=== PATIENT | male | born 1950 | race American Indian/Alaskan Native ===

== ENCOUNTER → 2019-03-29 | Day surgery (SDC) | payer OTHER ==
[2019-03-29 10:20] VITALS: BMI 27.8
[2019-03-29 10:23] LABS: MPV 9.2 fL (7.6-11.3)
--- OUTSIDE RECORDS SUMMARY | 2019-03-29 10:59 | XMS REPORT | Continuity of Care Document ---
:1950 Author Organization Interface Problems Problem Status Onset Classification Date Comments Source Date Reported 805.4 - FX LUMBAR Active 03/02/20 JESENIA JENKINS 15 [place] HISTORY OF Active 11/05/19 Condition 12/17/2014 [facility] HYPERTENSION 15 Neuro HISTORY OF SEIZURE Active 11/05/19 Condition 12/17/2014 [facility] DISORDER 15 Neuro CLOSED FRACTURE OF Active 11/03/19 Condition 12/17/2014 [facility] LUMBAR VERTEBRA 15 Neuro WITHOUT MENTION OF SPINAL CORD INJURY UNSTABLE L4 BURST Active 09/22/[address] Agitation Active Problem [facility]/21[facility] Aphasia Active Problem 03/21/2019 [facility] At risk for falls Active Problem 03/21/2019 [facility] Meningioma Active Problem 03/21/2019 [facility] BPH - Benign Resolved Problem 03/21/2019 JESENIA prostatic Jama Lozada [facility] Brain tumor Active Problem 03/21/2019 [facility] CVA - Active Problem 03/21/2019 JESENIA Cerebrovascular Jama Lozada [facility] Emotional lability Active Problem 03/21/2019 [facility] Encephalopathy Active Problem 03/21/2019 [facility] Enlarged prostate Resolved Problem 03/21/2019 [facility] Expressive aphasia Active Problem 03/21/2019 [facility] Hypertension Active Problem 03/21/2019 [facility] Impaired cognition Active Problem 03/21/2019 [facility] Impulsive Active Problem 03/21/2019 JESENIA Lozada,[facility] Seizure Active Problem 03/21/2019 JESENIA Lozada,[facility] Urinary retention Active Problem 03/21/2019 JESENIA Lozada,[facility] 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 Hydrocephalus Active Problem 03/21/2019 [facility] FX LUMBAR Active [facility] Medications Medication Details Route Status Patient Ordering Order Source Instructions Provider Date COUMADIN 1 MG 1 tab po qd Active [facility] TABS 2014 Neuro COUMADIN 6 MG 1 tab po qd prn Active [facility] TABS (as directed) 2014 Neuro FLOMAX 0.4 MG 1 cap po qd Active [facility] CAPS 2014 Neuro ATORVASTATIN 1 tab po qhs Active [facility] CALCIUM 20 MG 2014 Neuro TABS FINASTERIDE 5 1 tab po qd Active [facility] MG TABS 2014 Neuro TRIAMCINOLONE apply to the Active [facility] ACETONIDE 0.1 % affected area bid 2014 Neuro CREA prn rash ATORVASTATIN 1 tab po qhs Active [facility] CALCIUM 20 MG 2015 Neuro TABS Coumadin 10 mg, 1 tab, Inactive 09/26[facility] Route: PO, Drug 2013 Medical form: TAB, Q5PM, [facility] Dosing Weight 90.909, kg, Start date: 09/26/14 17:00:00, Duration: 1 doses or times, Stop date: 09/26/14 17:00:00Notes: Nurse to ensure documentation of patient education per anticoagulation policy. Avoid large intake of vitamin-K containing foods diet. (Same As: Coumadin) tramadol 50 mg=1 tab, PO, Active 09/26[facility] [place] hydrochloride Q6H, Pain, # 40 2013 Medical 50 MG Oral tab, 0 Refill(s) [facility] Tablet Oxycodone 5 mg, 1 tab, Inactive 09/26[facility] Hydrochloride 5 Route: PO, Drug 2013 Medical MG Oral Tablet form: TAB, ONCE, Center Dosing Weight 90.909, kg, Start date: 09/25/14 21:13:00, Stop date: 09/25/14 21:13:00Notes: (Same as: Roxicodone) AUGMENTIN 1 tab po bid No Longer cher 875-125 MG TABS Active 2013 Neuro BENTYL 20 MG 1 tab po q6h No Longer [facility] TABS Active 2013 Neuro TRAMADOL HCL 50 1 tab po q6h prn No Longer 09/26/ [facility] MG TABS pain Active 2013 Neuro TRAMADOL HCL 50 1 tab po q6h prn No Longer 09/26/ [facility] MG TABS pain Active 2013 Neuro Coumadin 10 mg, 2 tab, Inactive [facility] Route: PO, Drug 2013 Medical form: TAB, Q5PM, Center Dosing Weight 90.909, kg, Start date: 09/25/14 17:00:00, Duration: 1 doses or times, Stop date: 09/25/14 17:00:00Notes: Nurse to ensure documentation of patient education per anticoagulation policy. Avoid large intake of vitamin-K containing foods diet. (Same As: Coumadin) Coumadin 6 mg, 1 tab, Inactive [facility] Route: PO, Drug 2013 Medical form: TAB, ONCE, Center Dosing Weight 90.909, kg, Start date: 09/24/14 18:36:00, Stop date: 09/24/14 18:36:00Notes: (Same As: Coumadin) atorvastatin 20 mg, 1 tab, No Longer [facility] Route: PO, Drug Active 2013 Medical form: TAB, Center Bedtime, Dosing Weight 90.909, kg, Start date: 09/23/14 21:00:00, Duration: 30 day, Stop date: 10/22/14 21:00:00Notes: (Same As: Lipitor) Iohexol 95 mL, Route: Inactive [facility] IVP, Drug Form: 2013 Medical SOLN, Dosing Center Weight 90.909, kg, ONCALL, STAT, Start date: 09/23/14 14:51:00, Duration: 1 doses or times, Dose=2.2ml/kg, Max otcm=894sd -- "To be infused by Radiology Staff ONLY"Special Instructions: Dose=2.2ml/kg, Max dvft=201fn -- "To be infused by Radiology Staff ONLY"Notes: (Same as:Omnipaque 350). Dicyclomine 20 mg=1 tab, PO, Active [facility] Hydrochloride Q6H, # 40 tab, 0 2013 Medical 20 MG Oral Refill(s) [facility] Tablet [Bentyl] Warfarin Sodium 6 mg=1 tab, PO, Active [place] 6 MG Oral Daily, As 2013 Medical Tablet Directed, # 30 Center [Coumadin] tab, 0 Refill(s)Special Instructions: As Directed Warfarin Sodium 1 mg=1 tab, PO, Active [place] 1 MG Oral Daily, As 2013 Medical Tablet Directed, # 30 Center [Coumadin] tab, 0 Refill(s)Special Instructions: As Directed Triamcinolone 1 appl, TOP, BID, Active [facility] Acetonide 1 For rash, # 15 2013 Medical MG/ML Topical gm, 0 Refill(s) [facility] Cream Flomax 0.4 mg, 1 cap, No Longer [facility] Route: PO, Drug Active 2013 Medical form: CAP, Daily, Center Dosing Weight 90.909, kg, Start date: 09/23/14 9:00:00, Duration: 30 day, Stop date: 10/22/14 9:00:00Notes: (Same As: Flomax) "Do Not Crush" Finasteride 5 mg, 1 tab, No Longer [facility] Route: PO, Drug Active 2013 Medical form: TAB, Daily, Center Dosing Weight 90.909, kg, Start date: 09/23/14 9:00:00, Duration: 30 day, Stop date: 10/22/14 9:00:00Notes: (Same as: Proscar) "Do Not Crush" Amoxicillin 875 1 tab, Route: PO, No Longer [facility] MG / Drug Form: TAB, Active 2013 Medical Clavulanate 125 Dosing Weight Center MG Oral Tablet 90.909, kg, BID, [Augmentin Start date: 875-mg] 09/23/14 9:00:00, Duration: 30 day, Stop date: 10/22/14 17:00:00Notes: With food. (Same as: Augmentin 875) heparin sodium, Route: IVP, PRN, No Longer [facility] porcine 1000 6,400 unit, 6.4 Active 2013 Medical UNT/ML mL, Drug form: [facility] Injectable INJ, PRN, Heparin Solution Protocol, Start date: 09/23/14 8:03:00 Stop date: 10/23/14 8:02:00, 30 day heparin 500 mL, Rate: No Longer [facility] additive 25,000 28.86 ml/hr, Active 2013 Medical unit [18 Infuse over: 17.3 Center unit/kg/hr] + hr, Route: IV, Premix Diluent Dosing Weight Dextrose 5% 500 80.16 kg, Total mL Volume: 500 mL, Start date: 09/23/14 8:03:00, Duration: 30 day, Stop date: 10/23/14 8:02:00 Warfarin Sodium 0.5 mg=0.5 tab, No Longer [place] 1 MG Oral PO, Daily, # 30 Active 2013 Medical Tablet tab, 0 Refill(s) Center [Coumadin] Warfarin Sodium 6 mg=1 tab, PO, No Longer [place] 6 MG Oral Daily, # 30 tab, Active 2013 Medical Tablet 0 Refill(s) [facility] [Coumadin] atorvastatin 20 20 mg=1 tab, PO, Active [facility] mg oral tablet Bedtime, # 30 2013 Medical tab, 0 Refill(s) Center finasteride 5 5 mg=1 tab, PO, Active [facility] mg oral tablet Daily, # 30 tab, 2013 Medical 0 Refill(s) Center Tamsulosin 0.4 mg=1 cap, PO, Active [facility] hydrochloride Daily, # 30 cap, 2013 Medical 0.4 MG Oral 0 Refill(s) [facility] Capsule [Flomax] Amoxicillin 875 875 mg=1 tab, PO, Active [place] MG / BID, # 20 tab, 0 2013 Medical Clavulanate 125 Refill(s) Center MG Oral Tablet [Augmentin 875-mg] Acetaminophen 1 tab, Route: PO, No Longer [facility] 325 MG / Drug Form: TAB, Active 2013 Medical Hydrocodone Dosing Weight [facility] Bitartrate 5 MG 90.909, kg, Q4H, Oral Tablet PRN Pain Score 1-3, Start date: 09/22/14 20:38:00, Duration: 30 day, Stop date: 10/22/14 20:37:00Notes: (Same as: [place] 325/5) Do not exceed 4gm/day of acetaminophen. Acetaminophen 650 mg, 2 tab, No Longer [place] Route: PO, Drug Active 2013 Medical form: TAB, Q4H, Center Dosing Weight 90.909, kg, PRN Pain 1-3/Temp > 100.4 F, Start date: 09/22/14 20:38:00, Duration: 30 day, Stop date: 10/22/14 20:37:00Notes: Do not exceed 4 gm/day. (Same as: Tylenol) Allergies, Adverse Reactions, Alerts Substance Category Reaction Severity Reaction Status Date Comments Source type Reported Dilantin Assertion Drug Active [facility] allergy Neuro Keppra Assertion Drug Active [facility] allergy Neuro Immunizations Immunization Date Given Site Status Last Updated Comments Source Results Order Name Results Value Reference Date Interpretation Comments Source Range Spine Spine lumbar EXAM: CT lumbar spine without contrast. 12/17 [facility] lumbar wo wo contrast /2014 - [place] contrast CT CT DATE: 12/17/2014 Read by: Radha Martinez MD Dictated Date/time: 12/17/14 11:54 Electronically Signed by: Radha Martinez MD 12/17/14 12:02 FINAL REPORT INDICATION: Fracture COMPARISON: X-ray 11/05/2014, MRI 09/22/2014. TECHNIQUE: Examination was performed in a helical scanner without contrast material administration. Sagittal and coronal reformations were performed. DISCUSSION: Diffuse osteopenia. Stable compression fracture of the superior endplate at L3 with no retropulsion of bony fragments. There is vacuum phenomena at the L2-L3 disc with no intravertebral gas. Stable compression fracture at L4 with retropulsion of bony fragments by approximately 5 mm. There is no progressive loss in height. Evaluation of the spinal canal contents is limited by this imaging modality. There is a spinal canal stenosis at L3-L4 with significant deformity of the ventral thecal sac by the retropulsed bony fragme nt from the superior endplate and annular bulge. There is concentric annular bulge at L4-L5. There is encroachment of both L3-L4 neural foramen by annular bulge. IMPRESSION: Stable exam since prior MRI from August 2014, no new fractures or progressive loss in height at L3 and L4 fractures. Spine Spine lumbar EXAM: LUMBAR SPINE 2 VIEWS 11/05 - [facility] lumbar 2 or 2 or 3 views /2014 - [place] 3 views DX DX DATE: Nov 05, 2014 03:04:00 PM Read by: Wyatt Hairston MD Dictated Date/time: 11/05/14 16:23 Electronically Signed by: Wyatt Hairston MD 11/05/14 16:26 FINAL REPORT INDICATION: 805.4 Closed Fracture of Lumbar Vertebra without Mention of Spinal Cord Injury COMPARISON: Lumbar spine series 09/24/2014 TECHNIQUE: AP and lateral radiographs of the lumbar spine FINDINGS: There is straightening of the lumbar spine with no subluxation identified. There has been no progressive loss in height at the L4 vertebral body fracture with moderate height loss. There has b een no progressive loss in height at the L3 vertebral body fracture with mild height loss. The remaining lumbar vertebral body heights are maintained. Degenerative disc disease and facet arthropathy of the lumbar spine is unchanged. There is moderate arterial calcification. IVC filter is again noted. IMPRESSION: No progressive loss in height at L3 and L4 vertebral body fractures. HEMATOLOGY PT 16.3 s 12.0 - 09/26 [facility] 14. [facility] HEMATOLOGY INR 1.30 0.85 - 09/26 8Interpretive Data: RECOMMENDED RANGES FOR PROTIME INR: [facility] . 2.0-3.0 for most medical and surgical thromboembolic states. Medical 2.5-3.5 for artificial heart valves and recurrent embolism. Center INR SHOULD BE USED ONLY FOR PATIENTS ON STABLE ANTICOAGULANT THERAPY. HEMATOLOGY PTT 67.1 s 22.9 - 09/26 11Interpretiv [facility] 35.8 e Data: [facility] Heparin [facility] Therapeutic Range: 57 - 92 Seconds HEMATOLOGY PT 14.9 s 12.0 - 09/26 [facility] 14. [facility] HEMATOLOGY INR 1.16 0.85 - 09/26 9Interpretive Data: RECOMMENDED RANGES FOR PROTIME INR: [facility] . 2.0-3.0 for most medical and surgical thromboembolic states. Medical 2.5-3.5 for artificial heart valves and recurrent embolism. Center INR SHOULD BE USED ONLY FOR PATIENTS ON STABLE ANTICOAGULANT THERAPY. HEMATOLOGY PTT 62.6 s 22.9 - 09/26 12Interpretiv [facility] 35.8 /2013 e Data: [facility] Heparin [facility] Therapeutic Range: 57 - 92 Seconds HEMATOLOGY INR 1.21 0.85 - 09/25 10Interpretive Data: RECOMMENDED RANGES FOR PROTIME INR: [facility] . 2.0-3.0 for most medical and surgical thromboembolic states. Medical 2.5-3.5 for artificial heart valves and recurrent embolism. Center INR SHOULD BE USED ONLY FOR PATIENTS ON STABLE ANTICOAGULANT THERAPY. HEMATOLOGY PTT 53.0 s 22.9 - 09/25 13Interpretiv [facility] 35.8 e Data: [facility] Center Therapeutic Range: 57 - 92 Seconds HEMATOLOGY PT 15.4 s 12.0 - 09/25 [facility] 14.7 [facility] CHEM PANEL LDH 230 unit/L 98 - 192 09/24 [facility] CHEM PANEL I-5-Iukcmylvd 1.6 mg/L 1.0 - 2.3 09/24 [facility] CHEM PANEL Magnesium Lvl 1.7 mg/dL 1.8 - 2.4 09/24 [facility] ELECTROLYTE AGAP 11.0 meq/L 10.0 - 09/24 [facility] S 20.0 [facility] ELECTROLYTE eGFR 82 09/24 2Result Comment: The eGFR is calculated using the CKD-EPI formula. In most young, healthy individuals the eGFR will be > 90 mL/min/1.73m2. The eGFR declines with age. An eGFR of 60-89 may be normal in [facility] mL/min/1. some populations, particularly the elderly, for whom the CKD-EPI formula has not been extensively validated. Use of the eGFR is not recommended in the following populations: [place] [id number] Center Individuals with unstable creatinine concentrations, including patients and those with serious co-morbid conditions. Patients with extremes in muscle mass or diet. The data above are obtained from the National Kidney Disease Education Program (NKDEP) which additionally recommends that when the eGFR is used in patients with extremes of body mass index for purposes of drug dosing, the eGFR should be multiplied by the estimated BMI. ELECTROLYTE CO2 28 meq/L 24 - 32 09/24 [facility] ELECTROLYTE Calcium Lvl 8.8 mg/dL 8.5 - 10.5 09/24 [facility] ELECTROLYTE Sodium Lvl 141 meq/L 135 - 145 09/24 [facility] ELECTROLYTE Potassium Lvl 4.0 meq/L 3.5 - 5.1 09/24 [facility] ELECTROLYTE Chloride Lvl 106 meq/L 95 - 109 09/24 [facility] ELECTROLYTE BUN 19 mg/dL 7 - 22 09/24 [facility] ELECTROLYTE Glucose Lvl 92 mg/dL 70 - 99 09/24 5Interpretive Data: Adult reference range values reflect the clinical guidelines of the [place] [employer]. [facility] ELECTROLYTE Creatinine 1.1 mg/dL 0.5 - 1.4 09/24 [facility] S Lvl [facility] HEMATOLOGY Monocytes # 0.5 K/CMM 0.0 - 0.8 09/24 [facility] HEMATOLOGY Eosinophils # 0.1 K/CMM 0.0 - 0.5 09/24 [facility] HEMATOLOGY Monocytes 7.5 % 2.0 - 12.0 09/24 [facility] HEMATOLOGY Lymphocytes 24.8 % 20.0 - 09/24 [place] 40.0 [facility] HEMATOLOGY Eosinophils 1.5 % 0.0 - 4.0 09/24 [facility] HEMATOLOGY Segs 65.5 % 45.0 - 09/24 [place] 75.0 [facility] HEMATOLOGY Lymphocytes # 1.7 K/CMM 1.0 - 5.5 09/24 [facility] HEMATOLOGY Segs-Bands # 4.5 K/CMM 1.5 - 8.1 09/24 [facility] HEMATOLOGY Basophils 0.7 % 0.0 - 1.0 09/24 [facility] HEMATOLOGY Hct 41.6 % 42.0 - 09/24 [place] 54.0 [facility] HEMATOLOGY MCV 89.0 fL 80.0 - 09/24 94.0 [facility] HEMATOLOGY RBC 4.67 M/CMM 4.70 - 09/24 [place] 6.10 [facility] HEMATOLOGY Hgb 13.8 g/dL 14.0 - 09/24 18.0 [facility] HEMATOLOGY MCHC 33.2 g/dL 32.0 - 09/24 36.0 [facility] HEMATOLOGY RDW 14.4 % 11.5 - 09/24 14.5 [facility] HEMATOLOGY Platelet 150 K/CMM 133 - 450 09/24 [facility] HEMATOLOGY MCH 29.5 pg 27.0 - 09/24 [facility] [place] 31.0 /2013 [facility] HEMATOLOGY MPV 9.0 fL 7.4 - 10.4 09/24 [facility] HEMATOLOGY WBC 6.9 K/CMM 3.7 - 10.4 09/24 [facility] Spine Spine lumbar EXAM: XR LUMBAR SPINE 2 VIEWS 09/24 - [facility] lumbar 2 or 2 or 3 views /2013 - [facility] 3 views DX DX Center DATE: 2014-09-24 0931 hours Read by: Crissy Lim MD Dictated Date/time: 09/24/14 09:43 Electronically Signed by: Crissy Lim MD 09/24/14 09:48 FINAL REPORT INDICATION: Backache COMPARISON: Abdomen/pelvis CT of 09/23/2014, lumbar spine MRI of 2013 TECHNIQUE: AP and lateral radiographs of the lumbar spine FINDINGS: 5 lumbar-type, nonrib-bearing vertebral bodies are identified. A burst fracture of L4 and superior endplate compression fracture of L3 are not significantly changed in height or alignment comp ared with the prior examination. Retropulsion L4 is better visualized on the comparison studies. An IVC filter projects at L2. IMPRESSION: No significant interval change in height or alignment of the L3 compression fracture and L4 burst compression fracture in brace. URINE AND UA <=1.0 0.1 - 1.0 09/23 [facility] Urobilinogen mg/dL [facility] URINE AND Micro? Not Indicated 09/23 [facility] *NA* [facility] (09/23/14 3:33 PM) URINE AND UA Blood Negative Negative 09/23 [facility] Glucose Negative Negative 09/23 [facility] mg/dL mg/dL [facility] URINE AND UA Bili Negative Negative 09/23 [facility] *NA* [facility] (09/23/14 3:33 PM) URINE AND UA Ketones Negative Negative 09/23 [facility] mg/dL mg/dL [facility] URINE AND UA Protein Negative Negative 09/23 [facility] mg/dL mg/dL [facility] URINE AND UA pH 6.5 5.0 - 8.0 09/23 [facility] URINE AND UA Mucus Few /LPF None Seen 09/23 [facility] STOOL /LPF /2013 [facility] URINE AND UA Nitrite Negative Negative 09/23 [facility] (09/23/14 3:33 PM) [facility] URINE AND UA WBC 1 /HPF 0 - 5 09/23 [facility] URINE AND UA Leuk Est Negative Negative 09/23 [facility] (09/23/14 3:33 PM) [facility] URINE AND UA Turbidity Clear Clear 09/23 [facility] (09/23/14 3:33 PM) [facility] URINE AND UA Spec Grav 1.008 <=1.030 09/23 [facility] URINE AND UA Color Yellow Yellow 09/23 [facility] *NA* [facility] (09/23/14 3:33 PM) Chest w Chest w EXAM: CT CHEST WITH CONTRAST 09/23 - [facility] contrast CT contrast CT - [facility] This report was dictated by a [employer] Android Developer/Fellow. I have personally reviewed the images as Center well as the Resident's interpretation and agree with the findings. DATE: 09/23/2014 at 1540 hours Read by: Aylin Warren MD Resident: Aylin Warren MD Dictated Date/time: 09/24/14 07:47 Electronically Signed by: Shayan Gomez 09/25/14 07:22 FINAL REPORT INDICATION: Mass COMPARISON: Chest radiograph from 05/27/2012. TECHNIQUE: Following intravenous administration of 91 cc of Omnipaque, without adverse reaction, the chest was scanned from apices to the bases. Multiplanar reformatted images in the sagittal and brice l planes as well as maximal intensity projection (MIP) images were reviewed. FINDINGS: Lines and tubes: A catheter is noted traversing throughout the anterior right chest wall, and represents patient's ventricular peritoneal shunt. The cardiothoracic ratio measures 11.3/27.3 cm. Measurements and appearance of the thoracic aorta and pulmonary artery are normal. No pericardial effusion is noted. There is mild calcified atherosclero tic disease of the thoracic aorta and coronary arteries noted. Please note this is not a study for the evaluation of pulmonary embolism. Lymph nodes: There are a few, nonspecific, subcentimeter mediastinal lymph nodes noted, which are not pathologically enlarged. Lungs: No pathologic pulmonary nodule or mass. There is mild subsegmental and dependent bibasilar atelectasis noted. No pleural effusion or pneumothorax. The trachea and central bronchi are normal. A round lucency, with well circumscribed sclerotic margins is noted in the vertebral body of T6 (series 8, image 127). Findings of the upper abdomen are better characterized and described in the separately dictated CT abdomen and pelvis from 09/23/2014. CONCLUSION: 1. No pathologic pulmonary nodules or intrathoracic lymphadenopathy. 2. Round lucency, with well circumscribed margins is noted in the vertebral body of T6, and is felt to likely represent a simple bone cyst or intraosseous hemangioma, and not malignancy. If further eval uation wants to be obtained an MRI of the T-spine could be performed. 3. Three-vessel coronary artery disease and mild calcified atherosclerotic disease of the thoracic aorta. 4. Bilateral right greater than left lower lobe subsegmental atelectasis. Abdomen/Pel Abdomen/Pelvi EXAM: CT ABDOMEN and pelvis with CONTRAST 09/23 - [facility] IV s w IV /2013 - Medical contrast CT contrast CT This report was dictated by a [employer] Android Developer/Fellow. I have personally reviewed the images as Center well as the Resident's interpretation and agree with the findings. DATE: 09/23/2014 at 1540 hours.. Read by: James Shepard MD Resident: James Shepard MD Dictated Date/time: 09/23/14 16:04 Electronically Signed by: Saida Alcaraz MD 09/24/14 14:56 FINAL REPORT INDICATION: Renal cell carcinoma.. ADDITIONAL INFORMATION: 64-year-old male with past medical history of renal cell carcinoma status post right nephrectomy, meningioma status post resection, history of pulmonary embolism, now with L4 bur st fracture with 20% canal stenosis, concern over recurrence of RCC or other new malignancy. COMPARISON: CT of abdomen pelvis 09/22/2014 at 1736 hours. TECHNIQUE: Helical acquisition of the abdomen and pelvis was obtained from the lung bases to the symphysis pubis after uneventful administration of intravenous contrast in the venous and delayed phases of contrast enhancement. Axial, sagittal and coronal images were interpreted. FINDINGS: BONES: There is a comminuted fracture the vertebral body of L4 with associated compression deformity and almost complete height loss as well as posterior displacement of the superior posterior endplate fragmen t into the spinal canal. This is consistent with a blowout fracture. Degenerative vacuum disc phenomenon is seen superiorly to the vertebral body. Compression deformity is also seen of the vertebral body of L3 with approximately 20% height loss. Anterior osteophytes are seen the level of T11, T12 and L1. There is a small bone island present in the body of the left ilium. ABDOMEN/PELVIS: There is large calcified gallstone within the gallbladder, without gallbladder wall thickening, pericholecystic fluid, or dilation of the intrahepatic or extrahepatic bile ducts. The pancreas, spleen, and adrenals show no significant abnormalities. The stomach is normal in appearance. Visualized small bowel colon of normal caliber. No mesenteric abnormalities are seen. No free fluid or free air. A small renal cyst in the midpole the left kidney. There are postsurgical changes of partial right nephrectomy. The bladder is decompressed with a Cobb catheter in place. An IVC filter is in place with tip just slightly superior to the inferior border of the renal veins bilaterally. There are atherosclerotic calcifications throughout the abdominal aorta and common iliac s bilaterally. Otherwise, the aorta and IVC display normal caliber. The abdominal and pelvic lymph nodes are unremarkable. No retroperitoneal abnormalities are seen. A TEACHER AIDE CLERICAL shunt is seen to be in place entering the abdomen at the level of the L3 vertebral body and with tip terminating adjacent to the descending colon. A small amount of free fluid is present in the dep endent portion of the pelvis, likely secondary to shunting of CSF. Phleboliths are seen in the pelvis. No soft tissue masses are identified. CHEST: Please see chest CT with contrast performed the same day for intrathoracic findings. IMPRESSION: 1. Blowout fracture the vertebral body of L4, with posterior displacement of a comminuted fragment into the spinal canal and almost complete height loss. No lytic lesions are seen to suggest underlying pathological nature of the fracture. 2. Compression deformity of L3 with approximately 20% height loss. 3. Cholelithiasis without acute cholecystitis. 4. Postsurgical changes consistent with right sided partial nephrectomy without local recurrence or metastatic disease. HEMATOLOGY Lymphocytes # 1.1 K/CMM 1.0 - 5.5 09/[address] HEMATOLOGY Monocytes # 0.6 K/CMM 0.0 - 0.8 09/[address] HEMATOLOGY Segs-Bands # 8.1 K/CMM 1.5 - 8.1 09/[address] HEMATOLOGY Basophils 0.1 % 0.0 - 1.0 09/23 [facility] HEMATOLOGY Monocytes 6.6 % 2.0 - 12.0 09/23 [facility] HEMATOLOGY Segs 82.4 % 45.0 - 09/23 [place] 75.0 [facility] HEMATOLOGY Lymphocytes 10.8 % 20.0 - 09/23 [place] 40.0 /2013 [facility] HEMATOLOGY Eosinophils 0.1 % 0.0 - 4.0 09/23 [facility] HEMATOLOGY Platelet 153 K/CMM 133 - 450 09/23 [facility] HEMATOLOGY MPV 8.6 fL 7.4 - 10.4 09/23 [facility] HEMATOLOGY RDW 14.2 % 11.5 - 09/23 14.5 [facility] HEMATOLOGY MCHC 34.0 g/dL 32.0 - 09/23 [place] 36.0 [facility] HEMATOLOGY MCH 30.4 pg 27.0 - 09/23 [facility] 31.0 [facility] HEMATOLOGY RBC 4.73 M/CMM 4.70 - 09/23 [place] 6.10 [facility] HEMATOLOGY Hct 42.3 % 42.0 - 09/23 [place] 54.0 [facility] HEMATOLOGY WBC 9.8 K/CMM 3.7 - 10.4 09/23 [facility] HEMATOLOGY Hgb 14.4 g/dL 14.0 - 09/23 [place] 18.0 [facility] HEMATOLOGY MCV 89.3 fL 80.0 - 09/23 [facility] 94.0 [facility] URINE AND UA RBC null 0 - 2 09/23 [facility] URINE AND UA <=1.0 0.1 - 1.0 09/23 [facility] STOOL Urobilinogen mg/dL /2013 [facility] URINE AND UA WBC 1 /HPF 0 - 5 09/23 [facility] URINE AND UA Nitrite Negative Negative 09/23 [facility] STOOL [facility] (09/23/14 6:34 AM) [facility] URINE AND UA Ketones Negative Negative 09/23 [facility] mg/dL mg/dL [facility] URINE AND UA Glucose 30 mg/dL Negative 09/23 [facility] STOOL mg/dL [facility] URINE AND UA Blood Negative Negative 09/23 [facility] (09/23/14 6:34 AM) [facility] URINE AND UA Bili Negative Negative 09/23 [facility] *NA* [facility] (09/23/14 6:34 AM) URINE AND UA Sq Epi Few /LPF Few /LPF 09/23 [facility] URINE AND UA Leuk Est Negative Negative 09/23 [facility] (09/23/14 6:34 AM) [facility] URINE AND UA Mucus Few /LPF None Seen 09/23 [facility] /LPF /2013 [facility] URINE AND UA pH 6.5 5.0 - 8.0 09/23 [facility] URINE AND UA Spec Grav 1.022 <=1.030 09/23 [facility] URINE AND UA Turbidity Clear Clear 09/23 [facility] (09/23/14 6:34 AM) [facility] URINE AND UA Protein 10 mg/dL Negative 09/23 [facility] mg/dL [facility] URINE AND UA Color Yellow Yellow 09/23 [facility] *NA* [facility] (09/23/14 6:34 AM) CHEM PANEL Phosphorus 4.6 mg/dL 2.5 - 4.5 09/23 [facility] CHEM PANEL Magnesium Lvl 1.8 mg/dL 1.8 - 2.4 09/23 [facility] CHEM PANEL eGFR 92 09/23 3Result Comment: The eGFR is calculated using the CKD-EPI formula. In most young, healthy individuals the eGFR will be >90 mL/ min/1.73m2. The eGFR declines with age. An eGFR of 60-89 may be normal in [facility] mL/min/1.7 some populations, particularly the elderly, for whom the CKD-EPI formula has not been extensively validated. Use of the eGFR is not recommended in the following populations: [address] Individuals with unstable creatinine concentrations, including patients and those with serious co-morbid conditions. Patients with extremes in muscle mass or diet. The data above are obtained from the National Kidney Disease Education Program (NKDEP) which additionally recommends that when the eGFR is used in patients with extremes of body mass index for purposes of drug dosing, the eGFR should be multiplied by the estimated BMI. CHEM PANEL Calcium Lvl 8.9 mg/dL 8.5 - 10.5 09/23 [facility] CHEM PANEL AGAP 12.6 meq/L 10.0 - 09/23 20.0 [facility] CHEM PANEL BUN 17 mg/dL 7 - 22 09/23 [facility] CHEM PANEL Glucose Lvl 107 mg/dL 70 - 99 09/23 6Interpretive Data: Adult reference range values reflect the clinical guidelines of the [place] [employer]. [facility] CHEM PANEL Potassium Lvl 4.6 meq/L 3.5 - 5.1 09/23 [facility] CHEM PANEL CO2 26 meq/L 24 - 32 09/23 [facility] CHEM PANEL Chloride Lvl 106 meq/L 95 - 109 09/23 [facility] CHEM PANEL Sodium Lvl 140 meq/L 135 - 145 09/23 [facility] CHEM PANEL Creatinine 1.0 mg/dL 0.5 - 1.4 09/23 [facility] HEMATOLOGY Segs 86.9 % 45.0 - 09/23 75.0 [facility] HEMATOLOGY Monocytes 3.5 % 2.0 - 12.0 09/23 [facility] HEMATOLOGY Lymphocytes 9.4 % 20.0 - 09/23 40.0 [facility] HEMATOLOGY Basophils 0.1 % 0.0 - 1.0 09/23 [facility] HEMATOLOGY Eosinophils 0.1 % 0.0 - 4.0 09/23 [facility] HEMATOLOGY Monocytes # 0.3 K/CMM 0.0 - 0.8 09/23 [facility] HEMATOLOGY Lymphocytes # 0.8 K/CMM 1.0 - 5.5 09/23 [facility] HEMATOLOGY Segs-Bands # 7.7 K/CMM 1.5 - 8.1 09/23 [facility] HEMATOLOGY MPV 8.7 fL 7.4 - 10.4 09/23 [facility] HEMATOLOGY Platelet 156 K/CMM 133 - 450 09/23 [facility] HEMATOLOGY RBC 4.79 M/CMM 4.70 - 09/23 [facility] 6.10 [facility] HEMATOLOGY WBC 8.8 K/CMM 3.7 - 10.4 09/23 [facility] HEMATOLOGY Hgb 14.5 g/dL 14.0 - 09/23 [facility] [place] 18.0 [facility] HEMATOLOGY MCHC 33.7 g/dL 32.0 - 09/23 [place] 36.0 [facility] HEMATOLOGY MCH 30.4 pg 27.0 - 09/23 [place] 31.0 [facility] HEMATOLOGY MCV 90.0 fL 80.0 - 09/23 [facility] 94.0 [facility] HEMATOLOGY Hct 43.1 % 42.0 - 09/23 [place] 54.0 [facility] HEMATOLOGY RDW 14.1 % 11.5 - 09/23 [facility] 14. [facility] HEMATOLOGY Sed Rate 20 mm/h 0 - 15 09/23 [facility] IMMUNOLOGY C-REACTIVE 23.9 mg/L <=2.9 mg/L 09/23 [facility] PROTEIN [facility] ELECTROLYTE AGAP 13.6 meq/L 10.0 - 09/23 [facility] S 20. [facility] ELECTROLYTE eGFR 82 09/23 4Result Comment: The eGFR is calculated using the CKD-EPI formula. In most young, healthy individuals the eGFR will be > 90 mL/min/1.73m2. The eGFR declines with age. An eGFR of 60-89 may be normal in [facility] mL/min/1. some populations, particularly the elderly, for whom the CKD-EPI formula has not been extensively validated. Use of the eGFR is not recommended in the following populations: [address] Individuals with unstable creatinine concentrations, including patients and those with serious co-morbid conditions. Patients with extremes in muscle mass or diet. The data above are obtained from the National Kidney Disease Education Program (NKDEP) which additionally recommends that when the eGFR is used in patients with extremes of body mass index for purposes of drug dosing, the eGFR should be multiplied by the estimated BMI. ELECTROLYTE Calcium Lvl 9.1 mg/dL 8.5 - 10.5 09/23 S [facility] ELECTROLYTE Glucose Lvl 163 mg/dL 70 - 99 09/23 7Interpretive Data: Adult reference range values reflect the clinical guidelines [facility] of the [place] [employer]. [facility] ELECTROLYTE Creatinine 1.1 mg/dL 0.5 - 1.4 09/23 [facility] S Lvl [facility] ELECTROLYTE Sodium Lvl 137 meq/L 135 - 145 09/23 [facility] S [facility] ELECTROLYTE BUN 14 mg/dL 7 - 22 09/23 [facility] ELECTROLYTE CO2 27 meq/L 24 - 32 09/23 [facility] ELECTROLYTE Potassium Lvl 5.6 meq/L 3.5 - 5.1 09/23 1Result Comment: Medical [facility] hemolysis ELECTROLYTE Chloride Lvl 102 meq/L 95 - 109 09/23 [facility] HEMATOLOGY RBC Morph Normal 09/23 [facility] (09/22/14 6:30 PM) [facility] HEMATOLOGY Eosinophils # 0.0 K/CMM 0.0 - 0.5 09/23 [facility] HEMATOLOGY Basophils # 0.1 K/CMM 0.0 - 0.2 09/23 [facility] HEMATOLOGY Plt Morph Normal 09/23 [facility] (09/22/14 6:30 PM) [facility] IMMUNOLOGY [facility] HIV 4th Negative Negative 09/22 [facility] (09/22/14 3:50 PM) [facility] Spine Spine lumbar EXAM: MRI LUMBAR SPINE WITH AND WITHOUT CONTRAST 09/22 - [facility] lumbar w/wo w/wo contrast /2013 - [facility] contrast MRI This report was dictated by a J2Ee Android Developer/ Fellow. I have personally reviewed the images as Center MRI well as the Resident's interpretation and agree with the findings. DATE: Sep 22, 2014 07:40:00 PM Read by: Werner Bejarano MD Resident: Werner Bejarano MD Dictated Date/time: 09/23/14 08:23 Electronically Signed by: Michael Burk 09/23/14 16:55 FINAL REPORT INDICATION: Mass, fracture COMPARISON: CT 09/22/2014 TECHNIQUE: Multiplanar, multisequence imaging of the lumbar spine without contrast. DISCUSSION: Normal lumbar segmentation is assumed with the lowest fully formed intervertebral disk space labeled as L5-S1 for the purpose of this examination. An L4 burst fracture is present with approximately 8 mm retropulsion. A small epidural hematoma is present dorsally at L4-L5. The retropulsed component results in constriction of the thecal sac and caud a equina nerve root compression at the level of the superior aspect of L4. There are also fractures of the left L3 and L4 transverse processes. Also a nondisplaced fracture through the left L4 lamina is better seen on recent CT.. Also edema in the L2-L3, L3-L4, and L4-L5 intervertebral discs Surrounding edema in the paraspinal soft tissues is present. An L3 superior endplate compression fracture resulting in approximately 25 % height loss is present. No significant retropulsion is present. The conus medullaris terminates at the L1 level. It has a normal contour and normal signal characteristics. Lower thoracic spine DISH noted. T12-L1: No central canal or neural foraminal stenosis. L1-L2: No central canal or neural foraminal stenosis. L2-L3: Small disc bulge tiny annular fissure. Prominent dorsal epidural fat. Facet arthropathy. L3-L4: Diffuse disc bulge. Ligamentum flavum redundancy. Bilateral facet arthropathy. Severe canal stenosis in the setting of the aforementioned fracture. Mild right and severe left neural foraminal stenosis. L4-L5: Severe facet arthropathy contributes to mild bilateral neural foraminal stenosis. L5-S1: Small central disc protrusion. Bilateral facet arthropathy, left greater than right. Minimal left neural foraminal stenosis. IMPRESSION: Burst fracture of L4 and with retropulsion results in severe spinal canal stenosis and cauda equina nerve root compression. In the setting of acute bone marrow edema, evaluation for pathologic fracture is present. Superior endplate fracture of L3. No significant retropulsion. Left L3 and L4 transverse process fractures. Edema in the L2-L3 through L4-L5 intervertebral discs. Critical findings were communicated by telephone maintenance mechanic interventional radiology tech to the on -call neurosurgery resident at 1938 on 09/22/2014 Vital Signs Vital Sign Value Date Comments Source Height 180.34 cm 03/12/2019 [facility] BMI Calculated 28.37 03/12/2019 [facility] Weight 92.273 03/12/2019 [facility] Temperature Oral (F) 98.0 F 03/12/2019 [facility] Heart Rate 86 03/12/2019 [facility] Systolic (mm Hg) 138 03/12/2019 [facility] Diastolic (mm Hg) 73 03/12/2019 [facility] Weight 191.1 12/17/2014 [facility] Height 71 12/17/2014 [facility] Temperature Oral (F) 96.6 F 12/17/2014 [facility] Heart Rate 101 12/17/2014 [facility] Systolic (mm Hg) 136 12/17/2014 [facility] Diastolic (mm Hg) 96 12/17/2014 [facility] Respitory Rate 18 12/17/2014 [facility] Weight 191.6 11/05/2014 [facility] Height 71 11/05/2014 [facility] Temperature Oral (F) 97.7 F 11/05/2014 [facility] Respitory Rate 16 11/05/2014 [facility] Heart Rate 102 11/05/2014 [facility] Systolic (mm Hg) 151 11/05/2014 [facility] Diastolic (mm Hg) 102 11/05/2014 [facility] Systolic (mm Hg) 142 09/26/2014 [facility] Respitory Rate 19 09/26/2014 [facility] Diastolic (mm Hg) 87 09/26/2014 [facility] Temperature Oral (F) 98.7 F 09/26/2014 [facility] Heart Rate 94 09/26/2014 [facility] Heart Rate 87 09/26/2014 [facility] Temperature Oral (F) 97.8 F 09/26/2014 [facility] Diastolic (mm Hg) 81 09/26/2014 [facility] Systolic (mm Hg) 138 09/26/2014 [facility] Respitory Rate 19 09/26/2014 [facility] Diastolic (mm Hg) 82 09/26/2014 [facility] Systolic (mm Hg) 136 09/26/2014 [facility] Heart Rate 74 09/26/2014 [facility] Respitory Rate 20 09/26/2014 [facility] Temperature Oral (F) 98.0 F 09/26/2014 [facility] BMI Calculated 28.76 09/23/2014 [facility] Weight 90.909 09/23/2014 [facility] Height 177.8 cm 09/23/2014 [facility] Height 177.8 cm 09/22/2014 [facility] BMI Calculated 28.76 09/22/2014 [facility] Weight 90.909 09/22/2014 [facility] Encounters Location Location Encounter Encounter Reason Attending ADM DC Status Source Details Type Number For Provider Date Date Visit [facility] [id number] Yefri 09/22 09/26 [facility] [place] /2013 [facility] [id number] Trey Reed 11/05 11/05 [facility] Visit 5660 MD /2014 [facility] Outpt Diag [id number] Lalo 11/05 11/06 [facility] Office [id number] Trey Reed 12/17 12/17 [facility] Visit 3120 NE /2014 [facility] Outpatient [id number] PHYLLIS 12/21 [facility] [place] [facility] [id number] 02/12 02/14 [facility] /2018 [facility] [place] [facility] [id number] 02/19 02/21 [facility] /2018 [facility] [place] [facility] Phone [id number] 03/01 03/03 [facility] Message /2018 [facility] Outpatient [id number] Randy Lynn 03/12 [facility] [id number] Kim 03/12 03/13 [facility] Obdulia /2018 [facility] Phone [id number] 03/15 03/17 [facility] Message /2018 [facility] Phone [id number] 03/18 03/20 [facility] Message /2018 [facility] Phone [id number] 03/18 03/20 [facility] Message /2018 [facility] Phone [id number] 03/18 03/20 [facility] Message /2018 [facility] Outpatient [id number] Armando 04/24 [facility] Procedures Procedure Code Date Perfomer Comments Source Shunt construction [id number] [facility] Tumor [id number] [facility] tumor [facility] destruction<sup>1</ removal sup>
--- OUTSIDE RECORDS SUMMARY | 2019-03-29 11:00 | XMS REPORT | Summary of Care ---
:1950 Author Organization [facility] Neurosurgery [facility] Address [address] [place] [address] [place] [phone]- Encounter HQ Encntr_alias(FIN) [id number] Date(s): 03/18/19 - 03/19/19 [facility] [address] [place] [address] [place] [phone] Vital Signs No data available for this section Problem List Condition Effective Dates Status Health Status Informant Agitation(Confirmed) Active Aphasia(Confirmed) Active At risk for falls(Confirmed) Active Meningioma(Confirmed) Active BPH - Benign prostatic Resolved hypertrophy(Confirmed) Brain tumor(Confirmed) Active Brain tumor(Confirmed) Resolved 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) CVA - Cerebrovascular Active accident(Confirmed) Emotional lability(Confirmed) Active Encephalopathy(Confirmed) Active Enlarged prostate(Confirmed) Resolved Expressive aphasia(Confirmed) Active Hydrocephalus(Confirmed) Active Hypertension(Confirmed) Active Impaired cognition(Confirmed) Active Impulsive(Confirmed) Active Seizure(Confirmed) Active Urinary retention(Confirmed) Active Allergies, Adverse Reactions, Alerts Substance Reaction Severity Status Dilantin Active Keppra Active NKDA Resolved Medications No data available for this section Results No data available for this section Immunizations No data available for this section Procedures Procedure Date Related Diagnosis Body Site Status Shunt construction Completed Tumor destruction1 Completed 1brain tumor removal Social History Social History Type Response Smoking Status Unknown if ever smoked; Exposure to Tobacco Smoke None; Cigarette Smoking Last 365 Days No; Reg Smoking Cessation Counseling No entered on: 03/13/19 Assessment and Plan No data available for this section
--- OUTSIDE RECORDS SUMMARY | 2019-03-29 11:00 | XMS REPORT | Summary of Care ---
:1950 Author Organization [facility] [place] [facility] Address [address] [place] [address] [place] [phone]- Encounter HQ Encntr_alias(FIN) [id number] Date(s): 03/18/19 - 03/19/[address] [place] [phone]- Vital Signs No data available for this [...]
--- OUTSIDE RECORDS SUMMARY | 2019-03-29 11:00 | XMS REPORT | Summary of Care ---
:1950 Author Organization [facility] [place] [facility] Address [address] [place] [address] [place] [phone]- Encounter HQ Encntr_alias(FIN) [id number] Date(s): 03/18/19 - 03/19/[address] [place] [phone]- Vital Signs No data available for this [...]
[2019-03-29 11:02] LABS: Platelet Estimate ADEQ
--- OUTSIDE RECORDS SUMMARY | 2019-03-29 11:02 | XMS REPORT | Continuity of Care Document ---
:1950 Author Organization [facility] Care Team Providers Name Role Phone Trey Reed MD Unavailable Unavailable Insurance Providers Payer name Policy type / Policy ID Covered republican ID Policy [place] Coverage type AETNA (POS) AETNA (POS) AETNA (POS) MEDICARE [place]: [employer] Encounters Encounter Performer Location Date Office Visit Trey Reed MD [facility] Nov 05, 2014 Problems Problem Effective Dates Problem Status CLOSED FRACTURE OF LUMBAR VERTEBRA WITHOUT MENTION OF Nov 03, 2014 Active SPINAL CORD INJURY HISTORY OF HYPERTENSION Nov 05, 2014 Active HISTORY OF SEIZURE DISORDER Nov 05, 2014 Active Procedures Date Description Comments Nov 05, 2014 smoking status Never smoker Medications Medication Instructions Start Date Status AUGMENTIN 875-125 MG TABS 1 tab po bid Sep 26, 2014 Inactive BENTYL 20 MG TABS 1 tab po q6h Sep 26, 2014 Inactive COUMADIN 1 MG TABS 1 tab po qd Nov 05, 2014 Active COUMADIN 6 MG TABS 1 tab po qd prn (as directed) Nov 05, 2014 Active FLOMAX 0.4 MG CAPS 1 cap po qd Nov 05, 2014 Active ATORVASTATIN CALCIUM 20 MG TABS 1 tab po qhs Nov 05, 2014 Active FINASTERIDE 5 MG TABS 1 tab po qd Nov 05, 2014 Active TRAMADOL HCL 50 MG TABS 1 tab po q6h prn pain Sep 26, 2014 Inactive TRIAMCINOLONE ACETONIDE 0.1 % apply to the affected area bid Nov 05, 2014 Active CREA prn rash Vital Signs Date Description Test Result Nov 05, 2014 weight E&M - 3141-9 WEIGHT 191.6 lb Nov 05, 2014 height E&M - 8302-2 HEIGHT 71 in Nov 05, 2014 temperature E&M TEMPERATURE 97.7 deg f Nov 05, 2014 respiratory rate E&M - 9279-1 RESP RATE 16 /min Nov 05, 2014 pulse rate E&M - 8867-4 PULSE RATE 102 /min Nov 05, 2014 blood pressure, systolic - 8480-6 BP SYSTOLIC 151 mm Hg Nov 05, 2014 blood pressure, diastolic - 8462-4 BP DIASTOLIC 102 mm Hg
--- OUTSIDE RECORDS SUMMARY | 2019-03-29 11:02 | XMS REPORT | Continuity of Care Document ---
:1950 Author Organization [facility] Care Team Providers Name Role Phone Trey Reed MD Unavailable Unavailable Insurance Providers Payer name Policy type / Policy ID Covered alliance party ID Policy [place] Coverage type AETNA (POS) AETNA (POS) AETNA (POS) [place]IC[place]: [employer] Encounters Encounter Performer Location Date Office Visit Trey Reed MD [facility] [place] [facility] [place] Problems Problem Effective Dates Problem Status CLOSED FRACTURE OF LUMBAR VERTEBRA WITHOUT MENTION OF Nov 03, 2014 Active SPINAL CORD INJURY HISTORY OF HYPERTENSION Nov 05, 2014 Active HISTORY OF SEIZURE DISORDER Nov 05, 2014 Active Procedures Date Description Comments Nov 05, 2014 smoking status Never smoker Dec 17, 2014 smoking status Never smoker Medications Medication [...] - 8462-4 BP DIASTOLIC 102 mm Hg Dec 17, 2014 weight E&M - 3141-9 WEIGHT 191.1 lb Dec 17, 2014 height E&M - 8302-2 HEIGHT 71 in Dec 17, 2014 temperature E&M TEMPERATURE 96.6 deg f Dec 17, 2014 pulse rate E&M - 8867-4 PULSE RATE 101 /min Dec 17, 2014 blood pressure, systolic - 8480-6 BP SYSTOLIC 136 mm Hg Dec 17, 2014 blood pressure, diastolic - 8462-4 BP DIASTOLIC 96 mm Hg Dec 17, 2014 respiratory rate E&M - 9279-1 RESP RATE 18 /min
--- OUTSIDE RECORDS SUMMARY | 2019-03-29 11:03 | XMS REPORT | Continuity of Care Document ---
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 [facility] [facility] Aphasia Active Problem 03/21/[address] [facility] Neuro At risk for falls Active Problem 03/21/[address] [facility] Neuro Meningioma Active Problem 03/21/2019 [facility] Neuro BPH - Benign Resolved Problem 03/21/2019 JESENIA prostatic Jama Lozada [facility] Neuro Brain tumor Active Problem 03/21/[address] [facility] Neuro CVA - Active Problem 03/21/2019 JESENIA Cerebrovascular Jama Lozada [facility] Neuro Emotional lability Active Problem 03/21/[address] [facility] Neuro Encephalopathy Active Problem 03/21/[address] [facility] [facility] Enlarged prostate Resolved Problem 03/21/[address] [facility] [facility] Expressive aphasia Active Problem 03/21/[address] [facility] [facility] Hypertension Active Problem 03/21/[address] [facility] [facility] Impaired cognition Active Problem 03/21/[address] [facility] Neuro Impulsive Active Problem 03/21/2019 JESENIA Lozada,M [facility] Neuro Seizure Active Problem 03/21/2019 JESENIA Lozada,Chi 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 Hydrocephalus Active Problem 03/21/2019 [facility] Neuro FX LUMBAR Active [facility] Medications Medication Details Route Status Patient Ordering Order Source Instructions Provider Date COUMADIN 1 MG 1 tab po qd Active [facility] TABS 2014 Neuro COUMADIN 6 MG 1 tab po qd prn Active [facility] TABS (as directed) 2014 Neuro FLOMAX 0.4 MG 1 cap po qd Active [facility] CAPS 2014 Neuro ATORVASTATIN 1 tab po qhs Active [facility] CALCIUM 20 MG 2014 Neuro TABS FINASTERIDE 5 1 tab po qd Active [facility] MG TABS 2014 Neuro TRIAMCINOLONE apply to the Active [facility] ACETONIDE 0.1 % affected area bid 2014 Neuro CREA prn rash ATORVASTATIN 1 tab po qhs Active [facility] CALCIUM 20 MG 2015 Neuro TABS Coumadin 10 mg, 1 tab, Inactive 09/26[facility] Route: PO, Drug 2013 Medical form: TAB, Q5PM, [place] Dosing Weight 90.909, kg, Start date: 09/26/14 17:00:00, Duration: 1 doses or times, Stop date: 09/26/14 17:00:00Notes: Nurse to ensure documentation of patient education per anticoagulation policy. Avoid large intake of vitamin-K containing foods diet. (Same As: Coumadin) tramadol 50 mg=1 tab, PO, Active 09/26[facility] [place] hydrochloride Q6H, Pain, # 40 2013 Medical 50 MG Oral tab, 0 Refill(s) [place] Tablet Oxycodone 5 mg, 1 tab, Inactive 09/26[facility] Hydrochloride 5 Route: PO, Drug 2013 Medical [...] Neuro Coumadin 10 mg, 2 tab, Inactive [facility] Route: PO, Drug 2013 Medical form: TAB, Q5PM, Center Dosing Weight 90.909, kg, Start date: 09/25/14 17:00:00, Duration: 1 doses or times, Stop date: 09/25/14 17:00:00Notes: Nurse to ensure documentation of patient education per anticoagulation policy. Avoid large intake of vitamin-K containing foods diet. (Same As: Coumadin) Coumadin 6 mg, 1 tab, Inactive [facility] Route: PO, Drug 2013 Medical form: TAB, ONCE, Center Dosing Weight 90.909, kg, Start date: 09/24/14 18:36:00, Stop date: 09/24/14 18:36:00Notes: (Same As: Coumadin) atorvastatin 20 mg, 1 tab, No Longer [facility] Route: PO, Drug Active 2013 Medical form: TAB, Center Bedtime, Dosing Weight 90.909, kg, Start date: 09/23/14 21:00:00, Duration: 30 day, Stop date: 10/22/14 21:00:00Notes: (Same As: Lipitor) Iohexol 95 mL, Route: Inactive [facility] IVP, Drug Form: 2013 Medical SOLN, Dosing Center Weight 90.909, kg, ONCALL, STAT, Start date: 09/23/14 14:51:00, Duration: 1 doses or times, Dose=2.2ml/kg, Max evof=[id number] -- "To be infused by Radiology Staff ONLY"Special Instructions: Dose=2.2ml/kg, Max [id number] -- "To be infused by Radiology Staff ONLY"Notes: (Same as:Omnipaque 350). Dicyclomine 20 mg=1 tab, PO, Active [facility] Hydrochloride Q6H, # 40 tab, 0 2013 Medical 20 MG Oral Refill(s) [place] Tablet [Bentyl] Warfarin Sodium 6 mg=1 tab, PO, Active [place] 6 MG Oral Daily, As 2013 Medical Tablet Directed, # 30 Center [Coumadin] tab, 0 Refill(s)Special Instructions: As Directed Warfarin Sodium 1 mg=1 tab, PO, Active [place] 1 MG Oral Daily, As 2013 Medical Tablet Directed, # 30 Center [Coumadin] tab, 0 Refill(s)Special Instructions: As Directed Triamcinolone 1 appl, TOP, BID, Active [facility] Acetonide 1 For rash, # 15 2013 Medical MG/ML Topical gm, 0 Refill(s) [place] Cream Flomax 0.4 mg, 1 cap, No Longer [facility] Route: PO, Drug Active 2013 Medical form: CAP, Daily, Center Dosing Weight 90.909, kg, Start date: 09/23/14 9:00:00, Duration: 30 day, Stop date: 10/22/14 9:00:00Notes: (Same As: Flomax) "Do Not Crush" Finasteride 5 mg, 1 tab, No Longer [facility] Route: PO, Drug Active 2013 Medical form: TAB, Daily, Center Dosing Weight 90.909, kg, Start date: 09/23/14 9:00:00, Duration: 30 day, Stop date: 10/22/14 9:00:00Notes: (Same as: Proscar) "Do Not Crush" Amoxicillin 875 1 tab, Route: PO, No Longer [facility] MG / Drug Form: TAB, Active 2013 Medical Clavulanate 125 Dosing Weight Center MG Oral Tablet 90.909, kg, BID, [Augmentin Start date: 875-mg] 09/23/14 9:00:00, Duration: 30 day, Stop date: 10/22/14 17:00:00Notes: With food. (Same as: Augmentin 875) heparin sodium, Route: IVP, PRN, No Longer [facility] porcine 1000 6,400 unit, 6.4 Active 2013 Medical UNT/ML mL, Drug form: [place] Injectable INJ, PRN, Heparin Solution Protocol, Start date: 09/23/14 8:03:00 Stop date: 10/23/14 8:02:00, 30 day heparin 500 mL, Rate: No Longer [facility] additive 25,000 28.86 ml/hr, Active 2013 Medical [...] tab, Active 2013 Medical Tablet 0 Refill(s) [place] [Coumadin] atorvastatin 20 20 mg=1 tab, PO, Active [facility] mg oral tablet Bedtime, # 30 2013 Medical tab, 0 Refill(s) Center finasteride 5 5 mg=1 tab, PO, Active [facility] mg oral tablet Daily, # 30 tab, 2013 Medical 0 Refill(s) Center Tamsulosin 0.4 mg=1 cap, PO, Active [facility] hydrochloride Daily, # 30 cap, 2013 Medical 0.4 MG Oral 0 Refill(s) [place] Capsule [Flomax] Amoxicillin 875 875 mg=1 tab, PO, Active [place] MG / BID, # 20 tab, 0 2013 Medical Clavulanate 125 Refill(s) Center MG Oral Tablet [Augmentin 875-mg] Acetaminophen 1 tab, Route: PO, No Longer [facility] 325 MG / Drug Form: TAB, Active 2013 Medical Hydrocodone Dosing Weight [place] Bitartrate 5 MG 90.909, kg, Q4H, Oral Tablet PRN Pain Score 1-3, Start date: 09/22/14 20:38:00, Duration: 30 day, Stop date: 10/22/14 20:37:00Notes: (Same as: [place] 325/5) Do not exceed 4gm/day of acetaminophen. Acetaminophen 650 mg, 2 tab, No Longer [place] Route: PO, Drug Active 2013 Medical form: [...] EXAM: CT lumbar spine without contrast. 12/17 [facility] lumbar wo wo contrast /2014 - [...] or 2 or 3 views /2014 - [place] 3 views DX DX DATE: Nov 05, [...] HEMATOLOGY PT 16.3 s 12.0 - 09/26 [facility] 14. [facility] HEMATOLOGY INR 1.30 0.85 - 09/26 8Interpretive Data: RECOMMENDED RANGES FOR PROTIME INR: [facility] . 2.0-3.0 for most medical and surgical thromboembolic states. Medical 2.5-3.5 for artificial heart valves and recurrent embolism. Center INR SHOULD BE USED ONLY FOR PATIENTS ON STABLE ANTICOAGULANT THERAPY. HEMATOLOGY PTT 67.1 s 22.9 - 09/26 11Interpretiv [facility] 35.8 e Data: [facility] Heparin [place] Therapeutic Range: 57 - 92 Seconds HEMATOLOGY PT 14.9 s 12.0 - 09/26 [facility] 14. [facility] HEMATOLOGY INR 1.16 0.85 - 09/26 9Interpretive Data: RECOMMENDED RANGES FOR PROTIME INR: [facility] . 2.0-3.0 for most medical and surgical thromboembolic states. Medical 2.5-3.5 for artificial heart valves and recurrent embolism. Center INR SHOULD BE USED ONLY FOR PATIENTS ON STABLE ANTICOAGULANT THERAPY. HEMATOLOGY PTT 62.6 s 22.9 - 09/26 12Interpretiv [facility] 35.8 /2013 e Data: [facility] Heparin [place] Therapeutic Range: 57 - 92 Seconds HEMATOLOGY INR 1.21 0.85 - 09/25 10Interpretive Data: RECOMMENDED RANGES FOR PROTIME INR: [facility] . 2.0-3.0 for most medical and surgical thromboembolic states. Medical 2.5-3.5 for artificial heart valves and recurrent embolism. Center INR SHOULD BE USED ONLY FOR PATIENTS ON STABLE ANTICOAGULANT THERAPY. HEMATOLOGY PTT 53.0 s 22.9 - 09/25 13Interpretiv [facility] 35.8 e Data: [facility] Center Therapeutic Range: 57 - 92 Seconds HEMATOLOGY PT 15.4 s 12.0 - 09/25 [facility] 14.7 [facility] CHEM PANEL LDH 230 unit/L 98 - 192 09/24 [facility] CHEM PANEL F-[id number] 1.6 mg/L 1.0 - 2.3 09/24 [facility] CHEM PANEL Magnesium Lvl 1.7 mg/dL 1.8 - 2.4 09/24 [facility] ELECTROLYTE AGAP 11.0 meq/L 10.0 - 09/24 [facility] S 20.0 [facility] ELECTROLYTE eGFR 82 09/24 2Result Comment: The eGFR is calculated using the CKD-EPI formula. In most young, healthy individuals the eGFR will be > 90 mL/min/1.73m2. The eGFR declines with age. An eGFR of 60-89 may be normal in [facility] mL/min/1. some populations, particularly the elderly, for whom the CKD-EPI formula has not been extensively validated. Use of the eGFR is not recommended in the following populations: [place] [address] Center Individuals with unstable creatinine concentrations, including [...] CO2 28 meq/L 24 - 32 09/24 [facility] ELECTROLYTE Calcium Lvl 8.8 mg/dL 8.5 - 10.5 09/24 [facility] ELECTROLYTE Sodium Lvl 141 meq/L 135 - 145 09/24 [facility] ELECTROLYTE Potassium Lvl 4.0 meq/L 3.5 - 5.1 09/24 [facility] Center ELECTROLYTE Chloride Lvl 106 meq/L 95 - 109 09/24 [facility] ELECTROLYTE BUN 19 mg/dL 7 - 22 09/24 [facility] Center ELECTROLYTE Glucose Lvl 92 mg/dL 70 - 99 09/24 5Interpretive Data: Adult reference range values reflect the clinical guidelines of the [employer]. [facility] Center ELECTROLYTE Creatinine 1.1 mg/dL 0.5 - 1.4 09/24 [facility] S Lvl [facility] HEMATOLOGY Monocytes # 0.5 K/CMM 0.0 - 0.8 09/24 [facility] HEMATOLOGY Eosinophils # 0.1 K/CMM 0.0 - 0.5 09/24 [facility] HEMATOLOGY Monocytes 7.5 % 2.0 - 12.0 09/24 [facility] HEMATOLOGY Lymphocytes 24.8 % 20.0 - 09/24 [place] 40.0 [facility] HEMATOLOGY Eosinophils 1.5 % 0.0 - 4.0 09/24 [facility] HEMATOLOGY Segs 65.5 % 45.0 - 09/24 [place] 75.0 [facility] HEMATOLOGY Lymphocytes # 1.7 K/CMM 1.0 - 5.5 09/24 [facility] HEMATOLOGY Segs-Bands # 4.5 K/CMM 1.5 - 8.1 09/24 [facility] HEMATOLOGY Basophils 0.7 % 0.0 - 1.0 09/24 [facility] HEMATOLOGY Hct 41.6 % 42.0 - 09/24 [place] 54.0 [facility] HEMATOLOGY MCV 89.0 fL 80.0 - 09/24 94.0 [facility] HEMATOLOGY RBC 4.67 M/CMM 4.70 - 09/24 [place] 6.10 [facility] HEMATOLOGY Hgb 13.8 g/dL 14.0 - 09/24 18.0 [facility] HEMATOLOGY MCHC 33.2 g/dL 32.0 - 09/24 36.0 [facility] HEMATOLOGY RDW 14.4 % 11.5 - 09/24 14.5 [facility] HEMATOLOGY Platelet 150 K/CMM 133 - 450 09/24 [facility] HEMATOLOGY MCH 29.5 pg 27.0 - 09/24 [facility] [place] 31.0 /2013 [facility] HEMATOLOGY MPV 9.0 fL 7.4 - 10.4 09/24 [facility] HEMATOLOGY WBC 6.9 K/CMM 3.7 - 10.4 09/24 [facility] Spine Spine lumbar EXAM: XR LUMBAR SPINE 2 VIEWS 09/24 - [facility] lumbar 2 or 2 or 3 views /2013 - [facility] 3 views DX DX Center DATE: [...] AND UA <=1.0 0.1 - 1.0 09/23 [facility] Urobilinogen mg/dL [facility] URINE AND Micro? Not Indicated 09/23 [facility] *NA* [place] (09/23/14 3:33 PM) URINE AND UA Blood Negative Negative 09/23 [facility]A Glucose Negative Negative 09/23 [facility] mg/dL mg/dL [facility] URINE AND UA Bili Negative Negative 09/23 [facility] *NA* [place] (09/23/14 3:33 PM) URINE AND UA Ketones Negative Negative 09/23 [facility] mg/dL mg/dL [facility] URINE AND UA Protein Negative Negative 09/23 [facility] mg/dL mg/dL [facility] URINE AND UA pH 6.5 5.0 - 8.0 09/23 [facility] URINE AND UA Mucus Few /LPF None Seen 09/23 [facility] STOOL /LPF /2013 [facility] URINE AND UA Nitrite Negative Negative 09/23 [facility] (09/23/14 3:33 PM) [place] URINE AND UA WBC 1 /HPF 0 - 5 09/23 [facility] URINE AND UA Leuk Est Negative Negative 09/23 [facility] (09/23/14 3:33 PM) [place] URINE AND UA Turbidity Clear Clear 09/23 [facility] (09/23/14 3:33 PM) [place] URINE AND UA Spec Grav 1.008 <=1.030 09/23 [facility] URINE AND UA Color Yellow Yellow 09/23 [facility] *NA* [place] (09/23/14 3:33 PM) Chest w Chest w EXAM: CT CHEST WITH CONTRAST 09/23 - [facility] contrast CT contrast CT - [facility] This report was dictated by a Credit Review Analyst/Fellow. I have personally reviewed the images as [...] ABDOMEN and pelvis with CONTRAST 09/23 - [facility] IV s w IV /2013 - Medical contrast CT contrast CT This report was dictated by a Credit Review Analyst/Fellow. I have personally reviewed the images as [...] unremarkable. No retroperitoneal abnormalities are seen. A [employer] shunt is seen to be in place [...] # 1.1 K/CMM 1.0 - 5.5 09/[address] HEMATOLOGY Monocytes # 0.6 K/CMM 0.0 - 0.8 09/[address] HEMATOLOGY Segs-Bands # 8.1 K/CMM 1.5 - 8.1 09/[address] HEMATOLOGY Basophils 0.1 % 0.0 - 1.0 09/23 [facility] HEMATOLOGY Monocytes 6.6 % 2.0 - 12.0 09/23 [facility] HEMATOLOGY Segs 82.4 % 45.0 - 09/23 [place] 75.0 [facility] HEMATOLOGY Lymphocytes 10.8 % 20.0 - 09/23 [place] 40.0 /2013 [facility] HEMATOLOGY Eosinophils 0.1 % 0.0 - 4.0 09/23 [facility] HEMATOLOGY Platelet 153 K/CMM 133 - 450 09/23 [facility] HEMATOLOGY MPV 8.6 fL 7.4 - 10.4 09/23 [facility] HEMATOLOGY RDW 14.2 % 11.5 - 09/23 14.5 [facility] HEMATOLOGY MCHC 34.0 g/dL 32.0 - 09/23 [place] 36.0 [facility] HEMATOLOGY MCH 30.4 pg 27.0 - 09/23 [facility] 31.0 [facility] HEMATOLOGY RBC 4.73 M/CMM 4.70 - 09/23 [place] 6.10 [facility] HEMATOLOGY Hct 42.3 % 42.0 - 09/23 [place] 54.0 [facility] HEMATOLOGY WBC 9.8 K/CMM 3.7 - 10.4 09/23 [facility] HEMATOLOGY Hgb 14.4 g/dL 14.0 - 09/23 [place] 18.0 [facility] HEMATOLOGY MCV 89.3 fL 80.0 - 09/23 [facility] 94.0 [facility] URINE AND UA RBC null 0 - 2 09/23 [facility] URINE AND UA <=1.0 0.1 - 1.0 09/23 [facility] STOOL Urobilinogen mg/dL /2013 [facility] URINE AND UA WBC 1 /HPF 0 - 5 09/23 [facility] URINE AND UA Nitrite Negative Negative 09/23 [facility] STOOL [facility] (09/23/14 6:34 AM) [place] URINE AND UA Ketones Negative Negative 09/23 [facility] mg/dL mg/dL [facility] URINE AND UA Glucose 30 mg/dL Negative 09/23 [facility] STOOL mg/dL [facility] URINE AND UA Blood Negative Negative 09/23 [facility] (09/23/14 6:34 AM) [place] URINE AND UA Bili Negative Negative 09/23 [facility] *NA* [place] (09/23/14 6:34 AM) URINE AND UA Sq Epi Few /LPF Few /LPF 09/23 [facility] URINE AND UA Leuk Est Negative Negative 09/23 [facility] (09/23/14 6:34 AM) [place] URINE AND UA Mucus Few /LPF None Seen 09/23 [facility] /LPF /2013 [facility] URINE AND UA pH 6.5 5.0 - 8.0 09/23 [facility] URINE AND UA Spec Grav 1.022 <=1.030 09/23 [facility] URINE AND UA Turbidity Clear Clear 09/23 [facility] (09/23/14 6:34 AM) [place] URINE AND UA Protein 10 mg/dL Negative 09/23 [facility] mg/dL [facility] URINE AND UA Color Yellow Yellow 09/23 [facility] *NA* [place] (09/23/14 6:34 AM) CHEM PANEL Phosphorus 4.6 mg/dL 2.5 - 4.5 09/23 [facility] CHEM PANEL Magnesium Lvl 1.8 mg/dL 1.8 - 2.4 09/23 [facility] CHEM PANEL eGFR 92 09/23 3Result Comment: The eGFR is calculated using the CKD-EPI formula. In most young, healthy individuals the eGFR will be >90 mL/ min/1.73m2. The eGFR declines with age. An eGFR of 60-89 may be normal in [facility] mL/min/1.7 some populations, particularly the elderly, for whom the CKD-EPI formula has not been extensively validated. Use of the eGFR is not recommended in the following populations: [address] Individuals with unstable creatinine concentrations, including [...] AGAP 12.6 meq/L 10.0 - 09/23 20.0 [facility] CHEM PANEL BUN 17 mg/dL 7 - 22 09/23 [facility] CHEM PANEL Glucose Lvl 107 mg/dL 70 - 99 09/23 6Interpretive Data: Adult reference range values reflect the clinical guidelines of the [employer]. Medical Center CHEM PANEL Potassium Lvl 4.6 meq/L 3.5 - 5.1 09/23 [facility] Center CHEM PANEL CO2 26 meq/L 24 - 32 09/23 [facility] CHEM PANEL Chloride Lvl 106 meq/L 95 - 109 09/23 [facility] CHEM PANEL Sodium Lvl 140 meq/L 135 - 145 09/23 [facility] CHEM PANEL Creatinine 1.0 mg/dL 0.5 - 1.4 09/23 [facility] HEMATOLOGY Segs 86.9 % 45.0 - 09/23 75.0 [facility] HEMATOLOGY Monocytes 3.5 % 2.0 - 12.0 09/23 [facility] HEMATOLOGY Lymphocytes 9.4 % 20.0 - 09/23 40.0 [facility] HEMATOLOGY Basophils 0.1 % 0.0 - 1.0 09/23 [facility] HEMATOLOGY Eosinophils 0.1 % 0.0 - 4.0 09/23 [facility] HEMATOLOGY Monocytes # 0.3 K/CMM 0.0 - 0.8 09/23 [facility] HEMATOLOGY Lymphocytes # 0.8 K/CMM 1.0 - 5.5 09/23 [facility] HEMATOLOGY Segs-Bands # 7.7 K/CMM 1.5 - 8.1 09/23 [facility] HEMATOLOGY MPV 8.7 fL 7.4 - 10.4 09/23 [facility] HEMATOLOGY Platelet 156 K/CMM 133 - 450 09/23 [facility] HEMATOLOGY RBC 4.79 M/CMM 4.70 - 09/23 [facility] 6.10 [facility] HEMATOLOGY WBC 8.8 K/CMM 3.7 - 10.4 09/23 [facility] HEMATOLOGY Hgb 14.5 g/dL 14.0 - 09/23 [facility] [place] 18.0 [facility] HEMATOLOGY MCHC 33.7 g/dL 32.0 - 09/23 [place] 36.0 [facility] HEMATOLOGY MCH 30.4 pg 27.0 - 09/23 [place] 31.0 [facility] HEMATOLOGY MCV 90.0 fL 80.0 - 09/23 [facility] 94.0 [facility] HEMATOLOGY Hct 43.1 % 42.0 - 09/23 [place] 54.0 [facility] HEMATOLOGY RDW 14.1 % 11.5 - 09/23 [facility] 14. [facility] HEMATOLOGY Sed Rate 20 mm/h 0 - 15 09/23 [facility] IMMUNOLOGY C-REACTIVE 23.9 mg/L <=2.9 mg/L 09/23 [facility] PROTEIN [facility] ELECTROLYTE AGAP 13.6 meq/L 10.0 - 09/23 [facility] S 20. [facility] ELECTROLYTE eGFR 82 09/23 4Result Comment: The eGFR is calculated using the CKD-EPI formula. In most young, healthy individuals the eGFR will be > 90 mL/min/1.73m2. The eGFR declines with age. An eGFR of 60-89 may be normal in [facility] mL/min/1. some populations, particularly the elderly, for whom the CKD-EPI formula has not been extensively validated. Use of the eGFR is not recommended in the following populations: [address] Individuals with unstable creatinine concentrations, including [...] 9.1 mg/dL 8.5 - 10.5 09/23 S [facility] ELECTROLYTE Glucose Lvl 163 mg/dL 70 - 99 09/23 7Interpretive Data: Adult reference range values reflect the clinical guidelines [facility] of the [employer]. [facility] ELECTROLYTE Creatinine 1.1 mg/dL 0.5 - 1.4 09/23 [facility] S Lvl [facility] ELECTROLYTE Sodium Lvl 137 meq/L 135 - 145 09/23 [facility] S [facility] ELECTROLYTE BUN 14 mg/dL 7 - 22 09/23 [facility] Center ELECTROLYTE CO2 27 meq/L 24 - 32 09/23 [facility] ELECTROLYTE Potassium Lvl 5.6 meq/L 3.5 - 5.1 09/23 1Result Comment: Medical [facility] Center hemolysis ELECTROLYTE Chloride Lvl 102 meq/L 95 - 109 09/23 [facility] HEMATOLOGY RBC Morph Normal 09/23 [facility] (09/22/14 6:30 PM) [place] HEMATOLOGY Eosinophils # 0.0 K/CMM 0.0 - 0.5 09/23 [facility] HEMATOLOGY Basophils # 0.1 K/CMM 0.0 - 0.2 09/23 [facility] HEMATOLOGY Plt Morph Normal 09/23 [facility] (09/22/14 6:30 PM) [place] IMMUNOLOGY [facility] HIV 4th Negative Negative 09/22 [facility] (09/22/14 3:50 PM) [place] Spine Spine lumbar EXAM: MRI LUMBAR SPINE WITH AND WITHOUT CONTRAST 09/22 - [facility] [place] lumbar w/wo w/wo contrast /2013 - [facility] contrast MRI This report was dictated by a Credit Review Analyst/ Fellow. I have personally reviewed the images [...] intervertebral discs. Critical findings were communicated by clinical applications manager vice president for instruction to the on -call neurosurgery resident at [...] [facility] Diastolic (mm Hg) 96 12/17/2014 [facility] Respitory Rate 18 12/17/2014 [facility] Weight 191.6 11/05/2014 [facility] Height 71 11/05/2014 [facility] Temperature Oral (F) 97.7 F 11/05/2014 [facility] Neuro Respitory Rate 16 11/05/2014 [facility] Heart Rate 102 [facility]05[facility] Systolic [facility]mm Hg) 151 11/05/2014 [facility] Neuro Diastolic (mm Hg) 102 11/05/2014 [facility] Neuro Systolic (mm Hg) 142 09/26/2014 [facility] Respitory Rate 19 09/26/2014 [facility] Diastolic (mm Hg) 87 09/26/2014 [facility] Temperature Oral (F) 98.7 F 09/26/2014 [facility] Heart Rate 94 09/26/2014 [facility] Heart Rate 87 09/26/2014 [facility] Temperature Oral (F) 97.8 F 09/26/2014 [facility] Diastolic (mm Hg) 81 09/26/2014 [facility] Systolic (mm Hg) 138 09/26/2014 [facility] Respitory Rate 19 09/26/2014 [facility] Diastolic (mm Hg) 82 09/26/2014 [facility] Systolic (mm Hg) 136 09/26/2014 [facility] Heart Rate 74 09/26/2014 [facility] Respitory Rate 20 09/26/2014 [facility] Temperature Oral (F) 98.0 F 09/26/2014 [facility] BMI Calculated 28.76 09/23/2014 [facility] Weight 90.909 09/23/2014 [facility] Height 177.8 cm 09/23/2014 [facility] Height 177.8 cm 09/22/2014 [facility] BMI Calculated 28.76 09/22/2014 [facility] Weight 90.909 09/22/2014 [facility] Encounters Location Location Encounter Encounter Reason Attending ADM DC Status Source Details Type Number For Provider Date Date Visit [facility] [id number] Yefri 09/22 09/26 [facility] [place] /2013 [facility] [id number] Trey Reed 11/05 11/05 [facility] Neuroscienc Visit 5660 MD /2014 [facility] Outpt Diag [id number] Lalo 11/05 11/06 [facility] [id number] Trey Reed 12/17 12/17 [facility] Visit 3120 [place] /2014 [facility] Outpatient [id number] PHYLLIS 12/21 [facility] [place] [facility] Outside [id number] 02/12 02/14 [facility] /2018 [facility] [place] [facility] Outside [id number] 02/19 02/21 [facility] /2018 Neuro [place] [facility] Phone [id number] 03/01 03/03 [facility] Message /2018 [facility] Outpatient [id number] Randy Lynn 03/12 [facility] [place] [facility] [id number] Kim 03/12 03/13 [facility] Obd[place] /2018 [facility] Phone [id number] 03/15 03/17 [facility] Message /2018 [facility] Phone [id number] 03/18 03/20 [facility] Message /2018 [facility] Phone [id number] 03/18 03/20 [facility] Message /2018 [facility] Phone [id number] 03/18 03/20 [facility] Message /2018 [facility] Outpatient [id number] Armando 04/24 [facility] [place] Procedures Procedure Code Date Perfomer Comments Source [facility]unt construction [id number] [id number] [facility] destruction<sup>1</ removal sup>
--- OUTSIDE RECORDS SUMMARY | 2019-03-29 11:05 | XMS REPORT | Continuity of Care Document ---
:1950 Author Organization [facility] Care Team Providers Name Role Phone Trey Reed MD Unavailable Unavailable Insurance Providers Payer name Policy type / Policy ID Covered green party ID Policy [place] Coverage type AETNA (POS) AETNA (POS) AETNA (POS) [place] [id number] Encounters Encounter Performer Location Date Office Visit Trey Reed MD [facility] [place] Nov 05, 2014 Problems Problem Effective Dates [...]
--- OUTSIDE RECORDS SUMMARY | 2019-03-29 11:05 | XMS REPORT | Continuity of Care Document ---
:1950 Author Organization [facility] Care Team Providers Name Role Phone Trey Reed MD Unavailable Unavailable Insurance Providers Payer name Policy type / Policy ID Covered republican ID Policy [place] Coverage type AETNA (POS) AETNA (POS) AETNA (POS) [place] [email or web address] Encounters Encounter Performer Location Date Office Visit Trey Reed MD [facility] [place] [facility] Dec 17, 2014 Problems Problem [...]
--- OUTSIDE RECORDS SUMMARY | 2019-03-29 11:21 | XMS REPORT | Continuity of Care Document ---
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 Active 09/22/[address] Agitation Active Problem 03/21/2019 [facility] [facility] Aphasia Active Problem 03/21/2019 [facility] [facility] At risk for falls Active Problem 03/21/2019 [facility] [facility] Meningioma Active Problem 03/21/2019 [facility] BPH - Benign Resolved Problem 03/21/2019 JESENIA prostatic Jama Lozada [facility] Brain tumor Active Problem 03/21/2019 [facility] [facility] CVA - Active Problem 03/21/2019 JESENIA Cerebrovascular Jama Lozada [facility] Emotional lability Active Problem 03/21/2019 [facility] [facility] Encephalopathy Active Problem 03/21/2019 [facility] [facility] Enlarged prostate Resolved Problem 03/21/2019 [facility] [facility] Expressive aphasia Active Problem 03/21/2019 [facility] [facility] Hypertension Active Problem 03/21/2019 [facility] [facility] Impaired cognition Active Problem 03/21/2019 [facility] [facility] Impulsive Active Problem 03/21/2019 JESENIA Lozada,[facility] Seizure Active Problem 03/21/2019 JESENIA Lozada,[facility] Urinary retention Active Problem 03/21/2019 JESENIA Lozada,[facility] 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 Hydrocephalus Active Problem 03/21/2019 [facility] FX LUMBAR Active [facility] Medications Medication Details Route Status Patient Ordering Order Source Instructions Provider Date COUMADIN 1 MG 1 tab po qd Active [facility] TABS 2014 Neuro COUMADIN 6 MG 1 tab po qd prn Active [facility] TABS (as directed) 2014 Neuro FLOMAX 0.4 MG 1 cap po qd Active [facility] CAPS 2014 Neuro ATORVASTATIN 1 tab po qhs Active [facility] CALCIUM 20 MG 2014 Neuro TABS FINASTERIDE 5 1 tab po qd Active [facility] MG TABS 2014 Neuro TRIAMCINOLONE apply to the Active [facility] ACETONIDE 0.1 % affected area bid 2014 Neuro CREA prn rash ATORVASTATIN 1 tab po qhs Active [facility] CALCIUM 20 MG 2015 Neuro TABS Coumadin 10 mg, 1 tab, Inactive 09/26[facility] Route: PO, Drug 2013 Medical form: TAB, Q5PM, [place] Dosing Weight 90.909, kg, Start date: 09/26/14 17:00:00, Duration: 1 doses or times, Stop date: 09/26/14 17:00:00Notes: Nurse to ensure documentation of patient education per anticoagulation policy. Avoid large intake of vitamin-K containing foods diet. (Same As: Coumadin) tramadol 50 mg=1 tab, PO, Active 09/26[facility] [place] hydrochloride Q6H, Pain, # 40 2013 Medical 50 MG Oral tab, 0 Refill(s) [place] Tablet Oxycodone 5 mg, 1 tab, Inactive 09/26[facility] Hydrochloride 5 Route: PO, Drug 2013 [...] Neuro Coumadin 10 mg, 2 tab, Inactive [facility] Route: PO, Drug 2013 Medical form: TAB, Q5PM, Center Dosing Weight 90.909, kg, Start date: 09/25/14 17:00:00, Duration: 1 doses or times, Stop date: 09/25/14 17:00:00Notes: Nurse to ensure documentation of patient education per anticoagulation policy. Avoid large intake of vitamin-K containing foods diet. (Same As: Coumadin) Coumadin 6 mg, 1 tab, Inactive [facility] Route: PO, Drug 2013 Medical form: TAB, ONCE, Center Dosing Weight 90.909, kg, Start date: 09/24/14 18:36:00, Stop date: 09/24/14 18:36:00Notes: (Same As: Coumadin) atorvastatin 20 mg, 1 tab, No Longer [facility] Route: PO, Drug Active 2013 Medical form: TAB, Center Bedtime, Dosing Weight 90.909, kg, Start date: 09/23/14 21:00:00, Duration: 30 day, Stop date: 10/22/14 21:00:00Notes: (Same As: Lipitor) Iohexol 95 mL, Route: Inactive [facility] IVP, Drug Form: 2013 Medical SOLN, Dosing Center Weight 90.909, kg, ONCALL, STAT, Start date: 09/23/14 14:51:00, Duration: 1 doses or times, Dose=2.2ml/kg, Max qgtc=113av -- "To be infused by Radiology Staff ONLY"Special Instructions: Dose=2.2ml/kg, Max gpns=164rf -- "To be infused by Radiology Staff ONLY"Notes: (Same as:Omnipaque 350). Dicyclomine 20 mg=1 tab, PO, Active [facility] Hydrochloride Q6H, # 40 tab, 0 2013 Medical 20 MG Oral Refill(s) [place] Tablet [Bentyl] Warfarin Sodium 6 mg=1 tab, PO, Active [place] 6 MG Oral Daily, As 2013 Medical Tablet Directed, # 30 Center [Coumadin] tab, 0 Refill(s)Special Instructions: As Directed Warfarin Sodium 1 mg=1 tab, PO, Active [place] 1 MG Oral Daily, As 2013 Medical Tablet Directed, # 30 Center [Coumadin] tab, 0 Refill(s)Special Instructions: As Directed Triamcinolone 1 appl, TOP, BID, Active [facility] Acetonide 1 For rash, # 15 2013 Medical MG/ML Topical gm, 0 Refill(s) [place] Cream Flomax 0.4 mg, 1 cap, No Longer [facility] Route: PO, Drug Active 2013 Medical form: CAP, Daily, Center Dosing Weight 90.909, kg, Start date: 09/23/14 9:00:00, Duration: 30 day, Stop date: 10/22/14 9:00:00Notes: (Same As: Flomax) "Do Not Crush" Finasteride 5 mg, 1 tab, No Longer [facility] Route: PO, Drug Active 2013 Medical form: TAB, Daily, Center Dosing Weight 90.909, kg, Start date: 09/23/14 9:00:00, Duration: 30 day, Stop date: 10/22/14 9:00:00Notes: (Same as: Proscar) "Do Not Crush" Amoxicillin 875 1 tab, Route: PO, No Longer [facility] MG / Drug Form: TAB, Active 2013 Medical Clavulanate 125 Dosing Weight Center MG Oral Tablet 90.909, kg, BID, [Augmentin Start date: 875-mg] 09/23/14 9:00:00, Duration: 30 day, Stop date: 10/22/14 17:00:00Notes: With food. (Same as: Augmentin 875) heparin sodium, Route: IVP, PRN, No Longer [facility] porcine 1000 6,400 unit, 6.4 Active 2013 Medical UNT/ML mL, Drug form: [place] Injectable INJ, PRN, Heparin Solution Protocol, Start date: 09/23/14 8:03:00 Stop date: 10/23/14 8:02:00, 30 day heparin 500 mL, Rate: No Longer [facility] additive 25,000 28.86 ml/hr, Active 2013 [...] tab, Active 2013 Medical Tablet 0 Refill(s) [place] [Coumadin] atorvastatin 20 20 mg=1 tab, PO, Active [facility] mg oral tablet Bedtime, # 30 2013 Medical tab, 0 Refill(s) Center finasteride 5 5 mg=1 tab, PO, Active [facility] mg oral tablet Daily, # 30 tab, 2013 Medical 0 Refill(s) Center Tamsulosin 0.4 mg=1 cap, PO, Active [facility] hydrochloride Daily, # 30 cap, 2013 Medical 0.4 MG Oral 0 Refill(s) [place] Capsule [Flomax] Amoxicillin 875 875 mg=1 tab, PO, Active [place] MG / BID, # 20 tab, 0 2013 Medical Clavulanate 125 Refill(s) Center MG Oral Tablet [Augmentin 875-mg] Acetaminophen 1 tab, Route: PO, No Longer [facility] 325 MG / Drug Form: TAB, Active 2013 Medical Hydrocodone Dosing Weight [place] Bitartrate 5 MG 90.909, kg, Q4H, Oral Tablet PRN Pain Score 1-3, Start date: 09/22/14 20:38:00, Duration: 30 day, Stop date: 10/22/14 20:37:00Notes: (Same as: [place] 325/5) Do not exceed 4gm/day of acetaminophen. Acetaminophen 650 mg, 2 tab, No Longer [place] Route: PO, Drug Active 2013 Medical form: [...] EXAM: CT lumbar spine without contrast. 12/17 [facility] OPID lumbar wo wo contrast [...] or 2 or 3 views /2014 - [place] 3 views DX DX DATE: Nov 05, [...] HEMATOLOGY PT 16.3 s 12.0 - 09/26 [facility] 14. [facility] HEMATOLOGY INR 1.30 0.85 - 09/26 8Interpretive Data: RECOMMENDED RANGES FOR PROTIME INR: [facility] . 2.0-3.0 for most medical and surgical thromboembolic states. Medical 2.5-3.5 for artificial heart valves and recurrent embolism. Center INR SHOULD BE USED ONLY FOR PATIENTS ON STABLE ANTICOAGULANT THERAPY. HEMATOLOGY PTT 67.1 s 22.9 - 09/26 11Interpretiv [facility] 35.8 e Data: [facility] Heparin [place] Therapeutic Range: 57 - 92 Seconds HEMATOLOGY PT 14.9 s 12.0 - 09/26 [facility] 14. [facility] HEMATOLOGY INR 1.16 0.85 - 09/26 9Interpretive Data: RECOMMENDED RANGES FOR PROTIME INR: [facility] . 2.0-3.0 for most medical and surgical thromboembolic states. Medical 2.5-3.5 for artificial heart valves and recurrent embolism. Center INR SHOULD BE USED ONLY FOR PATIENTS ON STABLE ANTICOAGULANT THERAPY. HEMATOLOGY PTT 62.6 s 22.9 - 09/26 12Interpretiv [facility] 35.8 /2013 e Data: [facility] Heparin [place] Therapeutic Range: 57 - 92 Seconds HEMATOLOGY INR 1.21 0.85 - 09/25 10Interpretive Data: RECOMMENDED RANGES FOR PROTIME INR: [facility] . 2.0-3.0 for most medical and surgical thromboembolic states. Medical 2.5-3.5 for artificial heart valves and recurrent embolism. Center INR SHOULD BE USED ONLY FOR PATIENTS ON STABLE ANTICOAGULANT THERAPY. HEMATOLOGY PTT 53.0 s 22.9 - 09/25 13Interpretiv [facility] 35.8 e Data: [facility] Center Therapeutic Range: 57 - 92 Seconds HEMATOLOGY PT 15.4 s 12.0 - 09/25 [facility] 14.7 [facility] CHEM PANEL LDH 230 unit/L 98 - 192 09/24 [facility] CHEM PANEL A-6-Sexmihmea 1.6 mg/L 1.0 - 2.3 09/24 [facility] CHEM PANEL Magnesium Lvl 1.7 mg/dL 1.8 - 2.4 09/24 [facility] ELECTROLYTE AGAP 11.0 meq/L 10.0 - 09/24 [facility] S 20.0 [facility] ELECTROLYTE eGFR 82 09/24 2Result Comment: The eGFR is calculated using the CKD-EPI formula. In most young, healthy individuals the eGFR will be > 90 mL/min/1.73m2. The eGFR declines with age. An eGFR of 60-89 may be normal in [facility] mL/min/1. some populations, particularly the elderly, for whom the CKD-EPI formula has not been extensively validated. Use of the eGFR is not recommended in the following populations: [place] [address] Center Individuals with unstable creatinine concentrations, including [...] CO2 28 meq/L 24 - 32 09/24 [facility] ELECTROLYTE Calcium Lvl 8.8 mg/dL 8.5 - 10.5 09/24 [facility] ELECTROLYTE Sodium Lvl 141 meq/L 135 - 145 09/24 [facility] ELECTROLYTE Potassium Lvl 4.0 meq/L 3.5 - 5.1 09/24 [facility] ELECT[facility]OLYTE Chloride Lvl 106 meq/L 95 - 109 09/24 [facility] ELECTROLYTE BUN 19 mg/dL 7 - 22 09/24 [facility] E[place]OL[place] Glucose Lvl 92 mg/dL 70 - 99 09/24 5Interpretive Data: Adult reference range values reflect the clinical guidelines of the [employer]. [facility] Center ELECTROLYTE Creatinine 1.1 mg/dL 0.5 - 1.4 09/24 [facility] S Lvl [facility] HEMATOLOGY Monocytes # 0.5 K/CMM 0.0 - 0.8 09/24 [facility] HEMATOLOGY Eosinophils # 0.1 K/CMM 0.0 - 0.5 09/24 [facility] HEMATOLOGY Monocytes 7.5 % 2.0 - 12.0 09/24 [facility] HEMATOLOGY Lymphocytes 24.8 % 20.0 - 09/24 [place] 40.0 [facility] HEMATOLOGY Eosinophils 1.5 % 0.0 - 4.0 09/24 [facility] HEMATOLOGY Segs 65.5 % 45.0 - 09/24 [place] 75.0 [facility] HEMATOLOGY Lymphocytes # 1.7 K/CMM 1.0 - 5.5 09/24 [facility] HEMATOLOGY Segs-Bands # 4.5 K/CMM 1.5 - 8.1 09/24 [facility] HEMATOLOGY Basophils 0.7 % 0.0 - 1.0 09/24 [facility] HEMATOLOGY Hct 41.6 % 42.0 - 09/24 [place] 54.0 [facility] HEMATOLOGY MCV 89.0 fL 80.0 - 09/24 94.0 [facility] HEMATOLOGY RBC 4.67 M/CMM 4.70 - 09/24 [place] 6.10 [facility] HEMATOLOGY Hgb 13.8 g/dL 14.0 - 09/24 18.0 [facility] HEMATOLOGY MCHC 33.2 g/dL 32.0 - 09/24 36.0 [facility] HEMATOLOGY RDW 14.4 % 11.5 - 09/24 14.5 [facility] HEMATOLOGY Platelet 150 K/CMM 133 - 450 09/24 [facility] HEMATOLOGY MCH 29.5 pg 27.0 - 09/24 [facility] [place] 31.0 /2013 [facility] HEMATOLOGY MPV 9.0 fL 7.4 - 10.4 09/24 [facility] HEMATOLOGY WBC 6.9 K/CMM 3.7 - 10.4 09/24 [facility] Spine Spine lumbar EXAM: XR LUMBAR SPINE 2 VIEWS 09/24 - [facility] lumbar 2 or 2 or 3 views /2013 - [facility] 3 views DX DX Center DATE: [...] AND UA <=1.0 0.1 - 1.0 09/23 [facility] Urobilinogen mg/dL [facility] URINE AND Micro? Not Indicated 09/23 [facility] *NA* [place] (09/23/14 3:33 PM) URINE AND UA Blood Negative Negative 09/23 [facility]A Glucose Negative Negative 09/23 [facility] mg/dL mg/dL [facility] URINE AND UA Bili Negative Negative 09/23 [facility] *NA* [place] (09/23/14 3:33 PM) URINE AND UA Ketones Negative Negative 09/23 [facility] mg/dL mg/dL [facility] URINE AND UA Protein Negative Negative 09/23 [facility] mg/dL mg/dL [facility] URINE AND UA pH 6.5 5.0 - 8.0 09/23 [facility] URINE AND UA Mucus Few /LPF None Seen 09/23 [facility] STOOL /LPF /2013 [facility] URINE AND UA Nitrite Negative Negative 09/23 [facility] (09/23/14 3:33 PM) [place] URINE AND UA WBC 1 /HPF 0 - 5 09/23 [facility] URINE AND UA Leuk Est Negative Negative 09/23 [facility] (09/23/14 3:33 PM) [place] URINE AND UA Turbidity Clear Clear 09/23 [facility] (09/23/14 3:33 PM) [place] URINE AND UA Spec Grav 1.008 <=1.030 09/23 [facility] URINE AND UA Color Yellow Yellow 09/23 [facility] *NA* [place] (09/23/14 3:33 PM) Chest w Chest w EXAM: CT CHEST WITH CONTRAST 09/23 - [facility] contrast CT contrast CT - [facility] This report was dictated by a Coater Operator/Fellow. I have personally reviewed the images as Center well as the Resident's interpretation and agree with the findings. DATE: 09/23/2014 at 1540 hours Read by: Aylin Warren MD Resident: Aylin Warren MD Dictated Date/time: 09/24/14 07:47 Electronically Signed by: Shayna Gomez 09/25/14 07:22 FINAL REPORT INDICATION: Mass [...] ABDOMEN and pelvis with CONTRAST 09/23 - [facility] IV s w IV /2013 - Medical contrast CT contrast CT This report was dictated by a Coater Operator/Fellow. I have personally reviewed the images as [...] unremarkable. No retroperitoneal abnormalities are seen. A DWARF TREE GROWER shunt is seen to be in place [...] # 1.1 K/CMM 1.0 - 5.5 09/[address] HEMATOLOGY Monocytes # 0.6 K/CMM 0.0 - 0.8 09/[address] HEMATOLOGY Segs-Bands # 8.1 K/CMM 1.5 - 8.1 09/[address] HEMATOLOGY Basophils 0.1 % 0.0 - 1.0 09/23 [facility] HEMATOLOGY Monocytes 6.6 % 2.0 - 12.0 09/23 [facility] HEMATOLOGY Segs 82.4 % 45.0 - 09/23 [place] 75.0 [facility] HEMATOLOGY Lymphocytes 10.8 % 20.0 - 09/23 [place] 40.0 /2013 [facility] HEMATOLOGY Eosinophils 0.1 % 0.0 - 4.0 09/23 [facility] HEMATOLOGY Platelet 153 K/CMM 133 - 450 09/23 [facility] HEMATOLOGY MPV 8.6 fL 7.4 - 10.4 09/23 [facility] HEMATOLOGY RDW 14.2 % 11.5 - 09/23 14.5 [facility] HEMATOLOGY MCHC 34.0 g/dL 32.0 - 09/23 [place] 36.0 [facility] HEMATOLOGY MCH 30.4 pg 27.0 - 09/23 [facility] 31.0 [facility] HEMATOLOGY RBC 4.73 M/CMM 4.70 - 09/23 [place] 6.10 [facility] HEMATOLOGY Hct 42.3 % 42.0 - 09/23 [place] 54.0 [facility] HEMATOLOGY WBC 9.8 K/CMM 3.7 - 10.4 09/23 [facility] HEMATOLOGY Hgb 14.4 g/dL 14.0 - 09/23 [place] 18.0 [facility] HEMATOLOGY MCV 89.3 fL 80.0 - 09/23 [facility] 94.0 [facility] URINE AND UA RBC null 0 - 2 09/23 [facility] URINE AND UA <=1.0 0.1 - 1.0 09/23 [facility] STOOL Urobilinogen mg/dL /2013 [facility] URINE AND UA WBC 1 /HPF 0 - 5 09/23 [facility] URINE AND UA Nitrite Negative Negative 09/23 [facility] STOOL [facility] (09/23/14 6:34 AM) [place] URINE AND UA Ketones Negative Negative 09/23 [facility] mg/dL mg/dL [facility] URINE AND UA Glucose 30 mg/dL Negative 09/23 [facility] STOOL mg/dL [facility] URINE AND UA Blood Negative Negative 09/23 [facility] (09/23/14 6:34 AM) [place] URINE AND UA Bili Negative Negative 09/23 [facility] *NA* [place] (09/23/14 6:34 AM) URINE AND UA Sq Epi Few /LPF Few /LPF 09/23 [facility] URINE AND UA Leuk Est Negative Negative 09/23 [facility] (09/23/14 6:34 AM) [facility] [place] URINE AND UA Mucus Few /LPF None Seen 09/23 [facility] /LPF /2013 [facility] URINE AND UA pH 6.5 5.0 - 8.0 09/23 [facility] URINE AND UA Spec Grav 1.022 <=1.030 09/23 [facility] URINE AND UA Turbidity Clear Clear 09/23 [facility] (09/23/14 6:34 AM) [place] URINE AND UA Protein 10 mg/dL Negative 09/23 [facility] mg/dL [facility] URINE AND UA Color Yellow Yellow 09/23 [facility] *NA* [place] (09/23/14 6:34 AM) CHEM PANEL Phosphorus 4.6 mg/dL 2.5 - 4.5 09/23 [facility] CHEM PANEL Magnesium Lvl 1.8 mg/dL 1.8 - 2.4 09/23 [facility] CHEM PANEL eGFR 92 09/23 3Result Comment: The eGFR is calculated using the CKD-EPI formula. In most young, healthy individuals the eGFR will be >90 mL/ min/1.73m2. The eGFR declines with age. An eGFR of 60-89 may be normal in [facility] mL/min/1.7 some populations, particularly the elderly, for whom the CKD-EPI formula has not been extensively validated. Use of the eGFR is not recommended in the following populations: [address] Individuals with unstable creatinine concentrations, including [...] AGAP 12.6 meq/L 10.0 - 09/23 20.0 [facility] CHEM PANEL BUN 17 mg/dL 7 - 22 09/23 [facility] CHEM PANEL Glucose Lvl 107 mg/dL 70 - 99 09/23 6Interpretive Data: Adult reference range values reflect the clinical guidelines of the [place] [employer]. Medical Center CHEM PANEL Potassium Lvl 4.6 meq/L 3.5 - 5.1 09/23 [facility] Center CHEM PANEL CO2 26 meq/L 24 - 32 09/23 [facility] CHEM PANEL Chloride Lvl 106 meq/L 95 - 109 09/23 [facility] CHEM PANEL Sodium Lvl 140 meq/L 135 - 145 09/23 [facility] CHEM PANEL Creatinine 1.0 mg/dL 0.5 - 1.4 09/23 [facility] HEMATOLOGY Segs 86.9 % 45.0 - 09/23 75.0 [facility] HEMATOLOGY Monocytes 3.5 % 2.0 - 12.0 09/23 [facility] HEMATOLOGY Lymphocytes 9.4 % 20.0 - 09/23 40.0 [facility] HEMATOLOGY Basophils 0.1 % 0.0 - 1.0 09/23 [facility] HEMATOLOGY Eosinophils 0.1 % 0.0 - 4.0 09/23 [facility] HEMATOLOGY Monocytes # 0.3 K/CMM 0.0 - 0.8 09/23 [facility] HEMATOLOGY Lymphocytes # 0.8 K/CMM 1.0 - 5.5 09/23 [facility] HEMATOLOGY Segs-Bands # 7.7 K/CMM 1.5 - 8.1 09/23 [facility] HEMATOLOGY MPV 8.7 fL 7.4 - 10.4 09/23 [facility] HEMATOLOGY Platelet 156 K/CMM 133 - 450 09/23 [facility] HEMATOLOGY RBC 4.79 M/CMM 4.70 - 09/23 [facility] 6.10 [facility] HEMATOLOGY WBC 8.8 K/CMM 3.7 - 10.4 09/23 [facility] HEMATOLOGY Hgb 14.5 g/dL 14.0 - 09/23 [facility] [place] 18.0 [facility] HEMATOLOGY MCHC 33.7 g/dL 32.0 - 09/23 [place] 36.0 [facility] HEMATOLOGY MCH 30.4 pg 27.0 - 09/23 [place] 31.0 [facility] HEMATOLOGY MCV 90.0 fL 80.0 - 09/23 [facility] 94.0 [facility] HEMATOLOGY Hct 43.1 % 42.0 - 09/23 [place] 54.0 [facility] HEMATOLOGY RDW 14.1 % 11.5 - 09/23 [facility] 14. [facility] HEMATOLOGY Sed Rate 20 mm/h 0 - 15 09/23 [facility] IMMUNOLOGY C-REACTIVE 23.9 mg/L <=2.9 mg/L 09/23 [facility] PROTEIN [facility] ELECTROLYTE AGAP 13.6 meq/L 10.0 - 09/23 [facility] S 20. [facility] ELECTROLYTE eGFR 82 09/23 4Result Comment: The eGFR is calculated using the CKD-EPI formula. In most young, healthy individuals the eGFR will be > 90 mL/min/1.73m2. The eGFR declines with age. An eGFR of 60-89 may be normal in [facility] mL/min/1. some populations, particularly the elderly, for whom the CKD-EPI formula has not been extensively validated. Use of the eGFR is not recommended in the following populations: [address] Individuals with unstable creatinine concentrations, including [...] 9.1 mg/dL 8.5 - 10.5 09/23 S [facility] ELECTROLYTE Glucose Lvl 163 mg/dL 70 - 99 09/23 7Interpretive Data: Adult reference range values reflect the clinical guidelines [facility] of the [employer]. [facility] ELECTROLYTE Creatinine 1.1 mg/dL 0.5 - 1.4 09/23 [facility] S Lvl [facility] ELECTROLYTE Sodium Lvl 137 meq/L 135 - 145 09/23 [facility] S [facility] ELECTROLYTE BUN 14 mg/dL 7 - 22 09/23 [facility] Center ELECTROLYTE CO2 27 meq/L 24 - 32 09/23 [facility] ELECTROLYTE Potassium Lvl 5.6 meq/L 3.5 - 5.1 09/23 1Result Comment: Medical [facility] Center hemolysis ELECTROLYTE Chloride Lvl 102 meq/L 95 - 109 09/23 [facility] HEMATOLOGY RBC Morph Normal 09/23 [facility] (09/22/14 6:30 PM) [facility] [place] HEMATOLOGY Eosinophils # 0.0 K/CMM 0.0 - 0.5 09/23 [facility] HEMATOLOGY Basophils # 0.1 K/CMM 0.0 - 0.2 09/23 [facility] HEMATOLOGY Plt Morph Normal 09/23 [facility] (09/22/14 6:30 PM) [facility] [place] IMMUNOLOGY [facility] [place] HIV 4th Negative Negative 09/22 [facility] (09/22/14 3:50 PM) [facility] [place] Spine Spine lumbar EXAM: MRI LUMBAR SPINE WITH AND WITHOUT CONTRAST 09/22 - [facility] lumbar w/wo w/wo contrast /2013 - [facility] contrast MRI This report was dictated by a Coater Operator/ Fellow. I have personally reviewed the images [...] intervertebral discs. Critical findings were communicated by marketing regional consultant residential sales consultant to the on -call neurosurgery resident at [...] [facility] Diastolic (mm Hg) 96 12/17/2014 [facility] Respitory Rate 18 12/17/2014 [facility] Weight 191.6 11/05/2014 [facility] Height 71 11[facility]05/2014 [facility] Temperature Oral (F) 97.7 F 11/05/2014 [facility] Respitory Rate 16 11/05/2014 [facility] Heart Rate 102 11/05/2014 [facility] Systolic (mm Hg) 151 11/05/2014 [facility] Diastolic (mm Hg) 102 11/05/2014 [facility] Systolic (mm Hg) 142 09/26/2014 [facility] Respitory Rate 19 09/26/2014 [facility] Diastolic (mm Hg) 87 09/26/2014 [facility] Temperature Oral (F) 98.7 F 09/26/2014 [facility] Heart Rate 94 09/26/2014 [facility] Heart Rate 87 09/26/2014 [facility] Temperature Oral (F) 97.8 F 09/26/2014 [facility] Diastolic (mm Hg) 81 09/26/2014 [facility] Systolic (mm Hg) 138 09/26/2014 [facility] Respitory Rate 19 09/26/2014 [facility] Diastolic (mm Hg) 82 09/26/2014 [facility] Systolic (mm Hg) 136 09/26/2014 [facility] Heart Rate 74 09/26/2014 [facility] Respitory Rate 20 09/26/2014 [facility] Temperature Oral (F) 98.0 F 09/26/2014 [facility] BMI Calculated 28.76 09/23/2014 [facility] Weight 90.909 09/23/2014 [facility] Height 177.8 cm 09/23/2014 [facility] Height 177.8 cm 09/22/2014 [facility] BMI Calculated 28.76 09/22/2014 [facility] Weight 90.909 09/22/2014 [facility] Encounters Location Location Encounter Encounter Reason Attending ADM DC Status Source Details Type Number For Provider Date Date Visit [facility] [id number] Yefri 09/22 09/26 [facility] [place] /2013 [facility] [id number] Trey Reed 11/05 11/05 [facility] 5660 [place] /2014 [facility] Outpt Diag [id number] Lalo 11/05 11/06 [facility] [id number] Trey Reed 12/17 12/17 [facility] 3120 [place] /2014 [facility] Outpatient [id number] PHYLLIS 12/21 [facility] [place] [facility] Outside [id number] 02/12 02/14 [facility] /2018 [facility] [place] [facility] [id number] 02/19 02/21 [facility] /2018 [facility] [place] [facility] Phone [id number] 03/01 03/03 [facility] Message /2018 [facility] Outpatient [id number] Randy Lynn 03/12 [facility] [place] [facility] [id number] Kim 03/12 03/13 [facility] Obdulia /2018 [facility] Phone [id number] 03/15 03/17 [facility] Message /2018 [facility] Phone [id number] 03/18 03/20 [facility] Message /2018 [facility] Phone [id number] 03/18 03/20 [facility] Message /2018 [facility] Phone [id number] 03/18 03/20 [facility] Message /2018 [facility] Outpatient [id number] Armando 04/24 [facility] Procedures Procedure Code Date Perfomer Comments Source [id number] [id number]<sup>1</ removal sup>
--- OUTSIDE RECORDS SUMMARY | 2019-03-29 11:23 | XMS REPORT | Continuity of Care Document ---
:1950 Author Organization [facility] Care Team Providers Name Role Phone Trey Reed MD Unavailable Unavailable Insurance Providers Payer name Policy type / Policy ID Covered green party ID Policy [place] Coverage type AETNA (POS) AETNA (POS) AETNA (POS) [place] Money Encounters Encounter Performer Location Date Office Visit Trey Reed [place] [facility] [place] [facility] [place] 05, 2014 Problems Problem Effective Dates [...]
--- OUTSIDE RECORDS SUMMARY | 2019-03-29 11:23 | XMS REPORT | Continuity of Care Document ---
:1950 Author Organization [facility] Care Team Providers Name Role Phone Trey Reed MD Unavailable Unavailable Insurance Providers Payer name Policy type / Policy ID Covered constitution party ID Policy [place] Coverage type AETNA (POS) AETNA (POS) AETNA (POS) [place] Encounters Encounter Performer Location Date Office Visit Trey Reed MD [facility] [place] [facility] [place] Dec 17, 2014 Problems Problem Effective Dates [...]
--- OUTSIDE RECORDS SUMMARY | 2019-03-29 11:38 | XMS REPORT | Continuity of Care Document ---
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 Active 09/22/[address] Agitation Active Problem 03/21/2019 [facility] Aphasia Active Problem 03/21/2019 [facility] At risk for falls Active Problem 03/21/2019 [facility] Meningioma Active Problem 03/21/2019 [facility] Neuro BPH - Benign Resolved Problem 03/21/2019 JESENIA prostatic Jama Lozada [facility] [facility] Brain tumor Active Problem 03/21/2019 [facility] [facility] [facility] CVA - Active Problem 03/21/2019 JESENIA Cerebrovascular Jama Lozada [facility] Neuro Emotional lability Active Problem 03/21/2019 [facility] [facility] [facility] Encephalopathy Active Problem 03/21/2019 [facility] [facility] [facility] Enlarged prostate Resolved Problem 03/21/2019 [facility] [facility] [facility] Expressive aphasia Active Problem 03/21/2019 [facility] [facility] Hypertension Active Problem 03/21/2019 [facility] [facility] Impaired cognition Active Problem 03/21/2019 [facility] [facility] [facility] Impulsive Active Problem 03/21/2019 JESENIA Lozada,[facility] [facility] Seizure Active Problem 03/21/2019 JESENIA Lozada,[facility] [facility] Urinary retention Active Problem 03/21/2019 JESENIA Lozada,[facility] [facility] 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 Hydrocephalus Active Problem 03/21/2019 [facility] Neuro FX LUMBAR Active [facility] Medications Medication Details Route Status Patient Ordering Order Source Instructions Provider Date COUMADIN 1 MG 1 tab po qd Active [facility] TABS 2014 Neuro COUMADIN 6 MG 1 tab po qd prn Active [facility] TABS (as directed) 2014 Neuro FLOMAX 0.4 MG 1 cap po qd Active [facility] CAPS 2014 Neuro ATORVASTATIN 1 tab po qhs Active [facility] CALCIUM 20 MG 2014 Neuro TABS FINASTERIDE 5 1 tab po qd Active [facility] MG TABS 2014 Neuro TRIAMCINOLONE apply to the Active [facility] ACETONIDE 0.1 % affected area bid 2014 Neuro CREA prn rash ATORVASTATIN 1 tab po qhs Active [facility] CALCIUM 20 MG 2015 Neuro TABS Coumadin 10 mg, 1 tab, Inactive 09/26[facility] Route: PO, Drug 2013 Medical form: TAB, Q5PM, [place] Dosing Weight 90.909, kg, Start date: 09/26/14 17:00:00, Duration: 1 doses or times, Stop date: 09/26/14 17:00:00Notes: Nurse to ensure documentation of patient education per anticoagulation policy. Avoid large intake of vitamin-K containing foods diet. (Same As: Coumadin) tramadol 50 mg=1 tab, PO, Active 09/26[facility] [place] hydrochloride Q6H, Pain, # 40 2013 Medical 50 MG Oral tab, 0 Refill(s) [place] Tablet Oxycodone 5 mg, 1 tab, Inactive 09/26[facility] Hydrochloride 5 Route: PO, Drug [...] Neuro Coumadin 10 mg, 2 tab, Inactive [facility] Route: PO, Drug 2013 Medical form: TAB, Q5PM, Center Dosing Weight 90.909, kg, Start date: 09/25/14 17:00:00, Duration: 1 doses or times, Stop date: 09/25/14 17:00:00Notes: Nurse to ensure documentation of patient education per anticoagulation policy. Avoid large intake of vitamin-K containing foods diet. (Same As: Coumadin) Coumadin 6 mg, 1 tab, Inactive [facility] Route: PO, Drug 2013 Medical form: TAB, ONCE, Center Dosing Weight 90.909, kg, Start date: 09/24/14 18:36:00, Stop date: 09/24/14 18:36:00Notes: (Same As: Coumadin) atorvastatin 20 mg, 1 tab, No Longer [facility] Route: PO, Drug Active 2013 Medical form: TAB, Center Bedtime, Dosing Weight 90.909, kg, Start date: 09/23/14 21:00:00, Duration: 30 day, Stop date: 10/22/14 21:00:00Notes: (Same As: Lipitor) Iohexol 95 mL, Route: Inactive [facility] IVP, Drug Form: 2013 Medical SOLN, Dosing Center Weight 90.909, kg, ONCALL, STAT, Start date: 09/23/14 14:51:00, Duration: 1 doses or times, Dose=2.2ml/kg, Max [id number] -- "To be infused by Radiology Staff ONLY"Special Instructions: Dose=2.2ml/kg, Max [id number]=[id number] -- "To be infused by Radiology Staff ONLY"Notes: (Same as:Omnipaque 350). Dicyclomine 20 mg=1 tab, PO, Active [facility] Hydrochloride Q6H, # 40 tab, 0 2013 Medical 20 MG Oral Refill(s) [place] Tablet [Bentyl] Warfarin Sodium 6 mg=1 tab, PO, Active [place] 6 MG Oral Daily, As 2013 Medical Tablet Directed, # 30 Center [Coumadin] tab, 0 Refill(s)Special Instructions: As Directed Warfarin Sodium 1 mg=1 tab, PO, Active [place] 1 MG Oral Daily, As 2013 Medical Tablet Directed, # 30 Center [Coumadin] tab, 0 Refill(s)Special Instructions: As Directed Triamcinolone 1 appl, TOP, BID, Active [facility] Acetonide 1 For rash, # 15 2013 Medical MG/ML Topical gm, 0 Refill(s) [place] Cream Flomax 0.4 mg, 1 cap, No Longer [facility] Route: PO, Drug Active 2013 Medical form: CAP, Daily, Center Dosing Weight 90.909, kg, Start date: 09/23/14 9:00:00, Duration: 30 day, Stop date: 10/22/14 9:00:00Notes: (Same As: Flomax) "Do Not Crush" Finasteride 5 mg, 1 tab, No Longer [facility] Route: PO, Drug Active 2013 Medical form: TAB, Daily, Center Dosing Weight 90.909, kg, Start date: 09/23/14 9:00:00, Duration: 30 day, Stop date: 10/22/14 9:00:00Notes: (Same as: Proscar) "Do Not Crush" Amoxicillin 875 1 tab, Route: PO, No Longer [facility] MG / Drug Form: TAB, Active 2013 Medical Clavulanate 125 Dosing Weight Center MG Oral Tablet 90.909, kg, BID, [Augmentin Start date: 875-mg] 09/23/14 9:00:00, Duration: 30 day, Stop date: 10/22/14 17:00:00Notes: With food. (Same as: Augmentin 875) heparin sodium, Route: IVP, PRN, No Longer [facility] porcine 1000 6,400 unit, 6.4 Active 2013 Medical UNT/ML mL, Drug form: [place] Injectable INJ, PRN, Heparin Solution Protocol, Start date: 09/23/14 8:03:00 Stop date: 10/23/14 8:02:00, 30 day heparin 500 mL, Rate: No Longer [facility] additive 25,000 28.86 ml/hr, Active 2013 [...] tab, Active 2013 Medical Tablet 0 Refill(s) [place] [Coumadin] atorvastatin 20 20 mg=1 tab, PO, Active [facility] mg oral tablet Bedtime, # 30 2013 Medical tab, 0 Refill(s) Center finasteride 5 5 mg=1 tab, PO, Active [facility] mg oral tablet Daily, # 30 tab, 2013 Medical 0 Refill(s) Center Tamsulosin 0.4 mg=1 cap, PO, Active [facility] hydrochloride Daily, # 30 cap, 2013 Medical 0.4 MG Oral 0 Refill(s) [place] Capsule [Flomax] Amoxicillin 875 875 mg=1 tab, PO, Active [place] MG / BID, # 20 tab, 0 2013 Medical Clavulanate 125 Refill(s) Center MG Oral Tablet [Augmentin 875-mg] Acetaminophen 1 tab, Route: PO, No Longer [facility] 325 MG / Drug Form: TAB, Active 2013 Medical Hydrocodone Dosing Weight [place] Bitartrate 5 MG 90.909, kg, Q4H, Oral Tablet PRN Pain Score 1-3, Start date: 09/22/14 20:38:00, Duration: 30 day, Stop date: 10/22/14 20:37:00Notes: (Same as: [place] 325/5) Do not exceed 4gm/day of acetaminophen. Acetaminophen 650 mg, 2 tab, No Longer [place] Route: PO, Drug Active 2013 Medical form: [...] EXAM: CT lumbar spine without contrast. 12[facility]17 [facility] /2014 - [...] or 2 or 3 views /2014 - [place] 3 views DX DX DATE: Nov 05, [...] HEMATOLOGY PT 16.3 s 12.0 - 09/26 [facility] 14. [facility] HEMATOLOGY INR 1.30 0.85 - 09/26 8Interpretive Data: RECOMMENDED RANGES FOR PROTIME INR: [facility] . 2.0-3.0 for most medical and surgical thromboembolic states. Medical 2.5-3.5 for artificial heart valves and recurrent embolism. Center INR SHOULD BE USED ONLY FOR PATIENTS ON STABLE ANTICOAGULANT THERAPY. HEMATOLOGY PTT 67.1 s 22.9 - 09/26 11Interpretiv [facility] 35.8 e Data: [facility] Heparin [place] Therapeutic Range: 57 - 92 Seconds HEMATOLOGY PT 14.9 s 12.0 - 09/26 [facility] 14. [facility] HEMATOLOGY INR 1.16 0.85 - 09/26 9Interpretive Data: RECOMMENDED RANGES FOR PROTIME INR: [facility] . 2.0-3.0 for most medical and surgical thromboembolic states. Medical 2.5-3.5 for artificial heart valves and recurrent embolism. Center INR SHOULD BE USED ONLY FOR PATIENTS ON STABLE ANTICOAGULANT THERAPY. HEMATOLOGY PTT 62.6 s 22.9 - 09/26 12Interpretiv [facility] 35.8 /2013 e Data: [facility] Heparin [place] Therapeutic Range: 57 - 92 Seconds HEMATOLOGY INR 1.21 0.85 - 09/25 10Interpretive Data: RECOMMENDED RANGES FOR PROTIME INR: [facility] . 2.0-3.0 for most medical and surgical thromboembolic states. Medical 2.5-3.5 for artificial heart valves and recurrent embolism. Center INR SHOULD BE USED ONLY FOR PATIENTS ON STABLE ANTICOAGULANT THERAPY. HEMATOLOGY PTT 53.0 s 22.9 - 09/25 13Interpretiv [facility] 35.8 e Data: [facility] Therapeutic Range: 57 - 92 Seconds HEMATOLOGY PT 15.4 s 12.0 - 09/25 [facility] 14.7 [facility] CHEM PANEL LDH 230 unit/L 98 - 192 09/24 [facility] CHEM PANEL E-3-Uoybebipx 1.6 mg/L 1.0 - 2.3 09/24 [facility] CHEM PANEL Magnesium Lvl 1.7 mg/dL 1.8 - 2.4 09/24 [facility] ELECTROLYTE AGAP 11.0 meq/L 10.0 - 09/24 [facility] S 20.0 [facility] ELECTROLYTE eGFR 82 09/24 2Result Comment: The eGFR is calculated using the CKD-EPI formula. In most young, healthy individuals the eGFR will be > 90 mL/min/1.73m2. The eGFR declines with age. An eGFR of 60-89 may be normal in [facility] mL/min/1. some populations, particularly the elderly, for whom the CKD-EPI formula has not been extensively validated. Use of the eGFR is not recommended in the following populations: [place] [address] Center Individuals with unstable creatinine concentrations, including [...] CO2 28 meq/L 24 - 32 09/24 [facility] ELECTROLYTE Calcium Lvl 8.8 mg/dL 8.5 - 10.5 09/24 [facility] ELECTROLYTE Sodium Lvl 141 meq/L 135 - 145 09/24 [facility] ELECTROLYTE Potassium Lvl 4.0 meq/L 3.5 - 5.1 09/24 [facility] ELECTROLYTE Chloride Lvl 106 meq/L 95 - 109 09/24 [facility] ELECTROLYTE BUN 19 mg/dL 7 - 22 09/24 [facility] ELECTROLYTE Glucose Lvl 92 mg/dL 70 - 99 09/24 5Interpretive Data: Adult reference range values reflect the clinical guidelines of the [employer]. [facility] ELECTROLYTE Creatinine 1.1 mg/dL 0.5 - 1.4 09/24 [facility] S Lvl [facility] HEMATOLOGY Monocytes # 0.5 K/CMM 0.0 - 0.8 09/24 [facility] HEMATOLOGY Eosinophils # 0.1 K/CMM 0.0 - 0.5 09/24 [facility] HEMATOLOGY Monocytes 7.5 % 2.0 - 12.0 09/24 [facility] HEMATOLOGY Lymphocytes 24.8 % 20.0 - 09/24 [place] 40.0 [facility] HEMATOLOGY Eosinophils 1.5 % 0.0 - 4.0 09/24 [facility] HEMATOLOGY Segs 65.5 % 45.0 - 09/24 [place] 75.0 [facility] HEMATOLOGY Lymphocytes # 1.7 K/CMM 1.0 - 5.5 09/24 [facility] HEMATOLOGY Segs-Bands # 4.5 K/CMM 1.5 - 8.1 09/24 [facility] HEMATOLOGY Basophils 0.7 % 0.0 - 1.0 09/24 [facility] HEMATOLOGY Hct 41.6 % 42.0 - 09/24 [place] 54.0 [facility] HEMATOLOGY MCV 89.0 fL 80.0 - 09/24 94.0 [facility] HEMATOLOGY RBC 4.67 M/CMM 4.70 - 09/24 [place] 6.10 [facility] HEMATOLOGY Hgb 13.8 g/dL 14.0 - 09/24 18.0 [facility] HEMATOLOGY MCHC 33.2 g/dL 32.0 - 09/24 36.0 [facility] HEMATOLOGY RDW 14.4 % 11.5 - 09/24 14.5 [facility] HEMATOLOGY Platelet 150 K/CMM 133 - 450 09/24 [facility] HEMATOLOGY MCH 29.5 pg 27.0 - 09/24 [facility] [place] 31.0 /2013 [facility] HEMATOLOGY MPV 9.0 fL 7.4 - 10.4 09/24 [facility] HEMATOLOGY WBC 6.9 K/CMM 3.7 - 10.4 09/24 [facility] Spine Spine lumbar EXAM: XR LUMBAR SPINE 2 VIEWS 09/24 - [facility] lumbar 2 or 2 or 3 views /2013 - [facility] 3 views DX DX Center DATE: [...] AND UA <=1.0 0.1 - 1.0 09/23 [facility] Urobilinogen mg/dL [facility] URINE AND Micro? Not Indicated 09/23 [facility] *NA* [place] (09/23/14 3:33 PM) URINE AND UA Blood Negative Negative 09/23 [facility] Glucose Negative Negative 09/23 [facility] mg/dL mg/dL [facility] URINE AND UA Bili Negative Negative 09/23 [facility] *NA* [place] (09/23/14 3:33 PM) URINE AND UA Ketones Negative Negative 09/23 [facility] mg/dL mg/dL [facility] URINE AND UA Protein Negative Negative 09/23 [facility] mg/dL mg/dL [facility] URINE AND UA pH 6.5 5.0 - 8.0 09/23 [facility] URINE AND UA Mucus Few /LPF None Seen 09/23 [facility] STOOL /LPF /2013 [facility] URINE AND UA Nitrite Negative Negative 09/23 [facility] (09/23/14 3:33 PM) [place] URINE AND UA WBC 1 /HPF 0 - 5 09/23 [facility] URINE AND UA Leuk Est Negative Negative 09/23 [facility] (09/23/14 3:33 PM) [place] URINE AND UA Turbidity Clear Clear 09/23 [facility] (09/23/14 3:33 PM) [place] URINE AND UA Spec Grav 1.008 <=1.030 09/23 [facility] URINE AND UA Color Yellow Yellow 09/23 [facility] *NA* [place] (09/23/14 3:33 PM) Chest w Chest w EXAM: CT CHEST WITH CONTRAST 09/23 - [facility] contrast CT contrast CT - [facility] This report was dictated by a Building Construction Estimator/Fellow. I have personally reviewed the images as [...] ABDOMEN and pelvis with CONTRAST 09/23 - [facility] IV s w IV /2013 - Medical contrast CT contrast CT This report was dictated by a Building Construction Estimator/Fellow. I have personally reviewed the images as [...] unremarkable. No retroperitoneal abnormalities are seen. A IMPROVEMENT INTERN shunt is seen to be in place [...] # 1.1 K/CMM 1.0 - 5.5 09/[address] HEMATOLOGY Monocytes # 0.6 K/CMM 0.0 - 0.8 09/[address] HEMATOLOGY Segs-Bands # 8.1 K/CMM 1.5 - 8.1 09/[address] HEMATOLOGY Basophils 0.1 % 0.0 - 1.0 09/23 [facility] HEMATOLOGY Monocytes 6.6 % 2.0 - 12.0 09/23 [facility] HEMATOLOGY Segs 82.4 % 45.0 - 09/23 [place] 75.0 [facility] HEMATOLOGY Lymphocytes 10.8 % 20.0 - 09/23 [place] 40.0 /2013 [facility] HEMATOLOGY Eosinophils 0.1 % 0.0 - 4.0 09/23 [facility] HEMATOLOGY Platelet 153 K/CMM 133 - 450 09/23 [facility] HEMATOLOGY MPV 8.6 fL 7.4 - 10.4 09/23 [facility] HEMATOLOGY RDW 14.2 % 11.5 - 09/23 14.5 [facility] HEMATOLOGY MCHC 34.0 g/dL 32.0 - 09/23 [place] 36.0 [facility] HEMATOLOGY MCH 30.4 pg 27.0 - 09/23 [facility] 31.0 [facility] HEMATOLOGY RBC 4.73 M/CMM 4.70 - 09/23 [place] 6.10 [facility] HEMATOLOGY Hct 42.3 % 42.0 - 09/23 [place] 54.0 [facility] HEMATOLOGY WBC 9.8 K/CMM 3.7 - 10.4 09/23 [facility] HEMATOLOGY Hgb 14.4 g/dL 14.0 - 09/23 [place] 18.0 [facility] HEMATOLOGY MCV 89.3 fL 80.0 - 09/23 [facility] 94.0 [facility] URINE AND UA RBC null 0 - 2 09/23 [facility] URINE AND UA <=1.0 0.1 - 1.0 09/23 [facility] STOOL Urobilinogen mg/dL /2013 [facility] URINE AND UA WBC 1 /HPF 0 - 5 09/23 [facility] URINE AND UA Nitrite Negative Negative 09/23 [facility] STOOL [facility] (09/23/14 6:34 AM) [place] URINE AND UA Ketones Negative Negative 09/23 [facility] mg/dL mg/dL [facility] URINE AND UA Glucose 30 mg/dL Negative 09/23 [facility] STOOL mg/dL [facility] URINE AND UA Blood Negative Negative 09/23 [facility] (09/23/14 6:34 AM) [place] URINE AND UA Bili Negative Negative 09/23 [facility] *NA* [place] (09/23/14 6:34 AM) URINE AND UA Sq Epi Few /LPF Few /LPF 09/23 [facility] URINE AND UA Leuk Est Negative Negative 09/23 [facility] (09/23/14 6:34 AM) [place] URINE AND UA Mucus Few /LPF None Seen 09/23 [facility] /LPF /2013 [facility] URINE AND UA pH 6.5 5.0 - 8.0 09/23 [facility] URINE AND UA Spec Grav 1.022 <=1.030 09/23 [facility] URINE AND UA Turbidity Clear Clear 09/23 [facility] (09/23/14 6:34 AM) [place] URINE AND UA Protein 10 mg/dL Negative 09/23 [facility] mg/dL [facility] URINE AND UA Color Yellow Yellow 09/23 [facility] *NA* [place] (09/23/14 6:34 AM) CHEM PANEL Phosphorus 4.6 mg/dL 2.5 - 4.5 09/23 [facility] CHEM PANEL Magnesium Lvl 1.8 mg/dL 1.8 - 2.4 09/23 [facility] CHEM PANEL eGFR 92 09/23 3Result Comment: The eGFR is calculated using the CKD-EPI formula. In most young, healthy individuals the eGFR will be >90 mL/ min/1.73m2. The eGFR declines with age. An eGFR of 60-89 may be normal in [facility] mL/min/1.7 some populations, particularly the elderly, for whom the CKD-EPI formula has not been extensively validated. Use of the eGFR is not recommended in the following populations: [address] Individuals with unstable creatinine concentrations, including [...] AGAP 12.6 meq/L 10.0 - 09/23 20.0 [facility] CHEM PANEL BUN 17 mg/dL 7 - 22 09/23 [facility] CHEM PANEL Glucose Lvl 107 mg/dL 70 - 99 09/23 6Interpretive Data: Adult reference range values reflect the clinical guidelines of the [employer]. Medical Center CHEM PANEL Potassium Lvl 4.6 meq/L 3.5 - 5.1 09/23 [facility] CHEM PANEL CO2 26 meq/L 24 - 32 09/23 [facility] CHEM PANEL Chloride Lvl 106 meq/L 95 - 109 09/23 [facility] CHEM PANEL Sodium Lvl 140 meq/L 135 - 145 09/23 [facility] CHEM PANEL Creatinine 1.0 mg/dL 0.5 - 1.4 09/23 [facility] HEMATOLOGY Segs 86.9 % 45.0 - 09/23 75.0 [facility] HEMATOLOGY Monocytes 3.5 % 2.0 - 12.0 09/23 [facility] HEMATOLOGY Lymphocytes 9.4 % 20.0 - 09/23 40.0 [facility] HEMATOLOGY Basophils 0.1 % 0.0 - 1.0 09/23 [facility] HEMATOLOGY Eosinophils 0.1 % 0.0 - 4.0 09/23 [facility] HEMATOLOGY Monocytes # 0.3 K/CMM 0.0 - 0.8 09/23 [facility] HEMATOLOGY Lymphocytes # 0.8 K/CMM 1.0 - 5.5 09/23 [facility] HEMATOLOGY Segs-Bands # 7.7 K/CMM 1.5 - 8.1 09/23 [facility] HEMATOLOGY MPV 8.7 fL 7.4 - 10.4 09/23 [facility] HEMATOLOGY Platelet 156 K/CMM 133 - 450 09/23 [facility] HEMATOLOGY RBC 4.79 M/CMM 4.70 - 09/23 [facility] 6.10 [facility] HEMATOLOGY WBC 8.8 K/CMM 3.7 - 10.4 09/23 [facility] HEMATOLOGY Hgb 14.5 g/dL 14.0 - 09/23 [facility] [place] 18.0 [facility] HEMATOLOGY MCHC 33.7 g/dL 32.0 - 09/23 [place] 36.0 [facility] HEMATOLOGY MCH 30.4 pg 27.0 - 09/23 [place] 31.0 [facility] HEMATOLOGY MCV 90.0 fL 80.0 - 09/23 [facility] 94.0 [facility] HEMATOLOGY Hct 43.1 % 42.0 - 09/23 [place] 54.0 [facility] HEMATOLOGY RDW 14.1 % 11.5 - 09/23 [facility] 14. [facility] HEMATOLOGY Sed Rate 20 mm/h 0 - 15 09/23 [facility] IMMUNOLOGY C-REACTIVE 23.9 mg/L <=2.9 mg/L 09/23 [facility] PROTEIN [facility] ELECTROLYTE AGAP 13.6 meq/L 10.0 - 09/23 [facility] S 20. [facility] ELECTROLYTE eGFR 82 09/23 4Result Comment: The eGFR is calculated using the CKD-EPI formula. In most young, healthy individuals the eGFR will be > 90 mL/min/1.73m2. The eGFR declines with age. An eGFR of 60-89 may be normal in [facility] mL/min/1. some populations, particularly the elderly, for whom the CKD-EPI formula has not been extensively validated. Use of the eGFR is not recommended in the following populations: [address] Individuals with unstable creatinine concentrations, including [...] 9.1 mg/dL 8.5 - 10.5 09/23 S [facility] ELECTROLYTE Glucose Lvl 163 mg/dL 70 - 99 09/23 7Interpretive Data: Adult reference range values reflect the clinical guidelines [facility] of the [employer]. [facility] ELECTROLYTE Creatinine 1.1 mg/dL 0.5 - 1.4 09/23 [facility] S Lvl [facility] ELECTROLYTE Sodium Lvl 137 meq/L 135 - 145 09/23 [facility] S [facility] ELECTROLYTE BUN 14 mg/dL 7 - 22 09/23 [facility] ELECTROLYTE CO2 27 meq/L 24 - 32 09/23 [facility] ELECTROLYTE Potassium Lvl 5.6 meq/L 3.5 - 5.1 09/23 1Result Comment: Medical [facility] Center hemolysis ELECTROLYTE Chloride Lvl 102 meq/L 95 - 109 09/23 [facility] HEMATOLOGY RBC Morph Normal 09/23 [facility] (09/22/14 6:30 PM) [place] HEMATOLOGY Eosinophils # 0.0 K/CMM 0.0 - 0.5 09/23 [facility] HEMATOLOGY Basophils # 0.1 K/CMM 0.0 - 0.2 09/23 [facility] HEMATOLOGY Plt Morph Normal 09/23 [facility] (09/22/14 6:30 PM) [place] IMMUNOLOGY [facility] HIV 4th Negative Negative 09/22 [facility] (09/22/14 3:50 PM) [place] Spine Spine lumbar EXAM: MRI LUMBAR SPINE WITH AND WITHOUT CONTRAST 09/22 - [facility] lumbar w/wo w/wo contrast /2013 - [facility] contrast MRI This report was dictated by a Building Construction Estimator/ Fellow. I have personally reviewed the images [...] intervertebral discs. Critical findings were communicated by freight conductor sales consultant residential manager to the on -call neurosurgery resident at [...] [facility] Diastolic (mm Hg) 96 12/17/2014 [facility] Neuro Respitory Rate 18 12/17/2014 [facility] Neuro Weight 191.6 11/05/2014 [facility] Neuro Height 71 11/05/2014 [facility] Neuro Temperature Oral (F) 97.7 F 11/05/2014 [facility] Neuro Respitory Rate 16 11/05/2014 [facility] Neuro Heart Rate 102 11/05/2014 [facility] Neuro Systolic (mm Hg) 151 11/05/2014 [facility] Neuro Diastolic (mm Hg) 102 11/05/2014 [facility] Neuro Systolic (mm Hg) 142 09/26/2014 [facility] Respitory Rate 19 09/26/2014 [facility] Diastolic (mm Hg) 87 09/26/2014 [facility] Temperature Oral (F) 98.7 F 09/26/2014 [facility] Heart Rate 94 09/26/2014 [facility] Heart Rate 87 09/26/2014 [facility] [facility] Temperature Oral (F) 97.8 F 09/26/2014 [facility] Diastolic (mm Hg) 81 09/26/2014 [facility] Systolic (mm Hg) 138 09/26/2014 [facility] Respitory Rate 19 09/26/2014 [facility] Diastolic (mm Hg) 82 09/26/2014 [facility] Systolic (mm Hg) 136 09/26/2014 [facility] Heart Rate 74 09/26/2014 [facility] Respitory Rate 20 09/26/2014 [facility] Temperature Oral (F) 98.0 F 09/26/2014 [facility] BMI Calculated 28.76 09/23/2014 [facility] Weight 90.909 09/23/2014 [facility] Height 177.8 cm 09/23/2014 [facility] Height 177.8 cm 09/22/2014 [facility] BMI Calculated 28.76 09/22/2014 [facility] Weight 90.909 09/22/2014 [facility] Encounters Location Location Encounter Encounter Reason Attending ADM DC Status Source Details Type Number For Provider Date Date Visit [facility] [id number] Yefri 09/22 09/26 [facility] [place] /2013 [facility] Office [id number] Trey Reed 11/05 11/05 [facility] Visit 5660 MD /2014 [facility] Outpt Diag [id number] Lalo 11/05 11/06 [facility] [id number] Trey Reed 12/17 12/17 [facility] 3120 [place] /2014 [facility] Out[facility] [id number] PHYLLIS 12/21 [facility] [place] [facility] Outside [id number] 02/12 02/14 [facility] /2018 [facility] [place] [facility] Outside [id number] 02/19 02/21 [facility] /2018 [facility] [place] [facility] Phone [id number] 03/01 03/03 [facility] Message /2018 [facility] Outpatient [id number] Randy Lynn 03/12 [facility] [id number] Kim 03/12 03/13 [facility] Obdulia /2018 [facility] Phone [id number] 03/15 03/17 [facility] Message /2018 [facility] Phone [id number] 03/18 03/20 [facility] Message /2018 [facility] Phone [id number] 03/18 03/20 [facility] Message /2018 [facility] Phone [id number] 03/18 03/20 [facility] Message /2018 [facility] Outpatient [id number] Armando 04/24 [facility] Procedures Procedure Code Date Perfomer Comments Source [id number]<sup>1</ removal sup>
--- OUTSIDE RECORDS SUMMARY | 2019-03-29 11:40 | XMS REPORT | Continuity of Care Document ---
:1950 Author Organization [facility] Care Team Providers Name Role Phone Trey Reed MD Unavailable Unavailable Insurance Providers Payer name Policy type / Policy ID Covered green party ID Policy [place] Coverage type AETNA (POS) AETNA (POS) AETNA (POS) [place] Encounters Encounter Performer Location Date Office Visit Trey Reed [place] [facility] [place] [facility] [place] Problems Problem Effective Dates [...]
--- OUTSIDE RECORDS SUMMARY | 2019-03-29 11:40 | XMS REPORT | Continuity of Care Document ---
:1950 Author Organization [facility] Care Team Providers Name Role Phone Trey Reed MD Unavailable Unavailable Insurance Providers Payer name Policy type / Policy ID Covered republican ID Policy [place] Coverage type AETNA (POS) AETNA (POS) AETNA (POS) [place] Cashier Live Encounters Encounter Performer Location Date Office Visit Trey Reed [place] [facility] [place] [facility] [place] Problems Problem Effective Dates [...]
--- NOTE | 2019-03-29 12:56 | RAD REPORT ---
EXAM DESCRIPTION: RAD - Lumbar Puncture For Dx - 03/29/2019 12:32 pm CLINICAL HISTORY: LP, HYDROCEPHALUS COMPARISON: No comparisons TECHNIQUE: The procedure, risks and alternatives to the procedure were discussed with the patient in detail. After answering all questions, both oral and written consent were obtained. Time-out procedu re was performed. The patient was placed in an oblique prone position on the fluoroscopic table. The skin of the lower back was prepped and draped in the usual sterile fashion. After anesthetizing the skin and deeper sof t tissues with 1% lidocaine, a 22 gauge needle was advanced into the thecal sac at the L4-5 level. Opening pressure was approximately 7. 7-8 cc of clear CSF was obtained and sent for requested laborat ory studies. At the conclusion of the procedure the needle was withdrawn and a sterile bandage placed over the pun cture site. The patient tolerated the procedure well without immediate complications. Total fluoro time: 1 minutes Images obtained: 3 IMPRESSION: Successful fluoroscopic guided lumbar puncture. All obtained fluid was sent to the lab f or studies requested by the referring physician.
[2019-03-29 13:38] LABS: Appearance CLEAR (CLEAR); Body Fluid Source CSF; Body Fluid WBC 0 /mm^3; Color of fluid Colorless (COLORLESS); Fluid Total Volume 8 ml
[2019-03-29 13:39] LABS: Appearance CLEAR (CLEAR); Body Fluid Source CSF; Body Fluid WBC 1 /mm^3; Color of fluid Colorless (COLORLESS)
[2019-03-29 13:48] VITALS: BP 119/74; TEMP 97.8; O2SAT 96
[2019-03-29 14:41] LABS: CSF Glucose 55 mg/dL (40-70)
== END | disposition home or self-care (01) ==
LOC: DS 09:16 → RAD 09:16 → EDSTATUS 11:00
PROVIDERS: ATTEND Neurological Surgery
PROC: 009U3ZX Drainage of Spinal Canal, Percutaneous Approach, Diagnostic (ICD-10-PCS; principal; 2019-03-29)
DX: G91.8 Other hydrocephalus (principal); R51 Headache
CPT/HCPCS: 36415; 77003; 82945; 84157; 85049; 87070; 87077; 87186; 89050

== ENCOUNTER 2021-02-02 04:10 | Emergency (ER) | payer OTHER ==
--- OUTSIDE RECORDS SUMMARY | 2021-02-02 04:14 | XMS REPORT | Continuity of Care Document ---
:1950 Author Organization [facility] t Address [address] [place] [address] Care Team Providers Name Role Phone Familia Aguilera Attending Clinician Shyam Reed Attending Clinician Manpreet Lynn Attending Clinician Ramona Jordan Attending Clinician Stanley Attending Clinician Angus Admitting Clinician Problems Condition Condition Condition Status Onset Resolution Last Treating Co mments Source Name Details Category Date Date Treatment Clinician Date [facility] FU Diagnosis Active 2019-12-21 M emoria 6-26 15:12:00 l [facility] FU 00:00: Barry n 00 Active 04/24/2019 [facility] ARTERIOVEN Diagnosis Active 2019-06-27 Memoria OUS 6-10 13:26:00 l MALFORMATI 00:00: Barry n ON, SITE ARTERIOVEN 00 UNSPECI OUS MALFORMATI ON, SITE UNSPECI Active 04/08/2019 [facility] AVM Q28.2 Diagnosis Active 2019-04-24 Memoria 5-16 05:23:00 l AVM 00:00: Bynum Q28.2 00 Active 03/14/2019 [facility] 805.4 - FX Diagnosis Active 2015-05-12 Memoria LUMBAR 5-04 18:32:00 l VERTE 805.4 - 00:01: Neville FX LUMBAR 00 VERTE Active 03/02/2015 JESENIA Lozada HISTORY OF Condition Active 2014-12-17 Memoria HYPERTENSI 1-07 11:45:21 l ON HISTORY 00:00: Neville OF 00 HYPERTENSI ON Active 5 Condition 12/17/2014 [facility] HISTORY OF Condition Active 2014-12-17 Memoria SEIZURE 1-07 11:45:21 l DISORDER HISTORY 00:00: Lachelle nn OF SEIZURE 00 DISORDER Active 11/05/2014 Condition 5 [facility] CLOSED Condition Active 2014-12-17 Mem oria FRACTURE 1-05 11:45:21 l OF LUMBAR CLOSED 00:00: Lachelle nn VERTEBRA FRACTURE 00 WITHOUT OF LUMBAR MENTION OF VERTEBRA SPINAL WITHOUT CORD MENTION OF INJURY SPINAL CORD INJURY Active 11/03/2014 Condition 5 [facility] UNSTABLE Diagnosis Active 2013-102014-10-01 M emoria L4 BURST -24 22:12:00 l FRACTURE UNSTABLE 00:00: Herm scot L4 BURST 00 FRACTURE Active 09/22/2014 [facility] Benign Problem Resolve 2021-01-23 Abel azra prostatic d 01:24:35 l hyperplasi Benign Herm scot a prostatic (disorder) hyperplasi a (disorder) Resolved Problem 01/23/2021 [facility] OPIArianna Lozada Large Problem Resolve 2021-01-23 Abel azra prostate d 01:24:35 l (finding) Large Barry n prostate (finding) Resolved Problem 01/23/2021 [facility] OPIArianna Lozdaa Feeling Problem Active 2021-01-23 Abel azra agitated 01:24:35 l (finding) Feeling Herm scot agitated (finding) Active Problem 01/23/2021 [facility] OPIArianna Neville Aphasia Problem Active 2021-01-23 Abel azra (finding) 01:24:35 l Aphasia Neville (finding) Active Problem 01/23/2021 [facility] OPID Bynum At risk Problem Active 2021-01-23 Abel azra for falls 01:24:35 l (finding) At risk Herm scot for falls (finding) Active Problem 01/23/2021 [facility] OPID Neville Benign Problem Active 2021-01-23 Memor ia neoplasm 01:24:35 l of Benign Bynum meninges neoplasm (disorder) of meninges (disorder) Active Problem 01/23/2021 [facility] Intracrani Problem Active 2021-01-23 M emoria al tumor 01:24:35 l (disorder) Barry n Intracrani al tumor (disorder) Active Problem 01/23/2021 [facility] JESENIA Lozada Cerebral Problem Active 2021-01-23 Mem oria arterioven 01:24:35 l 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) Active Problem 01/23/2021 [facility] Cerebrovas Problem Active 2021-01-23 M emoria cular 01:24:35 l accident Bynum (disorder) Cerebrovas cular accident (disorder) Active Problem 01/23/2021 [facility] JESENIA Lozada Mood Problem Active 2021-01-23 Memor ia swings 01:24:35 l (finding) Mood Bynum swings (finding) Active Problem 01/23/2021 [facility] JESENIA Lozada Disease of Problem Active 2021-01-23 M emoria brain 01:24:35 l (disorder) Disease Her bonner of brain (disorder) Active Problem 01/23/2021 [facility] JESENIA Lozada Expressive Problem Active 2021-01-23 M emoria dysphasia 01:24:35 l (finding) Bynum Expressive dysphasia (finding) Active Problem 01/23/2021 [facility] JESENIA Lozada Hydrocepha Problem Active 2021-01-23 M emoria matty 01:24:35 l (disorder) Barry n Hydrocepha matty (disorder) Active Problem 01/23/2021 [facility] Hypertensi Problem Active 2021-01-23 M emoria ve 01:24:35 l disorder, Neville systemic Hypertensi arterial ve (disorder) disorder, systemic arterial (disorder) Active Problem 01/23/2021 [facility] JESENIA Lozada Impaired Problem Active 2021-01-23 Mem oria cognition 01:24:35 l (finding) Impaired Her bonner cognition (finding) Active Problem 01/23/2021 [facility] JESENIA Lozada Seizure Problem Active 2021-01-23 Abel azra (finding) 01:24:35 l Seizure Neville (finding) Active Problem 01/23/2021 [facility], OPID Neville Retention Problem Active 2021-01-23 Me moria of urine 01:24:35 l (disorder) Barry n Retention of urine (disorder) Active Problem 01/23/2021 [facility] OPI Bynum Headache Problem Active 2021-01-23 Mem oria (finding) 01:24:35 l Headache Barry n (finding) Active Problem 01/23/2021 [facility] FX LUMBAR Diagnosis Active 2014-10-01 Memoria VERTEBRA-C 22:12:00 l LOSE FX Bynum LUMBAR VERTEBRA-C LOSE Active [facility] Impulsive Problem Resolve 2010-2021-01-23 2021-01-23 Memoria character d 2-09 01:24:35 01:24:35 l (finding) 00:00: Bynum Impulsive 00 character (finding) Resolved 10/07/2011 Problem 01/23/2021 [facility], JESENIA Neville Allergies, Adverse Reactions, Alerts Allergy Allergy Status Severity Reaction(s) Onset Inactive Treating Comm ents Source Name Type Date Date Clinician Kyle Wright Active Patrick Durán Active Gloria Lozada Social History Smoking Status Start Date Stop Date Source Social History 2021-01-19 19:57:23 2021-01-19 19:57:23 Jerry Lozada Medications Ordered Filled Start Stop Current Ordering Indication Dosage Frequency Signature Comments Components Source Medication Medication Date Date Medication? Clinician (SIG) Name Name Acetaminoph 2018- No 1 tab, Abel azra en 325 MG / 04-24 Route: PO, l Hydrocodone 17:53: Drug Form: Neville Bitartrate 00 TAB, 5 MG Oral Dosing Tablet Weight 90.909, kg, Q4H, PRN Pain Score 4-6, Start date: 04/24/19 12:53:00 CDT, Duration: 30 day, Stop date: 05/24/19 12:52:00 CDT Acetaminoph 2018- No 325 mg, Mem oria en 04-24 Route: PO, l 17:53: Drug form: Neville 00 TAB, Q4H, Dosing Weight 90.909, kg, PRN Pain Score 1-3, Start date: 04/24/19 12:53:00 CDT, Duration: 30 day, Stop date: 05/24/19 12:52:00 CDT Sodium 2019-0 No 1,000 mL, Memori a Chloride 6-26 Rate: 50 l 0.9% IV 17:53: ml/hr, Neville 1000 mL 00 Infuse over: 20 hr, Route: IV, Dosing Weight 90.909 kg, Total Volume: 1,000, Priority: Routine, Start date: 04/24/19 12:53:00 CDT, Duration: 30 day, Stop date: 05/24/19 12:52:00 CDT, 2.15, m2 Fentanyl 2019-0 No 50 Memoria 6-26 microgram, l 11:00: Route: Neville 00 IVP, ONCALL, Dosing Weight 92.273, kg, Priority: Routine, Start date: 04/24/19 6:00:00 CDT, Duration: 1 doses or times Bacitracin 2019-0 No 1 appl, Abel azra 0.5 UNT/MG 04-24 Route: l / Polymyxin 11:00: FRITZ, Barry n B 10 UNT/MG 00 ONCALL, Topical Drug form: Ointment OINT, [Polysporin Priority: ] Routine, Start date: 04/24/19 6:00:00 CDT, Duration: 1 doses or times Bupivacaine 2019-0 No 30 mL, Abel azra Hydrochlori 6-26 Route: l de 2.5 11:00: MISCNeville MG/ML / 00 Dosing Epinephrine Weight 0.005 MG/ML 92.273, Injectable kg, Solution ONCALL, Start date: 04/24/19 6:00:00 CDT, Duration: 30 day, Stop date: 05/24/19 5:59:00 CDT Fentanyl 2019-0 No 25 Memoria 6-26 microgram, l 10:30: Route: Neville 00 IVP, Q1H, Dosing Weight 92.273, kg, PRN Pain Score 7-10, Priority: Routine, Start date: 04/24/19 5:30:00 CDT, Duration: 1 doses or times, Stop date: Limited # of times Promethazin 2019-0 No 25 mg, Abel azra e 04-24 Route: l 10:30: IVPB, Q6H, Dosing Weight 92.273, kg, PRN Nausea & Vomiting, Start date: 04/24/19 5:30:00 CDT, Duration: 30 day, Stop date: 05/24/19 5:29:00 CDT Dexamethaso 2019-0 Yes 6 mg, Memor ia ne 04-24 Route: l 10:30: IVP, Drug Neville 00 form: INJ, ONCE, Dosing Weight 92.273, kg, Start date: 04/24/19 5:30:00 CDT, Stop date: 04/24/19 5:30:00 CDT Ondansetron 2019-0 No 4 mg, Memor ia 04-24 Route: l 10:30: IVP, Drug form: INJ, Q6H, Dosing Weight 92.273, kg, PRN Nausea & Vomiting, Start date: 04/24/19 5:30:00 CDT, Duration: 30 day, Stop date: 05/24/19 5:29:00 CDT Famotidine 2019-0 Yes 20 mg, Memor ia 04-24 Route: l 10:30: IVP, Drug form: INJ, ONCE, Dosing Weight 92.273, kg, Start date: 04/24/19 5:30:00 CDT, Stop date: 04/24/19 5:30:00 CDT Sodium 2019-0 No 1,000 mL, Memori a Chloride 04-24 Rate: 50 l 0.9% IV 10:30: ml/hr, Bynum 1000 mL 00 Infuse over: 20 hr, Route: IV, Dosing Weight 92.273 kg, Total Volume: 1,000, Priority: Routine, Start date: 04/24/19 5:30:00 CDT, Duration: 30 day, Stop date: 05/24/19 5:29:00 CDT, 2.16, m2 Bupivacaine 2019-0 No 30 mL, Abel arza Hydrochlori 04-24 Route: l de 2.5 01:00: MISC, Neville MG/ML / 00 Dosing Epinephrine Weight 0.005 MG/ML 92.273, Injectable kg, Solution ONCALL, Start date: 04/23/19 20:00:00 CDT, Duration: 30 day, Stop date: 05/23/19 19:59:00 CDT Bacitracin 2019-0 No 1 appl, Abel azra 0.5 UNT/MG 04-24 Route: l / Polymyxin 01:00: TOP, Baryr n B 10 UNT/MG 00 ONCALL, Topical Drug form: Ointment OINT, [Polysporin Priority: ] Routine, Start date: 04/23/19 20:00:00 CDT, Duration: 1 doses or times Fentanyl 2019-0 No 50 Memoria 6- microgram, l 01:00: Route: Neville 00 IVP, ONCALL, Dosing Weight 92.273, kg, Priority: Routine, Start date: 04/23/19 20:00:00 CDT, Duration: 1 doses or times Ondansetron 2019-0 No 4 mg, Memor ia 04-24 Route: l 00:11: IVP, Drug form: INJ, Q6H, Dosing Weight 92.273, kg, PRN Nausea & Vomiting, Start date: 04/23/19 19:11:00 CDT, Duration: 30 day, Stop date: 05/23/19 19:10:00 CDT Dexamethaso 2019-0 No 6 mg, Memor ia ne 04-24 Route: l 00:11: IVP, Drug Bynum 00 form: INJ, ONCE, Dosing Weight 92.273, kg, Start date: 04/23/19 19:11:00 CDT, Stop date: 04/23/19 19:11:00 CDT Famotidine 2019-0 No 20 mg, Memor ia 04-24 Route: l 00:11: IVP, Drug form: INJ, ONCE, Dosing Weight 92.273, kg, Start date: 04/23/19 19:11:00 CDT, Stop date: 04/23/19 19:11:00 CDT Promethazin 2019-0 No 25 mg, Abel azra e 04-24 Route: l 00:11: IVPB, Q6H, Neville Dosing Weight 92.273, kg, PRN Nausea & Vomiting, Start date: 04/23/19 19:11:00 CDT, Duration: 30 day, Stop date: 05/23/19 19:10:00 CDT Fentanyl 2019-0 No 25 Memoria 6-26 microgram, l 00:11: Route: Neville IVP, Q1H, Dosing Weight 92.273, kg, PRN Pain Score 7-10, Priority: Routine, Start date: 04/23/19 19:11:00 CDT, Duration: 1 doses or times, Stop date: Limited # of times Sodium 2019-0 No 1,000 mL, Memori a Chloride 6-26 Rate: 50 l 0.9% IV 00:11: ml/hr, Neville 1000 mL 00 Infuse over: 20 hr, Route: IV, Dosing Weight 92.273 kg, Total Volume: 1,000, Priority: Routine, Start date: 04/23/19 19:11:00 CDT, Duration: 30 day, Stop date: 05/23/19 19:10:00 CDT, 2.16, m2 COUMADIN 1 Yes 1 tab po Mem oria MG TABS 1-07 qd l 00:00: COUMADIN 6 Yes 1 tab po Mem oria MG TABS 1-07 qd prn (as l 00:00: directed) FLOMAX 0.4 Yes 1 cap po Mem oria MG CAPS 1-07 qd l 00:00: ATORVASTATI 0 Yes 1 tab po Me moria N CALCIUM 1-07 qhs l 20 MG TABS 00:00: FINASTERIDE 0 Yes 1 tab po Me moria 5 MG TABS 1-07 qd l 00:00: TRIAMCINOLO Yes apply to Me moria NE 1-07 the l ACETONIDE 00:00: affected Herm scot 0.1 % CREA 00 area bid prn rash ATORVASTATI 0 Yes 1 tab po Me moria N CALCIUM 1-07 qhs l 20 MG TABS 00:00: Coumadin 2013-10 No Notes: Memoria 11-26 Nurse to l 23:00: ensure documentat ion of patient education per anticoagul ation policy. Avoid large intake of vitamin-K containing foods diet. (Same As: Coumadin) tramadol 2013-10 Yes 50 mg = 1 Abel azra hydrochlori 11-26 tab, PO, l de 50 MG 16:35: Q6H, Pain, Her bonner Oral Tablet 00 # 40 tab, 0 Refill(s) Oxycodone 2013-10 No Notes: Memori a Hydrochlori 11-26 (Same as: l de 5 MG 03:13: Roxicodone Herm scot Oral Tablet 00 ) TRAMADOL 2013-10 No 1 tab po Memor ia HCL 50 MG 11-26 q6h prn l TABS 00:00: pain AUGMENTIN 2013-10 No 1 tab po Abel azra 875-125 MG 11-26 bid l TABS 00:00: BENTYL 20 2013-10 No 1 tab po Abel azra MG TABS 11-26 q6h l 00:00: TRAMADOL 2013-10 No 1 tab po Memor ia HCL 50 MG 11-26 q6h prn l TABS 00:00: pain Coumadin 2013-10 No Notes: Memoria 11-25 Nurse to l 23:00: ensure documentat ion of patient education per anticoagul ation policy. Avoid large intake of vitamin-K containing foods diet. (Same As: Coumadin) Coumadin 2013-10 No Notes: Memoria 11-25 (Same As: l 00:36: Coumadin) atorvastati 2013-10 No Notes: Abel azra n 11-24 (Same As: l 03:00: Lipitor) Iohexol 2013-10 No Notes: Memoria 11-23 (Same l 20:51: as:Omnipaq [address] 350). Dicyclomine 2013-10 Yes 20 mg = 1 M emoria Hydrochlori -25 tab, PO, l de 20 MG 20:07: Q6H, # 40 Herm scot Oral Tablet 00 tab, 0 [Bentyl] Refill(s) Warfarin 2013-10 Yes Special Memori a Sodium 6 MG 1-25 Instructio l Oral Tablet 20:07: ns: As Herm scot [Coumadin] 00 Directed Warfarin 2013-10 Yes Special Memori a Sodium 1 MG 1-25 Instructio l Oral Tablet 20:07: ns: As Herm scot [Coumadin] 00 Directed Triamcinolo 2013-10 Yes 1 appl, Mem oria ne -25 TOP, BID, l Acetonide 1 20:07: For rash, H ermann MG/ML 00 # 15 gm, 0 Topical Refill(s) Cream Flomax 2013-10 No Notes: Memoria 1-25 (Same As: l 15:00: Flomax) Bynum 00 "Do Not Crush" Finasteride 2013-10 No Notes: Abel azra 1-25 (Same as: l 15:00: Proscar) Neville 00 "Do Not Crush" Amoxicillin 2013-10 No Notes: Abel azra 875 MG / 1-25 With food. l Clavulanate 15:00: (Same as: H ermann 125 MG Oral 00 Augmentin Tablet 875) [Augmentin 875-mg] heparin 2013-10 No Route: Memoria sodium, 1-25 IVP, PRN, l porcine 14:03: 6,400 Neville 1000 UNT/ML 00 unit, 6.4 Injectable mL, Drug Solution form: INJ, PRN, Heparin Protocol, Start date: 09/23/14 8:03:00 Stop date: 10/23/14 8:02:00, 30 day heparin 2013-10 No 500 mL, Memoria additive 1-25 Rate: l 25,000 unit 14:03: 28.86 Lachelle nn [18 00 ml/hr, unit/kg/hr] Infuse + Premix over: 17.3 Diluent hr, Route: Dextrose 5% IV, Dosing 500 mL Weight 80.16 kg, Total Volume: 500 mL, Start date: 09/23/14 8:03:00, Duration: 30 day, Stop date: 10/23/14 8:02:00 Warfarin 2013-10 No 0.5 mg = Memor ia Sodium 1 MG 1-25 0.5 tab, l Oral Tablet 05:59: PO, Daily, [place] [Coumadin] 00 # 30 tab, 0 Refill(s) Warfarin 2013-10 No 6 mg = 1 Memor ia Sodium 6 MG 1-25 tab, PO, l Oral Tablet 05:59: Daily, # He rmann [Coumadin] 00 30 tab, 0 Refill(s) atorvastati 2013-10 Yes 20 mg = 1 M emoria n 20 mg 1-25 tab, PO, l oral tablet 05:59: Bedtime, # Bynum 00 30 tab, 0 Refill(s) finasteride 2014-1 Yes 5 mg = 1 Me moria 5 mg oral 1-25 tab, PO, l tablet 05:59: Daily, # Neville 00 30 tab, 0 Refill(s) Tamsulosin 2013-10 Yes 0.4 mg = 1 M emoria hydrochlori 1-25 cap, PO, l de 0.4 MG 05:59: Daily, # Herm scot Oral 00 30 cap, 0 Capsule Refill(s) [Flomax] Amoxicillin 2013-10 Yes 875 mg = 1 Memoria 875 MG / -25 tab, PO, l Clavulanate 05:59: BID, # 20 H ermann 125 MG Oral 00 tab, 0 Tablet Refill(s) [Augmentin 875-mg] Acetaminoph 2013-10 No Notes: Abel azra en 325 MG / 11-23 (Same as: l Hydrocodone 02:38: Schuyler Lachelle nn Bitartrate 00 325/5) Do 5 MG Oral not exceed Tablet 4gm/day of acetaminop hen. Acetaminoph 2013-10 No Notes: Do M emoria en 11-23 not exceed l 02:38: 4 gm/day. Neville 00 (Same as: Tylenol) Vital Signs Vital Name Observation Time Observation Value Comments Source Systolic (mm Hg) 2021-01-19 19:56:00 Abel rial Bynum Diastolic (mm Hg) 2021-01-19 19:56:00 Mem orial Neville Heart Rate 2021-01-19 19:56:00 [facility] Nev[place] Respitory Rate 2021-01-19 19:56:00 Memori al Neville Height 2021-01-19 19:56:00 177.8 cm [facility] Neville Weight 2021-01-19 19:56:00 [facility] BMI Calculated 2021-01-19 19:56:00 Memori al Bynum Systolic (mm Hg) 2020-08-12 15:11:00 Abel rial Bynum Diastolic (mm Hg) 2020-08-12 15:11:00 Mem orial Bynum Heart Rate 2020-08-12 15:11:00 [facility] Bynum Weight 2020-08-12 15:11:00 [facility] Bynum Height 2020-08-12 15:11:00 175.26 cm [facility] Neville BMI Calculated 2020-08-12 15:11:00 Memori al Bynum Systolic (mm Hg) 2019-04-24 17:00:00 Abel rial Neville Diastolic (mm Hg) 2019-04-24 17:00:00 Mem orial Neville Respitory Rate 2019-04-24 17:00:00 Memori al Bynum Systolic (mm Hg) 2019-04-24 16:45:00 Abel rial Neville Diastolic (mm Hg) 2019-04-24 16:45:00 Mem orial Bynum Respitory Rate 2019-04-24 16:45:00 Memori al Neville Systolic (mm Hg) 2019-04-24 16:30:00 Abel rial Bynum Diastolic (mm Hg) 2019-04-24 16:30:00 Mem orial Neville Respitory Rate 2019-04-24 16:30:00 Memori al [place] Height 2019-04-24 11:04:00 180.34 cm Memorial Bynum Weight 2019-04-24 11:04:00 [facility] [place] BMI Calculated 2019-04-24 11:04:00 Memori al Bynum Height 2019-03-12 14:02:00 180.34 cm [facility] Bynum BMI Calculated 2019-03-12 14:02:00 Memori al [place] Weight 2019-03-12 14:02:00 [facility] Bynum Temperature Oral (F) 2019-03-12 14:02:00 98.0 F [facility] [place] Heart Rate 2019-03-12 14:02:00 [facility] Bynum Systolic (mm Hg) 2019-03-12 14:02:00 Abel rial Neville Diastolic (mm Hg) 2019-03-12 14:02:00 Mem orial Nev[place] Weight 2014-12-17 17:45:21 [facility] Bynum Height 2014-12-17 17:45:21 [facility] [place] Temperature Oral (F) 2014-12-17 17:45:21 96.6 F [facility] [place] Heart Rate 2014-12-17 17:45:21 [facility] [place] Systolic (mm Hg) 2014-12-17 17:45:21 Abel rial Bynum Diastolic (mm Hg) 2014-12-17 17:45:21 Mem orial Nev[place] Respitory Rate 2014-12-17 17:45:21 Memori al Bynum Weight 2014-11-05 21:14:31 [facility] Bynum Height 2014-11-05 21:14:31 [facility] Bynum Temperature Oral (F) 2014-11-05 21:14:31 97.7 F [facility] [place] Respitory Rate 2014-11-05 21:14:31 Memori al [place] Heart Rate 2014-11-05 21:14:31 [facility] [place] Systolic (mm Hg) 2014-11-05 21:14:31 Abel rial Bynum Diastolic (mm Hg) 2014-11-05 21:14:31 Mem orial Neville Systolic (mm Hg) 2014-09-26 17:27:00 Abel rial Bynum Respitory Rate 2014-09-26 17:27:00 Memori al Neville Diastolic (mm Hg) 2014-09-26 17:27:00 Mem orial Bynum Temperature Oral (F) 2014-09-26 17:27:00 98.7 F [facility] Bynum Heart Rate 2014-09-26 17:27:00 [facility] Bynum Heart Rate 2014-09-26 13:39:00 [facility] Bynum Temperature Oral (F) 2014-09-26 13:39:00 97.8 F [facility] Bynum Diastolic (mm Hg) 2014-09-26 13:39:00 Mem orial Bynum Systolic (mm Hg) 2014-09-26 13:39:00 Abel rial Bynum Respitory Rate 2014-09-26 13:39:00 Memori al Neville Diastolic (mm Hg) 2014-09-26 10:39:00 Mem orial Bynum Systolic (mm Hg) 2014-09-26 10:39:00 Abel rial Neville Heart Rate 2014-09-26 10:39:00 [facility] [place] Respitory Rate 2014-09-26 10:39:00 Memori al Bynum Temperature Oral (F) 2014-09-26 01:44:00 98.0 F [facility] Bynum BMI Calculated 2014-09-23 03:00:00 Memori al [place] Weight 2014-09-23 03:00:00 [facility] Bynum Height 2014-09-23 03:00:00 177.8 cm [facility] [place] Height 2014-09-22 21:36:00 177.8 cm [facility] Bynum BMI Calculated 2014-09-22 21:36:00 Memori al Bynum Weight 2014-09-22 21:36:00 [facility] Bynum Procedures Procedure Date / Time Performed Performing [facility] 2019-04-24 13:21:00 [facility] [place] placement, external carotid artery, unilateral, with angiography of the ipsilateral external carotid circulation and all associated radiological supervision and interpretation (List separately in addition to code for primary procedure) [facility] [employer] [facility] Herm scot Tumor [facility] Neville destruction<sup>1</sup> Encounters Start End Encounter Admission Attending Care Care Encounter Source Date/Time Date/Time Type Type Clinicians Facility Department ID 2019-04-24 Outpatient [facility] [id number] [facility] 10:51:31 2019-04-22 Outpatient [facility] [id number] [facility] 15:06:05 2021-01-20 2021-01-20 Outpatient Willy, MHMISCHER MHMISCHER [id number] 10:00:00 23:59:59 Altaf 08 Familia 2021-01-19 2021-01-19 Outpatient Willy, MHMISCHER MHMISCHER [id number] 15:30:00 23:59:59 Altaf 07 Familia 2020-08-12 2020-08-12 Outpatient Willy MHMISCHER MHMISCHER [id number] 10:15:00 23:59:59 Altaf 06 Familia 2020-08-12 2020-08-12 Outpatient Willy, MHMISCHER MHMISCHER [id number] 10:15:00 10:15:00 Altaf 05 Familia 2020-02-11 2020-02-11 Outpatient Willy, MHMISCHER MHMISCHER [id number] 14:30:00 23:59:59 Altaf 04 Familia 2019-05-07 2019-05-08 Outpatient MHMISCHER MHMISCHER [id number] 10:44:06 23:59:59 11 2019-05-03 2019-05-04 Outpatient MHMISCHER MHMISCHER [id number] 17:04:54 23:59:59 10 2019-04-24 2019-04-24 Outpatient Trey Reed MHMISCHER MHMISCHER [id number] 08:00:00 23:59:59 Shyam 02 2019-04-24 2019-04-24 Outpatient Randy Lynn [facility] [id number] 05:14:00 12:30:00 00 2019-04-24 2019-04-24 Outpatient [id number] [facility] 05:14:00 05:14:00 2019-04-08 2019-04-09 Outpatient MHMISCHER MHMISCHER [id number] 14:46:11 23:59:59 09 2019-03-18 2019-03-19 Outpatient MHMISCHER MHMISCHER [id number] 11:50:28 23:59:59 08 2019-03-18 2019-03-19 Outpatient MHMISCHER MHMISCHER [id number] 11:48:54 23:59:59 07 2019-03-18 2019-03-19 Outpatient MHMISCHER MHMISCHER [id number] 09:14:12 23:59:59 06 2019-03-15 2019-03-16 Outpatient MHMISCHER MHMISCHER [id number] 09:56:26 23:59:59 05 2019-03-12 2019-03-12 Outpatient Reed Trey MHMISCHER MHMISCHER [id number] 15:15:00 23:59:59 Shyam 2019-03-01 2019-03-02 Outpatient MHMISCHER MHMISCHER [id number] 11:23:41 23:59:59 2019-02-19 2019-02-20 Outpatient MHMISCHER MHMISCHER [id number] 15:14:00 23:59:59 03 2019-02-12 2019-02-13 Outpatient MHMISCHER MHMISCHER [id number] 14:24:00 23:59:59 02 2014-11-05 2014-11-05 Outpatient Julian [facility] [id number] 13:30:00 23:59:00 Lalo Greene 2014-09-22 2014-09-26 Outpatient Stanley [facility] [id number] 15:36:00 13:43:00 Jesse Steven Results Test Description Test Time Test Comments Results Result Comments Source CHEM PANEL 2019-04-24 106 [facility] 10:52:00 CHEM PANEL 2019-04-24 0.8 [facility] 10:52:00 HEMATOLOGY 2019-04-24 33.3 [facility] nn 10:47:00 HEMATOLOGY 2019-04-24 144 [facility] Lachelle nn 10:47:00 HEMATOLOGY 2019-04-24 10:47:00 Test Item Value Reference Range Interpretation Comme nts MCH (test code = MCH) 30.3 pg 27.0-31.0 [facility] [id number] 10:47:008.9[facility] 2019-04-24 10:47:00 Test Item Value Reference Range Interpretation Comments PTT (test code = PTT) 43.9 s 22.9-35.8 [facility] WruaxqxDUFRXCFBDA1114-60-04 10:47:00 Test Item Value Reference Range Interpretation Comments PT (test code = PT) 26.1 s 12.0-14.7 [facility] IagvpmkFUZCEDHRVX3886-33-52 10:47:00 Test Item Value Reference Range Interpretation Comments INR (test code = INR) 2.46 1 0.85-1.17 [facility] GhweeasRQWKNBMYMX7691-84-29 10:47:000.1[facility] 2019-04-24 10:47:002.9[facility] QeqozmwHKNDVSSGRL2865-53-75 10:47:001.8[facility] JikxfrlIPHEYELFNR7384-69-66 10:47:000.4[facility] BdzzjscEXAZDBZTYM0528-70-86 10:47:000.6[facility] IgqpndcPARUQHSGFE4394-62-31 10:47:002.7[facility] IFUTIQAPSD6024-28-83 10:47:0054.9[facility] RaaanbzLHPNICLVZF1171-57-76 10:47:00 34.0[facility] WvkrqwkMUCFIRWHSO6157-03-21 10:47:007.8[facility]annELECTROLYTES 2019-04-24 10:47:008.6[facility] YnfuccbANBPMOUVDNTE1791-07-98 10:47:29931Lgygylrc RkqunydITMIVEMRUEPT1489-00-43 10:47:75293Lkitxpfn CgfcmpzSGKJSCSCVINC4342-29-73 10:47:0018[facility] ZaqvtquMZJBFRIYEMJX8069-63-36 10:47:70277Ypxqngnw [facility] GMGKIRFNFMZG9797-98-55 10:47:0029[facility] SqilvwkUAOFOIXBOFDC7553-96-99 10:47:00 9.0[facility] UyvfecsFFULLAABDLBV3109-68-72 10:47:004.6[facility] VNBZGKVDKLTN9757-91-31 10:47:001.04[facility] WgbmwtiILDGKHDIKOOZ6860-66-06 10:47:0085[facility] XghybjhOEOPPLWGTI8606-77-58 10:47:005.2[facility] VPAIRNPXVO0121-80-74 10:47:0090.8[facility] EtvpgjpUEZSDWKWWS9010-26-45 10:47:00 14.6[facility] AvldcqjQLEGUNCKJU4039-82-15 10:47:0043.9[facility]annHEMATOLOGY 2019-04-24 10:47:0013.9[facility] NyooowgLQKNSIRXSG7301-42-17 10:47:004.83[facility] OkqhpglRJNCOMMZZS4737-56-93 12:18:57 Test Item Value Reference Range Interpretation Comments PT (test code = PT) 16.3 s 12.0-14.7 [facility]uvlocpQASRNLXXXX8137-82-95 12:18:571.30[facility] HermannHEMATOLOGY 2014-09-26 12:18:57 Test Item Value Reference Range Interpretation Comments PTT (test code = PTT) 67.1 s 22.9-35.8 [facility] NorthwestBzpyvnsTNFAEHFSYC9373-02-14 06:00:42 Test Item Value Reference Range Interpretation Comments PT (test code = PT) 14.9 s 12.0-14.7 [facility] NorthwestZlaacupHRDAVZIOFX5654-10-94 06:00:421.16[facility] HermannHEMATOLOGY 2014-09-26 06:00:42 Test Item Value Reference Range Interpretation Comments PTT (test code = PTT) 62.6 s 22.9-35.8 [facility] NorthwestInnnkvfMTDXAHPIPH9779-96-93 19:40:031.21[facility]annHEMATOLOGY 2014-09-25 19:40:03 Test Item Value Reference Range Interpretation Comments PTT (test code = PTT) 53.0 s 22.9-35.8 [facility] NorthwestAdbzyyrTRFPCKNBKF5105-20-57 19:40:03 Test Item Value Reference Range Interpretation Comments PT (test code = PT) 15.4 s 12.0-14.7 [facility] NorthwestannCHEM ELCIR6874-27-69 17:44:52588Mwcrnxus HermannCHEM PANEL 2014-09-24 17:44:001.6[facility] HermannCHEM RQABR9080-31-68 11:30:001.7[facility] PfccfufOJBEKTAXWYWS9283-44-91 11:30:0011.0[facility] PxusztjPWMILQPDNEHZ7573-10-90 11:30:0082[facility] UjbqjvoUHUGOAXQYNAY9631-36-26 11:30:0028[facility] RWBDURRAOQOI4817-38-48 11:30:008.8[facility] HkirlniASGKJEQUSBCO3716-70-09 11:30:27234Gsssymif MohonwzBRPWDHORJTYX5011-80-49 11:30:004.0[facility] BQDNDHWJRLSB0668-06-22 11:30:11237Lbjrsczf XpjfgvkATJOAVHDDTGA8018-10-67 11:30:0019[facility] OisbpfkWWFYYBGVWOYZ7826-78-17 11:30:0092[facility] TVXKGJLDLWFW4321-54-37 11:30:001.1[facility] EqimpatJFQLIFMZKL2587-39-11 11:30:00 0.5[facility] FtybaewANIWRNWZUS2705-43-84 11:30:000.1[facility] HermannHEMATOLOGY 2014-09-24 11:30:007.5[facility] KcinqnzDCZTKAVLBA3012-15-10 11:30:0024.8[facility] CceniriPGJNQJOCOI7227-69-25 11:30:001.5[facility] ZqulfywLHCFJKBXVV4452-92-56 11:30:0065.5[facility] YrlgkarUOIQDFMNZL4619-09-67 11:30:001.7[facility] RRIITNIMHU2066-54-86 11:30:004.5[facility] OkgabyyDELBZEARBZ8172-33-82 11:30:000.7 [facility] DewmfmnQPTAXFZJHO0383-12-36 11:30:0041.6[facility] HermannHEMATOLOGY 2014-09-24 11:30:0089.0[facility] JkxoowjSIKGGOMSAN8423-72-61 11:30:004.67[facility] BtxlbnlFBUEOXFHQL4331-32-18 11:30:0013.8[facility] TjkuisuQRBGGIFGEL5647-75-98 11:30:0033.2[facility] GldaloyJVXYVZILZX6135-51-77 11:30:0014.4[facility] ATDGIXTHPP7858-85-81 11:30:58073Xwnyhdxf AkskaksYMWISWRPTS1529-34-47 11:30:00 Test Item Value Reference Range Interpretation Comments MCH (test code = MCH) 29.5 pg 27.0-31.0 [facility] LjlonfqBLHXMAGYWV8320-86-67 11:30:009.0[facility] HermannHEMATOLOGY 2014-09-24 11:30:006.9[facility]annURINE AND JLLMC5785-45-83 21:33:08Not Indicated *NA*(09/23/14 3:33 PM)[facility] AQJAA1098-58-83 21:33:08Negative (09/23/14 3:33 PM)[facility] KUTEW9782-50-95 21:33:08Negative *NA*(09/23/14 3:33 PM)[facility] DYFRU3607-99-93 21:33:086.5[facility] AND MPKXP4613-12-00 21:33:08Negative (09/23/14 3:33 PM)[facility] YVLSF2876-86-93 21:33:081[facility]UR[facility] AND PBPWL2956-93-05 21:33:08Negative (09/23/14 3:33 PM)[facility] NQBRK0929-32-09 21:33:08Clear (09/23/14 3:33 PM)[facility] STOOL 2014-09-23 21:33:081.008[facility]UR[facility] AND IBYFL8889-52-14 21:33:08Yellow *NA*(09/23/14 3:33 PM)[facility] CjqkqibIRQMMMSYHO5303-47-62 15:24:201.1[facility] ChoulahXUJFPWEXWO4298-63-73 15:24:200.6[facility] IhmgojpKKRPBOUSQJ8258-94-78 15:24:208.1[facility] ManfbkmCQPGHCDUFX0224-54-59 15:24:200.1[facility] IUWVDSIAGH4310-26-33 15:24:206.6[facility] WezeaflSKTWKXCVDB5105-53-63 15:24:20 82.4[facility] FzjwviiGBBNWXLJZC2668-99-53 15:24:2010.8[facility]annHEMATOLOGY 2014-09-23 15:24:200.1[facility] NjjxojyUPDPTQEPSG2458-34-92 15:24:08120Fobbjrht DpxlkhqOWECDWQIIJ1735-24-93 15:24:208.6[facility] PiijarhYPJDFBPSYR9430-97-36 15:24:2014.2[facility] LzxgjvxZPMFJKDQDI3607-19-68 15:24:2034.0[facility] PVDMGKMSHY2683-06-53 15:24:20 Test Item Value Reference Range Interpretation Comments MCH (test code = MCH) 30.4 pg 27.0-31.0 [facility] OecrhudAENTNODGII4032-38-05 15:24:204.73[facility] HermannHEMATOLOGY 2014-09-23 15:24:2042.3[facility] GskupwcLLJTRVURQS1832-77-79 15:24:209.8[facility] HhlnbtgMIVGYLNEPP9431-77-34 15:24:2014.4[facility] VztoypfCBKEMGUJVO8276-75-29 15:24:2088.3[facility] AND TKSUX5347-17-16 12:34:57<1[facility] AND NCWST5589-46-50 12:34:571[facility] STOOL 2014-09-23 12:34:57Negative (09/23/14 6:34 AM)[facility] STOOL 2014-09-23 12:34:57Negative (09/23/14 6:34 AM)[facility] STOOL 2014-09-23 12:34:57Negative *NA*(09/23/14 6:34 AM)[facility] JLOTF4455-56-08 12:34:57Negative (09/23/14 6:34 AM)[facility] UHXVK8062-14-31 12:34:576.5[facility] OYDIV4876-89-97 12:34:57 1.022[facility] QUZZE6536-73-78 12:34:57Clear (09/23/14 6:34 AM) [facility] EYQXB1412-60-94 12:34:57Yellow *NA*(09/23/14 6:34 AM) [facility]annCHEM XMTYB4512-50-66 09:50:004.6[facility] HermannCHEM PANEL 2014-09-23 09:50:001.8[facility] HermannCHEM DOFGI5089-25-61 09:50:0092[facility] HermannCHEM WAORC6060-12-86 09:50:008.9[facility] HermannCHEM OGPQE2960-95-94 09:50:0012.6[facility] HermannCHEM DCVBP8117-31-31 09:50:0017[facility] HermannCHEM PQCAL6619-99-71 09:50:72530Zasakjbx HermannCHEM MCUDF3951-39-63 09:50:004.6 [facility]annCHEM EPMJK8507-09-59 09:50:0026[facility] HermannCHEM PANEL 2014-09-23 09:50:20063Rbhzcrjb HermannCHEM VAXSU2570-60-84 09:50:87730Xsmemkbh HermannCHEM ALKCA6658-24-28 09:50:001.0[facility] EauwqyuOVZONAOKEK8340-19-20 09:50:0086.9[facility] IaqqggqYEPIEHLZBJ6636-43-44 09:50:003.5[facility] FMALRHXIOZ4172-32-92 09:50:009.4[facility] KqpgvycXQMTQNXPJK3357-74-13 09:50:000.1 [facility] IcyifqnXWVGAJSAYT1714-94-50 09:50:000.1[facility] HermannHEMATOLOGY 2014-09-23 09:50:000.3[facility] PdbbawrJJXCNLJZZX8492-93-13 09:50:000.8[facility] SgqwdvzNQVSSXKKLT6275-24-70 09:50:007.7[facility] NcbcexwFEEMTHIZFY1245-01-94 09:50:008.7[facility] CsfzlmrRIWEWKASIY4013-69-89 09:50:50845Ubsvdoss [facility] DNEFSFTEYT5039-01-13 09:50:004.79[facility] XwapvncAOQTYEBBXW5723-21-84 09:50:00 8.8[facility] WvnaxrzLAEEDSUNCW4451-48-14 09:50:0014.5[facility] HermannHEMATOLOGY 2014-09-23 09:50:0033.7[facility] OmtegimEHSFDNMTLD4915-75-97 09:50:00 Test Item Value Reference Range Interpretation Comments MCH (test code = MCH) 30.4 pg 27.0-31.0 [facility] PcyokjaMMWUGKWWBU3304-53-81 09:50:0090.0[facility] HermannHEMATOLOGY 2014-09-23 09:50:0043.1[facility] MbtunctRVBIUNIJKW7298-82-42 09:50:0014.1[facility] RjrimlePDTJSRLHID3445-23-32 00:30:4220[facility] BszcgndWOFTGDFCOK2880-40-01 00:30:4223.9[facility] WqvkaemMDVIDKCAWQFV0418-59-12 00:30:0013.6[facility] SCXCBYUATICL3308-86-46 00:30:0082[facility] IfkhizmLSXCPMKQDGSP2394-24-24 00:30:00 9.1[facility] UjjyanhQKBLNBBDEDER8349-68-39 00:30:63713Vwbblpcc [facility] MDKYDXIDUUFR9181-13-76 00:30:001.1[facility] IunvfxiJRGJPBHAAKVK1919-73-88 00:30:29933Evidiihx FnrdxisONBIDABVYSAM4969-86-46 00:30:0014[facility] VDODQYSGKEZA3153-55-18 00:30:0027[facility] NskxhvuNJQJSETXKZEY0020-14-95 00:30:00 5.6[facility] HjukrbyTJNDYFXAIKGI0490-86-57 00:30:88497Lplzntia HermannHEMATOLOGY 2014-09-23 00:30:00Normal (09/22/14 6:30 PM)[facility] AuacvhdGJBMBRFACN1696-98-56 00:30:000.0[facility] GutmfmwWYJXYILSEP3719-53-45 00:30:000.1[facility] JLLTNNHKXM3771-80-19 00:30:00Normal (09/22/14 6:30 PM)[facility] 2014-09-22 21:50:05Negative (09/22/14 3:50 PM)[facility]
[2021-02-02] MEDS ORDERED: ONDANSETRON 4 MG/2 ML VIAL ONE (05:10)
[2021-02-02] MEDS ORDERED: MORPHINE 4 MG/ML SYR ONE (05:10)
--- NOTE | 2021-02-02 07:22 | ER ---
Nurse's Notes [facility] Name[facility] Jame [facility] Age: 70 yrs Sex: Male : 1950 Arrival Date: 02/02/2021 Time: 04:14 Bed 8 Private MD: Diagnosis: Fractures L3 and L4 of indeterminate age Presentation: 02/02 04:14 Chief complaint: EMS states: Pt's family report that pt was complaining of back pain jb4 since yesterday. He went to the restroom and laid down on the floor. Was able to ambulate back to the bed and to the stretcher. Pain is reported to the lower mid back. Coronavirus screen: Client denies travel out of the [place] in the last 14 days. At this time, the client does not indicate any symptoms associated with coronavirus-19. Ebola Screen: No symptoms or risks identified at this time. Initial Sepsis Screen: Does the patient meet any 2 criteria? No. Patient's initial sepsis screen is negative. Does the patient have a suspected source of infection? No. Patient's initial sepsis screen is negative. Risk Assessment: Do you want to hurt yourself or someone else? Patient reports no desire to harm self or others. Onset of symptoms was February 02, 2021. Transition of care: patient was not received from another setting of care. 04:14 Method Of Arrival: EMS: [facility] jb4 04:14 Acuity: LIZA 3 jb4 Historical: - Allergies: 04:23 No Known Allergies; jb4 - Home Meds: 04:23 tamsulosin 0.4 mg oral cp24 2 caps 30 minutes after evening meal [Active]; finasteride jb4 5 mg oral tab 1 tab once daily [Active]; rosuvastatin 20 mg oral tab 1 tab once daily [Active]; warfarin 1 mg Oral tab 1 tab once daily [Active]; warfarin 5 mg Oral tab 1 tab once daily [Active]; losartan 50 mg oral tab 1 tab once daily [Active]; - PMHx: 04:23 broken back; CVA; High Cholesterol; jb4 - PSHx: 04:23 brain s/p 2010 and 2013; jb4 - Immunization history:: Adult Immunizations unknown. - Social history:: Smoking status: Patient denies any tobacco usage or history of. Patient/guardian denies using alcohol, street drugs. Screenin:24 Abuse screen: Denies threats or abuse. Nutritional screening: No deficits noted. jb4 Tuberculosis screening: No symptoms or risk factors identified. Fall Risk None identified. Assessment: 04:24 General: Appears in no apparent distress. uncomfortable, Behavior is calm, cooperative, jb4 appropriate for age. Pain: Complains of pain in lumbar area Pain does not radiate. Pain currently is 9 out of 10 on a pain scale. Neuro: Level of Consciousness is awake, alert, obeys commands, Oriented to person, place, time, situation. Cardiovascular: Patient's skin is warm and dry. Respiratory: Airway is patent Respiratory effort is even, unlabored, Respiratory pattern is regular, symmetrical. GI: No signs and/or symptoms were reported involving the gastrointestinal system. : No signs and/or symptoms were reported regarding the genitourinary system. EENT: No signs and/or symptoms were reported regarding the EENT system. Derm: Skin is intact, Skin is pink, warm \T\ dry. Musculoskeletal: Circulation, motion, and sensation intact. Range of motion: intact in all extremities. 05:30 Reassessment: Patient appears in no apparent distress at this time. Patient and/or jb4 family updated on plan of care and expected duration. Pain level reassessed. Patient is alert, oriented x 3, equal unlabored respirations, skin warm/dry/pink. 06:30 Reassessment: Patient appears in no apparent distress at this time. Patient and/or jb4 family updated on plan of care and expected duration. Pain level reassessed. Patient is alert, oriented x 3, equal unlabored respirations, skin warm/dry/pink. Vital Signs: 04:14 BP 184 / 109; Pulse 90; Resp 16; Temp 97.8(O); Pulse Ox 98% on R/A; Weight 108.86 kg jb4 (R); Height 5 ft. 11 in. (180.34 cm) (R); Pain 9/10; 05:46 BP 174 / 105; Pulse 89; Resp 18; Pulse Ox 100% on R/A; mg2 06:30 BP 145 / 91; Pulse 85; Resp 18; Pulse Ox 94% on R/A; jb4 04:14 Body Mass Index 33.47 (108.86 kg, 180.34 cm) [facility] ED Course: 04:14 Patient arrived in ED. jb4 04:18 Triage completed. jb4 04:23 Arm band placed on right wrist. jb4 04:24 Patient has correct armband on for positive identification. Bed in low position. Call jb4 light in reach. Side rails up X 1. Pulse ox on. NIBP on. 04:32 Jermaine Cuevas MD is Attending Physician. pkl 04:41 Reynold Carpio, RN is Primary Nurse. jb4 05:15 Inserted saline lock: 20 gauge in left antecubital area, using aseptic technique. oe 05:39 CT Lumbar Spine Wo Con In Process Unspecified. EDMS 07:06 Primary Nurse role handed off by Reynold Carpio RN bd 07:26 No provider procedures requiring assistance completed. IV discontinued, intact, iw bleeding controlled, No redness/swelling at site. Pressure dressing applied. 07:27 Sarah Helms, RN is Primary Nurse. iw Administered Medications: 05:32 Drug: Zofran (Ondansetron) 4 mg Route: IVP; Site: left antecubital; mg2 05:33 Drug: morphine 4 mg Route: IVP; Site: left antecubital; mg2 Outcome: 07:21 Discharge ordered by . pkl 07:26 Discharged to home ambulatory. iw 07:26 Condition: good 07:27 Patient left the ED. iw Signatures: Dispatcher [employer] EDMS Kimberly Fish Pin, MD MD pkSarah Jaimes, RN SHEILA iw Reynold Carpio, RN RN jb4 Thong Alba Michele RN RN mg2
--- NOTE | 2021-02-02 07:22 | EDPHYS ---
Physician Documentation [facility] Name: Jame Coburn Age: 70 yrs Sex: Male : 1950 Arrival Date: 02/02/2021 Time: 04:14 Bed 8 Private MD: ED Physician Jermaine Cuevas HPI: 02/02 07:16 This 70 yrs old Other Male presents to ER via EMS with unknown complaint. pkl 07:16 The patient presents with pain that is acute. The symptoms are located in the low back. pkl Onset: The symptoms/episode began/occurred yesterday. The pain does not radiate. Associated signs and symptoms: Pertinent positives:. Historical: - Allergies: 04:23 No Known Allergies; jb4 - Home Meds: 04:23 tamsulosin 0.4 mg oral cp24 2 caps 30 minutes after evening meal [Active]; finasteride jb4 5 mg oral tab 1 tab once daily [Active]; rosuvastatin 20 mg oral tab 1 tab once daily [Active]; warfarin 1 mg Oral tab 1 tab once daily [Active]; warfarin 5 mg Oral tab 1 tab once daily [Active]; losartan 50 mg oral tab 1 tab once daily [Active]; - PMHx: 04:23 broken back; CVA; High Cholesterol; jb4 - PSHx: 04:23 brain s/p 2010 and 2013; jb4 - Immunization history:: Adult Immunizations unknown. - Social history:: Smoking status: Patient denies any tobacco usage or history of. Patient/guardian denies using alcohol, street drugs. ROS: 07:16 Eyes: Negative for injury, pain, redness, and discharge, ENT: Negative for injury, pkl pain, and discharge, Neck: Negative for injury, pain, and swelling, Cardiovascular: Negative for chest pain, palpitations, and edema, Respiratory: Negative for shortness of breath, cough, wheezing, and pleuritic chest pain, Abdomen/GI: Negative for abdominal pain, nausea, vomiting, diarrhea, and constipation. 07:16 Back: Positive for pain with movement. 07:16 : Negative for urinary symptoms. 07:16 MS/extremity: Negative for acute changes. 07:16 Skin: Negative for rash. 07:16 Neuro: Negative for altered mental status. Exam: 07:16 Head/Face: Normocephalic, atraumatic. Eyes: Pupils equal round and reactive to light, pkl extra-ocular motions intact. Lids and lashes normal. Conjunctiva and sclera are non-icteric and not injected. Cornea within normal limits. Periorbital areas with no swelling, redness, or edema. ENT: Nares patent. No nasal discharge, no septal abnormalities noted. Tympanic membranes are normal and external auditory canals are clear. Oropharynx with no redness, swelling, or masses, exudates, or evidence of obstruction, uvula midline. Mucous membranes moist. Neck: Trachea midline, no thyromegaly or masses palpated, and no cervical lymphadenopathy. Supple, full range of motion without nuchal rigidity, or vertebral point tenderness. No Meningismus. Chest/axilla: Normal chest wall appearance and motion. Nontender with no deformity. No lesions are appreciated. Cardiovascular: Regular rate and rhythm with a normal S1 and S2. No gallops, murmurs, or rubs. Normal PMI, no JVD. No pulse deficits. Respiratory: Lungs have equal breath sounds bilaterally, clear to auscultation and percussion. No rales, rhonchi or wheezes noted. No increased work of breathing, no retractions or nasal flaring. Abdomen/GI: Soft, non-tender, with normal bowel sounds. No distension or tympany. No guarding or rebound. No evidence of tenderness throughout. 07:16 Back: pain, that is moderate, of the lower back. 07:16 Back: Straight leg raises: of both lower extremities does not illicit pain. 07:16 : 07:16 Musculoskeletal/extremity: Exam is negative for acute changes. 07:16 Skin: Exam negative for rash. 07:16 Neuro: Orientation: is normal, Mentation: is normal, Cranial nerves: is grossly normal based on the patient's age, Motor: is normal, Gait: is steady. Vital Signs: 04:14 BP 184 / 109; Pulse 90; Resp 16; Temp 97.8(O); Pulse Ox 98% on R/A; Weight 108.86 kg jb4 (R); Height 5 ft. 11 in. (180.34 cm) (R); Pain 9/10; 05:46 BP 174 / 105; Pulse 89; Resp 18; Pulse Ox 100% on R/A; mg2 06:30 BP 145 / 91; Pulse 85; Resp 18; Pulse Ox 94% on R/A; jb4 04:14 Body Mass Index 33.47 (108.86 kg, 180.34 cm) jb4 MDM: 04:32 Patient medically screened. pkl 07:16 Data reviewed: vital signs, nurses notes, radiologic studies, CT scan. pkl 02/02 04:40 Order name: CT Lumbar Spine Wo Con pkl 02/02 04:40 Order name: Saline Lock; Complete Time: 05:18 pkl Administered Medications: 05:32 Drug: Zofran (Ondansetron) 4 mg Route: IVP; Site: left antecubital; mg2 05:33 Drug: morphine 4 mg Route: IVP; Site: left antecubital; mg2 Disposition: 02/02/21 07:21 Discharged to Home. Impression: Fractures L3 and L4 of indeterminate age. - Condition is Stable. - Prescriptions for Diclofenac Sodium 75 mg Oral Tablet Sustained Release - take 1 tablet by ORAL route 2 times per day; 30 tablet. - Medication Reconciliation Form, Thank You Letter, Antibiotic Education, Prescription Opioid Use form. - Follow up: Private Physician; When: 2 - 3 days; Reason: Re-evaluation by your physician. - Problem is new. - Symptoms have improved. Signatures: Dispatcher [employer] EDMS Jermaine Cuevas MD MD pkl Sarah Helms, SHEILA RN iw Reynold Carpio RN RN jb4 Lalo Thomas RN RN mg2 Corrections: (The following items were deleted from the chart) 07:27 07:21 02/02/2021 07:21 Discharged to Home. Impression: Fractures L3 and L4 of iw indeterminate age. Condition is Stable. Forms are Medication Reconciliation Form, Thank You Letter, Antibiotic Education, Prescription Opioid Use. Follow up: Private Physician; When: 2 - 3 days; Reason: Re-evaluation by your physician. Problem is new. Symptoms have improved. pkl
[2021-02-02 08:07] VITALS: TEMP 97.8
[2021-02-02 08:10] VITALS: BP 145/91; O2SAT 94
--- NOTE | 2021-02-02 13:39 | RAD REPORT ---
EXAM DESCRIPTION: CTSpine Lumbar Wo Con02/02/2021 6:26 am CLINICAL HISTORY: 70 years Male low back pain TECHNIQUE: Noncontrast lumbar spine CT with sagittal and coronal reconstructions. All CT scans at [facility] facility use dose modulation, iterative reconstruction, and/or weight based dosing when appropriat e to reduce radiation dose to as low as reasonably achievable. COMPARISON: None. FINDINGS: Vertebra: Diffuse osteopenia. Burst fracture at L4 with retropulsion resulting in mild spi nal canal stenosis. Schmorl's node in the superior endplate of L3 with approximately 50% mid vertebra l body height loss. L3 and L4 are partially fused. Degenerative: Multilevel degenerative changes. Severe bilateral L3-L4 and L4-L5 neural foraminal narr owing. Alignment: Normal. Soft tissues: Unremarkable. Other: Cholelithiasis. IVC filter in place. Atherosclerotic calcification of the aorta. IMPRESSION: Burst fracture at L4 with retropulsion resulting in mild spinal canal stenosis and Schmo rl's node in the superior endplate of L3 with approximately 50% mid vertebral body height loss. These findings are of indeterminate age. Electronically signed by: Gerber Natarajan MD 02/02/2021 6:18 AM CDT Due to temporary technical issues with the PACS/Fluency reporting system, reports are being signed by the in house radiologist without review as a courtesy to ensure prompt reporting. The interpreting r adiologist is fully responsible for the content of the report.
== END 2021-02-02 07:27 | disposition home or self-care (01) ==
LOC: ER 04:10
DX: S32.039A Unspecified fracture of third lumbar vertebra, initial encounter for closed fracture (principal); S32.049A Unspecified fracture of fourth lumbar vertebra, initial encounter for closed fracture; E78.00 Pure hypercholesterolemia, unspecified; Z86.73 Personal history of transient ischemic attack (TIA), and cerebral infarction without residual deficits
CPT/HCPCS: 72131; J2405; 96374; 96375; 99284

== ENCOUNTER 2021-03-16 18:15 | Emergency (ER) | payer OTHER ==
--- OUTSIDE RECORDS SUMMARY | 2021-03-16 18:20 | XMS REPORT | Continuity of Care Document ---
:1950 Author Organization [facility] t Address [address] [place] [address] Care Team Providers Name Role Phone Familia Aguilera Attending Clinician Namita Attending Clinician Farzaneh Lara Attending Clinician Aleksey Patino Attending Clinician Shyam Reed Attending Clinician Manpreet Lynn Attending Clinician Ramona Jordan Attending Clinician Stanley Attending Clinician Angus Admitting Clinician Problems Condition Condition Condition Status Onset Resolution Last Treating Co mments Source Name Details Category Date Date Treatment Clinician Date BENIGN Diagnosis Active 2021-03-10 Mem oria NEOPLASM 5-11 15:14:00 l OF BENIGN 00:00: Neville MENINGES, NEOPLASM 00 UNSPECIFIE OF D MENINGES, UNSPECIFIE D Active 03/09/2021 [facility] Q28.2 - Diagnosis Active 2021-02-23 Me moria ARTERIOVEN -26 08:25:00 l OUS Q28.2 - 00:01: Neville MALFORMATI 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 Active 02/22/2021 [facility] R51.9 - Diagnosis Active 2021-02-20 Me moria HEADACHE, -23 11:43:00 l UNSPECIFIE R51.9 - 00:01: Her bonner D HEADACHE, 00 UNSPECIFIE D Active 02/19/2021 [facility] [place] GAMM KNIFE Diagnosis Active 2021-02-18 Memoria FOLLOW UP -14 15:15:00 l GAMM 00:00: Arthur KNIFE 00 FOLLOW UP Active 02/10/2021 [facility] GKPCC FU Diagnosis Active 2019-12-21 M emoria 6- 15:12:00 l GKPCC FU 00:00: Barry n 00 Active 04/24/2019 [facility] ARTERIOVEN Diagnosis Active 2019-06-27 Memoria OUS 6-10 13:26:00 l MALFORMATI 00:00: Barry n ON, SITE ARTERIOVEN 00 UNSPECI OUS MALFORMATI ON, SITE UNSPECI Active 04/08/2019 [facility] AVM Q28.2 Diagnosis Active 2019-04-24 Memoria 5-16 05:23:00 l AVM 00:00: Arthur Q28.2 00 Active 03/14/2019 [facility] 805.4 - FX Diagnosis Active 2015-05-12 Memoria LUMBAR 5-04 18:32:00 l VERTE 805.4 - 00:01: Arthur FX LUMBAR 00 VERTE Active 03/02/2015 [facility] HISTORY OF Condition Active 2014-12-17 Memoria HYPERTENSI 1-07 11:45:21 l ON HISTORY 00:00: Neville OF 00 HYPERTENSI ON Active 5 Condition 12/17/2014 [facility] HISTORY OF Condition Active 2014-12-17 Memoria SEIZURE 1-07 11:45:21 l DISORDER HISTORY 00:00: Lachelle nn OF SEIZURE 00 DISORDER Active 11/05/2014 Condition 5 [facility] CLOSED Condition Active 2014-12-17 Mem oria FRACTURE 1-05 11:45:21 l OF LUMBAR CLOSED 00:00: Lachelle nn VERTEBRA FRACTURE 00 WITHOUT OF LUMBAR MENTION OF VERTEBRA SPINAL WITHOUT CORD MENTION OF INJURY SPINAL CORD INJURY Active 11/03/2014 Condition 5 [facility] UNSTABLE Diagnosis Active 2013-102014-10-01 M emoria L4 BURST - 22:12:00 l FRACTURE UNSTABLE 00:00: Herm scot L4 BURST 00 FRACTURE Active 09/22/2014 [facility] Benign Problem Resolve 2021-03-04 Abel azra prostatic d 21:53:05 l hyperplasi Benign Herm scot a prostatic (disorder) hyperplasi a (disorder) Resolved Problem 03/04/2021 [facility], JESENIA Lozada, [facility] [place] Large Problem Resolve 2021-03-04 Abel azra prostate d 21:53:05 l (finding) Large Barry n prostate (finding) Resolved Problem 03/04/2021 [facility], JESENIA Lozada, [facility] [place] Feeling Problem Active 2021-03-04 Abel azra agitated 21:53:05 l (finding) Feeling Herm scot agitated (finding) Active Problem 03/04/2021 [facility], JESENIA Lozada, [facility] [place] Aphasia Problem Active 2021-03-04 Abel azra (finding) 21:53:05 l Aphasia Neville (finding) Active Problem 03/04/2021 [facility], JESENIA Lozada, [facility] [place] At risk Problem Active 2021-03-04 Abel azra for falls 21:53:05 l (finding) At risk Herm scot for falls (finding) Active Problem 03/04/2021 [facility], JESENIA Lozada, [facility] [place] Benign Problem Active 2021-03-04 Memor ia neoplasm 21:53:05 l of Benign Arthur meninges neoplasm (disorder) of meninges (disorder) Active Problem 03/04/2021 [facility], JESENIA Lozada, [facility] [place] Intracrani Problem Active 2021-03-04 M emoria al tumor 21:53:05 l (disorder) Barry n Intracrani al tumor (disorder) Active Problem 03/04/2021 [facility], JESENIA Lozada, [facility] [place] Cerebral Problem Active 2021-03-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 21:53:05 l 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) Active Problem 03/04/2021 [facility], JESENIA Lozada, [facility] [place] Cerebrovas Problem Active 2021-03-04 M emoria cular 21:53:05 l accident Neville (disorder) Cerebrovas cular accident (disorder) Active Problem 03/04/2021 [facility], JESENIA Lozada, [facility] [place] Mood Problem Active 2021-03-04 Memor ia swings 21:53:05 l (finding) Mood Neville swings (finding) Active Problem 03/04/2021 [facility], JESENIA Lozada, [facility] [place] Disease of Problem Active 2021-03-04 M emoria brain 21:53:05 l (disorder) Disease Her bonner of brain (disorder) Active Problem 03/04/2021 [facility], JESENIA Lozada, [facility] [place] Expressive Problem Active 2021-03-04 M emoria dysphasia 21:53:05 l (finding) Neville Expressive dysphasia (finding) Active Problem 03/04/2021 [facility], JESENIA Lozada, [facility] [place] Hydrocepha Problem Active 2021-03-04 M emoria matty 21:53:05 l (disorder) Barry n Hydrocepha matty (disorder) Active Problem 03/04/2021 [facility], JESENIA Lozada, [facility] [place] Hypertensi Problem Active 2021-03-04 M emoria ve 21:53:05 l disorder, Neville systemic Hypertensi arterial ve (disorder) disorder, systemic arterial (disorder) Active Problem 03/04/2021 [facility], JESENIA Lozada, [facility] [place] Impaired Problem Active 2021-03-04 Mem oria cognition 21:53:05 l (finding) Impaired Her bonner cognition (finding) Active Problem 03/04/2021 [facility], JESENIA Lozada, [facility] [place] Seizure Problem Active 2021-03-04 Abel azra (finding) 21:53:05 l Seizure Neville (finding) Active Problem 03/04/2021 [facility], JESENIA Lozada, [facility] [place] Retention Problem Active 2021-03-04 Me moria of urine 21:53:05 l (disorder) Barry n Retention of urine (disorder) Active Problem 03/04/2021 [facility], JESENIA Lozada, [facility] [place] Headache Problem Active 2021-03-04 Mem oria (finding) 21:53:05 l Headache Barry n (finding) Active Problem 03/04/2021 [facility], JESENIA Lozada, [facility] [place] FX LUMBAR Diagnosis Active 2014-10-01 Memoria VERTEBRA-C 22:12:00 l LOSE FX Neville LUMBAR VERTEBRA-C LOSE Active [facility] Impulsive Problem Resolve 2010-102021-03-04 2021-03-04 Memoria character d 12-08 21:53:05 21:53:05 l (finding) 00:00: Neville Impulsive 00 character (finding) Resolved 10/07/2011 Problem 03/04/2021 [facility], JESENIA Lozada, [facility] [place] Allergies, Adverse Reactions, Alerts Allergy Allergy Status Severity Reaction(s) Onset Inactive Treating Comm ents Source Name Type Date Date Clinician Kyle Wright Active Patrick Durán Active Gloria Lozada Social History Smoking Status Start Date Stop Date Source Social History 2021-02-19 18:45:58 2021-02-19 18:45:58 Jerry Lozada Medications Ordered Filled Start Stop Current Ordering Indication Dosage Frequency Signature Comments Components Source Medication Medication Date Date Medication? Clinician (SIG) Name Name rosuvastati Yes 20 mg = 1 M emoria n 20 mg 4-23 tab, PO, l oral tablet 18:42: Bedtime, 0 Arthur 00 Refill(s) losartan 50 Yes 50 mg = 1 M emoria mg oral 4-23 tab, PO, l tablet 18:42: Daily, 0 Arthur 00 Refill(s) warfarin 5 Yes See Memoria mg oral 4-23 Instructio l tablet 18:40: ns, 1 tab Barry n 00 PO Daily, 0 Refill(s) Acetaminoph No 1 tab, Abel azra en 325 MG / 6-26 Route: PO, l Hydrocodone 17:53: Drug Form: Arthur Bitartrate 00 TAB, 5 MG Oral Dosing Tablet Weight 90.909, kg, Q4H, PRN Pain Score 4-6, Start date: 04/24/19 12:53:00 CDT, Duration: 30 day, Stop date: 05/24/19 12:52:00 CDT Acetaminoph 2019-0 No 325 mg, Mem oria en 04-24 Route: PO, l 17:53: Drug form: Neville 00 TAB, Q4H, Dosing Weight 90.909, kg, PRN Pain Score 1-3, Start date: 04/24/19 12:53:00 CDT, Duration: 30 day, Stop date: 05/24/19 12:52:00 CDT Sodium 2019-0 No 1,000 mL, Memori a Chloride 04-24 Rate: 50 l 0.9% IV 17:53: ml/hr, Neville 1000 mL 00 Infuse over: 20 hr, Route: IV, Dosing Weight 90.909 kg, Total Volume: 1,000, Priority: Routine, Start date: 04/24/19 12:53:00 CDT, Duration: 30 day, Stop date: 05/24/19 12:52:00 CDT, 2.15, m2 Fentanyl 2019-0 No 50 Memoria - microgram, l 11:00: Route: Arthur 00 IVP, ONCALL, Dosing Weight 92.273, kg, Priority: Routine, Start date: 04/24/19 6:00:00 CDT, Duration: 1 doses or times Bacitracin 2019-0 No 1 appl, Abel azra 0.5 UNT/MG 04-24 Route: l / Polymyxin 11:00: Barry HU B 10 UNT/MG 00 ONCALL, Topical Drug form: Ointment OINT, [Polysporin Priority: ] Routine, Start date: 04/24/19 6:00:00 CDT, Duration: 1 doses or times Bupivacaine 2019-0 No 30 mL, Abel azra Hydrochlori 04-24 Route: l de 2.5 11:00: Neville SPEAR MG/ML / 00 Dosing Epinephrine Weight 0.005 MG/ML 92.273, Injectable kg, Solution ONCALL, Start date: 04/24/19 6:00:00 CDT, Duration: 30 day, Stop date: 05/24/19 5:59:00 CDT Fentanyl 2019-0 No 25 Memoria 6- microgram, l 10:30: Route: Arthur 00 IVP, Q1H, Dosing Weight 92.273, kg, [...] ne 04-24 Route: l 10:30: IVP, Drug form: [...] Rate: 50 l 0.9% IV 10:30: ml/hr, Arthur 1000 mL 00 Infuse over: 20 hr, Route: IV, Dosing Weight 92.273 kg, Total Volume: 1,000, Priority: Routine, Start date: 04/24/19 5:30:00 CDT, Duration: 30 day, Stop date: 05/24/19 5:29:00 CDT, 2.16, m2 Bupivacaine 2019-0 No 30 mL, Abel azra Hydrochlori 6- Route: l de 2.5 01:00: MISC, Neville MG/ML / 00 Dosing Epinephrine Weight 0.005 MG/ML 92.273, Injectable kg, Solution ONCALL, Start date: 04/23/19 20:00:00 CDT, Duration: 30 day, Stop date: 05/23/19 19:59:00 CDT Bacitracin 2019-0 No 1 appl, Abel azra 0.5 UNT/MG 04-24 Route: l / Polymyxin 01:00: TOP, Barry n B 10 UNT/MG 00 ONCALL, Topical Drug form: Ointment OINT, [Polysporin Priority: ] Routine, Start date: 04/23/19 20:00:00 CDT, Duration: 1 doses or times Fentanyl 2019-0 No 50 Memoria 6-26 microgram, l 01:00: Route: Arthur 00 IVP, ONCALL, Dosing Weight 92.273, kg, Priority: Routine, Start date: 04/23/19 20:00:00 CDT, Duration: 1 doses or times Sodium 2019-0 No 1,000 mL, Memori a Chloride 04-24 Rate: 50 l 0.9% IV 00:11: ml/hr, Arthur 1000 mL 00 Infuse over: 20 hr, Route: IV, Dosing Weight 92.273 kg, Total Volume: 1,000, Priority: Routine, Start date: 04/23/19 19:11:00 CDT, Duration: 30 day, Stop date: 05/23/19 19:10:00 CDT, 2.16, m2 Ondansetron 2019-0 No 4 mg, Memor ia 6- Route: l 00:11: IVP, Drug form: INJ, Q6H, Dosing Weight 92.273, kg, PRN Nausea & Vomiting, Start date: 04/23/19 19:11:00 CDT, Duration: 30 day, Stop date: 05/23/19 19:10:00 CDT Dexamethaso 2019-0 No 6 mg, Memor ia ne 6- Route: l 00:11: IVP, Drug form: INJ, ONCE, Dosing Weight 92.273, kg, Start date: 04/23/19 19:11:00 CDT, Stop date: 04/23/19 19:11:00 CDT Famotidine 2018-0 No 20 mg, Memor ia 04-24 Route: l 00:11: IVP, Drug form: INJ, ONCE, Dosing Weight 92.273, kg, Start date: 04/23/19 19:11:00 CDT, Stop date: 04/23/19 19:11:00 CDT Promethazin 2018-0 No 25 mg, Abel azra e 04-24 Route: l 00:11: IVPB, Q6H, Dosing Weight 92.273, kg, PRN Nausea & Vomiting, Start date: 04/23/19 19:11:00 CDT, Duration: 30 day, Stop date: 05/23/19 19:10:00 CDT Fentanyl 2019-0 No 25 Memoria - microgram, l 00:11: Route: IVP, Q1H, Dosing Weight 92.273, kg, PRN Pain Score 7-10, Priority: Routine, Start date: 04/23/19 19:11:00 CDT, Duration: 1 doses or times, Stop date: Limited # of times COUMADIN 1 Yes 1 tab po Mem oria MG TABS 1-07 qd l 00:00: COUMADIN 6 Yes 1 tab po Mem oria MG TABS 1-07 qd prn (as l 00:00: directed) FLOMAX 0.4 Yes 1 cap po Mem oria MG CAPS 1-07 qd l 00:00: ATORVASTATI Yes 1 tab po Me moria N CALCIUM 1-07 qhs l 20 MG TABS 00:00: FINASTERIDE Yes 1 tab po Me moria 5 MG TABS 1-07 qd l 00:00: TRIAMCINOLO Yes apply to Me moria NE 1-07 the l ACETONIDE 00:00: affected Herm scot 0.1 % CREA 00 area bid prn rash ATORVASTATI Yes 1 tab po Me moria N CALCIUM 1-07 qhs l 20 MG TABS 00:00: Coumadin 2013-10 No Notes: Memoria 1-28 Nurse to l 23:00: ensure documentat ion of patient education per anticoagul ation policy. Avoid large intake of vitamin-K containing foods diet. (Same As: Coumadin) tramadol 2013-10 Yes 50 mg = 1 Abel azra hydrochlori - tab, PO, l de 50 MG 16:35: Q6H, Pain, Her bonner Oral Tablet 00 # 40 tab, 0 Refill(s) Oxycodone 2013-10 No Notes: Memori a Hydrochlori 11-26 (Same as: l de 5 MG 03:13: Roxicodone Herm scot Oral Tablet 00 ) AUGMENTIN 2013-10 No 1 tab po Abel azra 875-125 MG 11-26 bid l TABS 00:00: BENTYL 20 2013-10 No 1 tab po Abel azra MG TABS 11-26 q6h l 00:00: Arthur 00 TRAMADOL 2013-10 No 1 tab po Memor ia HCL 50 MG -28 q6h prn l TABS 00:00: pain TRAMADOL 2013-10 No 1 tab po Memor ia HCL 50 MG -28 q6h prn l TABS 00:00: pain Coumadin [...] Yes Special Memori a Sodium 6 MG -25 Instructio l Oral Tablet 20:07: ns: As Herm scot [Coumadin] 00 Directed Warfarin 2013-10 Yes Special Memori a Sodium 1 MG 1-25 Instructio l Oral Tablet 20:07: ns: As Herm scot [Coumadin] 00 Directed Triamcinolo 2013-10 Yes 1 appl, Mem oria ne 1-25 TOP, BID, l Acetonide 1 20:07: For rash, H ermann MG/ML 00 # 15 gm, 0 Topical Refill(s) Cream Flomax 2013-10 No Notes: Memoria 1-25 (Same As: l 15:00: Flomax) Neville 00 "Do Not Crush" Finasteride 2013-10 No Notes: Abel azra 1-25 (Same as: l 15:00: Proscar) Arthur 00 "Do Not Crush" Amoxicillin 2013-10 No Notes: Abel azra 875 MG / 1-25 With food. l Clavulanate 15:00: (Same as: H ermann 125 MG Oral 00 Augmentin Tablet 875) [Augmentin 875-mg] heparin 2013-10 No Route: Memoria sodium, 1-25 IVP, PRN, l porcine 14:03: 6,400 Arthur 1000 UNT/ML 00 unit, 6.4 Injectable mL, [...] tab, l Oral Tablet 05:59: PO, Daily, Neville [Coumadin] 00 # 30 tab, 0 Refill(s) Warfarin 2013-10 No 6 mg = 1 Memor ia Sodium 6 MG 1-25 tab, PO, l Oral Tablet 05:59: Daily, # He rmann [Coumadin] 00 30 tab, 0 Refill(s) atorvastati 2013-10 Yes 20 mg = 1 M emoria n 20 mg 1-25 tab, PO, l oral tablet 05:59: Bedtime, # Neville 00 30 tab, 0 Refill(s) finasteride 2013-10 Yes 5 mg = 1 Me moria 5 mg oral 1-25 tab, PO, l tablet 05:59: Daily, # Arthur 00 30 tab, 0 Refill(s) Tamsulosin 2013-10 Yes 0.4 mg = 1 M emoria hydrochlori 1-25 cap, PO, l de 0.4 MG 05:59: Daily, # Herm scot Oral 00 30 cap, 0 Capsule Refill(s) [Flomax] Amoxicillin 2013-10 Yes 875 mg = 1 Memoria 875 MG / 1-25 tab, PO, l Clavulanate 05:59: BID, # 20 H ermann 125 MG Oral 00 tab, 0 Tablet Refill(s) [Augmentin 875-mg] Acetaminoph 2013-10 No Notes: Abel azra en 325 MG / 25 (Same as: l Hydrocodone 02:38: Bellaire Lachelle nn Bitartrate 00 325/5) Do 5 MG Oral not exceed Tablet 4gm/day of acetaminop hen. Acetaminoph 2013-10 No Notes: Do M emoria en -25 not exceed l 02:38: 4 gm/day. Arthur 00 (Same as: Tylenol) Vital Signs Vital Name Observation Time Observation Value Comments Source Systolic (mm Hg) 2021-01-19 19:56:00 Abel Lozada Diastolic (mm Hg) 2021-01-19 19:56:00 [facility] evelina Lozada Heart Rate 2021-01-19 19:56:00 [facility] Respitory Rate 2021-01-19 19:56:00 Patrick Blank Height 2021-01-19 19:56:00 [facility] 2021-01-19 19:56:00 [facility] BMI Calculated 2021-01-19 19:56:00 Patrick Vincentann Systolic (mm Hg) 2020-08-12 15:11:00 Abel peck Arthur Diastolic (mm Hg) 2020-08-12 15:11:00 Mem orial Arthur Heart Rate 2020-08-12 15:11:00 [facility]ille Weight 2020-08-12 15:11:00 [facility] Arthur Height 2020-08-12 15:11:00 175.26 cm [facility] Arthur BMI Calculated 2020-08-12 15:11:00 Memori al Arthur Systolic (mm Hg) 2019-04-24 17:00:00 Abel rial Neville Diastolic (mm Hg) 2019-04-24 17:00:00 Mem orial Arthur Respitory Rate 2019-04-24 17:00:00 Memori al Arthur Systolic (mm Hg) 2019-04-24 16:45:00 Abel rial Neville Diastolic (mm Hg) 2019-04-24 16:45:00 Mem orial Arthur Respitory Rate 2019-04-24 16:45:00 Memori al Arthur Systolic (mm Hg) 2019-04-24 16:30:00 Abel rial Neville Diastolic (mm Hg) 2019-04-24 16:30:00 Mem orial Neville Respitory Rate 2019-04-24 16:30:00 Memori al Neville Height 2019-04-24 11:04:00 180.34 cm [facility]ille Weight 2019-04-24 11:04:00 [facility] BMI Calculated 2019-04-24 11:04:00 Memori al Arthur Height 2019-03-12 14:02:00 180.34 cm [facility] BMI Calculated 2019-03-12 14:02:00 Memori al Arthur Weight 2019-03-12 14:02:00 [facility] Arthur Temperature Oral (F) 2019-03-12 14:02:00 98.0 F [facility] Heart Rate 2019-03-12 14:02:00 [facility] Arthur Systolic (mm Hg) 2019-03-12 14:02:00 Abel rial Neville Diastolic (mm Hg) 2019-03-12 14:02:00 Mem orial Arthur Weight 2014-12-17 17:45:21 [facility] Height 2014-12-17 17:45:21 [facility] Temperature Oral (F) 2014-12-17 17:45:21 96.6 F [facility] Heart Rate 2014-12-17 17:45:21 [facility] Arthur Systolic (mm Hg) 2014-12-17 17:45:21 Abel rial Neville Diastolic (mm Hg) 2014-12-17 17:45:21 Mem orial Arthur Respitory Rate 2014-12-17 17:45:21 Memori al Arthur Weight 2014-11-05 21:14:31 [facility] Arthur Height 2014-11-05 21:14:31 [facility] Arthur Temperature Oral (F) 2014-11-05 21:14:31 97.7 F [facility] Respitory Rate 2014-11-05 21:14:31 Memori al Arthur Heart Rate 2014-11-05 21:14:31 [facility] Arthur Systolic (mm Hg) 2014-11-05 21:14:31 Abel rial Arthur Diastolic (mm Hg) 2014-11-05 21:14:31 Mem orial Arthur Systolic (mm Hg) 2014-09-26 17:27:00 Abel rial Neville Respitory Rate 2014-09-26 17:27:00 Memori al Arthur Diastolic (mm Hg) 2014-09-26 17:27:00 Mem orial Neville Temperature Oral (F) 2014-09-26 17:27:00 98.7 F [facility] Arthur Heart Rate 2014-09-26 17:27:00 [facility] Heart Rate 2014-09-26 13:39:00 [facility] Temperature Oral (F) 2014-09-26 13:39:00 97.8 F [facility] Diastolic (mm Hg) 2014-09-26 13:39:00 Mem orial Arthur Systolic (mm Hg) 2014-09-26 13:39:00 Abel rial Arthur Respitory Rate 2014-09-26 13:39:00 Memori al Arthur Diastolic (mm Hg) 2014-09-26 10:39:00 Mem orial Arthur Systolic (mm Hg) 2014-09-26 10:39:00 Abel rial Neville Heart Rate 2014-09-26 10:39:00 [facility] Arthur Respitory Rate 2014-09-26 10:39:00 Memori al Arthur Temperature Oral (F) 2014-09-26 01:44:00 98.0 F [facility] Arthur BMI Calculated 2014-09-23 03:00:00 Memori al Neville Weight 2014-09-23 03:00:00 [facility] Arthur Height 2014-09-23 03:00:00 177.8 cm [facility] Height 2014-09-22 21:36:00 177.8 cm [facility] BMI Calculated 2014-09-22 21:36:00 Patrick Blank Weight 2014-09-22 21:36:00 [facility] Procedures Procedure Date / Time Performed Performing Clinician [facility] e Selective catheter 2019-04-24 13:21:00 [facility], external carotid artery, unilateral, with angiography of the ipsilateral external carotid circulation and all associated radiological supervision and interpretation (List separately in addition to code for primary procedure) [facility] [employer] [facility] Tumor [facility] destruction<sup>1</sup> Encounters Start End Encounter Admission Attending Care Care Encounter Source Date/Time Date/Time Type Type Clinicians Facility Department ID 2021-03-10 Inpatient [facility] [id number] [facility] H 15:12:12 2019-04-24 Outpatient [facility] [id number] HH 10:51:31 2019-04-22 Outpatient [facility] [id number] HH 15:06:05 2021-03-02 2021-03-02 Outpatient LYDIA Aguilera MISCHTIFFANIE [id number] 11:15:00 11:15:00 Altaf 09 Familia 2021-03-01 2021-03-01 Outpatient Namita [facility] [id number] 08:36:00 23:59:00 Gabriel 05 2021-02-23 2021-02-23 [id number] 07:19:00 23:59:00 Shayla 04 Farzaneh 2021-02-20 2021-02-20 Outpatient Lara, MH29 [id number] 11:20:00 23:59:00 Shayla 03 Farzaneh 2021-02-18 2021-02-[address] [facility] [id number] 15:09:00 23:59:00 Armando Ryder 2021-01-20 2021-01-20 Outpatient LYDIA Aguilera MAEVESCHTIFFANIE [id number] 10:00:00 23:59:59 Altaf 08 Familia 2021-01-19 2021-01-19 Outpatient Krell, MHMISCHER MHMISCHER [id number] 15:30:00 23:59:59 Altaf 07 Familia 2020-08-12 2020-08-12 Outpatient Willy [facility] M[facility]ISCH[facility] [id number] 10:15:00 23:59:59 Altaf 06 Familia 2020-08-12 2020-08-12 Outpatient Willy M[facility]ER M[facility]ISCHER [id number] 10:15:00 10:15:00 Altaf 05 Familia 2020-02-11 2020-02-11 Outpatient Willy M[facility]ISCHER MHMISCHER [id number] 14:30:00 23:59:59 Altaf 04 Familia 2019-05-07 2019-05-08 Outpatient MHMISCHER MHMISCHER [id number] 10:44:06 23:59:59 11 2019-05-03 2019-05-04 Outpatient MHMISCHER M[facility]ISCHER [id number] 17:04:54 23:59:59 10 2019-04-24 2019-04-24 Outpatient Trey Reed M[facility]ER M[facility]ISCHER [id number] 08:00:00 23:59:59 Shyam 02 2019-04-24 2019-04-24 [facility] [id number] 05:14:00 12:30:00 00 2019-04-24 2019-04-24 Outpatient [facility] [id number] [facility] 05:14:00 05:14:00 2019-04-08 2019-04-09 Outpatient MHMISCHER MHMISCHER [id number] 14:46:11 23:59:59 09 2019-03-18 2019-03-19 Outpatient MHMISCHER M[facility]CH[facility] [id number] 11:50:28 23:59:59 08 2019-03-18 2019-03-19 Outpatient MHMISCHER M[facility]ISCHER [id number] 11:48:54 23:59:59 07 2019-03-18 2019-03-19 Outpatient MHMISCHER M[facility]IS[facility] [id number] 09:14:12 23:59:59 06 2019-03-15 2019-03-16 Outpatient M[facility]ISCHER M[facility] [id number] 09:56:26 23:59:59 05 2019-03-12 2019-03-12 Outpatient Trey Reed [facility] M[facility] [id number] 15:15:00 23:59:59 Shyam 2019-03-01 2019-03-02 Outpatient MHMISCHER M[facility]IS[facility] [id number] 11:23:41 23:59:59 2019-02-19 2019-02-20 Outpatient MHMISCHER MHMISCHER [id number] 15:14:00 23:59:59 2019-02-12 2019-02-13 Outpatient MHMISCHER MHMISCHER [id number] 14:24:00 23:59:59 2014-11-05 2014-11-05 [id number] 13:30:00 23:59:00 Lalo Greene 2014-09-22 2014-09-26 Outpatient Stanley, [facility] [id number] 15:36:00 13:43:00 Results Test Description Test Time Test Comments Results Result Comments Source CHEM PANEL 2019-04-24 106 [facility] Lachelle nn 10:52:00 CHEM PANEL 2019-04-24 0.8 [facility] Lachelle nn 10:52:00 ELECTROLYTES 2019-04-24 8.6 [facility] Her bonner 10:47:00 ELECTROLYTES 2019-04-24 143 [facility] Her bonner 10:47:00 ELECTROLYTES 2019-04-24 110 [facility] Her bonner 10:47:00 ELECTROLYTES 2019-04-24 18 [facility] Her bonner 10:47:00 ELECTROLYTES 2019-04-24 110 [facility] Her bonner 10:47:00 ELECTROLYTES 2019-04-24 29 [facility] Her bonner 10:47:00 ELECTROLYTES 2019-04-24 9.0 [facility] Her bonner 10:47:00 ELECTROLYTES 2019-04-24 4.6 [facility] Her bonner 10:47:00 ELECTROLYTES 2019-04-24 1.04 [facility] Her bonner 10:47:00 ELECTROLYTES 2019-04-24 85 [facility] Her bonner 10:47:00 HEMATOLOGY 2019-04-24 5.2 [facility] Lachelle nn 10:47:00 HEMATOLOGY 2019-04-24 90.8 [facility] Lachelle nn 10:47:00 HEMATOLOGY 2019-04-24 14.6 [facility] 10:47:00 HEMATOLOGY 2019-04-24 43.9 [facility] 10:47:00 HEMATOLOGY 2019-04-24 13.9 [facility] 10:47:00 HEMATOLOGY 2019-04-24 4.83 [facility] nn 10:47:00 HEMATOLOGY 2019-04-24 33.3 [facility] nn 10:47:00 HEMATOLOGY 2019-04-24 144 [facility] nn 10:47:00 HEMATOLOGY 2019-04-24 10:47:00 Test Item Value Reference Range Interpretation Comme nts MCH (test code = MCH) 30.3 pg 27.0-31.0 [id number] [facility] 2019-[facility]24 10:47:00 Test Item Value Reference Range Interpretation Comments PTT (test code = PTT) 43.9 s 22.9-35.8 [facility] NwrctrjLOXYCTTSFG7149-31-28 10:47:00 Test Item Value Reference Range Interpretation Comments PT (test code = PT) 26.1 s 12.0-14.7 [facility] DgkibcbPTLQOJKDPA4132-21-41 10:47:00 Test Item Value Reference Range Interpretation Comments INR (test code = INR) 2.46 1 0.85-1.17 [facility] YtbondzQCEKHVXLCK1991-01-14 10:47:000.1[facility]annHEMATOLOGY 2019-04-24 10:47:002.9[facility] HtedmytPYKALRURCL0346-23-27 10:47:001.8[facility] PzaevpzYLFXFQQPXQ5275-67-94 10:47:000.4[facility] VxrftteIVIUIIDPOY3845-39-75 10:47:000.6[facility] CfnbcpuTLVVJZWHSY0150-09-43 10:47:002.7[facility] VEAMSZYJES8702-82-86 10:47:0054.9[facility] IbtrfzuZNHZFDJZTF6566-07-27 10:47:00 34.0[facility] ScttumfEVPRJBAKHK3079-34-71 10:47:007.8[facility]annHEMATOLOGY 2014-09-26 12:18:57 Test Item Value Reference Range Interpretation Comments PT (test code = PT) 16.3 s 12.0-14.7 [facility]2160[facility]-14 12:18:571.30[facility]annHEMATOLOGY 2014-09-26 12:18:57 Test Item Value Reference Range Interpretation Comments PTT (test code = PTT) 67.1 s 22.9-35.8 [facility] NkckqzwPBJCANRGUH5179-02-24 06:00:42 Test Item Value Reference Range Interpretation Comments PT (test code = PT) 14.9 s 12.0-14.7 [facility] KwsqifoFNAKUDDNRH6210-69-09 06:00:421.16[facility]annHEMATOLOGY 2014-09-26 06:00:42 Test Item Value Reference Range Interpretation Comments PTT (test code = PTT) 62.6 s 22.9-35.8 [facility] QwunanqUATTRKULYF9349-95-54 19:40:031.21[facility]HE[facility]OLOGY 2014-09-25 19:40:03 Test Item Value Reference Range Interpretation Comments PTT (test code = PTT) 53.0 s 22.9-35.8 [facility] IqnqwywLKXAAHYLQJ5638-61-50 19:40:03 Test Item Value Reference Range Interpretation Comments PT (test code = PT) 15.4 s 12.0-14.7 [facility]annCHEM HEUIV7888-69-44 17:44:41539Riihomca HermannCHEM PANEL 2014-09-24 17:44:001.6[facility] HermannCHEM ATEMO1348-17-85 11:30:001.7[facility] EguotiyNLIUCLJZTEER8639-37-47 11:30:0011.0[facility] OpjjgazEYKJPIOEODFQ4118-42-44 11:30:0082[facility] KifptdfPVYESTFFWYKD6063-87-37 11:30:0028[facility] KIVRSAZJEADK7669-10-05 11:30:008.8[facility] MvnqmdqWMRYLGIAKJIX2055-26-11 11:30:44685Pupxmqpl WozyujkIFHCOTYGOGSA7992-20-89 11:30:004.0[facility] NQBDIOKULNQE0099-63-54 11:30:04881Oczusisy IwegivwGYZCADDOSATX9942-55-48 11:30:0019[facility] RmofbzzFXTBYJPIJZFU6035-70-30 11:30:0092[facility] MFPPQIDBSULB9515-83-79 11:30:001.1[facility] RvesnoeYWRHRAHCJM9431-23-46 11:30:00 0.5[facility] GhznqydUGKJLXDMCB3871-31-93 11:30:000.1[facility]annHEMATOLOGY 2014-09-24 11:30:007.5[facility] EhkswgdIWJTSNRQKI8126-63-10 11:30:0024.8[facility] FkwphxsYKOYXXFHPW9783-21-64 11:30:001.5[facility] SlgoufsUMHOHRRFBF5987-83-24 11:30:0065.5[facility] ZgarrscBEFSRDUGCF4916-93-57 11:30:001.7[facility] NEGQFCNEOT9245-35-39 11:30:004.5[facility] IywybbuCBPISLZIKY8372-16-27 11:30:000.7 [facility] TxhoovvVXTNWGABFF7909-35-75 11:30:0041.6[facility]annHEMATOLOGY 2014-09-24 11:30:0089.0[facility] WxfcvqqMDEKKOWCKG2592-85-92 11:30:004.67[facility] UfiaogwIXGGVANBSI3367-58-49 11:30:0013.8[facility] RmfwvlrCXPNYPAKJP5252-66-93 11:30:0033.2[facility] TagdvgrOANUFVPKZY8752-44-97 11:30:0014.4[facility] VBGVYDAZBK2552-89-15 11:30:76100Ykemhmna JatnxlyYGAWNFIPKA9746-44-52 11:30:00 Test Item Value Reference Range Interpretation Comments MCH (test code = MCH) 29.5 pg 27.0-31.0 [facility] RwlpygfIILUHYBTLZ7883-90-88 11:30:009.0[facility]annHEMATOLOGY 2014-09-24 11:30:006.9[facility]annURINE AND PSPUI1023-88-58 21:33:08Not Indicated *NA*(09/23/14 3:33 PM)[facility] DVYIT8752-58-81 21:33:08Negative (09/23/14 3:33 PM)[facility] RVPLY5283-59-80 21:33:08Negative *NA*(09/23/14 3:33 PM)[facility] NHERB3562-65-05 21:33:086.5[facility] DCMGQ3348-48-68 21:33:08Negative (09/23/14 3:33 PM)[facility] ORXID8442-95-97 21:33:081[facility] LWHKE3464-45-09 21:33:08Negative (09/23/14 3:33 PM)[facility] METBC9936-36-37 21:33:08Clear (09/23/14 3:33 PM)[facility] STOOL 2014-09-23 21:33:081.008[facility] HULCJ5434-39-19 21:33:08Yellow *NA*(09/23/14 3:33 PM)[facility] VmrmogeXCNSZJTGRF3677-27-01 15:24:201.1[facility] WrsnuziAKCVEMKXAU2443-05-43 15:24:200.6[facility] QbbtnjpSLZUVUZVAL3178-76-99 15:24:208.1[facility] MkuzehsOCZHEZBIKN0477-19-86 15:24:200.1[facility] GLJNPYSXXP2312-82-93 15:24:206.6[facility] GylvmdhQGQXANHDYR3139-68-69 15:24:20 82.4[facility] CjsqkhfJCQBFAKCME5685-55-70 15:24:2010.8[facility]annHEMATOLOGY 2014-09-23 15:24:200.1[facility] VgrqbefTORUIXRZYZ2791-58-87 15:24:43078Kkoeyhgr JsmmpidVGSYSXRYBJ8592-99-90 15:24:208.6[facility] CrlltgxFBVSTLNLJR9698-39-96 15:24:2014.2[facility] XcjfgmeIXWSKGPWNU1406-20-79 15:24:2033.0[facility] UBXYKESZTH1261-37-15 15:24:20 Test Item Value Reference Range Interpretation Comments MCH (test code = MCH) 30.4 pg 27.0-31.0 [facility] OajisdcQTGTUNBMXR2078-62-37 15:24:204.73[facility]annHEMATOLOGY 2014-09-23 15:24:2042.3[facility] BwtvbyaOOHXJVUWSO0558-39-84 15:24:209.8[facility] JcnikowYYCEIQZOHP4176-68-28 15:24:2014.4[facility] DnhjrzsAYOLOZVUYZ5783-61-17 15:24:2089.3[facility]ann[facility] AND ZDIDW2176-08-94 12:34:57<1[facility] FSMAQ5944-74-06 12:34:571[facility] STOOL 2014-09-23 12:34:57Negative (09/23/14 6:34 AM)[facility] STOOL 2014-09-23 12:34:57Negative (09/23/14 6:34 AM)[facility] STOOL 2014-09-23 12:34:57Negative *NA*(09/23/14 6:34 AM)[facility] JSIKW4297-72-72 12:34:57Negative (09/23/14 6:34 AM)[facility] PSWKR7767-44-63 12:34:576.5[facility] JDDKL1141-12-70 12:34:57 1.022[facility] MXOQO0547-74-96 12:34:57Clear (09/23/14 6:34 AM) [facility] XKXQF0720-70-54 12:34:57Yellow *NA*(09/23/14 6:34 AM) [facility]annCHEM QVGHC5038-86-08 09:50:004.6[facility] HermannCHEM PANEL 2014-09-23 09:50:001.8[facility] HermannCHEM YOLUA7781-25-42 09:50:0092[facility] HermannCHEM DAUKZ1166-23-53 09:50:008.9[facility] HermannCHEM MAYLW0284-72-21 09:50:0012.6[facility] HermannCHEM MEROA0336-84-22 09:50:0017[facility] HermannCHEM XYRGT8652-97-46 09:50:79566Tucauifd HermannCHEM QLTCH8314-93-70 09:50:004.6 [facility]annCHEM SLASV5082-52-09 09:50:0026[facility] HermannCHEM PANEL 2014-09-23 09:50:90437Wfvcefca HermannCHEM COLZS1366-94-81 09:50:53915Dnkyhnsf HermannCHEM FCOPY6564-02-49 09:50:001.0[facility] XupewevWNXIPSVCTP4142-36-01 09:50:0086.9[facility] XgekclhQFUWVYDSNY9334-56-31 09:50:003.5[facility] GFMUYRQODO3570-10-12 09:50:009.4[facility] EvsmrvrAWWQVXHAIO8241-51-01 09:50:000.1 [facility] JmedgqfPLCRAVWNQX8749-29-24 09:50:000.1[facility] HermannHEMATOLOGY 2014-09-23 09:50:000.3[facility] CcjamjbXXCHQAVIPB6287-62-08 09:50:000.8[facility] PclsdpgFJLENJVBHB3493-41-82 09:50:007.7[facility] JucczgcUDYKNQRGIY3632-11-29 09:50:008.7[facility] KmnwqhvUKVQCHKEXA1191-46-61 09:50:72776Dyxqkgrl [place] CHLUPCIIXJ1991-82-51 09:50:004.79[facility] NmxasprBXGCBSDQHN2178-66-24 09:50:00 8.8[facility] BdfhvonOBJHLFMQNV1230-55-81 09:50:0014.5[facility]annHEMATOLOGY 2014-09-23 09:50:0033.7[facility] KpuvnxnUOQMFNDICY9601-35-84 09:50:00 Test Item Value Reference Range Interpretation Comments MCH (test code = MCH) 30.4 pg 27.0-31.0 [facility] GtutztuLRKMQFEWFW4646-43-06 09:50:0090.0[facility]annHEMATOLOGY 2014-09-23 09:50:0043.1[facility] StsbxjbIPRWTUBHAL0346-07-00 09:50:0014.1[facility] CedwosbMSIMOCXKRX7083-53-51 00:30:4220[facility] AmgizfoVEUYNWOHDL5422-42-78 00:30:4223.9[facility] JjvwsokCWWORIGIFNSB9282-49-16 00:30:0013.6[facility] YLAFZAVEJUUX4940-77-85 00:30:0082[facility] FtnplsxZNNTTHAHSITA1166-16-19 00:30:00 9.1[facility] YtitakiZXKCAHNCHONL3625-50-36 00:30:36841Egjilofi [facility] JBQLWNHDTRVF3359-33-24 00:30:001.1[facility] CnyugflBCDTTRCTHEJI9126-94-59 00:30:50147Pxwvfyzx FczfogeMUBCUMYHBCYB7200-27-19 00:30:0014[facility] BWJAEUHSSZAC3500-35-46 00:30:0027[facility] BpdltdpPHLNKMSOUEKR3848-91-68 00:30:00 5.6[facility] TgkrgctSTYFMJZZMRZA9043-08-25 00:30:63898Kjaihjyx HermannHEMATOLOGY 2014-09-23 00:30:00Normal (09/22/14 6:30 PM)[facility] ZsppovoLGZOARLCAY8399-36-71 00:30:000.0[facility] FkevjztWHUXZODKWB7682-80-88 00:30:000.1[facility] UECHJKZJQV0797-82-14 00:30:00Normal (09/22/14 6:30 PM)[facility] HermannIMMUNOLOGY 2014-09-22 21:50:05Negative (09/22/14 3:50 PM)[facility]
--- NOTE | 2021-03-16 20:58 | RAD REPORT ---
EXAM DESCRIPTION: Herb Pa And Lat (2 Views)03/16/2021 8:31 pm CLINICAL HISTORY: Left rib pain COMPARISON: 2013 FINDINGS: Mild left basilar opacity may represent atelectasis. A displaced left rib fracture is not seen on this limited examination Right lung appears clear. The heart is normal size
[2021-03-16 22:22] LABS: Hematocrit 45.6 % (39.6-49.0); RBC Red Blood Cell Count 5.11 M/uL (4.33-5.43)
[2021-03-16 22:23] LABS: Absolute Lymphocytes (CBC) 1.9 K/uL (0.7-4.9); Basophils % 0.7 % (0-1.3); Lymphocytes % 27.6 % (15.3-44.8); MPV 9.1 fL (7.6-11.3)
[2021-03-16 22:25] LABS: Urine Blood Negative (Negative); Urine Glucose Negative (Negative); Urine Protein Negative (Negative); Urine Specific Gravity >=1.030 (1.005-1.030); Urine pH 5.5 (5.0-7.0)
[2021-03-16 22:31] LABS: Potassium 4.1 mmol/L (3.5-5.1)
[2021-03-16] MEDS ORDERED: NA CHLORIDE 0.9% 1,000 ML ONE (22:32)
[2021-03-16] MEDS ORDERED: MORPHINE 2 MG/ML SYR ONE (22:32)
[2021-03-16] MEDS ORDERED: ONDANSETRON 4 MG/2 ML VIAL ONE (22:32)
--- NOTE | 2021-03-17 00:28 | ER ---
Nurse's Notes [facility] Name: Jame Coburn Age: 70 yrs Sex: Male : 1950 Arrival Date: 03/16/2021 Time: 18:19 Bed 14 Private MD: Fer Schafer V Diagnosis: Fall due to bumping against object;Abdominal tenderness-blunt trauma;Multiple fractures of ribs, left side Presentation: 03/16 19:09 Onset of symptoms was March 13, 2021. Chief complaint: Spouse and/or significant other jl7 states: Fell in the shed on Monday, reports left side/rib pain that is worse. Coronavirus screen: Client denies travel out of the [place] in the last 14 days. At this time, the client does not indicate any symptoms associated with coronavirus-19. Ebola Screen: No symptoms or risks identified at this time. Initial Sepsis Screen: Does the patient meet any 2 criteria? No. Patient's initial sepsis screen is negative. Does the patient have a suspected source of infection? No. Patient's initial sepsis screen is negative. Risk Assessment: Do you want to hurt yourself or someone else? Patient reports no desire to harm self or others. 19:09 Method Of Arrival: Wheelchair [facility] 19:09 Acuity: LIZA 4 jl7 Historical: - Allergies: 19:11 No Known Allergies; jl7 - Home Meds: 19:11 warfarin 1 mg Oral tab 1 tab once daily [Active]; jl7 - PMHx: 19:11 broken back; CVA; High Cholesterol; brain tumor; jl7 - PSHx: 19:11 brain s/p 2010 and 2013; jl7 - Immunization history:: Adult Immunizations up to date, Client reports receiving the 2nd dose of the Covid vaccine. - Social history:: Smoking status: Patient denies any tobacco usage or history of. - Family history:: not pertinent. Screenin:58 Abuse screen: Denies threats or abuse. Denies injuries from another. Nutritional jm8 screening: No deficits noted. Tuberculosis screening: No symptoms or risk factors identified. Fall Risk None identified. Assessment: 20:54 General: Appears in no apparent distress. comfortable, Behavior is calm, cooperative, jm8 appropriate for age. Pain: Complains of pain in left back Pain currently is 10 out of 10 on a pain scale. Quality of pain is described as aching, Pain began 4 days Aggravated by increased activity. Neuro: No deficits noted. Level of Consciousness is awake, alert, obeys commands, Oriented to person, place, time. Cardiovascular: No deficits noted. Respiratory: No deficits noted. Airway is patent Trachea midline Respiratory effort is even, unlabored. GI: No deficits noted. No signs and/or symptoms were reported involving the gastrointestinal system. : No deficits noted. No signs and/or symptoms were reported regarding the genitourinary system. EENT: No deficits noted. No signs and/or symptoms were reported regarding the EENT system. Derm: No deficits noted. No signs and/or symptoms reported regarding the dermatologic system. Derm: Skin is intact, is healthy with good turgor, Skin is dry, Skin is pink, warm \T\ dry. Skin temperature is warm. Musculoskeletal: Tenderness present in left back Reports pain in left back since monday. after fall. Vital Signs: 19:09 BP 144 / 93; Pulse 77; Resp 17; Temp 97.6; Pulse Ox 97% ; Weight 89.36 kg; jl7 21:30 BP 151 / 86; Pulse 69; Resp 17; Pulse Ox 99% on R/A; 8 03/17 01:10 BP 139 / 91; Pulse 67; Resp 16; Pulse Ox 99% ; [facility] ED Course: 03/16 18:19 Patient arrived in ED. am2 18:19 Fer Schafer MD is Private Physician. am2 19:11 Triage completed. [facility] 19:11 Arm band placed on right wrist. Patient placed in waiting room, Patient notified of [facility] wait time. 20:46 Yefri Mendez MD is Attending Physician. dequan 20:58 Patient has correct armband on for positive identification. Bed in low position. Call [facility] light in reach. Side rails up X2. 22:09 Inserted saline lock: 18 gauge in right upper arm, using aseptic technique. [facility] 22:27 INCENTIVE SPIROMETRY Sent. [facility] 03/17 00:28 Fer Schafer MD is Referral Physician. dequan 00:28 Kushal Stokes MD is Referral Physician. dequan 01:12 No provider procedures requiring assistance completed. IV discontinued, intact, [facility] bleeding controlled. Administered Medications: 03/16 22:14 Drug: NS 0.9% 1000 ml Route: IV; Rate: 1 bolus; Site: right upper arm; 8 03/17 01:13 Follow up: IV Status: Completed infusion [facility] 03/16 22:14 Drug: morphine 2 mg Route: IVP; Site: right upper arm; 03/17 01:13 Follow up: Response: No adverse reaction; Pain is decreased [facility] 03/16 22:14 Drug: Zofran (Ondansetron) 4 mg Route: IVP; Site: right upper arm; 8 22:31 Follow up: Response: No adverse reaction : Follow up: Response: No adverse reaction; Pain is decreased [facility] Outcome: 03/17 00:28 Discharge ordered by MD. baires 01:12 Discharged to home via wheelchair, with family. 8 01:12 Condition: good 01:12 Discharge instructions given to patient, family, Instructed on discharge instructions, follow up and referral plans. medication usage, Demonstrated understanding of instructions, follow-up care, medications. 01:13 Patient left the ED. jm8 Signatures: Yefri Mendez MD MD cha Leal, Jahala, RN RN jl7 Demi Aguilar Joseph, RN RN jm8
--- NOTE | 2021-03-17 00:28 | EDPHYS ---
Physician Documentation [facility] Name: Jame Coburn Age: 70 yrs Sex: Male : 1950 Arrival Date: 03/16/2021 Time: 18:19 Bed 14 Private MD: Fer Schafer V ED Physician Yefri Mendez HPI: 03/16 21:36 This 70 yrs old Other Male presents to ER via Wheelchair with complaints of Fall dequan Injury, Back Pain. 21:36 Details of fall: The patient fell from an upright position, while walking. Onset: The dequan symptoms/episode began/occurred today. Associated injuries: The patient sustained injury to the chest, injury to the abdomen, contusion, tenderness. Severity of symptoms: At their worst the symptoms were moderate, in the emergency department the symptoms are actually worse, markedly. The patient has not experienced similar symptoms in the past. Historical: - Allergies: 19:11 No Known Allergies; jl7 - Home Meds: 19:11 warfarin 1 mg Oral tab 1 tab once daily [Active]; jl7 - PMHx: 19:11 broken back; CVA; High Cholesterol; brain tumor; jl7 - PSHx: 19:11 brain s/p 2010 and 2013; jl7 - Immunization history:: Adult Immunizations up to date, Client reports receiving the 2nd dose of the Covid vaccine. - Social history:: Smoking status: Patient denies any tobacco usage or history of. - Family history:: not pertinent. ROS: 21:36 Constitutional: Negative for fever, chills, and weight loss, Eyes: Negative for injury, dequan pain, redness, and discharge, ENT: Negative for injury, pain, and discharge, Neck: Negative for injury, pain, and swelling, Cardiovascular: Negative for chest pain, palpitations, and edema, Back: Negative for injury and pain, : Negative for injury, bleeding, discharge, and swelling, MS/Extremity: Negative for injury and deformity, Skin: Negative for injury, rash, and discoloration, Neuro: Negative for headache, weakness, numbness, tingling, and seizure, Psych: Negative for depression, anxiety, suicide ideation, homicidal ideation, and hallucinations, Allergy/Immunology: Negative for hives, rash, and allergies, Endocrine: Negative for neck swelling, polydipsia, polyuria, polyphagia, and marked weight changes, Hematologic/Lymphatic: Negative for swollen nodes, abnormal bleeding, and unusual bruising. 21:36 Respiratory: Positive for cough, shortness of breath, at rest. 21:36 Abdomen/GI: Positive for abdominal pain, abdominal cramps, of the anterior aspect of left lateral abdomen and posterior aspect of left lateral abdomen. Exam: 21:36 Constitutional: This is a well developed, well nourished patient who is awake, alert, dequan and in no acute distress. Head/Face: Normocephalic, atraumatic. Eyes: Pupils equal round and reactive to light, extra-ocular motions intact. Lids and lashes normal. Conjunctiva and sclera are non-icteric and not injected. Cornea within normal limits. Periorbital areas with no swelling, redness, or edema. ENT: Nares patent. No nasal discharge, no septal abnormalities noted. Tympanic membranes are normal and external auditory canals are clear. Oropharynx with no redness, swelling, or masses, exudates, or evidence of obstruction, uvula midline. Mucous membranes moist. Neck: Trachea midline, no thyromegaly or masses palpated, and no cervical lymphadenopathy. Supple, full range of motion without nuchal rigidity, or vertebral point tenderness. No Meningismus. Chest/axilla: Normal chest wall appearance and motion. Nontender with no deformity. No lesions are appreciated. Cardiovascular: Regular rate and rhythm with a normal S1 and S2. No gallops, murmurs, or rubs. Normal PMI, no JVD. No pulse deficits. Back: No spinal tenderness. No costovertebral tenderness. Full range of motion. Male : Normal genitalia with no discharge or lesions. Skin: Warm, dry with normal turgor. Normal color with no rashes, no lesions, and no evidence of cellulitis. MS/ Extremity: Pulses equal, no cyanosis. Neurovascular intact. Full, normal range of motion. Neuro: Awake and alert, GCS 15, oriented to person, place, time, and situation. Cranial nerves II-XII grossly intact. Motor strength 5/5 in all extremities. Sensory grossly intact. Cerebellar exam normal. Normal gait. Psych: Awake, alert, with orientation to person, place and time. Behavior, mood, and affect are within normal limits. 21:36 Respiratory: mild respiratory distress is noted, Respirations: normal, Breath sounds: decreased breath sounds, that are mild, are heard in the left upper lobe, left lower lobe, left posterior upper lobe and left posterior lower lobe. 21:36 Abdomen/GI: Inspection: distension, Bowel sounds: normal, Palpation: moderate abdominal tenderness, in the anterior aspect of left lateral abdomen, posterior aspect of left lateral abdomen and left upper quadrant. Vital Signs: 19:09 BP 144 / 93; Pulse 77; Resp 17; Temp 97.6; Pulse Ox 97% ; Weight 89.36 kg; [facility] 21:30 BP 151 / 86; Pulse 69; Resp 17; Pulse Ox 99% on R/A; [facility] 03/17 01:10 BP 139 / 91; Pulse 67; Resp 16; Pulse Ox 99% ; [facility] MDM: 03/16 20:46 Patient medically screened. [facility] 21:40 Differential diagnosis: contusion, fracture, multiple trauma. Data reviewed: vital dequan signs, nurses notes, lab test result(s), radiologic studies, CT scan, plain films. Data interpreted: drafter (cad) electronic: rate is 77 beats/min, rhythm is regular, Pulse oximetry: on room air is 97 %. Test interpretation: by ED physician or midlevel provider: plain radiologic studies. Counseling: I had a detailed discussion with the patient and/or guardian regarding: the historical points, exam findings, and any diagnostic results supporting the discharge/admit diagnosis, lab results, radiology results. 03/16 21:36 Order name: Basic Metabolic Panel [facility] 03/16 21:36 Order name: CBC with Diff [facility] 03/16 21:36 Order name: Type And Screen [facility] 03/16 22:25 Order name: Urine Dipstick-Ancillary; Complete Time: 23:05 [facility] 03/16 22:31 Order name: Basic Metabolic Panel; Complete Time: 23:05 [facility] 03/16 22:35 Order name: CBC with Automated Diff; Complete Time: 23:05 [facility] 03/16 19:15 Order name: XRAY Chest Pa And Lat (2 Views) [facility] 03/16 20:59 Order name: RAD; Complete Time: 21:33 [facility] 03/16 21:36 Order name: CT Chest, Abdomen, Pelvis - W/Contrast: trauma, iv only [facility] 03/16 21:36 Order name: INCENTIVE SPIROMETRY; Complete Time: 23:05 [facility] 03/16 23:27 Order name: Type and Screen [facility] 03/16 21:36 Order name: Labs collected and sent; Complete Time: 22:09 [facility] 03/16 21:36 Order name: Urine Dipstick-Ancillary (obtain specimen); Complete Time: 22:27 [facility] Administered Medications: 22:14 Drug: NS 0.9% 1000 ml Route: IV; Rate: 1 bolus; Site: right upper arm; [facility] 03/17 01:13 Follow up: IV Status: Completed infusion [facility] 03/16 22:14 Drug: morphine 2 mg Route: IVP; Site: right upper arm; [facility] 03/17 01:13 Follow up: Response: No adverse reaction; Pain is decreased [facility] 03/16 22:14 Drug: Zofran (Ondansetron) 4 mg Route: IVP; Site: right upper arm; [facility] :31 Follow up: Response: No adverse reaction [facility] : Follow up: Response: No adverse reaction; Pain is decreased [facility] Disposition: 03/17/21 00:28 Discharged to Home. Impression: Fall due to bumping against object, Abdominal tenderness - blunt trauma, Multiple fractures of ribs, left side. - Condition is Stable. - Discharge Instructions: Abdominal Pain, Adult, Fall Prevention in the Home, Rib Fracture, Incentive Spirometer, Abdominal Pain, Adult, Rzgv-yv-Wccb, Fall Prevention in the Home, Hkjv-qq-Ttge, Rib Fracture, Aihn-ph-Qsne. - Prescriptions for Tylenol- Codeine #3 300-30 mg Oral Tablet - take 2 tablets by ORAL route every 4-6 hours As needed; 26 tablet. Albuterol Sulfate 90 mcg/actuation Inhalation - inhale 2 puff by INHALATION route every 4-6 hours; 1 Inhaler. - Medication Reconciliation Form, Thank You Letter, Antibiotic Education, Prescription Opioid Use form. - Follow up: Fer Schafer; When: 2 - 3 days; Reason: Recheck today's complaints, Continuance of care, Re-evaluation by your physician. Follow up: Kushal Stokes; When: 2 - 3 days; Reason: Recheck today's complaints, Re-evaluation by your physician. - Problem is new. - Symptoms have improved. Signatures: Dispatcher [employer] [facility] Yefri Mendez MD MD cha Leal, Jahala RN RN jl7 Nagi Cardenas RN RN jm8 Corrections: (The following items were deleted from the chart) 03/17 01:13 00:28 03/17/2021 00:28 Discharged to Home. Impression: Fall due to bumping against jm8 object; Abdominal tenderness - blunt trauma; Multiple fractures of ribs, left side. Condition is Stable. Discharge Instructions: Abdominal Pain, Adult, Fall Prevention in the Home, Rib Fracture, Incentive Spirometer, Abdominal Pain, Adult, Hmrq-rm-Onfs, Fall Prevention in the Home, Dsml-ea-Xlas, Rib Fracture, Xenf-hn-Ltiu. Prescriptions for Tylenol-Codeine #3 300-30 mg Oral Tablet - take 2 tablets by ORAL route every 4-6 hours As needed; 26 tablet, Albuterol Sulfate 90 mcg/actuation Inhalation - inhale 2 puff by INHALATION route every 4-6 hours; 1 Inhaler. and Forms are Medication Reconciliation Form, Thank You Letter, Antibiotic Education, Prescription Opioid Use. Follow up: Fer Schafer; When: 2 - 3 days; Reason: Recheck today's complaints, Continuance of care, Re-evaluation by your physician. Follow up: Kushal Stokes; When: 2 - 3 days; Reason: Recheck today's complaints, Re-evaluation by your physician. Problem is new. Symptoms have improved. dequan
[2021-03-17 01:18] VITALS: TEMP 97.6
[2021-03-17 01:19] VITALS: O2SAT 99
[2021-03-17 01:21] VITALS: BP 139/91
--- NOTE | 2021-03-17 12:11 | RAD REPORT ---
EXAM DESCRIPTION: CT - CT CHEST,ABD,PELVIS W/WO - 03/17/2021 7:07 am RadLex: CT CHEST ABDOMEN PELVIS WITHOUT THEN WITH IV CONTRAST CLINICAL HISTORY: COUGH. Left chest and abdomen pain after fall. COMPARISON: CT of the abdomen/pelvis from September 22, 2014. TECHNIQUE: CT of the chest, abdomen, and pelvis was performed without contrast. Due to technical dif ficulties with the intravenous line, no contrast was administered for this exam. Oral contrast was no t administered. Axial, coronal, and sagittal reconstructions were created and sent to PACS. This exam was performed according to our departmental dose-optimization program, which includes autom ated exposure control, adjustment of the mA and/or kV according to patient size and/or use of iterati ve reconstruction technique. FINDINGS: Lungs and pleura: Mild left lower lobe atelectasis/scarring. No pulmonary consolidation. N o pleural effusion. No pneumothorax. Mediastinum and neck: No mediastinal lymphadenopathy identified by CT size criteria. Unremarkable pb earance of the thyroid gland. Cardiac: No cardiomegaly or pericardial effusion. No thoracic aortic aneurysm or dissection. Mild sharee cific atherosclerosis in the aorta. Moderate amount of calcifications in the coronary arteries. Hepatobiliary: No concerning hepatic lesion identified. The hepatic and portal veins are patent. Calc ified gallstone in the gallbladder. No gallbladder wall thickening or surrounding inflammatory change s. No biliary ductal dilatation. Pancreas: Unremarkable. Spleen: Unremarkable. Gastrointestinal: No evidence of bowel obstruction or perienteric inflammation. The appendix is dai l. Small to moderate amount of fecal material throughout the colon. Adrenals: No abnormality identified in either adrenal gland. Renal: Mild bilateral perinephric fat stranding. Unchanged inferior right renal scarring. No concerni ng parenchymal abnormality in either kidney. No hydronephrosis or urolithiasis. Bladder/Reproductive: Unremarkable appearance of the urinary bladder by CT technique. Moderate prosta tomegaly. Vascular/Lymphatics: No lymphadenopathy identified by CT size criteria. Abdominal aorta is normal in caliber. IVC filter in place. Mild calcific atherosclerosis. Musculoskeletal: Subtle nondisplaced acute fractures of the posterior left 9th and 10th ribs (coronal series 602, images 106 and 105). Osteopenia. Similar appearance of the severe wedge compression defo rmity at L4 with mild bony retropulsion. No significant central canal stenosis. Similar appearance of the mild anterior wedge compression deformity at L3. Partially imaged reverse left shoulder arthropl asty. Partially imaged right-sided ventriculoperitoneal shunt catheter tubing, terminating in the rig ht lower abdomen. Tiny fat-containing periumbilical hernia with no associated inflammatory changes. Fluid / peritoneum: No significant free fluid. No free intraperitoneal air identified. IMPRESSION: 1. Acute nondisplaced posterior left 9th and 10th rib fractures. Mild left lower lobe atelectasis. No pneumothorax. 2. No acute abnormality identified in the abdomen or pelvis. 3. Chronic findings, as described. Electronically signed by: Amberly Aburto MD 03/17/2021 1:01 AM CDT Due to temporary technical issues with the PACS/Fluency reporting system, reports are being signed by the in house radiologists without review as a courtesy to insure prompt reporting. The interpreting radiologist is fully responsible for the content of the report.
== END 2021-03-17 01:13 | disposition home or self-care (01) ==
LOC: ER 18:15
DX: S22.42XA Multiple fractures of ribs, left side, initial encounter for closed fracture (principal); W18.00XA Striking against unspecified object with subsequent fall, initial encounter; Y93.01 Activity, walking, marching and hiking; Z86.73 Personal history of transient ischemic attack (TIA), and cerebral infarction without residual deficits; Z79.01 Long term (current) use of anticoagulants
CPT/HCPCS: 85025; 80048; 36415; 86900; 86850; 86901; 81003; 71270; 74178; 71046; Q9967; J2270; J7030; J2405; 71260; 74177; 96361; 96374; 96375; 99283

== ENCOUNTER 2021-04-26 11:26 | Inpatient (IN) | payer OTHER ==
--- NOTE | 2021-04-26 15:12 | R.PREADM ---
PRE-ADMISSION SCREENING FORM SCREENING DATE AND TIME 04/26/2021 11:44 (CDT) ANTICIPATED REHAB ADMISSION DATE 04/28/2021 REFERRING FACILITY [facility] REFERRAL DATE AND TIME 04/23/2021 11:44 (CDT) REFERRAL ROOM# J421 ACUTE ADMIT DATE 04/26/2021 Previous Rehabilitation(s): No. 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 Steven Dean M.D. MR# [id number] NAME REMA AMAYA ADDRESS [address] [place] [address] PHONE [facility] [id number] DATE OF 1950 AGE 70 SSN# [id number] GENDER male MARITAL STATUS ADMIT FROM 02 - [facility] PRE-HOSPITAL LIVING SETTING 01 - Home (private home/apt. board/care, assisted living, custodial, transitional living) HOME TYPE AND DETAILS Type of home: single family house # of levels in the residence: 1 # of steps to enter the residence: 0 PRE-HOSPITAL LIVING WITH Family/Relatives FAMILY SUPPORT Yes PRIMARY FAMILY CONTACT NAME DAVID AMAYA PRIMARY FAMILY CONTACT PHONE PRIMARY FAMILY CONTACT RELATIONSHIP Daughter PHONE PRIMARY FAMILY CONTACT ON ADM.? no IS PRIMARY FAMILY CONTACT AUTH. REP.? no 1ST EMERGENCY CONTACT DAVID AMAYA 1ST CONTACT PHONE 1ST CONTACT RELATIONSHIP Daughter PHONE 1ST CONTACT ON ADM. no IS 1ST CONTACT AUTH. REP.? no PHONE 2ND CONTACT ON ADM.? no PATIENT EMPLOYMENT STATUS Retired (for age) PATIENT EMPLOYER No Employer PAYOR INFORMATION: 1ST PAYOR NAME MEDICARE 1ST PAYOR PHONE 1ST PAYOR INJURY/ILLNESS DUE TO ACCIDENT? No ANOTHER DEMOCRAT RESPONSIBLE? No PRIMARY REHAB/ACUTE DIAGNOSIS: ACUTE EXTENSIVE RLE DVT- ONSET DATE 04/12/2021 REHAB IMPAIRMENT CATEGORY (ALEXANDER): 01 Stroke (STR) MEETS 60% rule PRIMARY DIAGNOSIS-RELATED SURGERIES: GRAM STAIN 04/19/21 RIGHT VENTRICULAR PERITONEAL SHUNT REVISION CRANIAL PROCEDURE- TUMOR, INTRA AXIAL/ EXTRA-AXIAL CRAN. SUMMARY OF ACUTE HOSPITALIZATION: Pt. is a 70 yo Right-handed male. On 04/12/2021 he was admitted to [facility] with diagnosis ACUTE EXTENSIVE RLE DVT-. His impairment category is Stroke 01 - Other Stroke (01.9). Pre-morbidly, Pt. was independent/mod-I in Locomotion, Social Cognition, Balance, Safety Awareness, C ommunication, and Endurance; and he had good Self-Care. Currently, he has deficits of Locomotion, Safety Awareness, Transfers Control, Sphincter Control, Com munication, and Self-Care. Pt. is now referred to [facility] for acute in-patient rehabilitation in order to maximize patient's functional independence in activities of daily living, strength, ROM, and mobi lity. Patient has realistic goal of being discharged at assistance level 7-Ind to reside at Home with Fami ly/Relatives. PAST MEDICAL HISTORY HYPERTENSION HYPERLIPIDEMIA DVT PE ON COUMADIN HISTORY OF RENAL CELL CARCINOMA meningioma STATUS POST RESECTION IN 2010 SEIZURES AND STRIKE A FIB FALLS Aphasia (R47.01) AGITATION URINARY RETENTION MEDICATION ALLERGIES: No Known Drug Allergies (NKDA) ENVIRONMENTAL ALLERGIES: - Substance Allergies None Known - Other Allergies None Known CODE STATUS: Full code WEIGHT/HEIGHT/BMI: WEIGHT 90.01 lbs HEIGHT 6' 0" BMI 12.2 DIET: - Diet Type Regular - Diet - Solid Texture Regular - Diet - Liquid Texture Regular - Tube Feed N/A REVIEW OF SYSTEMS: - Gen Alert and awake Lying in bed No apparent distress Oriented to: person, time, and place - Vital Signs Temperature: 97.2 F Pulse: 78 Resp: 18 Vital signs stable, afebrile - CVS RRR VITAL SIGNS Temperature: 97.2 F Pulse: 78 Resp: 18 Vital signs stable, afebrile MEDICATIONS/TREATMENT: Other- See attached MAR (Medication Administration Record). CURRENT SPHINCTER CONTROL: Pre-hospital bladder status: unspecified # of bladder accidents in the last 7 days prior to screenin Pre-hospital bowel status: unspecified # of bowel accidents in the last 7 days prior to screenin Last Bowel Movement Date: 04/26/2021 CURRENT LOCOMOTION STATUS: distance walked 60 feet W RW DETAILED CURRENT FUNCTIONAL STATUS: - Bladder accident frequency: 7-Ind - No accidents in the past 7 days - Bowel accident frequency: 7-Ind - No accidents in the past 7 days - Walking score based on distance walked: 0(N/A) score based on distance walked: 2(50-149ft) - Wheelchair score based on distance traveled: 0(N/A) QI SCORES: - Self-Care A. Eating 04-Supervision or touching assistance B. Oral hygiene 03-Partial/moderate assistance C. Toileting hygiene 03-Partial/moderate assistance E. Shower/bathe self 03-Partial/moderate assistance F. Upper body dressing 03-Partial/moderate assistance G. Lower body dressing 03-Partial/moderate assistance H. Putting on/taking off footwear 88-Not attempted due to medical condition or safety concerns - Mobility A. Roll left and right 03-Partial/moderate assistance B. Sit to lying 03-Partial/moderate assistance C. Lying to sitting on side of bed 03-Partial/moderate assistance D. Sit to stand 03-Partial/moderate assistance E. Chair/ero-gk-zbpzi transfer 03-Partial/moderate assistance F. Toilet transfer 03-Partial/moderate assistance G. Car transfer 88-Not attempted due to medical condition or safety concerns I. Walk 10 feet 03-Partial/moderate assistance J. Walk 50 feet with two turns 03-Partial/moderate assistance K. Walk 150 feet 88-Not attempted due to medical condition or safety concerns L. Walking 10 feet on uneven surfaces 88-Not attempted due to medical condition or safety concerns M. 1 step (curb) 88-Not attempted due to medical condition or safety concerns N. 4 steps 88-Not attempted due to medical condition or safety concerns O. 12 steps 88-Not attempted due to medical condition or safety concerns P. Picking up object 88-Not attempted due to medical condition or safety concerns R. Wheel 50 feet with two turns 88-Not attempted due to medical condition or safety concerns S. Wheel 150 feet 88-Not attempted due to medical condition or safety concerns - Bladder and Bowel Bladder continence Bowel continence - Endurance Fair - Balance Fair - Safety Awareness Fair CURRENT FUNC. DEFICITS: Self-Care, Mobility, Endurance, Balance, and Safety Awareness CURRENT / PREVIOUS ASSISTIVE DEVICES: Rolling Walker HISTORY OF FALLS. HAS THE PATIENT HAD TWO OR MORE FALLS IN THE PAST YEAR OR ANY FALL WITH INJURY IN T HE PAST YEAR?: Yes PRIOR SURGERY. DID THE PATIENT HAVE MAJOR SURGERY DURING THE 100 DAYS PRIOR TO ADMISSION?: Yes THERAPY NOTES FROM ACUTE CARE: Attached. SPECIAL NEEDS: - Safety Concerns Skin breakdown precautions needed due to skin breakdown risk PATIENT NEEDS ACTIVE AND ONGOING THERAPEUTIC INTERVENTION OF MULTIPLE THERAPY DISCIPLINES, INCLUDING: - Occupational Therapy Cognitive Retraining. Visual Perceptual Training. - Dietary and Nutrition Adequate Nutrition. Nutritional Education. Nutritional Supplements. - Speech Therapy Cognitive Training. Expressive Language Skills. Memory Strategies. Receptive Language Skills. Speech Intelligibility Training. PATIENT NEEDS CLOSE MEDICAL SUPERVISION BY A REHABILITATION PHYSICIAN FOR: Coordination of Treatment Team PATIENT REQUIRES 24X7 REHAB NURSING FOR MEDICAL AND FUNCTIONAL MGT. OF THE FOLLOWING DEFICITS: Disease Management Medication Management Patient/Family Education Providing Safe Environment PATIENT REQUIRES INTENSIVE, COORDINATED INTERDISCIPLINARY APPROACH TO REHAB: Arranging Home Equipment/Services Discharge Planning Family Intervention/Training Animal Assistant/Case Management PATIENT REHAB POTENTIAL: Shreyas AMAYA is able and expected to receive 3 hours of individualized therapy daily on at least 5 of valentín ry 7 days Shreyas Canas prognosis for significant practical improvement within a reasonable period of time appears Good Expected level of measurable improvement will be of a practical value to Shreyas AMAYA's functional capaci ty or adaptations to impairments Has a viable Discharge Plan Medically appropriate; condition is sufficiently stable to participate in intensive rehab program DISCHARGE PLAN: - Estimated Length of Stay (days) 17. - Consensus on plan Discharge plan has been discussed with primary caregiver. Patient/Family is in agreement with the destiny n. Primary caregiver is in agreement with the plan. - Patient/Family Goals Return home independently. - Planned Living Setting Upon Discharge Home, to live with Family/Relatives. Transitional Living. RECOMMENDED CARE LEVEL: IRF RECOMMENDATION DETAILS: Recommended Admission to Comprehensive Rehabilitation Program to Increase Functional [place] SCREENER'S COMPLETENESS CONFIRMATION: - Screening Confirmation The patient data collection on this preadmission screening form is finished PHYSICIANS REVIEW AND ADMISSION DETERMINATION Admit - Based on my review of the Pre-Admission Screening results, in my medical judgment and experie nce, I concur with the findings and recommend admission to [facility], as this patient requires an IRF level of care. SIGNATURE PANEL: Waste Management Specialist - [electronically] signed by Seven Goddard on 04/26/2021 at 13:10 (CDT) Waste Management Specialist - [electronically] signed by Gorge Griffiths PT on 04/26/2021 at 14:13 (CDT) Physician Reviewer - [electronically] signed by Dr. Steven Dean M.D. on 04/26/2021 at 15:11 (CDT )
--- OUTSIDE RECORDS SUMMARY | 2021-04-26 19:35 | XMS REPORT | Continuity of Care Document ---
:1950 Author Organization [facility] t Address [address] [place] [address] Care Team Providers Name Role Phone Unavailable Unavailable Unavailable Problems Condition Condition Condition Status Onset Resolution Last Treating Co mments Source Name Details Category Date Date Treatment Clinician Date HISTORY OF Condition Active 2014-12-17 Memoria HYPERTENSI 11-05 11:45:21 l ON HISTORY 00:00: [place] OF 00 HYPERTENSI ON Active 5 Condition 12/17/2014 [facility] HISTORY OF Condition Active 2014-12-17 Memoria SEIZURE 11-05 11:45:21 l DISORDER HISTORY 00:00: Lachelle nn OF SEIZURE 00 DISORDER Active 11/05/2014 Condition 5 [facility] CLOSED Condition Active 2014-12-17 Mem oria FRACTURE 11-03 11:45:21 l OF LUMBAR CLOSED 00:00: Lachelle nn VERTEBRA FRACTURE 00 WITHOUT OF LUMBAR MENTION OF VERTEBRA SPINAL WITHOUT CORD MENTION OF INJURY SPINAL CORD INJURY Active 11/03/2014 Condition 5 [facility] Allergies, Adverse Reactions, Alerts This patient has no known allergies or adverse reactions. Medications Ordered Filled Start Stop Current Ordering Indication Dosage Frequency Signature Comments Components Source Medication Medication Date Date Medication? Clinician (SIG) Name Name ATORVASTATI Yes 1 tab po Me moria N CALCIUM 1-07 qhs l 20 MG TABS 00:00: [place] FINASTERIDE Yes 1 tab po Me moria 5 MG TABS -07 qd l 00:00: [place] 00 TRIAMCINOLO Yes apply to Me moria NE 07 the l ACETONIDE 00:00: affected Herm scot 0.1 % CREA 00 area bid prn rash ATORVASTATI Yes 1 tab po Me moria N CALCIUM 1-07 qhs l 20 MG TABS 00:00: [place] 00 COUMADIN 1 Yes 1 tab po Mem oria MG TABS 1-07 qd l 00:00: [place] 00 COUMADIN 6 Yes 1 tab po Mem oria MG TABS 1-07 qd prn (as l 00:00: directed) [place] 00 FLOMAX 0.4 2014- Yes 1 cap po Mem oria MG CAPS 1-07 qd l 00:00: [place] 00 AUGMENTIN 2013-10 No 1 tab po Abel azra 875-125 MG 1-28 bid l TABS 00:00: [place] 00 BENTYL 20 2013-10 No 1 tab po Abel azra MG TABS 1-28 q6h l 00:00: [place] 00 TRAMADOL 2013-10 No 1 tab po Memor ia HCL 50 MG 1-28 q6h prn l TABS 00:00: pain [place] 00 TRAMADOL 2013-10 No 1 tab po Memor ia HCL 50 MG 1-28 q6h prn l TABS 00:00: pain [place] 00 Vital Signs Vital Name Observation Time Observation Value Comments Source Weight 2014-12-17 17:45:21 [facility] [place] Height 2014-12-17 17:45:21 [facility] [place] Temperature Oral (F) 2014-12-17 17:45:21 96.6 F [facility] [place] Heart Rate 2014-12-17 17:45:21 [facility] [place] Systolic (mm Hg) 2014-12-17 17:45:21 Abel rial [place] Diastolic (mm Hg) 2014-12-17 17:45:21 Mem [facility] [place] Respitory Rate 2014-12-17 17:45:21 [facility] [place] Weight 2014-11-05 21:14:31 [facility] [place] Height 2014-11-05 21:14:31 [facility] [place] Temperature Oral (F) 2014-11-05 21:14:31 97.7 F [facility] [place] Respitory Rate 2014-11-05 21:14:31 [facility] [place] Heart Rate 2014-11-05 21:14:31 [facility] [place] Systolic (mm Hg) 2014-11-05 21:14:31 Abel rial [place] Diastolic (mm Hg) 2014-11-05 21:14:31 Mem orial [place] Procedures This patient has no known procedures. Encounters Start End Encounter Admission Attending Care Care Encounter Source Date/Time Date/Time Type Type Clinicians Facility Department ID 2021-04-20 Outpatient [facility] [id number] [facility] 15:07:06 2021-04-12 Inpatient [facility] [id number] [facility] 08:13:00 2019-04-24 Outpatient [facility] [id number] [facility] 10:51:31 2019-04-22 Outpatient [facility] [id number] [facility] 15:06:05 2019-04-24 2019-04-24 Outpatient [facility] [address] [facility] 05:14:00 05:14:00 Results This patient has no known results.
[2021-04-26] MEDS ORDERED: ONDANSETRON 4 MG (ODT) TAB PO PRN (21:45)
[2021-04-26] MEDS: ACETAMINOPHEN 325 MG TABLET PO PRN (22:09)
[2021-04-26] MEDS ORDERED: ACETAMINOPHEN 325 MG TABLET ONE (22:23)
[2021-04-26] MEDS: DOCUSATE NA/SENNA CONC 1 TAB PO SCH (22:26)
[2021-04-26 22:46] LABS: Urine Appearance CLEAR (Clear); Urine Bilirubin NEGATIVE (Negative); Urine Blood NEGATIVE (Negative); Urine Color YELLOW (Yellow); Urine Glucose NEGATIVE (Negative); Urine Protein NEGATIVE (Negative); Urine pH 5.5 (5.0-7.0)
[2021-04-26] MEDS ORDERED: ENOXAPARIN 100 MG/ML SYR SQ ONE (22:54)
[2021-04-27 00:03] LABS: Urine Bacteria <20 /HPF (NONE SEEN); Urine RBC <5 /HPF (NONE SEEN); Urine Urothelial Cells <5 /HPF (NONE SEEN)
[2021-04-27] MEDS: ENOXAPARIN 100 MG/ML SYR SQ SCH ×2 (00:35→08:00)
[2021-04-27] MEDS: ACETAMINOPHEN 325 MG TABLET PO PRN ×3 (05:16→19:20)
[2021-04-27] MEDS ORDERED: HOME MED 1 EA UNK (Ondansetron Hcl [Zofran] 4 MG Tablet) PO PRN (06:43)
[2021-04-27] MEDS ORDERED: METOPROLOL TAR 50 MG TAB PO SCH (07:00)
[2021-04-27] MEDS ORDERED: DOCUSATE NA 100 MG CAP PO SCH (07:00)
[2021-04-27 07:11] LABS: Hematocrit 32.8 % (39.6-49.0); Lymphocytes % 9.7 % (15.3-44.8); MPV 9.3 fL (7.6-11.3); RBC Red Blood Cell Count 3.63 M/uL (4.33-5.43)
[2021-04-27 07:52] LABS: Albumin 3.1 g/dL (3.4-5.0); BUN Blood Urea Nitrogen 17 mg/dL (7-18); Bicarbonate 24 mmol/L (21-32); Glucose Level 150 mg/dL (74-106); Magnesium 2.1 mg/dL (1.8-2.4); Potassium 3.7 mmol/L (3.5-5.1); Prealbumin 21.2 mg/dL (20-40); Sodium Level 138 mmol/L (136-145)
[2021-04-27] MEDS ORDERED: TAMSULOSIN 0.4 MG SR CAP PO SCH (08:00)
[2021-04-27] MEDS: LOSARTAN POTASSIUM 50 MG TABLET PO SCH ×2 (08:00→12:29)
[2021-04-27] MEDS ORDERED: levETIRAcetam 500 MG TAB PO SCH (08:00)
[2021-04-27] MEDS ORDERED: AMIODARONE HCL 200 MG TAB PO SCH (08:00)
[2021-04-27] MEDS ORDERED: FINASTERIDE 5 MG TAB PO SCH (08:00)
[2021-04-27] MEDS ORDERED: LOSARTAN POTASSIUM 50 MG TABLET PO SCH (08:00)
[2021-04-27] MEDS: METOPROLOL TAR 50 MG TAB PO SCH ×2 (08:50→19:21)
[2021-04-27] MEDS: DOCUSATE NA 100 MG CAP PO SCH ×2 (08:51→19:45)
[2021-04-27] MEDS: levETIRAcetam 500 MG TAB PO SCH ×2 (08:51→19:20)
[2021-04-27] MEDS: FINASTERIDE 5 MG TAB PO SCH (08:51)
[2021-04-27] MEDS: DOCUSATE NA/SENNA CONC 1 TAB PO SCH ×2 (08:51→19:45)
[2021-04-27] MEDS: TAMSULOSIN 0.4 MG SR CAP PO SCH (08:52)
[2021-04-27] MEDS: AMIODARONE HCL 200 MG TAB PO SCH (08:52)
[2021-04-27 09:06] LABS: Protime INR 1.09
--- NOTE | 2021-04-27 13:34 | P.HP ---
Certification for Inpatient Patient admitted to: Inpatient With expected LOS: >2 Midnights Practitioner: I am a practitioner with admitting privileges, knowledge of patient current condition, hospital course, and medical plan of care. Services: Services provided to patient in accordance with Admission requirements found in Title 42 Section 412.3 of the Code of Federal Regulations Patient History Date of Service: 04/27/21 Reason for admission: SP BRAIN SURGERY History of Present Illness: MR AMAYA HAS HAD BRAIN TUMOR SURGERY IN PAST. WAS NOT AWARE OF WHAT KIND BUT IT WAS BENIGN. THIS TUMOR OVER YEARS RECURRED AND HAS TO HAV EANOTHER SURGERY. HE HAD IVC FILTER PLACED, HE WAS SENT ON NEW MEDS KEPPRA AND LOVENOX SC BID. I CHANGED TO ELIQUIS BID. HE WAS VERY HAPPY TO SEE ME AND STARTED CRYING. HE SAYS HE IS NOT GETTING FOOD ETC. HE IS ANXIOUS AND ANGRY PERSON FROM BEFORE. I CALLED DR GRISSOM BUT [place] AND CAN'T GET MORE DETAILS ABOUT HIS HEART ISSUES. HE ALSO HAD A FIB IN [place]. Allergies No Known Drug Allergies Allergy (Verified 04/27/21 06:08) Unknown Home Medications: Tamsulosin [Flomax*] 0.4 mg PO DAILY 03/12/14 Finasteride [Proscar*] 5 mg PO DAILY #30 tab 03/21/14 Amiodarone HCl [Cordarone Tab] 200 mg PO DAILY 04/26/21 Docusate [Colace Cap*] 100 mg PO Q12H 04/26/21 Enoxaparin Sodium [Lovenox 100 MG INJ*] 0.9 ml SQ Q12H 04/26/21 Levetiracetam [Keppra] 500 mg PO BID 04/26/21 Losartan Potassium [Cozaar] 50 mg PO DAILY 04/26/21 Metoprolol Tartrate [Lopressor*] 50 mg PO Q12H 04/26/21 Ondansetron HCl [Zofran] 4 mg PO Q8HP PRN 04/26/21 Rosuvastatin Calcium 20 mg PO BEDTIME 04/26/21 Sennosides/Docusate Sodium [Senna Plus 8.6-50 mg Tablet] 8.6 mg PO Q12H 04/26/21 - Past Medical/Surgical History Has patient received pneumonia vaccine in the past: Yes Diabetic: No -: htn -: hyperlipids -: dvt -: PE -: RCC -: meningioma -: seizure -: stroke -: afib -: falls -: aphasia -: PARTIAL NEPHRECTOMY -: CRANIOTOMY X 2 - Social History Smoking Status: Never smoker Alcohol use: No CD- Drugs: No Caffeine use: Yes Place of Residence: Home Review of Systems 10-point ROS is otherwise unremarkable General: Weakness Physical Examination - Vital Signs Temperature: 97 F Blood Pressure: 118/67 Pulse: 100 Respirations: 18 Pulse Ox (%): 95 - Physical Exam General: Oriented x3, Mild distress, Other (HAS LONDONO.) HEENT: Atraumatic, PERRLA, Mucous membr. moist/pink, EOMI, Sclerae nonicteric Neck: Supple, 2+ carotid pulse no bruit, No LAD, Without JVD or thyroid abnormality Respiratory: Clear to auscultation bilaterally, Normal air movement Cardiovascular: Regular rate/rhythm, Normal S1 S2 Gastrointestinal: Normal bowel sounds, No tenderness Musculoskeletal: No tenderness Integumentary: No rashes Neurological: Normal gait, Normal speech, Normal strength at 5/5 x4 extr, Normal tone, Normal affect Lymphatics: No axilla or inguinal lymphadenopathy - Studies Laboratory Data (last 24 hrs) 04/27/21 08:37: PT 12.6 H, INR 1.09 04/27/21 06:45: Sodium 138, Potassium 3.7, BUN 17, Creatinine 0.76, Glucose 150 H, Magnesium 2.1 04/27/21 06:45: WBC 10.70, Hgb 11.5 L, Hct 32.8 L, Plt Count 198 04/27/21 05:00: Sodium Cancelled, Potassium Cancelled, BUN Cancelled, Creatinine Cancelled, Glucose Cancelled 04/27/21 05:00: WBC Cancelled, Hgb Cancelled, Hct Cancelled, Plt Count Cancelled Assessment and Plan - Problems (Diagnosis) (1) Pulmonary emboli Current Visit: Yes Status: Acute Plan: HISTORY. START ELIQUIS BID. STOP LOVENOX. Qualifiers: Pulmonary embolism type: saddle (2) Hypertension Current Visit: No Status: Acute (3) Meningioma Current Visit: No Status: Chronic Plan: RECURRENCE AND SURGERY DONE AGAIN DETAILS PER [place] RECORDS. REMOVE L[place]ONO START PT. - Advance Directives Does patient have a Living Will: No Does patient have a Durable POA for Healthcare: Yes
[2021-04-27] MEDS: SERTRALINE HCL 50 MG TAB PO SCH (15:08)
[2021-04-27] MEDS ORDERED: WARFARIN SODIUM 6 MG TAB PO SCH (17:00)
--- NOTE | 2021-04-27 17:17 | R.HP ---
HISTORY AND PHYSICAL FACILITY: [facility] ENCOUNTER DATE AND TIME: 04/27/2021 12:11 (CDT) MR#: [id number] NAME REMA AMAYA ADDRESS: [address] [place] [address] CITY: [place] [address]IP [id number] PHONE: DATE OF : 1950 AGE: 70 SSN# [id number] GENDER: Male MARITAL STATUS PRE-HOSPITAL LIVING SETTING 01 - Home (private home/apt. board/care, assisted living, fdc, transitional living) PRE-HOSPITAL LIVING WITH Family/Relatives ENCOUNTER PHYSICIAN: Dr. Steven Dean M.D. REFERRING DOCTOR: ina Hancock DATE OF ADMISSION: 04/26/2021 19:31 (CDT) REFERRING FACILITY [facility] PRIMARY CARE PHYSICIAN TUCKER BLACKBURN MD HOME TYPE AND DETAILS: Type of home: single family house # of levels in the residence: 1 # of steps to enter the residence: 0 ONSET DATE: 04/12/2021 PRIMARY DIAGNOSIS-RELATED SURGERIES: GRAM STAIN 04/19/21 RIGHT VENTRICULAR PERITONEAL SHUNT REVISION CRANIAL PROCEDURE- TUMOR, INTRA AXIAL/ EXTRA-AXIAL CRAN. HISTORY OF PRESENT ILLNESS (HPI): Pt. is a 70 yo Right-handed male. On 04/12/2021 he was admitted to [facility] with diagnosis ACUTE EXTENSIVE RLE DVT-. His impairment category is Stroke 01 - Other Stroke (01.9). Pre-morbidly, Pt. was independent/mod-I in Locomotion, Social Cognition, Balance, Safety Awareness, C ommunication, and Endurance; and he had good Self-Care. Currently, he has deficits of Locomotion, Safety Awareness, Transfers Control, Sphincter Control, Com munication, and Self-Care. Pt. is now referred to [facility] for acute in-patient rehabilitation in order to maximize patient's functional independence in activities of daily living, strength, ROM, and mobi lity. Patient has realistic goal of being discharged at assistance level 7-Ind to reside at Home with Fami ly/Relatives. MEDICATION ALLERGIES: No Known Drug Allergies (NKDA) ENVIRONMENTAL ALLERGIES: - Substance Allergies None Known - Other Allergies None Known PAST MEDICAL HISTORY: HYPERTENSION HYPERLIPIDEMIA DVT PE ON COUMADIN HISTORY OF RENAL CELL CARCINOMA meningioma STATUS POST RESECTION IN 2010 SEIZURES AND STRIKE A FIB FALLS Aphasia (R47.01) AGITATION URINARY RETENTION SOCIAL HISTORY: - Home Living Family/Relatives REVIEW OF SYSTEMS: - Gen No Chills Fatigue No Fever - Eyes No Double Vision No itchiness - ENMT No Difficulty Swallowing - CVS No Chest Discomfort No Chest Pain Fatigue No Weight Gain - Resp No Cough No Shortness of Breath - GI Continent Abdominal Pain No Constipation No Diarrhea - Continent No Kidney Pain No Painful Urination No Urinary Urgency - MSK Joint Pain No Muscle Cramps Stiffness - Skin No Itching No Rash No Suspicious Lesions - Neuro Coordination Difficulty No Difficulty with Concentration No Memory Loss No Seizures Weakness - Psych No Anxiety No Depression No HIV Exposure No Persistent Infections No Seasonal Allergies - Endo No Cold/Heat Intolerance No Excessive Hunger No Excessive Thirst No Excessive Urination PHYSICAL EXAM - Gen Alert and awake Lying in bed No apparent distress Oriented to: person, time, and place - Skin No skin breakdown. Normacephalic - Eyes No abnormalities - ENMT No abnormalities - Neck No abnormalities - CVS RRR - Chest No abnormalities - Resp Clear to auscultation - Abd + bowel sounds - GI Soft Deferred - Cobb catheter - Ext Moderate right lower extremity edema. - MSK 4+/5 weakness in right lower extremity - Neuro 4/5 strength right lower extremity - Psych No abnormalities VITAL SIGNS Temperature: 97.2 F Pulse: 78 Resp: 16 SBP/DBP: 118/67 NURSING: - Shower allowing shower - Bladder care per protocol - Skin care per protocol ACTIVITIES OOB only with supervision QI SCORES: - Self-Care A. Eating 04-Supervision or touching assistance B. Oral hygiene 03-Partial/moderate assistance C. Toileting hygiene 03-Partial/moderate assistance E. Shower/bathe self 03-Partial/moderate assistance F. Upper body dressing 03-Partial/moderate assistance G. Lower body dressing 03-Partial/moderate assistance H. Putting on/taking off footwear 88-Not attempted due to medical condition or safety concerns - Mobility A. Roll left and right 03-Partial/moderate assistance B. Sit to lying 03-Partial/moderate assistance C. Lying to sitting on side of bed 03-Partial/moderate assistance D. Sit to stand 03-Partial/moderate assistance E. Chair/xnt-jc-kjuyt transfer 03-Partial/moderate assistance F. Toilet transfer 03-Partial/moderate assistance G. Car transfer 88-Not attempted due to medical condition or safety concerns I. Walk 10 feet 03-Partial/moderate assistance J. Walk 50 feet with two turns 03-Partial/moderate assistance K. Walk 150 feet 88-Not attempted due to medical condition or safety concerns L. Walking 10 feet on uneven surfaces 88-Not attempted due to medical condition or safety concerns M. 1 step (curb) 88-Not attempted due to medical condition or safety concerns N. 4 steps 88-Not attempted due to medical condition or safety concerns O. 12 steps 88-Not attempted due to medical condition or safety concerns P. Picking up object 88-Not attempted due to medical condition or safety concerns R. Wheel 50 feet with two turns 88-Not attempted due to medical condition or safety concerns S. Wheel 150 feet 88-Not attempted due to medical condition or safety concerns - Bladder and Bowel Bladder continence Bowel continence - Endurance Fair - Balance Fair - Safety Awareness Fair CURRENT FUNC. DEFICITS: Self-Care, Mobility, Endurance, Balance, and Safety Awareness MEDICATIONS: - Other See attached MAR (Medication Administration Record) ASSESSMENT: Pt. is a 70 yo Right-handed male.On 04/12/2021 he was admitted to [facility] with diagnosis ACU TE EXTENSIVE RLE DVT-.His impairment category is Stroke 01 - Other Stroke (01.9).Pre-morbidly, Pt. w as independent/mod-I in Locomotion, Social Cognition, Balance, Safety Awareness, Communication, and E ndurance; and he had good Self-Care.Currently, he has deficits of Locomotion, Safety Awareness, Trans fers Control, Sphincter Control, Communication, and Self-Care.Pt. is now referred to [facility] for acute in-patient rehabilitation in order to maximize patient's functional indep endence in activities of daily living, strength, ROM, and mobility.- Rehab Goal Patient has realistic goal of being discharged at assistance level 7-Ind to reside at Home with Fami ly/Relatives. for Dementia, TBI, Stroke, or others - Physical Therapy Gait dysfunction - to improve, our physical therapists will perform initial evaluation of pt's status upon admission and devise an individualized program for Gait Training, and Wheel Chair mobility Inability to transfer - to improve, our physical therapists will perform initial evaluation of pt's s tatus upon admission and devise an individualized program for Bed mobility Need for home safety evaluation - to improve, our physical therapists will perform initial evaluation of pt's status upon admission and devise an individualized program for Home Evaluation Need in caregiver upon discharge - to improve, our physical therapists will perform initial evaluatio n of pt's status upon admission and devise an individualized program for Caregiver Training Edema - to improve, our physical therapists will perform initial evaluation of pt's status upon admi ssion and devise an individualized program for Elevation Training, and Lymphedema Therapy New precaution - to improve, our physical therapists will perform initial evaluation of pt's status u brian admission and devise an individualized program for Patient precaution education Weakness - to improve, our physical therapists will perform initial evaluation of pt's status upon ad mission and devise an individualized program for Aquatic Therapy, Neuromuscular Reeducation, and Stre ngthening Achieving independence - to improve, our physical therapists will perform initial evaluation of pt's status upon admission and devise an individualized program for Community Reintegration Activities - Occupational Therapy ADL deficits - to improve, our occupation therapists will perform initial evaluation of pt's status u brian admission and devise an individualized program for Bathing, Bed mobility, Community Reintegration , Cooking, Dressing, Eating, Fine Motor Skills, Grooming, Homemaking, Kitchen Mobility, Laundry, Ariana ent Education, Safety Awareness, Splinting - Positioning, Transfers(Toilet, Tub, Shower), and Wheel C hair Management Need for director of career resources - to improve, our occupation therapists will perform initial evaluation of pt's s tatus upon admission and devise an individualized program for Caregiver Training Weakness - to improve, our occupation therapists will perform initial evaluation of pt's status upon admission and devise an individualized program for Aquatic Therapy, Balance, Endurance, UE ROM, and U E strengthening MEDICAL PLAN: - Diet Type Start Regular - Diet - Liquid Texture Start Regular - Tube Feed Start N/A - Bladder care per protocol - Skin care per protocol - Other See attached MAR (Medication Administration Record) - Diet - Solid Texture Regular - Shower shower DISCHARGE PLAN: - Estimated Length of Stay (days) 17. - Consensus on plan Discharge plan has been discussed with primary caregiver. Patient/Family is in agreement with the destiny n. Primary caregiver is in agreement with the plan. - Patient/Family Goals Return home independently. - Planned Living Setting Upon Discharge Home, to live with Family/Relatives. Transitional Living. SIGNATURE PANEL: (T)
--- NOTE | 2021-04-27 17:19 | PAPE ---
POST ADMISSION PHYSICIAN EVALUATION PATIENT: [facility] MR# [id number] REFERRING DOCTOR ina Hancock PRIMARY CARE PHYSICIAN TUCKER BLACKBURN MD EVALUATION DATE AND TIME 04/27/2021 17:17 (CDT) NAME REMA AMAYA DATE OF 1950 AGE 70 PHONE SSN# [id number] GENDER male EVALUATING PHYSICIAN Dr. Steven Dean M.D. ADMISSION DIAGNOSIS: ACUTE EXTENSIVE RLE DVT- ONSET DATE 04/12/2021 POST-ADMISSION FUNCTIONAL/MEDICAL STATUS: - Bladder Same accident frequency: 7-Ind - No accidents in the past 7 days - Bowel Same accident frequency: 7-Ind - No accidents in the past 7 days - Walking Same score based on distance walked: 0(N/A) Same score based on distance walked: 2(50-149ft) - Wheelchair Same score based on distance traveled: 0(N/A) STATUS CHANGE EVALUATION: No change in Functional or Medical Status is identified compared with Pre-Admission screening. PATIENT NEEDS CLOSE MEDICAL SUPERVISION BY A REHABILITATION PHYSICIAN FOR: Coordination of Treatment Team PATIENT REQUIRES 24X7 REHAB NURSING FOR MEDICAL AND FUNCTIONAL MGT. OF THE FOLLOWING DEFICITS: Disease Management Medication Management Patient/Family Education Providing Safe Environment PATIENT REQUIRES INTENSIVE, COORDINATED INTERDISCIPLINARY APPROACH TO REHAB: Arranging Home Equipment/Services Discharge Planning Family Intervention/Training Food And Beverage Outlets Manager/Case Management LIST OF IDENTIFIED AND POTENTIAL PROBLEMS: Alteration in leisure activities Bladder, Incontinence Bowel, Incontinence Infection, Actual or Potential Mobility Impaired Pain, Alteration in Comfort Self Care Deficit Skin Integrity, Actual or Potential Urinary Tract Infection (UTI), Actual or Potential PATIENT COULD BE AT RISK FOR COMPLICATIONS FROM ADVERSE MEDICAL CONDITIONS DUE TO HIS/HER COMORBIDITI ES AND THE RIGORS OF THE INTENSIVE REHABILLITATION PROGRAM. METHODS OR INTERVENTIONS TO AVOID COMPLIC ATIONS INCLUDE: - Bleeding Stroke patients assessed for lethargy or change in status. - Infection Clinical staff to assess and manage the signs and symptoms of infection including fever, redness, war mth, etc. - Urinary Tract Infection - Aspiration Clinical staff will assess and manage coughing, drooling, congestion. - Falls Patient will be evaluated for Fall Precautions and will be placed on Fall Precautions as indicated pe r protocol. - Skin Breakdown Nursing will assess skin daily using assessment tool and will place on Skin Breakdown Precautions as indicated per protocol. - Pain Clinical staff may employ non-medication methods such as massage, distraction, decrease stimulus, etc . as needed. Clinical staff will assess patient's pain level every shift per protocol to assess and e nsure pain management effectiveness. Medications will be given and the pain level re-assessed. PRELIMINARY PLAN OF CARE: - Physical Therapy Patient needs Physical Therapy for a daily minimum of 1.5 hours at least 5 out of 7 days, to improve: Mobility, Strengthening, Transfers, Stretching, ROM, Endurance, Ability to manage stairs, Gait, and Balance. - Speech Therapy Patient needs Speech Therapy for a daily minimum of 0.5 hours at least 5 out of 7 days, to improve: S wallowing, Cognition, Language Skills, and Compensatory Strategies. - Rehabilitation Nursing Patient requires 24x7 Rehabilitation Nursing for: Pain Issues, Identifying and preventing risk factor s, Monitoring and reporting current medical conditions, Assisting with ambulation and transfer, Cristian ting with all ADL-s, Teaching patients about disease process and medications, Family teaching, Provid ing safe environment, Bowel and Bladder Issues, Skin Integrity, and Medication Management. Patient needs Food And Beverage Outlets Manager and/or Case Management for: Discharge Planning, Arranging Home Equipmen t or Services, and Family Interventions. - Dietary and Nutrition Services Patient needs Dietary and Nutrition Services for: Adequate Nutrition, Nutritional Supplements, and Nu tritional Education. - Occupational Therapy Patient needs Occupational Therapy for a daily minimum of 1.5 hours at least 5 out of 7 days, to impr ove Activities of Daily Living, including: Eating, Grooming, Bathing, Dressing, Toileting, Toilet Tra nsfers, Community Reintegration, Higher functional activities, Adaptive Equipment, Splinting, Househo ld Tasks, and Other activities as determined. QI SCORES: - Self-Care A. Eating 04-Supervision or touching assistance B. Oral hygiene 03-Partial/moderate assistance C. Toileting hygiene 03-Partial/moderate assistance E. Shower/bathe self 03-Partial/moderate assistance F. Upper body dressing 03-Partial/moderate assistance G. Lower body dressing 03-Partial/moderate assistance H. Putting on/taking off footwear 88-Not attempted due to medical condition or safety concerns - Mobility A. Roll left and right 03-Partial/moderate assistance B. Sit to lying 03-Partial/moderate assistance C. Lying to sitting on side of bed 03-Partial/moderate assistance D. Sit to stand 03-Partial/moderate assistance E. Chair/[id number]-[id number] transfer 03-Partial/moderate assistance F. Toilet transfer 03-Partial/moderate assistance G. Car transfer 88-Not attempted due to medical condition or safety concerns I. Walk 10 feet 03-Partial/moderate assistance J. Walk 50 feet with two turns 03-Partial/moderate assistance K. Walk 150 feet 88-Not attempted due to medical condition or safety concerns L. Walking 10 feet on uneven surfaces 88-Not attempted due to medical condition or safety concerns M. 1 step (curb) 88-Not attempted due to medical condition or safety concerns N. 4 steps 88-Not attempted due to medical condition or safety concerns O. 12 steps 88-Not attempted due to medical condition or safety concerns P. Picking up object 88-Not attempted due to medical condition or safety concerns R. Wheel 50 feet with two turns 88-Not attempted due to medical condition or safety concerns S. Wheel 150 feet 88-Not attempted due to medical condition or safety concerns - Bladder and Bowel Bladder continence Bowel continence - Endurance Fair - Balance Fair - Safety Awareness Fair POTENTIAL FUNCTIONAL GOALS FOR PATIENT TO ACHIEVE BY DISCHARGE: - Safety Precaution Patient will remain free from falls or injury at time of discharge. - Bed Mobility Patient will perform bed mobility at 4-Pippa level of assistance. - Transfers Patient will complete transfers from bed to chair at 4-Pippa level of assistance. - Mobility Patient will ambulate 150 ft with 4-Pippa level of assistance with RW. PATIENT REHAB POTENTIAL Shreyas AMAYA is able and expected to receive 3 hours of individualized therapy daily on at least 5 of valentín 7 days Shreyas AMAYA's prognosis for significant practical improvement within a reasonable period of time appears Good Expected level of measurable improvement will be of a practical value to Shreyas AMAYA's functional capaci ty or adaptations to impairments Has a viable Discharge Plan Medically appropriate; condition is sufficiently stable to participate in intensive rehab program DISCHARGE PLAN: - Estimated Length of Stay (days) 17. - Consensus on plan Discharge plan has been discussed with primary caregiver. Patient/Family is in agreement with the destiny n. Primary caregiver is in agreement with the plan. - Patient/Family Goals Return home independently. - Planned Living Setting Upon Discharge Home, to live with Family/Relatives. Transitional Living. CONCLUSION ON REHABILITATION NECESSITY: I have evaluated patient's pre-admission functional status and, comparing it to the patient's post-ad mission functional status now, I conclude that the pre-admission assessment was accurate. Patient's c ondition on admission supports the medical necessity of admission to IRF. It is safe to proceed with patient's therapy program. SIGNATURE PANEL: (CDT)
--- NOTE | 2021-04-27 18:19 | RAD REPORT ---
EXAM DESCRIPTION: USExtrem Venous W Compress Bil04/27/2021 5:07 pm CLINICAL HISTORY: Leg swelling COMPARISON: none FINDINGS: Echogenic material consistent with acute thrombus is present within the common femoral and proximal right greater saphenous vein. Right superficial femoral, right popliteal and right posterio r tibial veins are patent The left common femoral, superficial femoral, popliteal and posterior tibial veins are compressible and demonstrate augmentation. Doppler demonstrates good flow. 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
[2021-04-27] MEDS: APIXABAN 5 MG TABLET PO SCH (19:21)
[2021-04-27] MEDS: MELATONIN 3 MG TABLET PO PRN ×2 (19:21)
[2021-04-27] MEDS: ROSUVASTATIN 10 MG TAB PO SCH (19:21)
[2021-04-27] MEDS: NYSTATIN PWDR 100000 UNIT/GM TOP SCH (19:22)
[2021-04-27] MEDS ORDERED: ENOXAPARIN 100 MG/ML SYR SQ SCH (20:00)
[2021-04-27] MEDS ORDERED: HOME MED 1 EA UNK (Rosuvastatin Calcium [Rosuvastatin Calcium] 20 MG Tablet) PO SCH (21:00)
[2021-04-28] MEDS: ACETAMINOPHEN 325 MG TABLET PO PRN ×4 (01:06→19:39)
[2021-04-28] MEDS: APIXABAN 5 MG TABLET PO SCH ×2 (07:54→19:36)
[2021-04-28] MEDS: METOPROLOL TAR 50 MG TAB PO SCH ×2 (07:54→19:35)
[2021-04-28] MEDS: levETIRAcetam 500 MG TAB PO SCH ×2 (07:55→19:36)
[2021-04-28] MEDS: TAMSULOSIN 0.4 MG SR CAP PO SCH (07:55)
[2021-04-28] MEDS: FINASTERIDE 5 MG TAB PO SCH (07:55)
[2021-04-28] MEDS: LOSARTAN POTASSIUM 50 MG TABLET PO SCH (07:55)
[2021-04-28] MEDS: SERTRALINE HCL 50 MG TAB PO SCH (07:56)
[2021-04-28] MEDS: AMIODARONE HCL 200 MG TAB PO SCH (07:57)
[2021-04-28] MEDS: DOCUSATE NA/SENNA CONC 1 TAB PO SCH ×2 (08:00→19:36)
[2021-04-28] MEDS: DOCUSATE NA 100 MG CAP PO SCH ×2 (08:00→19:36)
[2021-04-28] MEDS: NYSTATIN PWDR 100000 UNIT/GM TOP SCH ×2 (09:53→19:36)
--- NOTE | 2021-04-28 16:33 | R.PN ---
PROGRESS NOTES ENCOUNTER DATE AND TIME: 04/28/2021 16:23 (CDT) NAME REMA AMAYA DATE OF : 1950 DATE OF ADMISSION: 04/26/2021 19:31 (CDT) ACUTE EXTENSIVE RLE DVT-CHIEF COMPLAINT: Right lower extremity DVT. SUBJECTIVE: Pt denied any depression. Pt denied any Shortness of Breath. WBC 10.7, Hgb 11.5, Plt 198, prealbumin 21.2, glucose 150. Ambulated 176' with standby assistance using a rolling walker. The patient and his refused speec h therapy. VITAL SIGNS Temperature: 97.2 F Pulse: 84 Resp: 16 SBP/DBP: 110/68 MEDICATION ALLERGIES: No Known Drug Allergies (NKDA) ENVIRONMENTAL ALLERGIES: - Substance Allergies None Known - Other Allergies None Known NURSING: - Shower allowing shower - Bladder care per protocol - Skin care per protocol ACTIVITIES OOB only with supervision THERAPIES: - Occupational Therapy Cognitive Retraining. Visual Perceptual Training. - Dietary and Nutrition Adequate Nutrition. Nutritional Education. Nutritional Supplements. - Speech Therapy Cognitive Training. Expressive Language Skills. Memory Strategies. Receptive Language Skills. Speech Intelligibility Training. PHYSICAL EXAM - Gen Alert and awake Lying in bed No apparent distress Oriented to: person, time, and place - Skin No skin breakdown. Normacephalic - Eyes No abnormalities - ENMT No abnormalities - Neck No abnormalities - CVS RRR - Chest No abnormalities - Resp Clear to auscultation - Abd + bowel sounds - GI Soft Deferred - Cobb catheter - Ext Moderate right lower extremity edema. - MSK 4+/5 weakness in right lower extremity - Neuro 4/5 strength right lower extremity - Psych No abnormalities ASSESSMENT: Pt. is a 70 yo Right-handed male.On 04/12/2021 he was admitted to [facility] with diagnosis ACU TE EXTENSIVE RLE DVT-.His impairment category is Stroke 01 - Other Stroke (01.9).Pre-morbidly, Pt. w as independent/mod-I in Locomotion, Social Cognition, Balance, Safety Awareness, Communication, and E ndurance; and he had good Self-Care.Currently, he has deficits of Locomotion, Safety Awareness, Trans fers Control, Sphincter Control, Communication, and Self-Care.Pt. is now referred to [facility] for acute in-patient rehabilitation in order to maximize patient's functional indep endence in activities of daily living, strength, ROM, and mobility.- Rehab Goal Patient has realistic goal of being discharged at assistance level 7-Ind to reside at Home with Fami ly/Relatives. MDM/PLAN: - Physical Therapy Gait dysfunction - to improve, our physical therapists will perform initial evaluation of pt's statu s upon admission and devise an individualized program for Gait Training, and Wheel Chair mobility Inability to transfer - to improve, our physical therapists will perform initial evaluation of pt's status upon admission and devise an individualized program for Bed mobility Need for home safety evaluation - to improve, our physical therapists will perform initial evaluatio n of pt's status upon admission and devise an individualized program for Home Evaluation Need in caregiver upon discharge - to improve, our physical therapists will perform initial evaluati on of pt's status upon admission and devise an individualized program for Caregiver Training Edema - to improve, our physical therapists will perform initial evaluation of pt's status upon admis andressa and devise an individualized program for Elevation Training, and Lymphedema Therapy New precaution - to improve, our physical therapists will perform initial evaluation of pt's status upon admission and devise an individualized program for Patient precaution education Weakness - to improve, our physical therapists will perform initial evaluation of pt's status upon a dmission and devise an individualized program for Aquatic Therapy, Neuromuscular Reeducation, and Str engthening Achieving independence - to improve, our physical therapists will perform initial evaluation of pt's status upon admission and devise an individualized program for Community Reintegration Activities - Occupational Therapy ADL deficits - to improve, our occupation therapists will perform initial evaluation of pt's status upon admission and devise an individualized program for Bathing, Bed mobility, Community Reintegratio n, Cooking, Dressing, Eating, Fine Motor Skills, Grooming, Homemaking, Kitchen Mobility, Laundry, Pat ient Education, Safety Awareness, Splinting - Positioning, Transfers(Toilet, Tub, Shower), and Wheel Chair Management Need for multi care technician - to improve, our occupation therapists will perform initial evaluation of pt's status upon admission and devise an individualized program for Caregiver Training Weakness - to improve, our occupation therapists will perform initial evaluation of pt's status upon admission and devise an individualized program for Aquatic Therapy, Balance, Endurance, UE ROM, and UE strengthening - Other See attached MAR (Medication Administration Record) - Diet Type Continue Regular - Diet - Liquid Texture Continue Regular - Tube Feed Continue N/A - Bladder care per protocol - Skin care per protocol - Diet - Solid Texture Continue Regular - Shower allowing shower for Dementia, TBI, Stroke, or others FUNCTIONAL STATUS: UPDATED AT WEEKLY TEAM CONFERENCE - Bladder Same accident frequency: 7-Ind - No accidents in the past 7 days - Bowel Same accident frequency: 7-Ind - No accidents in the past 7 days - Walking Same score based on distance walked: 0(N/A) Same score based on distance walked: 2(50-149ft) - Wheelchair Same score based on distance traveled: 0(N/A) FUNCTIONAL STATUS: - Self-Care A. Eating Ind B. Grooming Campbell C. Bathing modA D. Dressing - Upper Pippa E. Dressing - Lower sup F. Toileting sup - Sphincter Control G. Bladder control Dep H. Bowel control Pippa - Transfers Control I. Bed/Chair/Wheelchair modA J. Toilet sup K. Tub/Shower modA - Locomotion L. Walk/Wheelchair (B) Pippa M. Stairs ADNO - Communication N. Comprehension (B) Campbell O. Expression (B) Campbell - Social Cognition P. Social Interaction Campbell Q. Problem Solving Campbell R. Memory Campbell - Endurance Poor - Balance Fair - Safety Awareness Fair QI SCORES: - Self-Care A. Eating 04-Supervision or touching assistance B. Oral hygiene 03-Partial/moderate assistance C. Toileting hygiene 03-Partial/moderate assistance E. Shower/bathe self 03-Partial/moderate assistance F. Upper body dressing 03-Partial/moderate assistance G. Lower body dressing 03-Partial/moderate assistance H. Putting on/taking off footwear 88-Not attempted due to medical condition or safety concerns - Mobility A. Roll left and right 03-Partial/moderate assistance B. Sit to lying 03-Partial/moderate assistance C. Lying to sitting on side of bed 03-Partial/moderate assistance D. Sit to stand 03-Partial/moderate assistance E. Chair/olt-se-ladqe transfer 03-Partial/moderate assistance F. Toilet transfer 03-Partial/moderate assistance G. Car transfer 88-Not attempted due to medical condition or safety concerns I. Walk 10 feet 03-Partial/moderate assistance J. Walk 50 feet with two turns 03-Partial/moderate assistance K. Walk 150 feet 88-Not attempted due to medical condition or safety concerns L. Walking 10 feet on uneven surfaces 88-Not attempted due to medical condition or safety concerns M. 1 step (curb) 88-Not attempted due to medical condition or safety concerns N. 4 steps 88-Not attempted due to medical condition or safety concerns O. 12 steps 88-Not attempted due to medical condition or safety concerns P. Picking up object 88-Not attempted due to medical condition or safety concerns R. Wheel 50 feet with two turns 88-Not attempted due to medical condition or safety concerns S. Wheel 150 feet 88-Not attempted due to medical condition or safety concerns - Bladder and Bowel Bladder continence Bowel continence - Endurance Fair - Balance Fair - Safety Awareness Fair CURRENT [facility]. DEFICITS: Self-Care, Mobility, Endurance, Balance, and Safety Awareness SIGNATURE PANEL: (CDT)
[2021-04-28] MEDS: ROSUVASTATIN 10 MG TAB PO SCH (19:35)
[2021-04-28] MEDS: MELATONIN 3 MG TABLET PO PRN (19:35)
--- NOTE | 2021-04-28 21:24 | CON ---
Date of Consultation: 04/27/2021 Reason For Consultation: Urinary retention. History Of Present Illness: Mr. Coburn is a 70-year-old gentleman with a history of a meningioma who has undergone prior craniotomies. Unfortunately, he is an extremely poor historian due to his brain surgeries and was unable to provide adequate historical information at the time of my interview today . Some additional information was obtained by contacting and speaking to his , at [phone]. When I spoke to the patient, he explained that about 3 or 4 years ago he had a brain surgery and an additional brain surgery was completed about a month ago as confirmed by a visible craniotomy within his left lateral skull. He has a Cobb catheter in place at this time, and when asked if this had be en in place for some time or if it was newly placed, he seemed to suggest it had been in place for se veral years and was changed out more recently by nurses. He also seemed to suggest he might have per formed intermittent catheterization in the past. However, on speaking to his , she confirmed lizz t the catheter was newly placed since his surgery on 04/12/2021, and he has no history of intermitten t catheterization. Past Medical History: Unable to be determined from the interview. Past Surgical History: History of brain surgeries as above. Physical Examination: General: On examination, the patient is sitting next to his bed in a wheelchair with a walker in the room and apparently able to transfer with assistance of a belt that is kept around his waist. A ure thral Cobb catheter is in place and not secured to his thigh via StatLock and the draining urine is clear yellow. Assessment: This is a 70-year-old gentleman with history of repeat craniotomy for presumptive mening ioma with an expressive aphasia and some ambulatory difficulties signifying significant underlying ne urologic impairment likely also causing a degree of dysfunctional voiding underlying his urinary rete ntion. Recommendations: Because the catheter has been in place since 04/12/2021, I recommended today that t he patient be given a voiding trial with the catheter removed at 2 o'clock in the morning. Should he fail to void by 9 o'clock in the morning, a urethral Cobb catheter should be promptly reinserted. Should he successfully be able to void, efforts should be made to collect the voided volume and measu re it, and then a bladder scan postvoid residual should be obtained. Should he retain more volume th an he voids, the urethral Cobb catheter should similarly be reinserted. Either way, he should seek follow up with me in the Urology Clinic upon discharge, and I provided the patient with a copy of my card to provide to his for scheduling. He will likely require urodynamic evaluation in addition to cystoscopy to understand the nature and the prognosis of his voiding dysfunction. It would also be prudent to provide him with a single dose of an antimicrobial to which he is nonallergic like Macr obid as long as his renal function is normal or Keflex or Bactrim to cleanse his urine of any bacteri a that would have colonized his bladder during the time of the indwelling Cobb catheter. ROXANNA/VAHID Voice ID: [id number] Report ID: [id number]
--- NOTE | 2021-04-28 21:41 | P.PN ---
Subjective Date of Service: 04/28/21 Chief Complaint: SP BRAIN SURGERY Subjective: Improving IS LOT LESS ANXIOUS TODAY. 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 HE HAS HAD IVC FILTER IN THE PAST AND SO ON ANTICOAGUALATION FOR NURSING HOME. HE WAS ON LOVENOX BID WHEN HE CAME AND I CHANGED TO ELIQUIS BID. THIS WILL BE BETTER IF HE CAN AFFORD IT. Physical Examination - Vital Signs Temperature: 97.2 F Blood Pressure: 119/69 Pulse: 92 Respirations: 18 Pulse Ox (%): 95 - Physical Exam General: Oriented x2, Mild distress HEENT: Atraumatic, PERRLA, EOMI Neck: Supple, JVD not distended Respiratory: Clear to auscultation bilaterally, Normal air movement Cardiovascular: Regular rate/rhythm, Normal S1 S2 Gastrointestinal: Normal bowel sounds, No tenderness Musculoskeletal: No tenderness Integumentary: No rashes Neurological: Abnormal speech (SINCE FIRST CRANITOMY. APHASIA, WALKS WITH A LIMP.), Abnormal strength Lymphatics: No axilla or inguinal lymphadenopathy - Studies Microbiology Data (last 24 hrs): 04/26/21 22:06 Catheterized Urine Larue Count - Final No growth. 04/26/21 22:06 Catheterized Urine - Final No growth. Medications List Reviewed: Yes Assessment And Plan - Current Problems (Diagnosis) (1) Pulmonary emboli Current Visit: Yes Status: Acute Plan: HISTORY. START ELIQUIS BID. STOP LOVENOX. Qualifiers: Pulmonary embolism type: saddle (2) Hypertension Current Visit: No Status: Acute (3) Meningioma Current Visit: No Status: Chronic Plan: RECURRENCE AND SURGERY DONE AGAIN DETAILS PER [place] RECORDS. REMOVE [place] START PT. CONT PT. (4) Anxiety disorder Current Visit: Yes Status: Chronic Plan: HE IS ALWAYS EDGY AND ANXIOUS MORE EVIDENT NOW IN [facility] [place] BID SHOULD HELP.
[2021-04-29] MEDS: ACETAMINOPHEN 325 MG TABLET PO PRN ×2 (06:21→17:21)
[2021-04-29 06:48] LABS: Absolute Lymphocytes (CBC) 1.6 K/uL (0.7-4.9); Basophils % 0.7 % (0-1.3); Hematocrit 36.9 % (39.6-49.0); Lymphocytes % 17.1 % (15.3-44.8); RBC Red Blood Cell Count 4.01 M/uL (4.33-5.43)
[2021-04-29 07:01] LABS: Albumin 3.4 g/dL (3.4-5.0); Magnesium 2.4 mg/dL (1.8-2.4); Potassium 4.4 mmol/L (3.5-5.1); Prealbumin 27.9 mg/dL (20-40)
[2021-04-29] MEDS: NYSTATIN PWDR 100000 UNIT/GM TOP SCH ×2 (07:12→19:38)
[2021-04-29] MEDS: METOPROLOL TAR 50 MG TAB PO SCH ×2 (08:00→19:38)
[2021-04-29] MEDS: LOSARTAN POTASSIUM 50 MG TABLET PO SCH (08:00)
[2021-04-29] MEDS: DOCUSATE NA 100 MG CAP PO SCH ×2 (08:13→19:37)
[2021-04-29] MEDS: AMIODARONE HCL 200 MG TAB PO SCH (08:14)
[2021-04-29] MEDS: APIXABAN 5 MG TABLET PO SCH ×2 (08:14→19:37)
[2021-04-29] MEDS: FINASTERIDE 5 MG TAB PO SCH (08:14)
[2021-04-29] MEDS: DOCUSATE NA/SENNA CONC 1 TAB PO SCH ×2 (08:14→19:38)
[2021-04-29] MEDS: SERTRALINE HCL 50 MG TAB PO SCH (08:14)
[2021-04-29] MEDS: TAMSULOSIN 0.4 MG SR CAP PO SCH (08:14)
[2021-04-29] MEDS: levETIRAcetam 500 MG TAB PO SCH ×2 (08:15→19:38)
[2021-04-29] MEDS: ROSUVASTATIN 10 MG TAB PO SCH (19:37)
--- NOTE | 2021-04-29 19:37 | R.PN ---
PROGRESS NOTES ENCOUNTER DATE AND TIME: 04/29/2021 19:31 (CDT) NAME REMA AMAYA DATE OF : 1950 DATE OF ADMISSION: 04/26/2021 19:31 (CDT) ACUTE EXTENSIVE RLE DVT-CHIEF COMPLAINT: Right lower extremity DVT. SUBJECTIVE: Pt denied any depression. Pt denied any Shortness of Breath. WBC 9.6, Hgb 12.2, Plt 294, prealbumin 27.9, glucose 124. Ambulated 500' with contact assistance using a rolling walker. Urology is following the patient for urinary retention. VITAL SIGNS Temperature: 97.5 F Pulse: 79 Resp: 16 SBP/DBP: 107/58 MEDICATION ALLERGIES: No Known Drug Allergies (NKDA) ENVIRONMENTAL ALLERGIES: - Substance Allergies None Known - Other Allergies None Known NURSING: - Shower allowing shower - Bladder care per protocol - Skin care per protocol ACTIVITIES OOB only with supervision THERAPIES: - Occupational Therapy Cognitive Retraining. Visual Perceptual Training. - Dietary and Nutrition Adequate Nutrition. Nutritional Education. Nutritional Supplements. - Speech Therapy Cognitive Training. Expressive Language Skills. Memory Strategies. Receptive Language Skills. Speech Intelligibility Training. PHYSICAL EXAM - Gen Alert and awake Lying in bed No apparent distress Oriented to: person, time, and place - Skin No skin breakdown. Normacephalic - Eyes No abnormalities - ENMT No abnormalities - Neck No abnormalities - CVS RRR - Chest No abnormalities - Resp Clear to auscultation - Abd + bowel sounds - GI Soft Deferred - Cobb catheter - Ext Moderate right lower extremity edema. - MSK 4+/5 weakness in right lower extremity - Neuro 4/5 strength right lower extremity - Psych No abnormalities ASSESSMENT: Pt. is a 70 yo Right-handed male.On 04/12/2021 he was admitted to [facility] with diagnosis ACU TE EXTENSIVE RLE DVT-.His impairment category is Stroke 01 - Other Stroke (01.9).Pre-morbidly, Pt. w as independent/mod-I in Locomotion, Social Cognition, Balance, Safety Awareness, Communication, and E ndurance; and he had good Self-Care.Currently, he has deficits of Locomotion, Safety Awareness, Trans fers Control, Sphincter Control, Communication, and Self-Care.Pt. is now referred to [facility] for acute in-patient rehabilitation in order to maximize patient's functional indep endence in activities of daily living, strength, ROM, and mobility.- Rehab Goal Patient has realistic goal of being discharged at assistance level 7-Ind to reside at Home with Fami ly/Relatives. MDM/PLAN: - Physical Therapy Gait dysfunction - to improve, our physical therapists will perform initial evaluation of pt's statu s upon admission and devise an individualized program for Gait Training, and Wheel Chair mobility Inability to transfer - to improve, our physical therapists will perform initial evaluation of pt's status upon admission and devise an individualized program for Bed mobility Need for home safety evaluation - to improve, our physical therapists will perform initial evaluatio n of pt's status upon admission and devise an individualized program for Home Evaluation Need in caregiver upon discharge - to improve, our physical therapists will perform initial evaluati on of pt's status upon admission and devise an individualized program for Caregiver Training Edema - to improve, our physical therapists will perform initial evaluation of pt's status upon admi ssion and devise an individualized program for Elevation Training, and Lymphedema Therapy New precaution - to improve, our physical therapists will perform initial evaluation of pt's status upon admission and devise an individualized program for Patient precaution education Weakness - to improve, our physical therapists will perform initial evaluation of pt's status upon a dmission and devise an individualized program for Aquatic Therapy, Neuromuscular Reeducation, and Str engthening Achieving independence - to improve, our physical therapists will perform initial evaluation of pt's status upon admission and devise an individualized program for Community Reintegration Activities - Occupational Therapy ADL deficits - to improve, our occupation therapists will perform initial evaluation of pt's status upon admission and devise an individualized program for Bathing, Bed mobility, Community Reintegratio n, Cooking, Dressing, Eating, Fine Motor Skills, Grooming, Homemaking, Kitchen Mobility, Laundry, Pat ient Education, Safety Awareness, Splinting - Positioning, Transfers(Toilet, Tub, Shower), and Wheel Chair Management Need for urgent care - to improve, our occupation therapists will perform initial evaluation of pt's status upon admission and devise an individualized program for Caregiver Training Weakness - to improve, our occupation therapists will perform initial evaluation of pt's status upon admission and devise an individualized program for Aquatic Therapy, Balance, Endurance, UE ROM, and UE strengthening - Other See attached MAR (Medication Administration Record) - Diet Type Continue Regular - Diet - Liquid Texture Continue Regular - Tube Feed Continue N/A - Bladder care per protocol - Skin care per protocol - Diet - Solid Texture Continue Regular - Shower allowing shower for Dementia, TBI, Stroke, or others FUNCTIONAL STATUS: UPDATED AT WEEKLY TEAM CONFERENCE - Bladder Same accident frequency: 7-Ind - No accidents in the past 7 days - Bowel Same accident frequency: 7-Ind - No accidents in the past 7 days - Walking Same score based on distance walked: 0(N/A) Same score based on distance walked: 2(50-149ft) - Wheelchair Same score based on distance traveled: 0(N/A) FUNCTIONAL STATUS: - Self-Care A. Eating Ind B. Grooming Campbell C. Bathing modA D. Dressing - Upper Pippa E. Dressing - Lower sup F. Toileting sup - Sphincter Control G. Bladder control Dep H. Bowel control Pippa - Transfers Control I. Bed/Chair/Wheelchair modA J. Toilet sup K. Tub/Shower modA - Locomotion L. Walk/Wheelchair (B) Pippa M. Stairs ADNO - Communication N. Comprehension (B) Campbell O. Expression (B) Campbell - Social Cognition P. Social Interaction Campbell Q. Problem Solving Campbell R. Memory Campbell - Endurance Poor - Balance Fair - Safety Awareness Fair QI SCORES: - Self-Care A. Eating 04-Supervision or touching assistance B. Oral hygiene 03-Partial/moderate assistance C. Toileting hygiene 03-Partial/moderate assistance E. Shower/bathe self 03-Partial/moderate assistance F. Upper body dressing 03-Partial/moderate assistance G. Lower body dressing 03-Partial/moderate assistance H. Putting on/taking off footwear 88-Not attempted due to medical condition or safety concerns - Mobility A. Roll left and right 03-Partial/moderate assistance B. Sit to lying 03-Partial/moderate assistance C. Lying to sitting on side of bed 03-Partial/moderate assistance D. Sit to stand 03-Partial/moderate assistance E. Chair/fwz-go-ktdow transfer 03-Partial/moderate assistance F. Toilet transfer 03-Partial/moderate assistance G. Car transfer 88-Not attempted due to medical condition or safety concerns I. Walk 10 feet 03-Partial/moderate assistance J. Walk 50 feet with two turns 03-Partial/moderate assistance K. Walk 150 feet 88-Not attempted due to medical condition or safety concerns L. Walking 10 feet on uneven surfaces 88-Not attempted due to medical condition or safety concerns M. 1 step (curb) 88-Not attempted due to medical condition or safety concerns N. 4 steps 88-Not attempted due to medical condition or safety concerns O. 12 steps 88-Not attempted due to medical condition or safety concerns P. Picking up object 88-Not attempted due to medical condition or safety concerns R. Wheel 50 feet with two turns 88-Not attempted due to medical condition or safety concerns S. Wheel 150 feet 88-Not attempted due to medical condition or safety concerns - Bladder and Bowel Bladder continence Bowel continence - Endurance Fair - Balance Fair - Safety Awareness Fair CURRENT [facility]. DEFICITS: Self-Care, Mobility, Endurance, Balance, and Safety Awareness SIGNATURE PANEL: (CDT)
[2021-04-29] MEDS: MELATONIN 3 MG TABLET PO PRN (19:38)
--- NOTE | 2021-04-29 21:11 | P.PN ---
Subjective Date of Service: 04/29/21 Chief Complaint: SP BRAIN SURGERY Subjective: Improving IS LOT LESS ANXIOUS TODAY. 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 HE HAS HAD IVC FILTER IN THE PAST AND SO ON ANTICOAGUALATION FOR HALF-WAY. HE WAS ON LOVENOX BID WHEN HE CAME AND I CHANGED TO ELIQUIS BID. THIS WILL BE BETTER IF HE CAN AFFORD IT. HE IS LOT CALMER, HAPPIER, STILL NOT ABLE TO COMMUNICATE WELL WITH GLOBAL APHASIA FOR LONG DURATION. Physical Examination - Vital Signs Temperature: 97.4 F Blood Pressure: 112/58 Pulse: 87 Respirations: 18 Pulse Ox (%): 94 - Physical Exam General: Oriented x3, Mild distress HEENT: Atraumatic, PERRLA, EOMI Neck: Supple, JVD not distended Respiratory: Clear to auscultation bilaterally, Normal air movement Cardiovascular: Regular rate/rhythm, Normal S1 S2 Gastrointestinal: Normal bowel sounds, No tenderness Musculoskeletal: No tenderness Integumentary: No rashes Neurological: Normal speech, Normal tone, Normal affect Lymphatics: No axilla or inguinal lymphadenopathy - Studies Laboratory Data (last 24 hrs) 04/29/21 06:28: Sodium 138, Potassium 4.4, BUN 15, Creatinine 1.03, Glucose 124 H, Magnesium 2.4 04/29/21 06:28: WBC 9.60, Hgb 12.2 L, Hct 36.9 L, Plt Count 294 D Medications List Reviewed: Yes Assessment And Plan - Current Problems (Diagnosis) (1) Pulmonary emboli Current Visit: Yes Status: Acute Plan: HISTORY. START ELIQUIS BID. STOP LOVENOX. Qualifiers: Pulmonary embolism type: saddle (2) Hypertension Current Visit: No Status: Acute (3) Meningioma Current Visit: No Status: Chronic Plan: RECURRENCE AND SURGERY DONE AGAIN DETAILS PER [place] RECORDS. REMOVE [place] START PT. CONT PT. (4) Anxiety disorder Current Visit: Yes Status: Chronic Plan: HE IS ALWAYS EDGY AND ANXIOUS MORE EVIDENT NOW IN [facility] [place] BID SHOULD HELP.
[2021-04-30] MEDS: ACETAMINOPHEN 325 MG TABLET PO PRN (03:29)
[2021-04-30 05:25] LABS: Absolute Lymphocytes (CBC) 1.2 K/uL (0.7-4.9); Basophils % 0.9 % (0-1.3); Hematocrit 32.8 % (39.6-49.0); Lymphocytes % 16.3 % (15.3-44.8); MPV 9.4 fL (7.6-11.3); RBC Red Blood Cell Count 3.54 M/uL (4.33-5.43)
[2021-04-30 05:30] LABS: BUN Blood Urea Nitrogen 13 mg/dL (7-18); Bicarbonate 27 mmol/L (21-32); Glucose Level 101 mg/dL (74-106); Potassium 4.2 mmol/L (3.5-5.1); Sodium Level 140 mmol/L (136-145)
[2021-04-30] MEDS: LOSARTAN POTASSIUM 50 MG TABLET PO SCH (07:50)
[2021-04-30] MEDS: METOPROLOL TAR 50 MG TAB PO SCH ×3 (07:51→20:00)
[2021-04-30] MEDS: levETIRAcetam 500 MG TAB PO SCH ×2 (08:46→20:13)
[2021-04-30] MEDS: APIXABAN 5 MG TABLET PO SCH ×2 (08:46→20:13)
[2021-04-30] MEDS: SERTRALINE HCL 50 MG TAB PO SCH (08:47)
[2021-04-30] MEDS: FINASTERIDE 5 MG TAB PO SCH (08:47)
[2021-04-30] MEDS: DOCUSATE NA 100 MG CAP PO SCH ×2 (08:47→20:14)
[2021-04-30] MEDS: AMIODARONE HCL 200 MG TAB PO SCH (08:47)
[2021-04-30] MEDS: TAMSULOSIN 0.4 MG SR CAP PO SCH (08:47)
[2021-04-30] MEDS: ACETAMINOPHEN 500 MG TAB PO PRN (08:50)
--- NOTE | 2021-04-30 09:37 | P.RH.PN ---
Estimated Length of Stay: 11 Expected Discharge Date: 05/09/21 Discharge Disposition Plan: Home Family Support: Yes Senior Care Goal: Mobility, Transfers, Self Care Vital Signs: Last Vital Signs Temp 97.3 F 04/30/21 07:49 Pulse 76 04/30/21 07:51 Resp 18 04/30/21 07:49 BP 99/67 04/30/21 07:51 Pulse Ox 95 04/30/21 07:49 Laboratory: Laboratory Last Values WBC 7.40 K/uL (4.3-10.9) D 04/30/21 04:35 RBC 3.54 M/uL (4.33-5.43) L 04/30/21 04:35 Hgb 10.9 g/dL (13.6-17.9) L 04/30/21 04:35 Hct 32.8 % (39.6-49.0) L 04/30/21 04:35 MCV 92.5 fL (80-100) 04/30/21 04:35 MCH 30.7 pg (27.0-35.0) 04/30/21 04:35 MCHC 33.2 g/dL (32.0-36.0) 04/30/21 04:35 RDW 15.1 % (12.1-15.2) 04/30/21 04:35 Plt Count 212 K/uL (152-406) D 04/30/21 04:35 MPV 9.4 fL (7.6-11.3) 04/30/21 04:35 Plt Distribution Width Cancelled 04/27/21 05:00 Absolute Nucleated RBC Cancelled 04/27/21 05:00 Neutrophils % 71.0 % (41.7-73.7) 04/30/21 04:35 Lymphocytes % 16.3 % (15.3-44.8) 04/30/21 04:35 Monocytes % 7.0 % (3.3-12.3) 04/30/21 04:35 Eosinophils % 4.8 % (0-4.4) H 04/30/21 04:35 Basophils % 0.9 % (0-1.3) 04/30/21 04:35 Nucleated RBC % Cancelled 04/27/21 05:00 Absolute Neutrophils 5.2 K/uL (1.8-8.0) 04/30/21 04:35 Absolute Lymphocytes 1.2 K/uL (0.7-4.9) 04/30/21 04:35 Absolute Monocytes 0.5 K/uL (0.1-1.3) 04/30/21 04:35 Absolute Eosinophils 0.4 K/uL (0-0.5) 04/30/21 04:35 Absolute Basophils 0.1 K/uL (0-0.5) 04/30/21 04:35 Diff Path Review Cancelled 04/27/21 05:00 PT 12.6 SECONDS (9.5-12.5) H 04/27/21 08:37 INR 1.09 04/27/21 08:37 Sodium 140 mmol/L (136-145) 04/30/21 04:35 Potassium 4.2 mmol/L (3.5-5.1) 04/30/21 04:35 Chloride 109 mmol/L (98-107) H 04/30/21 04:35 Carbon Dioxide 27 mmol/L (21-32) 04/30/21 04:35 BUN 13 mg/dL (7-18) 04/30/21 04:35 Creatinine 0.78 mg/dL (0.55-1.3) 04/30/21 04:35 Estimated GFR > 90 mL/min (=/>90) 04/30/21 04:35 Glucose 101 mg/dL (74-106) 04/30/21 04:35 Calcium 8.0 mg/dL (8.5-10.1) L 04/30/21 04:35 Magnesium 2.4 mg/dL (1.8-2.4) 04/29/21 06:28 Albumin 3.4 g/dL (3.4-5.0) 04/29/21 06:28 Prealbumin 27.9 mg/dL (20-40) 04/29/21 06:28 Urine Color Yellow (Yellow) 04/26/21 22:06 Urine Appearance Clear (Clear) 04/26/21 22:06 Urine pH 5.5 (5.0-7.0) 04/26/21 22:06 Ur Specific [place] 1.020 (1.005-1.030) 04/26/21 22:06 Glucose (UA)(Auto) Negative (Negative) 04/26/21 22:06 Urine Ketones Trace (Negative) H 04/26/21 22:06 Urine Blood Negative (Negative) 04/26/21 22:06 Urine Nitrite Negative (Negative) 04/26/21 22:06 Urine Bilirubin Negative (Negative) 04/26/21 22:06 Urine Urobilinogen 1.0 mg/dL (0.2-1.0) 04/26/21 22:06 Ur Leukocyte Esterase 1+ (Negative) H 04/26/21 22:06 Urine RBC <5 /HPF (NONE SEEN) 04/26/21 22:06 Urine WBC 5-10 /HPF (<5) H 04/26/21 22:06 Ur 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 He has constant headaches. He walks 80' with brakes at contact guard. Transfers are standby assistance. Up and down 10 steps with contact guard assistance. Summary: Patient's care plan and chcf goals have been reviewed and revised as necessary. Please see the Rehabilitation Signature page for all necessary signatures.
[2021-04-30] MEDS: NYSTATIN PWDR 100000 UNIT/GM TOP SCH ×2 (10:36→20:14)
[2021-04-30] MEDS: TRAMADOL HCL 50 MG TAB PO PRN (11:28)
[2021-04-30] MEDS: POLYETHYL GLY 3350 17 GM/DOSE PO PRN (11:29)
[2021-04-30] MEDS: ROSUVASTATIN 10 MG TAB PO SCH (20:13)
[2021-04-30] MEDS: MELATONIN 3 MG TABLET PO PRN (20:14)
--- NOTE | 2021-04-30 21:37 | P.PN ---
Subjective Date of Service: 04/30/21 Chief Complaint: SP BRAIN SURGERY Subjective: Improving IS LOT LESS ANXIOUS TODAY. 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 HE HAS HAD IVC FILTER IN THE PAST AND SO ON ANTICOAGUALATION FOR SENIOR LIVING. HE WAS ON LOVENOX BID WHEN HE CAME AND I CHANGED TO ELIQUIS BID. THIS WILL BE BETTER IF HE CAN AFFORD IT. HE IS LOT CALMER, HAPPIER, STILL NOT ABLE TO COMMUNICATE WELL WITH GLOBAL APHASIA FOR LONG DURATION. STABLE ,NO CHANGES. GENERALLY WEAK SINCE BRAIN SURGERY. Physical Examination - Vital Signs Temperature: 97.8 F Blood Pressure: 94/53 Pulse: 67 Respirations: 16 Pulse Ox (%): 95 - Physical Exam General: Oriented x2, Mild distress, Obese HEENT: Atraumatic, PERRLA, EOMI Neck: Supple, JVD not distended Respiratory: Clear to auscultation bilaterally, Normal air movement Cardiovascular: Regular rate/rhythm, Normal S1 S2 Gastrointestinal: Normal bowel sounds, No tenderness Musculoskeletal: No tenderness Integumentary: No rashes Neurological: Normal speech, Normal tone, Normal affect, Abnormal speech Lymphatics: No axilla or inguinal lymphadenopathy - Studies Laboratory Data (last 24 hrs) 04/30/21 04:35: Sodium 140, Potassium 4.2, BUN 13, Creatinine 0.78, Glucose 101 04/30/21 04:35: WBC 7.40 D, Hgb 10.9 L, Hct 32.8 L, Plt Count 212 D Medications List Reviewed: Yes Assessment And Plan - Current Problems (Diagnosis) (1) Pulmonary emboli Current Visit: Yes Status: Acute Plan: HISTORY. START ELIQUIS BID. STOP LOVENOX. Qualifiers: Pulmonary embolism type: saddle (2) Hypertension Current Visit: No Status: Acute (3) Meningioma Current Visit: No Status: Chronic Plan: RECURRENCE AND SURGERY DONE AGAIN DETAILS PER [facility] RECORDS. REMOVE [place] START PT. CONT PT. (4) Anxiety disorder Current Visit: Yes Status: Chronic Plan: HE IS ALWAYS EDGY AND ANXIOUS MORE EVIDENT NOW IN HOSPITAL [facility] BID SHOULD HELP. (5) Urinary retention Current Visit: Yes Status: Acute Plan: MORE SINCE SURGERY . FLOMAX AND FINESTRIDE. CONSULT UROLOGIST.
[2021-05-01] MEDS: TRAMADOL HCL 50 MG TAB PO PRN ×2 (06:50→16:13)
[2021-05-01] MEDS: METOPROLOL TAR 50 MG TAB PO SCH ×2 (06:52→19:21)
[2021-05-01] MEDS: LOSARTAN POTASSIUM 50 MG TABLET PO SCH (08:00)
[2021-05-01] MEDS: APIXABAN 5 MG TABLET PO SCH ×2 (08:38→19:20)
[2021-05-01] MEDS: TAMSULOSIN 0.4 MG SR CAP PO SCH ×2 (08:39→19:21)
[2021-05-01] MEDS: AMIODARONE HCL 200 MG TAB PO SCH (08:40)
[2021-05-01] MEDS: SERTRALINE HCL 50 MG TAB PO SCH (08:41)
[2021-05-01] MEDS: levETIRAcetam 500 MG TAB PO SCH ×2 (08:41→19:21)
[2021-05-01] MEDS: FINASTERIDE 5 MG TAB PO SCH (08:41)
[2021-05-01] MEDS: DOCUSATE NA 100 MG CAP PO SCH ×2 (08:48→19:22)
[2021-05-01] MEDS: NYSTATIN PWDR 100000 UNIT/GM TOP SCH ×2 (11:09→19:21)
--- NOTE | 2021-05-01 11:51 | P.PN ---
Subjective Date of Service: 05/01/21 Chief Complaint: SP BRAIN SURGERY Subjective: Improving IS LOT LESS ANXIOUS TODAY. 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 HE HAS HAD IVC FILTER IN THE PAST AND SO ON ANTICOAGUALATION FOR LONG-TERM. HE WAS ON LOVENOX BID WHEN HE CAME AND I CHANGED TO ELIQUIS BID. THIS WILL BE BETTER IF HE CAN AFFORD IT. HE IS LOT CALMER, HAPPIER, STILL NOT ABLE TO COMMUNICATE WELL WITH GLOBAL APHASIA FOR LONG DURATION. STABLE ,NO CHANGES. GENERALLY WEAK SINCE BRAIN SURGERY. STABLE. CAME AND REFUSES FOR HIM TO GET ZOLOFT. IT IS FOR ANXIETY AND POSSIBLE DEP RESSION. HE IS APHASIC, HE WAS CRYING FOR FIRST TWO DAYS HERE. HE GETS FRUSTRATED HE IS NOT ABLE TO COMMUNICATE. Physical Examination - Vital Signs Temperature: 98.6 F Blood Pressure: 136/76 Pulse: 81 Respirations: 18 Pulse Ox (%): 94 - Physical Exam General: Oriented x2, Mild distress, Confused HEENT: Atraumatic, PERRLA, EOMI Neck: Supple, JVD not distended Respiratory: Clear to auscultation bilaterally, Normal air movement Cardiovascular: Regular rate/rhythm, Normal S1 S2 Gastrointestinal: Normal bowel sounds, No tenderness Musculoskeletal: No tenderness Integumentary: No rashes Neurological: Abnormal speech Lymphatics: No axilla or inguinal lymphadenopathy - Studies Medications List Reviewed: Yes Assessment And Plan - Current Problems (Diagnosis) (1) Pulmonary emboli Current Visit: Yes Status: Acute Plan: HISTORY. START ELIQUIS BID. STOP LOVENOX. Qualifiers: Pulmonary embolism type: saddle (2) Hypertension Current Visit: No Status: Acute (3) Meningioma Current Visit: No Status: Chronic Plan: RECURRENCE AND SURGERY DONE AGAIN DETAILS PER [facility] RECORDS. REMOVE [place] START PT. CONT PT. I CALLED [facility] WITH NO RESPONSE DR GRISSOM IS OUT OF TOWN. (4) Anxiety disorder Current Visit: Yes Status: Chronic Plan: HE IS ALWAYS EDGY AND ANXIOUS MORE EVIDENT NOW IN HOSPITAL [facility] BID SHOULD HELP. (5) Urinary retention Current Visit: Yes Status: Acute Plan: MORE SINCE SURGERY . FLOMAX AND FINESTRIDE. CONSULT UROLOGIST.
[2021-05-01] MEDS: POLYETHYL GLY 3350 17 GM/DOSE PO PRN (13:18)
[2021-05-01] MEDS: ACETAMINOPHEN 500 MG TAB PO PRN (13:20)
[2021-05-01] MEDS: ROSUVASTATIN 10 MG TAB PO SCH (19:20)
[2021-05-01] MEDS: MELATONIN 3 MG TABLET PO PRN (19:22)
[2021-05-02] MEDS: levETIRAcetam 500 MG TAB PO SCH ×2 (07:31→18:27)
[2021-05-02] MEDS: APIXABAN 5 MG TABLET PO SCH ×2 (07:31→18:27)
[2021-05-02] MEDS: DOCUSATE NA 100 MG CAP PO SCH ×2 (07:31→18:27)
[2021-05-02] MEDS: METOPROLOL TAR 50 MG TAB PO SCH ×2 (07:32→18:27)
[2021-05-02] MEDS: FINASTERIDE 5 MG TAB PO SCH (07:33)
[2021-05-02] MEDS: AMIODARONE HCL 200 MG TAB PO SCH (07:33)
[2021-05-02] MEDS: TAMSULOSIN 0.4 MG SR CAP PO SCH ×2 (07:33→18:27)
[2021-05-02] MEDS: TRAMADOL HCL 50 MG TAB PO PRN (07:34)
[2021-05-02] MEDS: LOSARTAN POTASSIUM 50 MG TABLET PO SCH (08:00)
[2021-05-02] MEDS: NYSTATIN PWDR 100000 UNIT/GM TOP SCH ×2 (09:51→18:29)
[2021-05-02] MEDS ORDERED: BISACODYL 10 MG RECTAL SUPP PR PRN (13:37)
--- NOTE | 2021-05-02 16:02 | P.PN ---
Subjective Date of Service: 05/02/21 Chief Complaint: SP BRAIN SURGERY Subjective: Improving IS LOT LESS ANXIOUS TODAY. 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 HE HAS HAD IVC FILTER IN THE PAST AND SO ON ANTICOAGUALATION FOR [facility]. HE WAS ON LOVENOX BID WHEN HE CAME AND I CHANGED TO ELIQUIS BID. THIS WILL BE BETTER IF HE CAN AFFORD IT. HE IS LOT CALMER, HAPPIER, STILL NOT ABLE TO COMMUNICATE WELL WITH GLOBAL APHASIA FOR LONG DURATION. STABLE ,NO CHANGES. GENERALLY WEAK SINCE BRAIN SURGERY. STABLE. CAME AND REFUSES FOR HIM TO GET ZOLOFT. IT IS FOR ANXIETY AND POSSIBLE DEP RESSION. HE IS APHASIC, HE WAS CRYING FOR FIRST TWO DAYS HERE. HE GETS FRUSTRATED HE IS NOT ABLE TO COMMUNICATE. TODAY AGREED FO RME TO GIVE HIM ZOLOFT IT IS NOT ADDICTIVE. HE IS CRYIN G AGAIN TODAY. VERY ANXIOUS AND MISSES HOME. HE IS STABLE. Physical Examination - Vital Signs Temperature: 98 F Blood Pressure: 91/58 Pulse: 62 Respirations: 12 Pulse Ox (%): 94 - Physical Exam General: Mild distress HEENT: Atraumatic, PERRLA, EOMI Neck: Supple, JVD not distended Respiratory: Clear to auscultation bilaterally, Normal air movement Cardiovascular: Regular rate/rhythm, Normal S1 S2 Gastrointestinal: Normal bowel sounds, No tenderness Musculoskeletal: No tenderness Integumentary: No rashes Neurological: Normal speech, Normal tone, Normal affect Lymphatics: No axilla or inguinal lymphadenopathy - Studies Medications List Reviewed: Yes Assessment And Plan - Current Problems (Diagnosis) (1) Pulmonary emboli Current Visit: Yes Status: Acute Plan: HISTORY. START ELIQUIS BID. STOP LOVENOX. Qualifiers: Pulmonary embolism type: saddle (2) Hypertension Current Visit: No Status: Acute (3) Meningioma Current Visit: No Status: Chronic Plan: RECURRENCE AND SURGERY DONE AGAIN DETAILS PER [facility] RECORDS. REMOVE [place] START PT. CONT PT. I CALLED [facility] WITH NO RESPONSE DR GRISSOM IS OUT OF TOWN. (4) Anxiety disorder Current Visit: Yes Status: Chronic Plan: HE IS ALWAYS EDGY AND ANXIOUS MORE EVIDENT NOW IN HOSPITAL [facility] BID SHOULD HELP. (5) Urinary retention Current Visit: Yes Status: Acute Plan: MORE SINCE SURGERY . FLOMAX AND FINESTRIDE. CONSULT UROLOGIST.
[2021-05-02] MEDS: SERTRALINE HCL 50 MG TAB PO SCH (18:27)
[2021-05-02] MEDS: ROSUVASTATIN 10 MG TAB PO SCH (18:28)
[2021-05-02] MEDS: ACETAMINOPHEN 500 MG TAB PO PRN (18:29)
[2021-05-02] MEDS: MELATONIN 3 MG TABLET PO PRN (18:29)
[2021-05-03] MEDS: TRAMADOL HCL 50 MG TAB PO PRN ×2 (01:04→07:38)
[2021-05-03] MEDS: SERTRALINE HCL 50 MG TAB PO SCH ×2 (07:39→20:34)
[2021-05-03] MEDS: TAMSULOSIN 0.4 MG SR CAP PO SCH ×2 (07:40→20:35)
[2021-05-03] MEDS: FINASTERIDE 5 MG TAB PO SCH (07:40)
[2021-05-03] MEDS: AMIODARONE HCL 200 MG TAB PO SCH (07:40)
[2021-05-03] MEDS: METOPROLOL TAR 50 MG TAB PO SCH ×2 (07:40→20:00)
[2021-05-03] MEDS: APIXABAN 5 MG TABLET PO SCH ×2 (07:41→20:34)
[2021-05-03] MEDS: levETIRAcetam 500 MG TAB PO SCH ×2 (07:41→20:34)
[2021-05-03] MEDS: DOCUSATE NA 100 MG CAP PO SCH ×2 (07:41→20:34)
[2021-05-03] MEDS ORDERED: LOSARTAN POTASSIUM 50 MG TABLET PO SCH (08:00)
[2021-05-03] MEDS: NYSTATIN PWDR 100000 UNIT/GM TOP SCH ×2 (09:00→20:00)
[2021-05-03] MEDS: ACETAMINOPHEN 500 MG TAB PO PRN ×2 (10:05→20:33)
[2021-05-03] MEDS: ROSUVASTATIN 10 MG TAB PO SCH (20:33)
[2021-05-03] MEDS: MELATONIN 3 MG TABLET PO PRN (20:34)
[2021-05-03] MEDS: carBAMazepine 200 MG TAB PO SCH (20:34)
--- NOTE | 2021-05-03 20:57 | P.PN ---
Subjective Date of Service: 05/03/21 Chief Complaint: SP BRAIN SURGERY Subjective: Improving IS LOT LESS ANXIOUS TODAY. 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 HE HAS HAD IVC FILTER IN THE PAST AND SO ON ANTICOAGUALATION FOR [facility]. HE WAS ON LOVENOX BID WHEN HE CAME AND I CHANGED TO ELIQUIS BID. THIS WILL BE BETTER IF HE CAN AFFORD IT. HE IS LOT CALMER, HAPPIER, STILL NOT ABLE TO COMMUNICATE WELL WITH GLOBAL APHASIA FOR LONG DURATION. STABLE ,NO CHANGES. GENERALLY WEAK SINCE BRAIN SURGERY. STABLE. CAME AND REFUSES FOR HIM TO GET ZOLOFT. IT IS FOR ANXIETY AND POSSIBLE DEP RESSION. HE IS APHASIC, HE WAS CRYING FOR FIRST TWO DAYS HERE. HE GETS FRUSTRATED HE IS NOT ABLE TO COMMUNICATE. TODAY AGREED FO RME TO GIVE HIM ZOLOFT IT IS NOT ADDICTIVE. HE IS CRYIN G AGAIN TODAY. VERY ANXIOUS AND MISSES HOME. HE IS STABLE. HE IS LESS ANXIOUS TODAY. Physical Examination - Vital Signs Temperature: 97.2 F Blood Pressure: 97/57 Pulse: 67 Respirations: 18 Pulse Ox (%): 97 - Physical Exam General: Mild distress HEENT: Atraumatic, PERRLA, EOMI Neck: Supple, JVD not distended Respiratory: Clear to auscultation bilaterally, Normal air movement Cardiovascular: Regular rate/rhythm, Normal S1 S2 Gastrointestinal: Normal bowel sounds, No tenderness Musculoskeletal: No tenderness Integumentary: No rashes Neurological: Abnormal speech (APHASIA CHRONIC SEVERE.) Lymphatics: No axilla or inguinal lymphadenopathy - Studies Medications List Reviewed: Yes Assessment And Plan - Current Problems (Diagnosis) (1) Pulmonary emboli Current Visit: Yes Status: Acute Plan: HISTORY. START ELIQUIS BID. STOP LOVENOX. Qualifiers: Pulmonary embolism type: saddle (2) Hypertension Current Visit: No Status: Acute (3) Meningioma Current Visit: No Status: Chronic Plan: RECURRENCE AND SURGERY DONE AGAIN DETAILS PER [facility] RECORDS. REMOVE [place] START PT. CONT PT. I CALLED [facility] WITH NO RESPONSE DR GRISSOM IS OUT OF TOWN. (4) Anxiety disorder Current Visit: Yes Status: Chronic Plan: HE IS ALWAYS EDGY AND ANXIOUS MORE EVIDENT NOW IN HOSPITAL [facility] BID SHOULD HELP. (5) Urinary retention Current Visit: Yes Status: Acute Plan: MORE SINCE SURGERY . FLOMAX AND FINESTRIDE. CONSULT UROLOGIST.
[2021-05-04] MEDS: TRAMADOL HCL 50 MG TAB PO PRN ×2 (00:52→07:56)
[2021-05-04] MEDS: NYSTATIN PWDR 100000 UNIT/GM TOP SCH ×2 (06:59→19:22)
[2021-05-04] MEDS: FINASTERIDE 5 MG TAB PO SCH (07:57)
[2021-05-04] MEDS: DOCUSATE NA 100 MG CAP PO SCH ×2 (07:57→19:20)
[2021-05-04] MEDS: AMIODARONE HCL 200 MG TAB PO SCH (07:57)
[2021-05-04] MEDS: levETIRAcetam 500 MG TAB PO SCH ×2 (07:57→19:20)
[2021-05-04] MEDS: APIXABAN 5 MG TABLET PO SCH ×2 (07:58→19:20)
[2021-05-04] MEDS: TAMSULOSIN 0.4 MG SR CAP PO SCH ×2 (07:58→19:22)
[2021-05-04] MEDS: SERTRALINE HCL 50 MG TAB PO SCH ×2 (07:58→19:21)
[2021-05-04] MEDS: METOPROLOL TAR 50 MG TAB PO SCH ×2 (07:58→19:22)
[2021-05-04] MEDS: ACETAMINOPHEN 500 MG TAB PO PRN ×3 (09:41→21:00)
[2021-05-04] MEDS: MEMANTINE HCL 10 MG TABLET PO SCH (11:48)
--- NOTE | 2021-05-04 17:16 | R.PN ---
PROGRESS NOTES ENCOUNTER DATE AND TIME: 05/04/2021 17:12 (CDT) NAME REMA AMAYA DATE OF : 1950 DATE OF ADMISSION: 04/26/2021 19:31 (CDT) ACUTE EXTENSIVE RLE DVT-CHIEF COMPLAINT: Right lower extremity DVT. SUBJECTIVE: Pt denied any depression. Pt denied any Shortness of Breath. WBC 7.4, Hgb 10.9, Plt 212, prealbumin 27.9, glucose 101. Ambulated 420' with contact assistance using a rolling walker. Urology is following the patient for urinary retention. VITAL SIGNS Temperature: 99 F Pulse: 74 Resp: 16 SBP/DBP: 137/74 MEDICATION ALLERGIES: No Known Drug Allergies (NKDA) ENVIRONMENTAL ALLERGIES: - Substance Allergies None Known - Other Allergies None Known NURSING: - Shower allowing shower - Bladder care per protocol - Skin care per protocol ACTIVITIES OOB only with supervision THERAPIES: - Occupational Therapy Cognitive Retraining. Visual Perceptual Training. - Dietary and Nutrition Adequate Nutrition. Nutritional Education. Nutritional Supplements. - Speech Therapy Cognitive Training. Expressive Language Skills. Memory Strategies. Receptive Language Skills. Speech Intelligibility Training. PHYSICAL EXAM - Gen Alert and awake Lying in bed No apparent distress Oriented to: person, time, and place - Skin No skin breakdown. Normacephalic - Eyes No abnormalities - ENMT No abnormalities - Neck No abnormalities - CVS RRR - Chest No abnormalities - Resp Clear to auscultation - Abd + bowel sounds - GI Soft Deferred - Cobb catheter - Ext Moderate right lower extremity edema. - MSK 4+/5 weakness in right lower extremity - Neuro 4/5 strength right lower extremity - Psych No abnormalities ASSESSMENT: Pt. is a 70 yo Right-handed male.On 04/12/2021 he was admitted to [facility] with diagnosis ACU TE EXTENSIVE RLE DVT-.His impairment category is Stroke 01 - Other Stroke (01.9).Pre-morbidly, Pt. w as independent/mod-I in Locomotion, Social Cognition, Balance, Safety Awareness, Communication, and E ndurance; and he had good Self-Care.Currently, he has deficits of Locomotion, Safety Awareness, Trans fers Control, Sphincter Control, Communication, and Self-Care.Pt. is now referred to [facility] for acute in-patient rehabilitation in order to maximize patient's functional indep endence in activities of daily living, strength, ROM, and mobility.- Rehab Goal Patient has realistic goal of being discharged at assistance level 7-Ind to reside at Home with Fami ly/Relatives. MDM/PLAN: - Physical Therapy Gait dysfunction - to improve, our physical therapists will perform initial evaluation of pt's statu s upon admission and devise an individualized program for Gait Training, and Wheel Chair mobility Inability to transfer - to improve, our physical therapists will perform initial evaluation of pt's status upon admission and devise an individualized program for Bed mobility Need for home safety evaluation - to improve, our physical therapists will perform initial evaluatio n of pt's status upon admission and devise an individualized program for Home Evaluation Need in caregiver upon discharge - to improve, our physical therapists will perform initial evaluati on of pt's status upon admission and devise an individualized program for Caregiver Training Edema - to improve, our physical therapists will perform initial evaluation of pt's status upon admi ssion and devise an individualized program for Elevation Training, and Lymphedema Therapy New precaution - to improve, our physical therapists will perform initial evaluation of pt's status upon admission and devise an individualized program for Patient precaution education Weakness - to improve, our physical therapists will perform initial evaluation of pt's status upon a dmission and devise an individualized program for Aquatic Therapy, Neuromuscular Reeducation, and Str engthening Achieving independence - to improve, our physical therapists will perform initial evaluation of pt's status upon admission and devise an individualized program for Community Reintegration Activities - Occupational Therapy ADL deficits - to improve, our occupation therapists will perform initial evaluation of pt's status upon admission and devise an individualized program for Bathing, Bed mobility, Community Reintegratio n, Cooking, Dressing, Eating, Fine Motor Skills, Grooming, Homemaking, Kitchen Mobility, Laundry, Pat ient Education, Safety Awareness, Splinting - Positioning, Transfers(Toilet, Tub, Shower), and Wheel Chair Management Need for director of healthcare systems - to improve, our occupation therapists will perform initial evaluation of pt's status upon admission and devise an individualized program for Caregiver Training Weakness - to improve, our occupation therapists will perform initial evaluation of pt's status upon admission and devise an individualized program for Aquatic Therapy, Balance, Endurance, UE ROM, and UE strengthening - Other See attached MAR (Medication Administration Record) - Diet Type Continue Regular - Diet - Liquid Texture Continue Regular - Tube Feed Continue N/A - Bladder care per protocol - Skin care per protocol - Diet - Solid Texture Continue Regular - Shower allowing shower for Dementia, TBI, Stroke, or others FUNCTIONAL STATUS: UPDATED AT WEEKLY TEAM CONFERENCE - Bladder Same accident frequency: 7-Ind - No accidents in the past 7 days - Bowel Same accident frequency: 7-Ind - No accidents in the past 7 days - Walking Same score based on distance walked: 0(N/A) Same score based on distance walked: 2(50-149ft) - Wheelchair Same score based on distance traveled: 0(N/A) FUNCTIONAL STATUS: - Self-Care A. Eating Ind B. Grooming Campbell C. Bathing modA D. Dressing - Upper [place] E. Dressing - Lower sup F. Toileting sup - Sphincter Control G. Bladder control Dep H. Bowel control [place]ipp[place] - Transfers Control I. Bed/Chair/Wheelchair modA J. Toilet sup K. Tub/Shower modA - Locomotion L. Walk/Wheelchair (B) [place] M. Stairs ADNO - Communication N. Comprehension (B) Campbell O. Expression (B) Campbell - Social Cognition P. Social Interaction Campbell Q. Problem Solving Campbell R. Memory Campbell - Endurance Poor - Balance Fair - Safety Awareness Fair QI SCORES: - Self-Care A. Eating 04-Supervision or touching assistance B. Oral hygiene 03-Partial/moderate assistance C. Toileting hygiene 03-Partial/moderate assistance E. Shower/bathe self 03-Partial/moderate assistance F. Upper body dressing 03-Partial/moderate assistance G. Lower body dressing 03-Partial/moderate assistance H. Putting on/taking off footwear 88-Not attempted due to medical condition or safety concerns - Mobility A. Roll left and right 03-Partial/moderate assistance B. Sit to lying 03-Partial/moderate assistance C. Lying to sitting on side of bed 03-Partial/moderate assistance D. Sit to stand 03-Partial/moderate assistance E. Chair/rae-hp-dbdnd transfer 03-Partial/moderate assistance F. Toilet transfer 03-Partial/moderate assistance G. Car transfer 88-Not attempted due to medical condition or safety concerns I. Walk 10 feet 03-Partial/moderate assistance J. Walk 50 feet with two turns 03-Partial/moderate assistance K. Walk 150 feet 88-Not attempted due to medical condition or safety concerns L. Walking 10 feet on uneven surfaces 88-Not attempted due to medical condition or safety concerns M. 1 step (curb) 88-Not attempted due to medical condition or safety concerns N. 4 steps 88-Not attempted due to medical condition or safety concerns O. 12 steps 88-Not attempted due to medical condition or safety concerns P. Picking up object 88-Not attempted due to medical condition or safety concerns R. Wheel 50 feet with two turns 88-Not attempted due to medical condition or safety concerns S. Wheel 150 feet 88-Not attempted due to medical condition or safety concerns - Bladder and Bowel Bladder continence Bowel continence - Endurance Fair - Balance Fair - Safety Awareness Fair CURRENT [facility]. DEFICITS: Self-Care, Mobility, Endurance, Balance, and Safety Awareness SIGNATURE PANEL: (CDT)
[2021-05-04] MEDS: ROSUVASTATIN 10 MG TAB PO SCH (19:20)
[2021-05-04] MEDS: carBAMazepine 200 MG TAB PO SCH (19:20)
[2021-05-04] MEDS: MELATONIN 3 MG TABLET PO PRN (19:21)
--- NOTE | 2021-05-04 21:23 | P.PN ---
Subjective Date of Service: 05/04/21 Chief Complaint: SP BRAIN SURGERY Subjective: Improving IS LOT LESS ANXIOUS TODAY. 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 HE HAS HAD IVC FILTER IN THE PAST AND SO ON ANTICOAGUALATION FOR HALFWAY. HE WAS ON LOVENOX BID WHEN HE CAME AND I CHANGED TO ELIQUIS BID. THIS WILL BE BETTER IF HE CAN AFFORD IT. HE IS LOT CALMER, HAPPIER, STILL NOT ABLE TO COMMUNICATE WELL WITH GLOBAL APHASIA FOR LONG DURATION. STABLE ,NO CHANGES. GENERALLY WEAK SINCE BRAIN SURGERY. STABLE. CAME AND REFUSES FOR HIM TO GET ZOLOFT. IT IS FOR ANXIETY AND POSSIBLE DEP RESSION. HE IS APHASIC, HE WAS CRYING FOR FIRST TWO DAYS HERE. HE GETS FRUSTRATED HE IS NOT ABLE TO COMMUNICATE. TODAY AGREED FO RME TO GIVE HIM ZOLOFT IT IS NOT ADDICTIVE. HE IS CRYIN G AGAIN TODAY. VERY ANXIOUS AND MISSES HOME. HE IS STABLE. HE IS LESS ANXIOUS TODAY. COMFORTABLE TODAY. Physical Examination - Vital Signs Temperature: 97.0 F Blood Pressure: 96/50 Pulse: 65 Respirations: 18 Pulse Ox (%): 95 - Physical Exam General: Mild distress HEENT: Atraumatic, PERRLA, EOMI Neck: Supple, JVD not distended Respiratory: Clear to auscultation bilaterally, Normal air movement Cardiovascular: Regular rate/rhythm, Normal S1 S2 Gastrointestinal: Normal bowel sounds, No tenderness Musculoskeletal: No tenderness Integumentary: No rashes Neurological: Abnormal speech (APHASIA GLOBAL.), Abnormal strength (COORDINATION IS POOR.) Lymphatics: No axilla or inguinal lymphadenopathy - Studies Medications List Reviewed: Yes Assessment And Plan - Current Problems (Diagnosis) (1) Pulmonary emboli Current Visit: Yes Status: Acute Plan: HISTORY. START ELIQUIS BID. STOP LOVENOX. Qualifiers: Pulmonary embolism type: saddle (2) Hypertension Current Visit: No Status: Acute (3) Meningioma Current Visit: No Status: Chronic Plan: RECURRENCE AND SURGERY DONE AGAIN DETAILS PER [facility] RECORDS. REMOVE [place] START PT. CONT PT. I CALLED [facility] WITH NO RESPONSE DR GRISSOM IS OUT OF TOWN. (4) Anxiety disorder Current Visit: Yes Status: Chronic Plan: HE IS ALWAYS EDGY AND ANXIOUS MORE EVIDENT NOW IN HOSPITAL [place] BID SHOULD HELP. (5) Urinary retention Current Visit: Yes Status: Acute Plan: MORE SINCE SURGERY . FLOMAX AND FINESTRIDE. CONSULT UROLOGIST.
[2021-05-05] MEDS: TRAMADOL HCL 50 MG TAB PO PRN ×2 (06:33→13:25)
[2021-05-05] MEDS: SERTRALINE HCL 50 MG TAB PO SCH ×2 (08:40→21:35)
[2021-05-05] MEDS: MEMANTINE HCL 10 MG TABLET PO SCH (08:41)
[2021-05-05] MEDS: levETIRAcetam 500 MG TAB PO SCH ×2 (08:41→21:35)
[2021-05-05] MEDS: DOCUSATE NA 100 MG CAP PO SCH ×2 (08:41→21:36)
[2021-05-05] MEDS: TAMSULOSIN 0.4 MG SR CAP PO SCH ×2 (08:42→21:37)
[2021-05-05] MEDS: APIXABAN 5 MG TABLET PO SCH ×2 (08:42→21:36)
[2021-05-05] MEDS: FINASTERIDE 5 MG TAB PO SCH (08:43)
[2021-05-05] MEDS: METOPROLOL TAR 50 MG TAB PO SCH ×2 (08:43→20:00)
[2021-05-05] MEDS: NYSTATIN PWDR 100000 UNIT/GM TOP SCH ×2 (08:46→20:00)
[2021-05-05] MEDS: AMIODARONE HCL 200 MG TAB PO SCH (08:46)
[2021-05-05] MEDS: ACETAMINOPHEN 500 MG TAB PO PRN ×2 (08:52→21:36)
--- NOTE | 2021-05-05 17:29 | R.PN ---
PROGRESS NOTES ENCOUNTER DATE AND TIME: 05/05/2021 17:24 (CDT) NAME REMA AMAYA DATE OF : 1950 DATE OF ADMISSION: 04/26/2021 19:31 (CDT) ACUTE EXTENSIVE RLE DVT-CHIEF COMPLAINT: Right lower extremity DVT. SUBJECTIVE: Pt denied any depression. Pt denied any Shortness of Breath. WBC 7.4, Hgb 10.9, Plt 212, prealbumin 27.9, glucose 101. Ambulated 300' with contact guard assistance using a rolling walker. Up and down [address] guard assistance. Urology is following the patient for urinary retention. Will do bladder training. VITAL SIGNS Temperature: 97.6 F Pulse: 65 Resp: 16 SBP/DBP: 121/65 MEDICATION ALLERGIES: No Known Drug Allergies (NKDA) ENVIRONMENTAL ALLERGIES: - Substance Allergies None Known - Other Allergies None Known NURSING: - Shower allowing shower - Bladder care per protocol - Skin care per protocol ACTIVITIES OOB only with supervision THERAPIES: - Occupational Therapy Cognitive Retraining. Visual Perceptual Training. - Dietary and Nutrition Adequate Nutrition. Nutritional Education. Nutritional Supplements. - Speech Therapy Cognitive Training. Expressive Language Skills. Memory Strategies. Receptive Language Skills. Speech Intelligibility Training. PHYSICAL EXAM - Gen Alert and awake Lying in bed No apparent distress Oriented to: person, time, and place - Skin No skin breakdown. Normacephalic - Eyes No abnormalities - ENMT No abnormalities - Neck No abnormalities - CVS RRR - Chest No abnormalities - Resp Clear to auscultation - Abd + bowel sounds - GI Soft Deferred - Cobb catheter - Ext Moderate right lower extremity edema. - MSK 4+/5 weakness in right lower extremity - Neuro 4/5 strength right lower extremity - Psych No abnormalities ASSESSMENT: Pt. is a 70 yo Right-handed male.On 04/12/2021 he was admitted to [facility] with diagnosis ACU TE EXTENSIVE RLE DVT-.His impairment category is Stroke 01 - Other Stroke (01.9).Pre-morbidly, Pt. w as independent/mod-I in Locomotion, Social Cognition, Balance, Safety Awareness, Communication, and E ndurance; and he had good Self-Care.Currently, he has deficits of Locomotion, Safety Awareness, Trans fers Control, Sphincter Control, Communication, and Self-Care.Pt. is now referred to [facility] for acute in-patient rehabilitation in order to maximize patient's functional indep endence in activities of daily living, strength, ROM, and mobility.- Rehab Goal Patient has realistic goal of being discharged at assistance level 7-Ind to reside at Home with Fami ly/Relatives. MDM/PLAN: - Physical Therapy Gait dysfunction - to improve, our physical therapists will perform initial evaluation of pt's statu s upon admission and devise an individualized program for Gait Training, and Wheel Chair mobility Inability to transfer - to improve, our physical therapists will perform initial evaluation of pt's status upon admission and devise an individualized program for Bed mobility Need for home safety evaluation - to improve, our physical therapists will perform initial evaluatio n of pt's status upon admission and devise an individualized program for Home Evaluation Need in caregiver upon discharge - to improve, our physical therapists will perform initial evaluati on of pt's status upon admission and devise an individualized program for Caregiver Training Edema - to improve, our physical therapists will perform initial evaluation of pt's status upon admi ssion and devise an individualized program for Elevation Training, and Lymphedema Therapy New precaution - to improve, our physical therapists will perform initial evaluation of pt's status upon admission and devise an individualized program for Patient precaution education Weakness - to improve, our physical therapists will perform initial evaluation of pt's status upon a dmission and devise an individualized program for Aquatic Therapy, Neuromuscular Reeducation, and Str engthening Achieving independence - to improve, our physical therapists will perform initial evaluation of pt's status upon admission and devise an individualized program for Community Reintegration Activities - Occupational Therapy ADL deficits - to improve, our occupation therapists will perform initial evaluation of pt's status upon admission and devise an individualized program for Bathing, Bed mobility, Community Reintegratio n, Cooking, Dressing, Eating, Fine Motor Skills, Grooming, Homemaking, Kitchen Mobility, Laundry, Pat ient Education, Safety Awareness, Splinting - Positioning, Transfers(Toilet, Tub, Shower), and Wheel Chair Management Need for medication care manager - to improve, our occupation therapists will perform initial evaluation of pt's status upon admission and devise an individualized program for Caregiver Training Weakness - to improve, our occupation therapists will perform initial evaluation of pt's status upon admission and devise an individualized program for Aquatic Therapy, Balance, Endurance, UE ROM, and UE strengthening - Other See attached MAR (Medication Administration Record) - Diet Type Continue Regular - Diet - Liquid Texture Continue Regular - Tube Feed Continue N/A - Bladder care per protocol - Skin care per protocol - Diet - Solid Texture Continue Regular - Shower allowing shower for Dementia, TBI, Stroke, or others FUNCTIONAL STATUS: UPDATED AT WEEKLY TEAM CONFERENCE - Bladder Same accident frequency: 7-Ind - No accidents in the past 7 days - Bowel Same accident frequency: 7-Ind - No accidents in the past 7 days - Walking Same score based on distance walked: 0(N/A) Same score based on distance walked: 2(50-149ft) - Wheelchair Same score based on distance traveled: 0(N/A) FUNCTIONAL STATUS: - Self-Care A. Eating Ind B. Grooming Campbell C. Bathing modA D. Dressing - Upper Pippa E. Dressing - Lower sup F. Toileting sup - Sphincter Control G. Bladder control Dep H. Bowel control Pippa - Transfers Control I. Bed/Chair/Wheelchair modA J. Toilet sup K. Tub/Shower modA - Locomotion L. Walk/Wheelchair (B) Pippa M. Stairs ADNO - Communication N. Comprehension (B) Campbell O. Expression (B) Campbell - Social Cognition P. Social Interaction Campbell Q. Problem Solving Campbell R. Memory Campbell - Endurance Poor - Balance Fair - Safety Awareness Fair QI SCORES: - Self-Care A. Eating 04-Supervision or touching assistance B. Oral hygiene 03-Partial/moderate assistance C. Toileting hygiene 03-Partial/moderate assistance E. Shower/bathe self 03-Partial/moderate assistance F. Upper body dressing 03-Partial/moderate assistance G. Lower body dressing 03-Partial/moderate assistance H. Putting on/taking off footwear 88-Not attempted due to medical condition or safety concerns - Mobility A. Roll left and right 03-Partial/moderate assistance B. Sit to lying 03-Partial/moderate assistance C. Lying to sitting on side of bed 03-Partial/moderate assistance D. Sit to stand 03-Partial/moderate assistance E. Chair/zfx-vc-jfhuc transfer 03-Partial/moderate assistance F. Toilet transfer 03-Partial/moderate assistance G. Car transfer 88-Not attempted due to medical condition or safety concerns I. Walk 10 feet 03-Partial/moderate assistance J. Walk 50 feet with two turns 03-Partial/moderate assistance K. Walk 150 feet 88-Not attempted due to medical condition or safety concerns L. Walking 10 feet on uneven surfaces 88-Not attempted due to medical condition or safety concerns M. 1 step (curb) 88-Not attempted due to medical condition or safety concerns N. 4 steps 88-Not attempted due to medical condition or safety concerns O. 12 steps 88-Not attempted due to medical condition or safety concerns P. Picking up object 88-Not attempted due to medical condition or safety concerns R. Wheel 50 feet with two turns 88-Not attempted due to medical condition or safety concerns S. Wheel 150 feet 88-Not attempted due to medical condition or safety concerns - Bladder and Bowel Bladder continence Bowel continence - Endurance Fair - Balance Fair - Safety Awareness Fair CURRENT [facility]. DEFICITS: Self-Care, Mobility, Endurance, Balance, and Safety Awareness SIGNATURE PANEL: (CDT)
--- NOTE | 2021-05-05 20:53 | P.PN ---
Subjective Date of Service: 05/05/21 Chief Complaint: SP BRAIN SURGERY Subjective: Improving IS LOT LESS ANXIOUS TODAY. 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 HE HAS HAD IVC FILTER IN THE PAST AND SO ON ANTICOAGUALATION FOR CUSTODIAL. HE WAS ON LOVENOX BID WHEN HE CAME AND I CHANGED TO ELIQUIS BID. THIS WILL BE BETTER IF HE CAN AFFORD IT. HE IS LOT CALMER, HAPPIER, STILL NOT ABLE TO COMMUNICATE WELL WITH GLOBAL APHASIA FOR LONG DURATION. STABLE ,NO CHANGES. GENERALLY WEAK SINCE BRAIN SURGERY. STABLE. CAME AND REFUSES FOR HIM TO GET ZOLOFT. IT IS FOR ANXIETY AND POSSIBLE DEP RESSION. HE IS APHASIC, HE WAS CRYING FOR FIRST TWO DAYS HERE. HE GETS FRUSTRATED HE IS NOT ABLE TO COMMUNICATE. TODAY AGREED FO RME TO GIVE HIM ZOLOFT IT IS NOT ADDICTIVE. HE IS CRYIN G AGAIN TODAY. VERY ANXIOUS AND MISSES HOME. HE IS STABLE. HE IS LESS ANXIOUS TODAY. COMFORTABLE TODAY. STABLE, LOT BETTER. ANXIETY IS IMPROVED. Physical Examination - Vital Signs Temperature: 97.6 F Blood Pressure: 109/58 Pulse: 71 Respirations: 18 Pulse Ox (%): 96 - Physical Exam General: Alert, Mild distress Neck: JVD not distended Respiratory: Clear to auscultation bilaterally Cardiovascular: Normal S1 S2 Neurological: Abnormal speech, Abnormal strength - Studies Medications List Reviewed: Yes Assessment And Plan - Current Problems (Diagnosis) (1) Pulmonary emboli Current Visit: Yes Status: Acute Plan: HISTORY. START ELIQUIS BID. STOP LOVENOX. Qualifiers: Pulmonary embolism type: saddle (2) Hypertension Current Visit: No Status: Acute (3) Meningioma Current Visit: No Status: Chronic Plan: RECURRENCE AND SURGERY DONE AGAIN DETAILS PER [facility] RECORDS. REMOVE LONDONO START PT. CONT PT. I CALLED [facility] WITH NO RESPONSE DR GRISSOM IS OUT OF TOWN. (4) Anxiety disorder Current Visit: Yes Status: Chronic Plan: HE IS ALWAYS EDGY AND ANXIOUS MORE EVIDENT NOW IN HOSPITAL ZOLOFT BID SHOULD HELP. (5) Urinary retention Current Visit: Yes Status: Acute Plan: MORE SINCE SURGERY . FLOMAX AND FINESTRIDE. CONSULT UROLOGIST.
[2021-05-05] MEDS: MELATONIN 3 MG TABLET PO PRN (21:36)
[2021-05-05] MEDS: ROSUVASTATIN 10 MG TAB PO SCH (21:36)
[2021-05-05] MEDS: carBAMazepine 200 MG TAB PO SCH (21:37)
[2021-05-06 06:38] LABS: Absolute Lymphocytes (CBC) 1.1 K/uL (0.7-4.9); Basophils % 1.3 % (0-1.3); Hematocrit 35.2 % (39.6-49.0); Lymphocytes % 25.8 % (15.3-44.8); MPV 8.6 fL (7.6-11.3); RBC Red Blood Cell Count 3.83 M/uL (4.33-5.43)
[2021-05-06 06:57] LABS: Albumin 3.2 g/dL (3.4-5.0); Magnesium 2.1 mg/dL (1.8-2.4); Potassium 4.1 mmol/L (3.5-5.1); Prealbumin 25.6 mg/dL (20-40)
[2021-05-06] MEDS: APIXABAN 5 MG TABLET PO SCH ×2 (08:11→20:34)
[2021-05-06] MEDS: SERTRALINE HCL 50 MG TAB PO SCH ×2 (08:11→20:34)
[2021-05-06] MEDS: MEMANTINE HCL 10 MG TABLET PO SCH (08:14)
[2021-05-06] MEDS: TAMSULOSIN 0.4 MG SR CAP PO SCH ×2 (08:14→20:34)
[2021-05-06] MEDS: DOCUSATE NA 100 MG CAP PO SCH ×2 (08:14→20:34)
[2021-05-06] MEDS: levETIRAcetam 500 MG TAB PO SCH ×2 (08:14→20:34)
[2021-05-06] MEDS: FINASTERIDE 5 MG TAB PO SCH (08:15)
[2021-05-06] MEDS: AMIODARONE HCL 200 MG TAB PO SCH (08:15)
[2021-05-06] MEDS: METOPROLOL TAR 50 MG TAB PO SCH ×2 (08:15→20:33)
[2021-05-06] MEDS: NYSTATIN PWDR 100000 UNIT/GM TOP SCH ×2 (08:16→20:35)
[2021-05-06] MEDS: TRAMADOL HCL 50 MG TAB PO PRN ×2 (08:20→17:21)
--- NOTE | 2021-05-06 10:33 | RAD REPORT ---
EXAM DESCRIPTION: CT - Head Brain Wo Cont - 05/06/2021 9:28 am CLINICAL HISTORY: increase headache, history metastatic carcinoma with brain tumor removal COMPARISON: Head Brain W/Wo Con dated 02/03/2021 TECHNIQUE: Axial 5 mm thick images of the head were obtained without IV contrast. All CT scans are performed using dose optimization technique as appropriate and may include automated exposure control or mA/KV adjustment according to patient size. FINDINGS: No acute intracranial hemorrhage. Craniotomy changes are present in the left occipital bon e region with craniectomy and reconstruction changes seen in the left temporoparietal bone region. No suspicious skull findings. There is underlying dural thickening. A large CSF collection is present i n the left temporal lobe extending into the lower left parietal lobe. There is additional area of pos tsurgical change and encephalomalacia in the left posterior fossa. Numerous surgical clips. Mass has been removed since the January study. Shunt tube is in place from a posterolateral right approach with the tip in the left lateral ventricle. 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 Midline shif t of approximately 2 mm is present. An acute cortical infarction is not identified. Ventricles are no rmal. Mastoid air cells and visualized portions of the paranasal sinuses are clear. IMPRESSION: Extensive intracranial postsurgical change as detailed. No intracranial hemorrhage or ot her acute intracranial finding seen. Residual or recurrent mass is not identified. Current findings on this noncontrast study are as expec juan for the surgical procedures performed. Right-sided shunt tube is well positioned. No ventriculomegaly.
[2021-05-06] MEDS: ACETAMINOPHEN 500 MG TAB PO PRN ×2 (11:10→20:35)
[2021-05-06] MEDS ORDERED: DOCUSATE NA/SENNA CONC 1 TAB PO PRN (15:07)
--- NOTE | 2021-05-06 17:32 | R.PN ---
PROGRESS NOTES ENCOUNTER DATE AND TIME: 05/06/2021 17:26 (CDT) NAME REMA AMAYA DATE OF : 1950 DATE OF ADMISSION: 04/26/2021 19:31 (CDT) ACUTE EXTENSIVE RLE DVT-CHIEF COMPLAINT: Right lower extremity DVT. SUBJECTIVE: Pt denied any depression. Pt denied any Shortness of Breath. WBC 4.4, Hgb 11.6, Plt 221, prealbumin 25.6, glucose 99. Ambulated 595' with contact guard assistance using a rolling walker. Up and down [address] guard assistance. Urology is following the patient for urinary retention. Will do bladder training. VITAL SIGNS Temperature: 98.0 F Pulse: 81 Resp: 16 SBP/DBP: 142/72 MEDICATION ALLERGIES: No Known Drug Allergies (NKDA) ENVIRONMENTAL ALLERGIES: - Substance Allergies None Known - Other Allergies None Known NURSING: - Shower allowing shower - Bladder care per protocol - Skin care per protocol ACTIVITIES OOB only with supervision THERAPIES: - Occupational Therapy Cognitive Retraining. Visual Perceptual Training. - Dietary and Nutrition Adequate Nutrition. Nutritional Education. Nutritional Supplements. - Speech Therapy Cognitive Training. Expressive Language Skills. Memory Strategies. Receptive Language Skills. Speech Intelligibility Training. PHYSICAL EXAM - Gen Alert and awake Lying in bed No apparent distress Oriented to: person, time, and place - Skin No skin breakdown. Normacephalic - Eyes No abnormalities - ENMT No abnormalities - Neck No abnormalities - CVS RRR - Chest No abnormalities - Resp Clear to auscultation - Abd + bowel sounds - GI Soft Deferred - Cobb catheter - Ext Moderate right lower extremity edema. - MSK 4+/5 weakness in right lower extremity - Neuro 4/5 strength right lower extremity - Psych No abnormalities ASSESSMENT: Pt. is a 70 yo Right-handed male.On 04/12/2021 he was admitted to [facility] with diagnosis ACU TE EXTENSIVE RLE DVT-.His impairment category is Stroke 01 - Other Stroke (01.9).Pre-morbidly, Pt. w as independent/mod-I in Locomotion, Social Cognition, Balance, Safety Awareness, Communication, and E ndurance; and he had good Self-Care.Currently, he has deficits of Locomotion, Safety Awareness, Trans fers Control, Sphincter Control, Communication, and Self-Care.Pt. is now referred to [facility] for acute in-patient rehabilitation in order to maximize patient's functional indep endence in activities of daily living, strength, ROM, and mobility.- Rehab Goal Patient has realistic goal of being discharged at assistance level 7-Ind to reside at Home with Fami ly/Relatives. MDM/PLAN: - Physical Therapy Gait dysfunction - to improve, our physical therapists will perform initial evaluation of pt's statu s upon admission and devise an individualized program for Gait Training, and Wheel Chair mobility Inability to transfer - to improve, our physical therapists will perform initial evaluation of pt's status upon admission and devise an individualized program for Bed mobility Need for home safety evaluation - to improve, our physical therapists will perform initial evaluatio n of pt's status upon admission and devise an individualized program for Home Evaluation Need in caregiver upon discharge - to improve, our physical therapists will perform initial evaluati on of pt's status upon admission and devise an individualized program for Caregiver Training Edema - to improve, our physical therapists will perform initial evaluation of pt's status upon admi ssion and devise an individualized program for Elevation Training, and Lymphedema Therapy New precaution - to improve, our physical therapists will perform initial evaluation of pt's status upon admission and devise an individualized program for Patient precaution education Weakness - to improve, our physical therapists will perform initial evaluation of pt's status upon a dmission and devise an individualized program for Aquatic Therapy, Neuromuscular Reeducation, and Str engthening Achieving independence - to improve, our physical therapists will perform initial evaluation of pt's status upon admission and devise an individualized program for Community Reintegration Activities - Occupational Therapy ADL deficits - to improve, our occupation therapists will perform initial evaluation of pt's status upon admission and devise an individualized program for Bathing, Bed mobility, Community Reintegratio n, Cooking, Dressing, Eating, Fine Motor Skills, Grooming, Homemaking, Kitchen Mobility, Laundry, Pat ient Education, Safety Awareness, Splinting - Positioning, Transfers(Toilet, Tub, Shower), and Wheel Chair Management Need for palliative care physician - to improve, our occupation therapists will perform initial evaluation of pt's status upon admission and devise an individualized program for Caregiver Training Weakness - to improve, our occupation therapists will perform initial evaluation of pt's status upon admission and devise an individualized program for Aquatic Therapy, Balance, Endurance, UE ROM, and UE strengthening - Other See attached MAR (Medication Administration Record) - Diet Type Continue Regular - Diet - Liquid Texture Continue Regular - Tube Feed Continue N/A - Bladder care per protocol - Skin care per protocol - Diet - Solid Texture Continue Regular - Shower allowing shower for Dementia, TBI, Stroke, or others FUNCTIONAL STATUS: UPDATED AT WEEKLY TEAM CONFERENCE - Bladder Same accident frequency: 7-Ind - No accidents in the past 7 days - Bowel Same accident frequency: 7-Ind - No accidents in the past 7 days - Walking Same score based on distance walked: 0(N/A) Same score based on distance walked: 2(50-149ft) - Wheelchair Same score based on distance traveled: 0(N/A) FUNCTIONAL STATUS: - Self-Care A. Eating Ind B. Grooming Campbell C. Bathing modA D. Dressing - Upper Pippa E. Dressing - Lower sup F. Toileting sup - Sphincter Control G. Bladder control Dep H. Bowel control Pippa - Transfers Control I. Bed/Chair/Wheelchair modA J. Toilet sup K. Tub/Shower modA - Locomotion L. Walk/Wheelchair (B) Pippa M. Stairs ADNO - Communication N. Comprehension (B) Campbell O. Expression (B) Campbell - Social Cognition P. Social Interaction Campbell Q. Problem Solving Campbell R. Memory Campbell - Endurance Poor - Balance Fair - Safety Awareness Fair QI SCORES: - Self-Care A. Eating 04-Supervision or touching assistance B. Oral hygiene 03-Partial/moderate assistance C. Toileting hygiene 03-Partial/moderate assistance E. Shower/bathe self 03-Partial/moderate assistance F. Upper body dressing 03-Partial/moderate assistance G. Lower body dressing 03-Partial/moderate assistance H. Putting on/taking off footwear 88-Not attempted due to medical condition or safety concerns - Mobility A. Roll left and right 03-Partial/moderate assistance B. Sit to lying 03-Partial/moderate assistance C. Lying to sitting on side of bed 03-Partial/moderate assistance D. Sit to stand 03-Partial/moderate assistance E. Chair/[id number]-gs-ezpow transfer 03-Partial/moderate assistance F. Toilet transfer 03-Partial/moderate assistance G. Car transfer 88-Not attempted due to medical condition or safety concerns I. Walk 10 feet 03-Partial/moderate assistance J. Walk 50 feet with two turns 03-Partial/moderate assistance K. Walk 150 feet 88-Not attempted due to medical condition or safety concerns L. Walking 10 feet on uneven surfaces 88-Not attempted due to medical condition or safety concerns M. 1 step (curb) 88-Not attempted due to medical condition or safety concerns N. 4 steps 88-Not attempted due to medical condition or safety concerns O. 12 steps 88-Not attempted due to medical condition or safety concerns P. Picking up object 88-Not attempted due to medical condition or safety concerns R. Wheel 50 feet with two turns 88-Not attempted due to medical condition or safety concerns S. Wheel 150 feet 88-Not attempted due to medical condition or safety concerns - Bladder and Bowel Bladder continence Bowel continence - Endurance Fair - Balance Fair - Safety Awareness Fair CURRENT [facility]. DEFICITS: Self-Care, Mobility, Endurance, Balance, and Safety Awareness SIGNATURE PANEL: (CDT)
[2021-05-06] MEDS: MELATONIN 3 MG TABLET PO PRN (20:33)
[2021-05-06] MEDS: ROSUVASTATIN 10 MG TAB PO SCH (20:33)
[2021-05-06] MEDS: CRANBERRY FRUIT EXTRACT 200 MG CAP PO SCH (20:34)
[2021-05-06] MEDS: carBAMazepine 200 MG TAB PO SCH (20:35)
--- NOTE | 2021-05-06 21:49 | P.PN ---
Subjective Date of Service: 05/06/21 Chief Complaint: HEADACHES TODAY Subjective: Improving IS LOT LESS ANXIOUS TODAY. 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 HE HAS HAD IVC FILTER IN THE PAST AND SO ON ANTICOAGUALATION FOR LONG-TERM. HE WAS ON LOVENOX BID WHEN HE CAME AND I CHANGED TO ELIQUIS BID. THIS WILL BE BETTER IF HE CAN AFFORD IT. HE IS LOT CALMER, HAPPIER, STILL NOT ABLE TO COMMUNICATE WELL WITH GLOBAL APHASIA FOR LONG DURATION. STABLE ,NO CHANGES. GENERALLY WEAK SINCE BRAIN SURGERY. STABLE. CAME AND REFUSES FOR HIM TO GET ZOLOFT. IT IS FOR ANXIETY AND POSSIBLE DEPRESSION. HE IS APHASIC, HE WAS CRYING FOR FIRST TWO DAYS HERE. HE GETS FRUSTRATED HE IS NOT ABLE TO COMMUNICATE. TODAY AGREED FO RME TO GIVE HIM ZOLOFT IT IS NOT ADDICTIVE. HE IS CRYING AGAIN TODAY. VERY ANXIOUS AND MISSES HOME. HE IS STABLE. HE IS LESS ANXIOUS TODAY. COMFORTABLE TODAY. STABLE, LOT BETTER. ANXIETY IS IMPROVED. MR AMAYA HAS HEADACHES AND NO OTHER SYMPTOMS. Physical Examination - Vital Signs Temperature: 98.0 F Blood Pressure: 113/65 Pulse: 69 Respirations: 18 Pulse Ox (%): 98 - Physical Exam General: Alert, In no apparent distress, Oriented x2, Mild distress HEENT: Atraumatic, PERRLA, EOMI Neck: Supple, JVD not distended Respiratory: Clear to auscultation bilaterally, Normal air movement Cardiovascular: Regular rate/rhythm, Normal S1 S2 Gastrointestinal: Normal bowel sounds, No tenderness Musculoskeletal: No tenderness Integumentary: No rashes Neurological: Abnormal speech, Abnormal strength Lymphatics: No axilla or inguinal lymphadenopathy - Studies Laboratory Data (last 24 hrs) 05/06/21 06:20: Sodium 143, Potassium 4.1, BUN 11, Creatinine 0.87, Glucose 99, Magnesium 2.1 05/06/21 06:20: WBC 4.40 D, Hgb 11.6 L, Hct 35.2 L, Plt Count 221 Medications List Reviewed: Yes Assessment And Plan - Current Problems (Diagnosis) (1) Pulmonary emboli Current Visit: Yes Status: Acute Plan: HISTORY. START ELIQUIS BID. STOP LOVENOX. Qualifiers: Pulmonary embolism type: saddle (2) Hypertension Current Visit: No Status: Acute (3) Meningioma Current Visit: No Status: Chronic Plan: RECURRENCE AND SURGERY DONE AGAIN DETAILS PER [facility] RECORDS. REMOVE LONDONO START PT. CONT PT. I CALLED [facility] WITH NO RESPONSE DR GRISSOM IS OUT OF TOWN. (4) Anxiety disorder Current Visit: Yes Status: Chronic Plan: HE IS ALWAYS EDGY AND ANXIOUS MORE EVIDENT NOW IN HOSPITAL ZOLOFT BID SHOULD HELP. (5) Urinary retention Current Visit: Yes Status: Acute Plan: MORE SINCE SURGERY . FLOMAX AND FINESTRIDE. CONSULT UROLOGIST. (6) Headache Current Visit: Yes Status: Acute Plan: CT BRAIN NEG FOR ANY NEW FINDINGS. DR. CASEY CALLED FOR HEADACHES.
[2021-05-07] MEDS: ACETAMINOPHEN 500 MG TAB PO PRN ×3 (03:27→20:09)
[2021-05-07] MEDS: CRANBERRY FRUIT EXTRACT 200 MG CAP PO SCH ×2 (07:56→20:04)
[2021-05-07] MEDS: DOCUSATE NA 100 MG CAP PO SCH ×2 (07:56→20:04)
[2021-05-07] MEDS: TRAMADOL HCL 50 MG TAB PO PRN (07:56)
[2021-05-07] MEDS: AMIODARONE HCL 200 MG TAB PO SCH (07:57)
[2021-05-07] MEDS: MEMANTINE HCL 10 MG TABLET PO SCH (07:57)
[2021-05-07] MEDS: TAMSULOSIN 0.4 MG SR CAP PO SCH ×2 (07:57→20:05)
[2021-05-07] MEDS: levETIRAcetam 500 MG TAB PO SCH ×2 (07:58→20:05)
[2021-05-07] MEDS: METOPROLOL TAR 50 MG TAB PO SCH ×2 (07:58→20:00)
[2021-05-07] MEDS: SERTRALINE HCL 50 MG TAB PO SCH ×2 (07:58→20:06)
[2021-05-07] MEDS: APIXABAN 5 MG TABLET PO SCH ×2 (07:59→20:05)
[2021-05-07] MEDS: FINASTERIDE 5 MG TAB PO SCH (07:59)
[2021-05-07] MEDS: NYSTATIN PWDR 100000 UNIT/GM TOP SCH ×2 (08:54→20:06)
[2021-05-07] MEDS: carBAMazepine 200 MG TAB PO SCH ×2 (09:47→20:09)
--- NOTE | 2021-05-07 09:54 | P.RH.PN ---
Estimated Length of Stay: 20 Expected Discharge Date: 05/15/21 Discharge Disposition Plan: Home Family Support: Yes Assisted Goal: Mobility, Transfers, Self Care Vital Signs: Last Vital Signs Temp 98.9 F 05/07/21 07:27 Pulse 72 05/07/21 07:58 Resp 18 05/07/21 08:41 BP 120/69 05/07/21 07:58 Pulse Ox 96 05/07/21 08:41 Laboratory: Laboratory Last Values WBC 4.40 K/uL (4.3-10.9) D 05/06/21 06:20 RBC 3.83 M/uL (4.33-5.43) L 05/06/21 06:20 Hgb 11.6 g/dL (13.6-17.9) L 05/06/21 06:20 Hct 35.2 % (39.6-49.0) L 05/06/21 06:20 MCV 91.8 fL (80-100) 05/06/21 06:20 MCH 30.3 pg (27.0-35.0) 05/06/21 06:20 MCHC 33.0 g/dL (32.0-36.0) 05/06/21 06:20 RDW 14.8 % (12.1-15.2) 05/06/21 06:20 Plt Count 221 K/uL (152-406) 05/06/21 06:20 MPV 8.6 fL (7.6-11.3) 05/06/21 06:20 Plt Distribution Width Cancelled 04/27/21 05:00 Absolute Nucleated RBC Cancelled 04/27/21 05:00 Neutrophils % 60.5 % (41.7-73.7) 05/06/21 06:20 Lymphocytes % 25.8 % (15.3-44.8) 05/06/21 06:20 Monocytes % 8.3 % (3.3-12.3) 05/06/21 06:20 Eosinophils % 4.1 % (0-4.4) 05/06/21 06:20 Basophils % 1.3 % (0-1.3) 05/06/21 06:20 Nucleated RBC % Cancelled 04/27/21 05:00 Absolute Neutrophils 2.7 K/uL (1.8-8.0) 05/06/21 06:20 Absolute Lymphocytes 1.1 K/uL (0.7-4.9) 05/06/21 06:20 Absolute Monocytes 0.4 K/uL (0.1-1.3) 05/06/21 06:20 Absolute Eosinophils 0.2 K/uL (0-0.5) 05/06/21 06:20 Absolute Basophils 0.1 K/uL (0-0.5) 05/06/21 06:20 Diff Path Review Cancelled 04/27/21 05:00 PT 12.6 SECONDS (9.5-12.5) H 04/27/21 08:37 INR 1.09 04/27/21 08:37 Sodium 143 mmol/L (136-145) 05/06/21 06:20 Potassium 4.1 mmol/L (3.5-5.1) 05/06/21 06:20 Chloride 111 mmol/L (98-107) H 05/06/21 06:20 Carbon Dioxide 29 mmol/L (21-32) 05/06/21 06:20 BUN 11 mg/dL (7-18) 05/06/21 06:20 Creatinine 0.87 mg/dL (0.55-1.3) 05/06/21 06:20 Estimated GFR 87 mL/min (=/>90) L 05/06/21 06:20 Glucose 99 mg/dL (74-106) 05/06/21 06:20 Calcium 8.5 mg/dL (8.5-10.1) 05/06/21 06:20 Magnesium 2.1 mg/dL (1.8-2.4) 05/06/21 06:20 Albumin 3.2 g/dL (3.4-5.0) L 05/06/21 06:20 Prealbumin 25.6 mg/dL (20-40) 05/06/21 06:20 Urine Color Yellow (Yellow) 04/26/21 22:06 Urine Appearance Clear (Clear) 04/26/21 22:06 Urine pH 5.5 (5.0-7.0) 04/26/21 22:06 Ur Specific Crawford 1.020 (1.005-1.030) 04/26/21 22:06 Glucose (UA)(Auto) Negative (Negative) 04/26/21 22:06 Urine Ketones Trace (Negative) H 04/26/21 22:06 Urine Blood Negative (Negative) 04/26/21 22:06 Urine Nitrite Negative (Negative) 04/26/21 22:06 Urine Bilirubin Negative (Negative) 04/26/21 22:06 Urine Urobilinogen 1.0 mg/dL (0.2-1.0) 04/26/21 22:06 Ur Leukocyte Esterase 1+ (Negative) H 04/26/21 22:06 Urine RBC <5 /HPF (NONE SEEN) 04/26/21 22:06 Urine WBC 5-10 /HPF (<5) H 04/26/21 22:06 Ur Squamous Epith Cells TUBE MACHINE OPERATOR 04/26/21 22:06 Ur Urothelial Cells <5 /HPF (NONE SEEN) 04/26/21 22:06 Urine Bacteria <20 /HPF (NONE SEEN) 04/26/21 22:06 Urine Culture Reflexed Not needed 04/26/21 22:06 Urine Total Protein Negative (Negative) 04/26/21 22:06 Weight: 204 lb 1.6 oz Wound Present: No Closed Surgical Incision Present: Yes Negative Pressure Wound Therapy Present: No Physician Update: Labs reviewed and are stable. He needs minimum assistance to stand. He is doing well controlling the left arm but is mildly limited by shoulder pain. He walks 200', up and down 15 steps with contact guard assistance. His gait is more steady. Summary: Patient's care plan and fpc goals have been reviewed and revised as necessary. Please see the Rehabilitation Signature page for all necessary signatures.
[2021-05-07] MEDS ORDERED: MAGNESIUM CITRATE 300 ML BOT PO SCH (14:00)
--- NOTE | 2021-05-07 19:58 | P.PN ---
Subjective Date of Service: 05/07/21 Chief Complaint: HEADACHES TODAY Subjective: Improving IS LOT LESS ANXIOUS TODAY. 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 HE HAS HAD IVC FILTER IN THE PAST AND SO ON ANTICOAGUALATION FOR NURSING HOME. HE WAS ON LOVENOX BID WHEN HE CAME AND I CHANGED TO ELIQUIS BID. THIS WILL BE BETTER IF HE CAN AFFORD IT. HE IS LOT CALMER, HAPPIER, STILL NOT ABLE TO COMMUNICATE WELL WITH GLOBAL APHASIA FOR LONG DURATION. STABLE ,NO CHANGES. GENERALLY WEAK SINCE BRAIN SURGERY. STABLE. CAME AND REFUSES FOR HIM TO GET ZOLOFT. IT IS FOR ANXIETY AND POSSIBLE DEPRESSION. HE IS APHASIC, HE WAS CRYING FOR FIRST TWO DAYS HERE. HE GETS FRUSTRATED HE IS NOT ABLE TO COMMUNICATE. TODAY AGREED FO RME TO GIVE HIM ZOLOFT IT IS NOT ADDICTIVE. HE IS CRYING AGAIN TODAY. VERY ANXIOUS AND MISSES HOME. HE IS STABLE. HE IS LESS ANXIOUS TODAY. COMFORTABLE TODAY. STABLE, LOT BETTER. ANXIETY IS IMPROVED. MR AMAYA HAS HEADACHES AND NO OTHER SYMPTOMS. HIS MEMORY LOSS IS EVIDENT WHEN YOU CAN UNDERSTAND HIM. HE TELLS EVERYDAY THAT HE IS SEEING ME AFTER A LONG TIME. Physical Examination - Vital Signs Temperature: 97.4 F Blood Pressure: 114/65 Pulse: 68 Respirations: 18 Pulse Ox (%): 96 - Physical Exam General: Oriented x2, Mild distress HEENT: Atraumatic, PERRLA, EOMI Neck: Supple, JVD not distended Respiratory: Clear to auscultation bilaterally, Normal air movement Cardiovascular: Regular rate/rhythm, Normal S1 S2 Gastrointestinal: Normal bowel sounds, No tenderness Musculoskeletal: No tenderness Integumentary: No rashes Neurological: Normal speech, Normal tone, Normal affect Lymphatics: No axilla or inguinal lymphadenopathy - Studies Medications List Reviewed: Yes Assessment And Plan - Current Problems (Diagnosis) (1) Pulmonary emboli Current Visit: Yes Status: Acute Plan: HISTORY. START ELIQUIS BID. STOP LOVENOX. Qualifiers: Pulmonary embolism type: saddle (2) Hypertension Current Visit: No Status: Acute (3) Meningioma Current Visit: No Status: Chronic Plan: RECURRENCE AND SURGERY DONE AGAIN DETAILS PER [facility]. REMOVE LONDONO START PT. CONT PT. I CALLED [facility] WITH NO RESPONSE DR GRISSOM IS OUT OF TOWN. (4) Anxiety disorder Current Visit: Yes Status: Chronic Plan: HE IS ALWAYS EDGY AND ANXIOUS MORE EVIDENT NOW IN HOSPITAL ZOLOFT BID SHOULD HELP. (5) Urinary retention Current Visit: Yes Status: Acute Plan: MORE SINCE SURGERY . FLOMAX AND FINESTRIDE. CONSULT UROLOGIST. (6) Headache Current Visit: Yes Status: Acute Plan: CT BRAIN NEG FOR ANY NEW FINDINGS. DR. CASEY CALLED FOR HEADACHES. (7) Postoperative memory impairment Current Visit: Yes Status: Acute Plan: MAINLY MAJOR PART OF HIS BRAIN IS MISSING SURGICALLY. START MEMENATINE DAILY AND THEN BID. PER DR. CASEY. Qualifiers: Encounter type: initial encounter Qualified Code(s): T81.89XA - Other complications of procedures, not elsewhere classified, initial encounter; R41.3 - Other amnesia
[2021-05-07] MEDS: ROSUVASTATIN 10 MG TAB PO SCH (20:07)
[2021-05-07] MEDS: MELATONIN 3 MG TABLET PO PRN (20:07)
[2021-05-08] MEDS: TRAZODONE 50 MG TABLET PO PRN (00:11)
[2021-05-08] MEDS: ACETAMINOPHEN 500 MG TAB PO PRN ×3 (04:03→18:12)
[2021-05-08] MEDS: POLYETHYL GLY 3350 17 GM/DOSE PO PRN (06:53)
[2021-05-08] MEDS: DOCUSATE NA 100 MG CAP PO SCH ×2 (06:53→19:50)
[2021-05-08] MEDS: NYSTATIN PWDR 100000 UNIT/GM TOP SCH ×2 (06:56→19:51)
[2021-05-08] MEDS: TRAMADOL HCL 50 MG TAB PO PRN ×2 (08:09→19:05)
[2021-05-08] MEDS: CRANBERRY FRUIT EXTRACT 200 MG CAP PO SCH ×2 (08:11→19:49)
[2021-05-08] MEDS: FINASTERIDE 5 MG TAB PO SCH (08:11)
[2021-05-08] MEDS: MEMANTINE HCL 10 MG TABLET PO SCH (08:11)
[2021-05-08] MEDS: carBAMazepine 200 MG TAB PO SCH ×2 (08:11→19:49)
[2021-05-08] MEDS: TAMSULOSIN 0.4 MG SR CAP PO SCH ×2 (08:11→19:49)
[2021-05-08] MEDS: levETIRAcetam 500 MG TAB PO SCH ×2 (08:12→19:51)
[2021-05-08] MEDS: SERTRALINE HCL 50 MG TAB PO SCH ×2 (08:12→19:49)
[2021-05-08] MEDS: METOPROLOL TAR 50 MG TAB PO SCH ×2 (08:12→19:50)
[2021-05-08] MEDS: AMIODARONE HCL 200 MG TAB PO SCH (08:13)
[2021-05-08] MEDS: APIXABAN 5 MG TABLET PO SCH (08:13)
[2021-05-08] MEDS: ROSUVASTATIN 10 MG TAB PO SCH (19:49)
[2021-05-08] MEDS: MELATONIN 3 MG TABLET PO PRN (19:50)
[2021-05-09 06:32] LABS: Hematocrit 37.6 % (39.6-49.0)
[2021-05-09] MEDS: NYSTATIN PWDR 100000 UNIT/GM TOP SCH ×2 (06:54→19:19)
[2021-05-09] MEDS: TRAMADOL HCL 50 MG TAB PO PRN ×2 (07:16→19:17)
[2021-05-09] MEDS: FINASTERIDE 5 MG TAB PO SCH (07:45)
[2021-05-09] MEDS: TAMSULOSIN 0.4 MG SR CAP PO SCH ×2 (07:45→19:17)
[2021-05-09] MEDS: SERTRALINE HCL 50 MG TAB PO SCH ×2 (07:46→19:17)
[2021-05-09] MEDS: MEMANTINE HCL 10 MG TABLET PO SCH (07:46)
[2021-05-09] MEDS: carBAMazepine 200 MG TAB PO SCH ×2 (07:46→19:17)
[2021-05-09] MEDS: levETIRAcetam 500 MG TAB PO SCH ×2 (07:46→19:18)
[2021-05-09] MEDS: ASPIRIN EC 81 MG TAB PO SCH (07:46)
[2021-05-09] MEDS: CRANBERRY FRUIT EXTRACT 200 MG CAP PO SCH ×2 (07:47→19:18)
[2021-05-09] MEDS: DOCUSATE NA 100 MG CAP PO SCH ×2 (07:47→19:18)
[2021-05-09] MEDS: AMIODARONE HCL 200 MG TAB PO SCH (07:47)
[2021-05-09] MEDS: METOPROLOL TAR 50 MG TAB PO SCH ×2 (07:48→20:00)
--- NOTE | 2021-05-09 11:00 | P.PN ---
Subjective Date of Service: 05/09/21 Chief Complaint: HEADACHES TODAY Subjective: Improving IS LOT LESS ANXIOUS TODAY. 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 HE HAS HAD IVC FILTER IN THE PAST AND SO ON ANTICOAGUALATION FOR [facility]. HE WAS ON LOVENOX BID WHEN HE CAME AND I CHANGED TO ELIQUIS BID. THIS WILL BE BETTER IF HE CAN AFFORD IT. HE IS LOT CALMER, HAPPIER, STILL NOT ABLE TO COMMUNICATE WELL WITH GLOBAL APHASIA FOR LONG DURATION. STABLE ,NO CHANGES. GENERALLY WEAK SINCE BRAIN SURGERY. STABLE. CAME AND REFUSES FOR HIM TO GET ZOLOFT. IT IS FOR ANXIETY AND POSSIBLE DEPRESSION. HE IS APHASIC, HE WAS CRYING FOR FIRST TWO DAYS HERE. HE GETS FRUSTRATED HE IS NOT ABLE TO COMMUNICATE. TODAY AGREED FO RME TO GIVE HIM ZOLOFT IT IS NOT ADDICTIVE. HE IS CRYING AGAIN TODAY. VERY ANXIOUS AND MISSES HOME. HE IS STABLE. HE IS LESS ANXIOUS TODAY. COMFORTABLE TODAY. STABLE, LOT BETTER. ANXIETY IS IMPROVED. MR AMAYA HAS HEADACHES AND NO OTHER SYMPTOMS. HIS MEMORY LOSS IS EVIDENT WHEN YOU CAN UNDERSTAND HIM. HE TELLS EVERYDAY THAT HE IS SEEING ME AFTER A LONG TIME. HIS ANXIETY AND MEMORY ARE LOT BETTER. HE HAD HEMATURIA YESTERDAY. WE ARE WAITING FOR UROLOGIST. Review of Systems 10-point ROS is otherwise unremarkable General: Weakness Neurological: Weakness, As per HPI Physical Examination - Vital Signs Temperature: 97.9 F Blood Pressure: 119/68 Pulse: 68 Respirations: 18 Pulse Ox (%): 96 - Physical Exam General: Oriented x2, Mild distress HEENT: Atraumatic, PERRLA, EOMI Neck: Supple, JVD not distended Respiratory: Clear to auscultation bilaterally, Normal air movement Cardiovascular: Regular rate/rhythm, Normal S1 S2 Gastrointestinal: Normal bowel sounds, No tenderness Musculoskeletal: No tenderness Integumentary: No rashes Neurological: Normal speech, Normal tone, Normal affect Lymphatics: No axilla or inguinal lymphadenopathy - Studies Laboratory Data (last 24 hrs) 05/09/21 06:24: Hgb 12.2 L, Hct 37.6 L Medications List Reviewed: Yes Assessment And Plan - Current Problems (Diagnosis) (1) Pulmonary emboli Current Visit: Yes Status: Acute Plan: HISTORY. START ELIQUIS BID. STOP LOVENOX. Qualifiers: Pulmonary embolism type: saddle (2) Hypertension Current Visit: No Status: Acute (3) Meningioma Current Visit: No Status: Chronic Plan: RECURRENCE AND SURGERY DONE AGAIN DETAILS PER [facility]. REMOVE LONDONO START PT. CONT PT. I CALLED [facility] WITH NO RESPONSE DR GRISSOM IS OUT OF TOWN. (4) Anxiety disorder Current Visit: Yes Status: Chronic Plan: HE IS ALWAYS EDGY AND ANXIOUS MORE EVIDENT NOW IN HOSPITAL ZOLOFT BID SHOULD HELP. (5) Urinary retention Current Visit: Yes Status: Acute Plan: MORE SINCE SURGERY . FLOMAX AND FINESTRIDE. CONSULT UROLOGIST. (6) Headache Current Visit: Yes Status: Acute Plan: CT BRAIN NEG FOR ANY NEW FINDINGS. DR. CASEY CALLED FOR HEADACHES. (7) Postoperative memory impairment Current Visit: Yes Status: Acute Plan: MAINLY MAJOR PART OF HIS BRAIN IS MISSING SURGICALLY. START MEMENATINE DAILY AND THEN BID. PER DR. CASEY. Qualifiers: Encounter type: initial encounter Qualified Code(s): T81.89XA - Other complications of procedures, not elsewhere classified, initial encounter; R41.3 - Other amnesia (8) BPH (benign prostatic hyperplasia) Current Visit: Yes Status: Chronic Plan: CONT FLOMAX AND ADD AVODART OR PROSCAR. PSA DONE AT OFFICE. Qualifiers: Lower urinary tract symptom presence: symptoms present
[2021-05-09] MEDS: ACETAMINOPHEN 500 MG TAB PO PRN ×3 (12:01→21:12)
[2021-05-09] MEDS: TRAZODONE 50 MG TABLET PO PRN (19:18)
[2021-05-09] MEDS: ROSUVASTATIN 10 MG TAB PO SCH (19:18)
[2021-05-09] MEDS: MELATONIN 3 MG TABLET PO PRN (21:12)
[2021-05-10] MEDS: ACETAMINOPHEN 500 MG TAB PO PRN ×3 (03:16→19:31)
[2021-05-10] MEDS: DOCUSATE NA 100 MG CAP PO SCH ×2 (07:53→19:29)
[2021-05-10] MEDS: CRANBERRY FRUIT EXTRACT 200 MG CAP PO SCH ×2 (07:53→19:30)
[2021-05-10] MEDS: TAMSULOSIN 0.4 MG SR CAP PO SCH ×2 (07:53→19:31)
[2021-05-10] MEDS: AMIODARONE HCL 200 MG TAB PO SCH (07:54)
[2021-05-10] MEDS: SERTRALINE HCL 50 MG TAB PO SCH ×2 (07:54→19:30)
[2021-05-10] MEDS: levETIRAcetam 500 MG TAB PO SCH ×2 (07:54→19:31)
[2021-05-10] MEDS: ASPIRIN EC 81 MG TAB PO SCH (07:54)
[2021-05-10] MEDS: FINASTERIDE 5 MG TAB PO SCH (07:54)
[2021-05-10] MEDS: MEMANTINE HCL 10 MG TABLET PO SCH (07:55)
[2021-05-10] MEDS: METOPROLOL TAR 50 MG TAB PO SCH ×2 (07:55→19:29)
[2021-05-10] MEDS: carBAMazepine 200 MG TAB PO SCH ×2 (07:55→19:31)
[2021-05-10] MEDS: TRAMADOL HCL 50 MG TAB PO PRN ×2 (07:58→12:16)
[2021-05-10] MEDS: NYSTATIN PWDR 100000 UNIT/GM TOP SCH ×2 (07:59→19:32)
[2021-05-10] MEDS: APIXABAN 5 MG TABLET PO SCH (08:57)
--- NOTE | 2021-05-10 18:10 | R.PN ---
PROGRESS NOTES ENCOUNTER DATE AND TIME: 05/10/2021 18:06 (CDT) NAME REMA AMAYA DATE OF : 1950 DATE OF ADMISSION: 04/26/2021 19:31 (CDT) ACUTE EXTENSIVE RLE DVT-CHIEF COMPLAINT: Right lower extremity DVT. SUBJECTIVE: Pt denied any depression. Pt denied any Shortness of Breath. WBC 4.4, Hgb 12.2, Plt 221, prealbumin 25.6, glucose 99. Ambulated 500' with standby assistance using a rolling walker. Up and down 15 steps with contact gu vikash assistance. Improving bladder function. Voiding much better. No more blood in the urine after stopping Eliquis 2. 5 mg twice daily and treating with aspirin 81 mg daily. Will restart Eliquis 2.5 mg daily only. VITAL SIGNS Temperature: 98.0 F Pulse: 81 Resp: 16 SBP/DBP: 142/72 MEDICATION ALLERGIES: No Known Drug Allergies (NKDA) ENVIRONMENTAL ALLERGIES: - Substance Allergies None Known - Other Allergies None Known NURSING: - Shower allowing shower - Bladder care per protocol - Skin care per protocol ACTIVITIES OOB only with supervision THERAPIES: - Occupational Therapy Cognitive Retraining. Visual Perceptual Training. - Dietary and Nutrition Adequate Nutrition. Nutritional Education. Nutritional Supplements. - Speech Therapy Cognitive Training. Expressive Language Skills. Memory Strategies. Receptive Language Skills. Speech Intelligibility Training. PHYSICAL EXAM - Gen Alert and awake Lying in bed No apparent distress Oriented to: person, time, and place - Skin No skin breakdown. Normacephalic - Eyes No abnormalities - ENMT No abnormalities - Neck No abnormalities - CVS RRR - Chest No abnormalities - Resp Clear to auscultation - Abd + bowel sounds - GI Soft Deferred - Cobb catheter - Ext Moderate right lower extremity edema. - MSK 4+/5 weakness in right lower extremity - Neuro 4/5 strength right lower extremity - Psych No abnormalities ASSESSMENT: Pt. is a 70 yo Right-handed male.On 04/12/2021 he was admitted to [facility] with diagnosis ACU TE EXTENSIVE RLE DVT-.His impairment category is Stroke 01 - Other Stroke (11.07).Pre-morbidly, Pt. w as independent/mod-I in Locomotion, Social Cognition, Balance, Safety Awareness, Communication, and E ndurance; and he had good Self-Care.Currently, he has deficits of Locomotion, Safety Awareness, Trans fers Control, Sphincter Control, Communication, and Self-Care.Pt. is now referred to [facility] for acute in-patient rehabilitation in order to maximize patient's functional indep endence in activities of daily living, strength, ROM, and mobility.- Rehab Goal Patient has realistic goal of being discharged at assistance level 7-Ind to reside at Home with Fami ly/Relatives. MDM/PLAN: - Physical Therapy Gait dysfunction - to improve, our physical therapists will perform initial evaluation of pt's statu s upon admission and devise an individualized program for Gait Training, and Wheel Chair mobility Inability to transfer - to improve, our physical therapists will perform initial evaluation of pt's status upon admission and devise an individualized program for Bed mobility Need for home safety evaluation - to improve, our physical therapists will perform initial evaluatio n of pt's status upon admission and devise an individualized program for Home Evaluation Need in caregiver upon discharge - to improve, our physical therapists will perform initial evaluati on of pt's status upon admission and devise an individualized program for Caregiver Training Edema - to improve, our physical therapists will perform initial evaluation of pt's status upon admi ssion and devise an individualized program for Elevation Training, and Lymphedema Therapy New precaution - to improve, our physical therapists will perform initial evaluation of pt's status upon admission and devise an individualized program for Patient precaution education Weakness - to improve, our physical therapists will perform initial evaluation of pt's status upon a dmission and devise an individualized program for Aquatic Therapy, Neuromuscular Reeducation, and Str engthening Achieving independence - to improve, our physical therapists will perform initial evaluation of pt's status upon admission and devise an individualized program for Community Reintegration Activities - Occupational Therapy ADL deficits - to improve, our occupation therapists will perform initial evaluation of pt's status upon admission and devise an individualized program for Bathing, Bed mobility, Community Reintegratio n, Cooking, Dressing, Eating, Fine Motor Skills, Grooming, Homemaking, Kitchen Mobility, Laundry, Pat ient Education, Safety Awareness, Splinting - Positioning, Transfers(Toilet, Tub, Shower), and Wheel Chair Management Need for pediatric critical care nurse - to improve, our occupation therapists will perform initial evaluation of pt's status upon admission and devise an individualized program for Caregiver Training Weakness - to improve, our occupation therapists will perform initial evaluation of pt's status upon admission and devise an individualized program for Aquatic Therapy, Balance, Endurance, UE ROM, and UE strengthening - Other See attached MAR (Medication Administration Record) - Diet Type Continue Regular - Diet - Liquid Texture Continue Regular - Tube Feed Continue N/A - Bladder care per protocol - Skin care per protocol - Diet - Solid Texture Continue Regular - Shower allowing shower for Dementia, TBI, Stroke, or others FUNCTIONAL STATUS: UPDATED AT WEEKLY TEAM CONFERENCE - Bladder Same accident frequency: 7-Ind - No accidents in the past 7 days - Bowel Same accident frequency: 7-Ind - No accidents in the past 7 days - Walking Same score based on distance walked: 0(N/A) Same score based on distance walked: 2(50-149ft) - Wheelchair Same score based on distance traveled: 0(N/A) FUNCTIONAL STATUS: - Self-Care A. Eating Ind B. Grooming Campbell C. Bathing modA D. Dressing - Upper Pipap E. Dressing - Lower sup F. Toileting sup - Sphincter Control G. Bladder control Dep H. Bowel control Pippa - Transfers Control I. Bed/Chair/Wheelchair modA J. Toilet sup K. Tub/Shower modA - Locomotion L. Walk/Wheelchair (B) Pippa M. Stairs ADNO - Communication N. Comprehension (B) Campbell O. Expression (B) Cmapbell - Social Cognition P. Social Interaction Campbell Q. Problem Solving Campbell R. Memory Campbell - Endurance Poor - Balance Fair - Safety Awareness Fair QI SCORES: - Self-Care A. Eating 04-Supervision or touching assistance B. Oral hygiene 03-Partial/moderate assistance C. Toileting hygiene 03-Partial/moderate assistance E. Shower/bathe self 03-Partial/moderate assistance F. Upper body dressing 03-Partial/moderate assistance G. Lower body dressing 03-Partial/moderate assistance H. Putting on/taking off footwear 88-Not attempted due to medical condition or safety concerns - Mobility A. Roll left and right 03-Partial/moderate assistance B. Sit to lying 03-Partial/moderate assistance C. Lying to sitting on side of bed 03-Partial/moderate assistance D. Sit to stand 03-Partial/moderate assistance E. Chair/yid-uc-ssyuw transfer 03-Partial/moderate assistance F. Toilet transfer 03-Partial/moderate assistance G. Car transfer 88-Not attempted due to medical condition or safety concerns I. Walk 10 feet 03-Partial/moderate assistance J. Walk 50 feet with two turns 03-Partial/moderate assistance K. Walk 150 feet 88-Not attempted due to medical condition or safety concerns L. Walking 10 feet on uneven surfaces 88-Not attempted due to medical condition or safety concerns M. 1 step (curb) 88-Not attempted due to medical condition or safety concerns N. 4 steps 88-Not attempted due to medical condition or safety concerns O. 12 steps 88-Not attempted due to medical condition or safety concerns P. Picking up object 88-Not attempted due to medical condition or safety concerns R. Wheel 50 feet with two turns 88-Not attempted due to medical condition or safety concerns S. Wheel 150 feet 88-Not attempted due to medical condition or safety concerns - Bladder and Bowel Bladder continence Bowel continence - Endurance Fair - Balance Fair - Safety Awareness Fair CURRENT [facility]. DEFICITS: Self-Care, Mobility, Endurance, Balance, and Safety Awareness SIGNATURE PANEL: (CDT)
[2021-05-10] MEDS: TOPIRAMATE 25 MG TAB PO SCH (19:30)
[2021-05-10] MEDS: ROSUVASTATIN 10 MG TAB PO SCH (19:31)
[2021-05-10] MEDS: TRAZODONE 50 MG TABLET PO PRN (19:31)
--- NOTE | 2021-05-10 20:21 | P.PN ---
Subjective Date of Service: 05/10/21 Chief Complaint: HEADACHES TODAY Subjective: Improving IS LOT LESS ANXIOUS TODAY. 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 HE HAS HAD IVC FILTER IN THE PAST AND SO ON ANTICOAGUALATION FOR [facility]. HE WAS ON LOVENOX BID WHEN HE CAME AND I CHANGED TO ELIQUIS BID. THIS WILL BE BETTER IF HE CAN AFFORD IT. HE IS LOT CALMER, HAPPIER, STILL NOT ABLE TO COMMUNICATE WELL WITH GLOBAL APHASIA FOR LONG DURATION. STABLE ,NO CHANGES. GENERALLY WEAK SINCE BRAIN SURGERY. STABLE. CAME AND REFUSES FOR HIM TO GET ZOLOFT. IT IS FOR ANXIETY AND POSSIBLE DEPRESSION. HE IS APHASIC, HE WAS CRYING FOR FIRST TWO DAYS HERE. HE GETS FRUSTRATED HE IS NOT ABLE TO COMMUNICATE. TODAY AGREED FO RME TO GIVE HIM ZOLOFT IT IS NOT ADDICTIVE. HE IS CRYING AGAIN TODAY. VERY ANXIOUS AND MISSES HOME. HE IS STABLE. HE IS LESS ANXIOUS TODAY. COMFORTABLE TODAY. STABLE, LOT BETTER. ANXIETY IS IMPROVED. MR AMAYA HAS HEADACHES AND NO OTHER SYMPTOMS. HIS MEMORY LOSS IS EVIDENT WHEN YOU CAN UNDERSTAND HIM. HE TELLS EVERYDAY THAT HE IS SEEING ME AFTER A LONG TIME. HIS ANXIETY AND MEMORY ARE LOT BETTER. HE HAD HEMATURIA YESTERDAY. WE ARE WAITING FOR UROLOGIST. CHRONIC HEADACHES. DR. CASEY STARTING TOPAMAX TODAY. Review of Systems 10-point ROS is otherwise unremarkable General: Weakness, Malaise Physical Examination - Vital Signs Temperature: 97.8 F Blood Pressure: 118/65 Pulse: 76 Respirations: 16 Pulse Ox (%): 97 - Studies Medications List Reviewed: Yes Assessment And Plan - Current Problems (Diagnosis) (1) Pulmonary emboli Current Visit: Yes Status: Acute Plan: HISTORY. START ELIQUIS BID. STOP LOVENOX. Qualifiers: Pulmonary embolism type: saddle (2) Hypertension Current Visit: No Status: Acute (3) Meningioma Current Visit: No Status: Chronic Plan: RECURRENCE AND SURGERY DONE AGAIN DETAILS PER [facility]. REMOVE [place]ONO START PT. CONT PT. I CALLED [facility] WITH NO RESPONSE DR GRISSOM IS OUT OF TOWN. (4) Anxiety disorder Current Visit: Yes Status: Chronic Plan: HE IS ALWAYS EDGY AND ANXIOUS MORE EVIDENT NOW IN HOSPITAL ZOLOFT BID SHOULD HELP. (5) Urinary retention Current Visit: Yes Status: Acute Plan: MORE SINCE SURGERY . FLOMAX AND FINESTRIDE. CONSULT UROLOGIST. (6) Headache Current Visit: Yes Status: Acute Plan: CT BRAIN NEG FOR ANY NEW FINDINGS. DR. CASEY CALLED FOR HEADACHES. (7) Postoperative memory impairment Current Visit: Yes Status: Acute Plan: MAINLY MAJOR PART OF HIS BRAIN IS MISSING SURGICALLY. START MEMENATINE DAILY AND THEN BID. PER DR. CASEY. Qualifiers: Encounter type: initial encounter Qualified Code(s): T81.89XA - Other complications of procedures, not elsewhere classified, initial encounter; R41.3 - Other amnesia (8) BPH (benign prostatic hyperplasia) Current Visit: Yes Status: Chronic Plan: CONT FLOMAX AND ADD AVODART OR PROSCAR. PSA DONE AT OFFICE. Qualifiers: Lower urinary tract symptom presence: symptoms present
[2021-05-11] MEDS: CRANBERRY FRUIT EXTRACT 200 MG CAP PO SCH ×2 (08:15→20:51)
[2021-05-11] MEDS: carBAMazepine 200 MG TAB PO SCH ×2 (08:16→20:52)
[2021-05-11] MEDS: AMIODARONE HCL 200 MG TAB PO SCH (08:16)
[2021-05-11] MEDS: levETIRAcetam 500 MG TAB PO SCH ×2 (08:16→20:52)
[2021-05-11] MEDS: DOCUSATE NA 100 MG CAP PO SCH ×2 (08:16→20:52)
[2021-05-11] MEDS: APIXABAN 5 MG TABLET PO SCH (08:16)
[2021-05-11] MEDS: SERTRALINE HCL 50 MG TAB PO SCH ×2 (08:17→20:53)
[2021-05-11] MEDS: TAMSULOSIN 0.4 MG SR CAP PO SCH ×2 (08:17→20:53)
[2021-05-11] MEDS: TRAMADOL HCL 50 MG TAB PO PRN ×2 (08:17→12:28)
[2021-05-11] MEDS: MEMANTINE HCL 10 MG TABLET PO SCH (08:18)
[2021-05-11] MEDS: METOPROLOL TAR 50 MG TAB PO SCH ×2 (08:18→20:53)
[2021-05-11] MEDS: FINASTERIDE 5 MG TAB PO SCH (08:18)
[2021-05-11] MEDS: NYSTATIN PWDR 100000 UNIT/GM TOP SCH ×2 (10:20→20:53)
--- NOTE | 2021-05-11 12:45 | P.PN ---
Subjective Date of Service: 05/11/21 Chief Complaint: HEADACHES TODAY Subjective: Improving IS LOT LESS ANXIOUS TODAY. 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 HE HAS HAD IVC FILTER IN THE PAST AND SO ON ANTICOAGUALATION FOR SENIOR LIVING. HE WAS ON LOVENOX BID WHEN HE CAME AND I CHANGED TO ELIQUIS BID. THIS WILL BE BETTER IF HE CAN AFFORD IT. HE IS LOT CALMER, HAPPIER, STILL NOT ABLE TO COMMUNICATE WELL WITH GLOBAL APHASIA FOR LONG DURATION. STABLE ,NO CHANGES. GENERALLY WEAK SINCE BRAIN SURGERY. STABLE. CAME AND REFUSES FOR HIM TO GET ZOLOFT. IT IS FOR ANXIETY AND POSSIBLE DEPRESSION. HE IS APHASIC, HE WAS CRYING FOR FIRST TWO DAYS HERE. HE GETS FRUSTRATED HE IS NOT ABLE TO COMMUNICATE. TODAY AGREED FO RME TO GIVE HIM ZOLOFT IT IS NOT ADDICTIVE. HE IS CRYING AGAIN TODAY. VERY ANXIOUS AND MISSES HOME. HE IS STABLE. HE IS LESS ANXIOUS TODAY. COMFORTABLE TODAY. STABLE, LOT BETTER. ANXIETY IS IMPROVED. MR AMAYA HAS HEADACHES AND NO OTHER SYMPTOMS. HIS MEMORY LOSS IS EVIDENT WHEN YOU CAN UNDERSTAND HIM. HE TELLS EVERYDAY THAT HE IS SEEING ME AFTER A LONG TIME. HIS ANXIETY AND MEMORY ARE LOT BETTER. HE HAD HEMATURIA YESTERDAY. WE ARE WAITING FOR UROLOGIST. CHRONIC HEADACHES. DR. CASEY STARTING TOPAMAX TODAY. HE SAYS GLAD TO SEE ME AFTER LONG TIME. I HAVE SEEN HIM DAILY. Physical Examination - Vital Signs Temperature: 97.8 F Blood Pressure: 124/75 Pulse: 66 Respirations: 18 Pulse Ox (%): 95 - Physical Exam General: Oriented x2, Mild distress, Confused HEENT: Atraumatic, PERRLA, EOMI Neck: Supple, JVD not distended Respiratory: Clear to auscultation bilaterally, Normal air movement Cardiovascular: Regular rate/rhythm, Normal S1 S2 Gastrointestinal: Normal bowel sounds, No tenderness Musculoskeletal: No tenderness Integumentary: No rashes Neurological: Normal speech, Normal tone, Normal affect Lymphatics: No axilla or inguinal lymphadenopathy - Studies Medications List Reviewed: Yes Assessment And Plan - Current Problems (Diagnosis) (1) Pulmonary emboli Current Visit: Yes Status: Acute Plan: HISTORY. START ELIQUIS BID. STOP LOVENOX. Qualifiers: Pulmonary embolism type: saddle (2) Hypertension Current Visit: No Status: Acute (3) Meningioma Current Visit: No Status: Chronic Plan: RECURRENCE AND SURGERY DONE AGAIN DETAILS PER [facility]. REMOVE [place]ONO START PT. CONT PT. I CALLED [facility] WITH NO RESPONSE DR GRISSOM IS OUT OF [place]OWN. (4) Anxiety disorder Current Visit: Yes Status: Chronic Plan: HE IS ALWAYS EDGY AND ANXIOUS MORE EVIDENT NOW IN HOSPITAL ZOLOFT BID SHOULD HELP. (5) Urinary retention Current Visit: Yes Status: Acute Plan: MORE SINCE SURGERY . FLOMAX AND FINESTRIDE. CONSULT UROLOGIST. (6) Headache Current Visit: Yes Status: Acute Plan: CT BRAIN NEG FOR ANY NEW FINDINGS. DR. CASEY CALLED FOR HEADACHES. (7) Postoperative memory impairment Current Visit: Yes Status: Acute Plan: MAINLY MAJOR PART OF HIS BRAIN IS MISSING SURGICALLY. START MEMENATINE DAILY AND THEN BID. PER DR. CASEY. CONTINUE MEMANTINE. Qualifiers: Encounter type: initial encounter Qualified Code(s): T81.89XA - Other complications of procedures, not elsewhere classified, initial encounter; R41.3 - Other amnesia (8) BPH (benign prostatic hyperplasia) Current Visit: Yes Status: Chronic Plan: CONT FLOMAX AND ADD AVODART OR PROSCAR. PSA DONE AT OFFICE. Qualifiers: Lower urinary tract symptom presence: symptoms present (9) Headache Current Visit: Yes Status: Acute Plan: POST OP HEADACHES. CT NEG. TOPAMAX STARTED.
--- NOTE | 2021-05-11 17:32 | R.PN ---
PROGRESS NOTES ENCOUNTER DATE AND TIME: 05/11/2021 17:26 (CDT) NAME REMA AMAYA DATE OF : 1950 DATE OF ADMISSION: 04/26/2021 19:31 (CDT) ACUTE EXTENSIVE RLE DVT-CHIEF COMPLAINT: Right lower extremity DVT. SUBJECTIVE: Pt denied any depression. Pt denied any Shortness of Breath. WBC 4.4, Hgb 12.2, Plt 221, prealbumin 25.6, glucose 99. Ambulated 630' with standby assistance and improved balance using a rolling walker. Improving bladder function. Voiding much better. No more blood in the urine after stopping Eliquis 2. 5 mg twice daily and treating with aspirin 81 mg daily. Will restart Eliquis 2.5 mg daily only. VITAL SIGNS Temperature: 97.8 F Pulse: 66 Resp: 16 SBP/DBP: 124/75 MEDICATION ALLERGIES: No Known Drug Allergies (NKDA) ENVIRONMENTAL ALLERGIES: - Substance Allergies None Known - Other Allergies None Known NURSING: - Shower allowing shower - Bladder care per protocol - Skin care per protocol ACTIVITIES OOB only with supervision THERAPIES: - Occupational Therapy Cognitive Retraining. Visual Perceptual Training. - Dietary and Nutrition Adequate Nutrition. Nutritional Education. Nutritional Supplements. - Speech Therapy Cognitive Training. Expressive Language Skills. Memory Strategies. Receptive Language Skills. Speech Intelligibility Training. PHYSICAL EXAM - Gen Alert and awake Lying in bed No apparent distress Oriented to: person, time, and place - Skin No skin breakdown. Normacephalic - Eyes No abnormalities - ENMT No abnormalities - Neck No abnormalities - CVS RRR - Chest No abnormalities - Resp Clear to auscultation - Abd + bowel sounds - GI Soft Deferred - Cobb catheter - Ext Moderate right lower extremity edema. - MSK 4+/5 weakness in right lower extremity - Neuro 4/5 strength right lower extremity - Psych No abnormalities ASSESSMENT: Pt. is a 70 yo Right-handed male.On 04/12/[address] [facility] with diagnosis ACU TE EXTENSIVE RLE DVT-.His impairment category is Stroke 01 - Other Stroke (.9).Pre-morbidly, Pt. w as independent/mod-I in Locomotion, Social Cognition, Balance, Safety Awareness, Communication, and E ndurance; and he had good Self-Care.Currently, he has deficits of Locomotion, Safety Awareness, Trans fers Control, Sphincter Control, Communication, and Self-Care.Pt. is now referred to [facility] for acute in-patient rehabilitation in order to maximize patient's functional indep endence in activities of daily living, strength, ROM, and mobility.- Rehab Goal Patient has realistic goal of being discharged at assistance level 7-Ind to reside at Home with Fami ly/Relatives. MDM/PLAN: - Physical Therapy Gait dysfunction - to improve, our physical therapists will perform initial evaluation of pt's statu s upon admission and devise an individualized program for Gait Training, and Wheel Chair mobility Inability to transfer - to improve, our physical therapists will perform initial evaluation of pt's status upon admission and devise an individualized program for Bed mobility Need for home safety evaluation - to improve, our physical therapists will perform initial evaluatio n of pt's status upon admission and devise an individualized program for Home Evaluation Need in caregiver upon discharge - to improve, our physical therapists will perform initial evaluati on of pt's status upon admission and devise an individualized program for Caregiver Training Edema - to improve, our physical therapists will perform initial evaluation of pt's status upon admi ssion and devise an individualized program for Elevation Training, and Lymphedema Therapy New precaution - to improve, our physical therapists will perform initial evaluation of pt's status upon admission and devise an individualized program for Patient precaution education Weakness - to improve, our physical therapists will perform initial evaluation of pt's status upon a dmission and devise an individualized program for Aquatic Therapy, Neuromuscular Reeducation, and Str engthening Achieving independence - to improve, our physical therapists will perform initial evaluation of pt's status upon admission and devise an individualized program for Community Reintegration Activities - Occupational Therapy ADL deficits - to improve, our occupation therapists will perform initial evaluation of pt's status upon admission and devise an individualized program for Bathing, Bed mobility, Community Reintegratio n, Cooking, Dressing, Eating, Fine Motor Skills, Grooming, Homemaking, Kitchen Mobility, Laundry, Pat ient Education, Safety Awareness, Splinting - Positioning, Transfers(Toilet, Tub, Shower), and Wheel Chair Management Need for mall plant caretaker - to improve, our occupation therapists will perform initial evaluation of pt's status upon admission and devise an individualized program for Caregiver Training Weakness - to improve, our occupation therapists will perform initial evaluation of pt's status upon admission and devise an individualized program for Aquatic Therapy, Balance, Endurance, UE ROM, and UE strengthening - Other See attached MAR (Medication Administration Record) - Diet Type Continue Regular - Diet - Liquid Texture Continue Regular - Tube Feed Continue N/A - Bladder care per protocol - Skin care per protocol - Diet - Solid Texture Continue Regular - Shower allowing shower for Dementia, TBI, Stroke, or others FUNCTIONAL STATUS: UPDATED AT WEEKLY TEAM CONFERENCE - Bladder Same accident frequency: 7-Ind - No accidents in the past 7 days - Bowel Same accident frequency: 7-Ind - No accidents in the past 7 days - Walking Same score based on distance walked: 0(N/A) Same score based on distance walked: 2(50-149ft) - Wheelchair Same score based on distance traveled: 0(N/A) FUNCTIONAL STATUS: - Self-Care A. Eating Ind B. Grooming Campbell C. Bathing modA D. Dressing - Upper Pippa E. Dressing - Lower sup F. Toileting sup - Sphincter Control G. Bladder control Dep H. Bowel control Pipap - Transfers Control I. Bed/Chair/Wheelchair modA J. Toilet sup K. Tub/Shower modA - Locomotion L. Walk/Wheelchair (B) Pippa M. Stairs ADNO - Communication N. Comprehension (B) Campbell O. Expression (B) Campbell - Social Cognition P. Social Interaction Campbell Q. Problem Solving Campbell R. Memory Campbell - Endurance Poor - Balance Fair - Safety Awareness Fair QI SCORES: - Self-Care A. Eating 04-Supervision or touching assistance B. Oral hygiene 03-Partial/moderate assistance C. Toileting hygiene 03-Partial/moderate assistance E. Shower/bathe self 03-Partial/moderate assistance F. Upper body dressing 03-Partial/moderate assistance G. Lower body dressing 03-Partial/moderate assistance H. Putting on/taking off footwear 88-Not attempted due to medical condition or safety concerns - Mobility A. Roll left and right 03-Partial/moderate assistance B. Sit to lying 03-Partial/moderate assistance C. Lying to sitting on side of bed 03-Partial/moderate assistance D. Sit to stand 03-Partial/moderate assistance E. Chair/[id number]-[id number] transfer 03-Partial/moderate assistance F. Toilet transfer 03-Partial/moderate assistance G. Car transfer 88-Not attempted due to medical condition or safety concerns I. Walk 10 feet 03-Partial/moderate assistance J. Walk 50 feet with two turns 03-Partial/moderate assistance K. Walk 150 feet 88-Not attempted due to medical condition or safety concerns L. Walking 10 feet on uneven surfaces 88-Not attempted due to medical condition or safety concerns M. 1 step (curb) 88-Not attempted due to medical condition or safety concerns N. 4 steps 88-Not attempted due to medical condition or safety concerns O. 12 steps 88-Not attempted due to medical condition or safety concerns P. Picking up object 88-Not attempted due to medical condition or safety concerns R. Wheel 50 feet with two turns 88-Not attempted due to medical condition or safety concerns S. Wheel 150 feet 88-Not attempted due to medical condition or safety concerns - Bladder and Bowel Bladder continence Bowel continence - Endurance Fair - Balance Fair - Safety Awareness Fair CURRENT [facility]. DEFICITS: Self-Care, Mobility, Endurance, Balance, and Safety Awareness SIGNATURE PANEL: (CDT)
[2021-05-11] MEDS: ROSUVASTATIN 10 MG TAB PO SCH (20:51)
[2021-05-11] MEDS: MELATONIN 3 MG TABLET PO PRN (20:53)
[2021-05-11] MEDS: TOPIRAMATE 25 MG TAB PO SCH (20:54)
[2021-05-12] MEDS: TRAMADOL HCL 50 MG TAB PO PRN ×2 (06:32→16:21)
[2021-05-12] MEDS: NYSTATIN PWDR 100000 UNIT/GM TOP SCH ×2 (06:33→19:27)
[2021-05-12] MEDS: AMIODARONE HCL 200 MG TAB PO SCH (08:09)
[2021-05-12] MEDS: TAMSULOSIN 0.4 MG SR CAP PO SCH ×2 (08:09→19:20)
[2021-05-12] MEDS: carBAMazepine 200 MG TAB PO SCH ×2 (08:09→19:18)
[2021-05-12] MEDS: SERTRALINE HCL 50 MG TAB PO SCH ×2 (08:10→19:20)
[2021-05-12] MEDS: CRANBERRY FRUIT EXTRACT 200 MG CAP PO SCH ×2 (08:10→19:18)
[2021-05-12] MEDS: DOCUSATE NA 100 MG CAP PO SCH ×2 (08:10→19:19)
[2021-05-12] MEDS: FINASTERIDE 5 MG TAB PO SCH (08:11)
[2021-05-12] MEDS: levETIRAcetam 500 MG TAB PO SCH ×2 (08:11→19:18)
[2021-05-12] MEDS: METOPROLOL TAR 50 MG TAB PO SCH ×2 (08:11→19:19)
[2021-05-12] MEDS: MEMANTINE HCL 10 MG TABLET PO SCH (08:11)
[2021-05-12] MEDS: APIXABAN 5 MG TABLET PO SCH ×2 (08:12→19:19)
[2021-05-12] MEDS: ACETAMINOPHEN 500 MG TAB PO PRN ×2 (11:55→19:20)
--- NOTE | 2021-05-12 18:35 | R.PN ---
PROGRESS NOTES ENCOUNTER DATE AND TIME: 05/12/2021 18:32 (CDT) NAME REMA AMAYA DATE OF : 1950 DATE OF ADMISSION: 04/26/2021 19:31 (CDT) ACUTE EXTENSIVE RLE DVT-CHIEF COMPLAINT: Right lower extremity DVT. SUBJECTIVE: Pt denied any depression. Pt denied any Shortness of Breath. WBC 4.4, Hgb 12.2, Plt 221, prealbumin 25.6, glucose 99. Ambulated 790' with standby assistance and improved balance using a rolling walker. Up and down 15 s teps with contact guard assistance. Improving bladder function. Voiding much better. No more blood in the urine after stopping Eliquis 2. 5 mg twice daily and treating with aspirin 81 mg daily. Will restart Eliquis 2.5 mg daily only. VITAL SIGNS Temperature: 97.4 F Pulse: 63 Resp: 16 SBP/DBP: 104/62 MEDICATION ALLERGIES: No Known Drug Allergies (NKDA) ENVIRONMENTAL ALLERGIES: - Substance Allergies None Known - Other Allergies None Known NURSING: - Shower allowing shower - Bladder care per protocol - Skin care per protocol ACTIVITIES OOB only with supervision THERAPIES: - Occupational Therapy Cognitive Retraining. Visual Perceptual Training. - Dietary and Nutrition Adequate Nutrition. Nutritional Education. Nutritional Supplements. - Speech Therapy Cognitive Training. Expressive Language Skills. Memory Strategies. Receptive Language Skills. Speech Intelligibility Training. PHYSICAL EXAM - Gen Alert and awake Lying in bed No apparent distress Oriented to: person, time, and place - Skin No skin breakdown. Normacephalic - Eyes No abnormalities - ENMT No abnormalities - Neck No abnormalities - CVS RRR - Chest No abnormalities - Resp Clear to auscultation - Abd + bowel sounds - GI Soft Deferred - Cobb catheter - Ext Moderate right lower extremity edema. - MSK 4+/5 weakness in right lower extremity - Neuro 4/5 strength right lower extremity - Psych No abnormalities ASSESSMENT: Pt. is a 70 yo Right-handed male.On 04/12/2021 he was admitted to [facility] with diagnosis ACU TE EXTENSIVE RLE DVT-.His impairment category is Stroke 01 - Other Stroke (.).Pre-morbidly, Pt. w as independent/mod-I in Locomotion, Social Cognition, Balance, Safety Awareness, Communication, and E ndurance; and he had good Self-Care.Currently, he has deficits of Locomotion, Safety Awareness, Trans fers Control, Sphincter Control, Communication, and Self-Care.Pt. is now referred to [facility] for acute in-patient rehabilitation in order to maximize patient's functional indep endence in activities of daily living, strength, ROM, and mobility.- Rehab Goal Patient has realistic goal of being discharged at assistance level 7-Ind to reside at Home with Fami ly/Relatives. MDM/PLAN: - Physical Therapy Gait dysfunction - to improve, our physical therapists will perform initial evaluation of pt's statu s upon admission and devise an individualized program for Gait Training, and Wheel Chair mobility Inability to transfer - to improve, our physical therapists will perform initial evaluation of pt's status upon admission and devise an individualized program for Bed mobility Need for home safety evaluation - to improve, our physical therapists will perform initial evaluatio n of pt's status upon admission and devise an individualized program for Home Evaluation Need in caregiver upon discharge - to improve, our physical therapists will perform initial evaluati on of pt's status upon admission and devise an individualized program for Caregiver Training Edema - to improve, our physical therapists will perform initial evaluation of pt's status upon admi ssion and devise an individualized program for Elevation Training, and Lymphedema Therapy New precaution - to improve, our physical therapists will perform initial evaluation of pt's status upon admission and devise an individualized program for Patient precaution education Weakness - to improve, our physical therapists will perform initial evaluation of pt's status upon a dmission and devise an individualized program for Aquatic Therapy, Neuromuscular Reeducation, and Str engthening Achieving independence - to improve, our physical therapists will perform initial evaluation of pt's status upon admission and devise an individualized program for Community Reintegration Activities - Occupational Therapy ADL deficits - to improve, our occupation therapists will perform initial evaluation of pt's status upon admission and devise an individualized program for Bathing, Bed mobility, Community Reintegratio n, Cooking, Dressing, Eating, Fine Motor Skills, Grooming, Homemaking, Kitchen Mobility, Laundry, Pat ient Education, Safety Awareness, Splinting - Positioning, Transfers(Toilet, Tub, Shower), and Wheel Chair Management Need for manager long term care - to improve, our occupation therapists will perform initial evaluation of pt's status upon admission and devise an individualized program for Caregiver Training Weakness - to improve, our occupation therapists will perform initial evaluation of pt's status upon admission and devise an individualized program for Aquatic Therapy, Balance, Endurance, UE ROM, and UE strengthening - Other See attached MAR (Medication Administration Record) - Diet Type Continue Regular - Diet - Liquid Texture Continue Regular - Tube Feed Continue N/A - Bladder care per protocol - Skin care per protocol - Diet - Solid Texture Continue Regular - Shower allowing shower for Dementia, TBI, Stroke, or others FUNCTIONAL STATUS: UPDATED AT WEEKLY TEAM CONFERENCE - Bladder Same accident frequency: 7-Ind - No accidents in the past 7 days - Bowel Same accident frequency: 7-Ind - No accidents in the past 7 days - Walking Same score based on distance walked: 0(N/A) Same score based on distance walked: 2(50-149ft) - Wheelchair Same score based on distance traveled: 0(N/A) FUNCTIONAL STATUS: - Self-Care A. Eating Ind B. Grooming Campbell C. Bathing modA D. Dressing - Upper Pippa E. Dressing - Lower sup F. Toileting sup - Sphincter Control G. Bladder control Dep H. Bowel control Pippa - Transfers Control I. Bed/Chair/Wheelchair modA J. Toilet sup K. Tub/Shower modA - Locomotion L. Walk/Wheelchair (B) Pippa M. Stairs ADNO - Communication N. Comprehension (B) Campbell O. Expression (B) Campbell - Social Cognition P. Social Interaction Campbell Q. Problem Solving Campbell R. Memory Campbell - Endurance Poor - Balance Fair - Safety Awareness Fair QI SCORES: - Self-Care A. Eating 04-Supervision or touching assistance B. Oral hygiene 03-Partial/moderate assistance C. Toileting hygiene 03-Partial/moderate assistance E. Shower/bathe self 03-Partial/moderate assistance F. Upper body dressing 03-Partial/moderate assistance G. Lower body dressing 03-Partial/moderate assistance H. Putting on/taking off footwear 88-Not attempted due to medical condition or safety concerns - Mobility A. Roll left and right 03-Partial/moderate assistance B. Sit to lying 03-Partial/moderate assistance C. Lying to sitting on side of bed 03-Partial/moderate assistance D. Sit to stand 03-Partial/moderate assistance E. Chair/[id number]-[id number] transfer 03-Partial/moderate assistance F. Toilet transfer 03-Partial/moderate assistance G. Car transfer 88-Not attempted due to medical condition or safety concerns I. Walk 10 feet 03-Partial/moderate assistance J. Walk 50 feet with two turns 03-Partial/moderate assistance K. Walk 150 feet 88-Not attempted due to medical condition or safety concerns L. Walking 10 feet on uneven surfaces 88-Not attempted due to medical condition or safety concerns M. 1 step (curb) 88-Not attempted due to medical condition or safety concerns N. 4 steps 88-Not attempted due to medical condition or safety concerns O. 12 steps 88-Not attempted due to medical condition or safety concerns P. Picking up object 88-Not attempted due to medical condition or safety concerns R. Wheel 50 feet with two turns 88-Not attempted due to medical condition or safety concerns S. Wheel 150 feet 88-Not attempted due to medical condition or safety concerns - Bladder and Bowel Bladder continence Bowel continence - Endurance Fair - Balance Fair - Safety Awareness Fair CURRENT [facility]. DEFICITS: Self-Care, Mobility, Endurance, Balance, and Safety Awareness SIGNATURE PANEL: (CDT)
[2021-05-12] MEDS: MELATONIN 3 MG TABLET PO PRN (19:18)
[2021-05-12] MEDS: ROSUVASTATIN 10 MG TAB PO SCH (19:18)
[2021-05-12] MEDS: TOPIRAMATE 25 MG TAB PO SCH (19:19)
--- NOTE | 2021-05-12 21:09 | P.PN ---
Subjective Date of Service: 05/12/21 Chief Complaint: HEADACHES TODAY Subjective: Improving IS LOT LESS ANXIOUS TODAY. 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 HE HAS HAD IVC FILTER IN THE PAST AND SO ON ANTICOAGUALATION FOR JAIL. HE WAS ON LOVENOX BID WHEN HE CAME AND I CHANGED TO ELIQUIS BID. THIS WILL BE BETTER IF HE CAN AFFORD IT. HE IS LOT CALMER, HAPPIER, STILL NOT ABLE TO COMMUNICATE WELL WITH GLOBAL APHASIA FOR LONG DURATION. STABLE ,NO CHANGES. GENERALLY WEAK SINCE BRAIN SURGERY. STABLE. CAME AND REFUSES FOR HIM TO GET ZOLOFT. IT IS FOR ANXIETY AND POSSIBLE DEPRESSION. HE IS APHASIC, HE WAS CRYING FOR FIRST TWO DAYS HERE. HE GETS FRUSTRATED HE IS NOT ABLE TO COMMUNICATE. TODAY AGREED FO RME TO GIVE HIM ZOLOFT IT IS NOT ADDICTIVE. HE IS CRYING AGAIN TODAY. VERY ANXIOUS AND MISSES HOME. HE IS STABLE. HE IS LESS ANXIOUS TODAY. COMFORTABLE TODAY. STABLE, LOT BETTER. ANXIETY IS IMPROVED. MR AMAYA HAS HEADACHES AND NO OTHER SYMPTOMS. HIS MEMORY LOSS IS EVIDENT WHEN YOU CAN UNDERSTAND HIM. HE TELLS EVERYDAY THAT HE IS SEEING ME AFTER A LONG TIME. HIS ANXIETY AND MEMORY ARE LOT BETTER. HE HAD HEMATURIA YESTERDAY. WE ARE WAITING FOR UROLOGIST. CHRONIC HEADACHES. DR. CASEY STARTING TOPAMAX TODAY. HE SAYS GLAD TO SEE ME AFTER LONG TIME. I HAVE SEEN HIM DAILY. HE IS STABLE. HE HAS BEEN SITTING WITH AND DOING WELL. Physical Examination - Vital Signs Temperature: 97.4 F Blood Pressure: 135/69 Pulse: 71 Respirations: 18 Pulse Ox (%): 95 - Physical Exam General: Oriented x2, Mild distress, Other HEENT: Atraumatic, PERRLA, EOMI Neck: Supple, JVD not distended Respiratory: Clear to auscultation bilaterally, Normal air movement Cardiovascular: Regular rate/rhythm, Normal S1 S2 Gastrointestinal: Normal bowel sounds, No tenderness Musculoskeletal: No tenderness Integumentary: No rashes Neurological: Normal speech, Normal tone, Normal affect, Abnormal speech, Abnormal strength Lymphatics: No axilla or inguinal lymphadenopathy - Studies Medications List Reviewed: Yes Assessment And Plan - Current Problems (Diagnosis) (1) Pulmonary emboli Current Visit: Yes Status: Acute Plan: HISTORY. START ELIQUIS BID. STOP LOVENOX. Qualifiers: Pulmonary embolism type: saddle (2) Hypertension Current Visit: No Status: Acute (3) Meningioma Current Visit: No Status: Chronic Plan: RECURRENCE AND SURGERY DONE AGAIN DETAILS PER [facility]. REMOVE [place] START PT. CONT PT. I CALLED [facility] WITH NO RESPONSE DR GRISSOM IS [place] OF [place]. (4) Anxiety disorder Current Visit: Yes Status: Chronic Plan: HE IS ALWAYS EDGY AND ANXIOUS MORE EVIDENT NOW IN HOSPITAL ZOLOFT BID SHOULD HELP. (5) Urinary retention Current Visit: Yes Status: Acute Plan: MORE SINCE SURGERY . FLOMAX AND FINESTRIDE. CONSULT UROLOGIST. (6) Headache Current Visit: Yes Status: Acute Plan: CT BRAIN NEG FOR ANY NEW FINDINGS. DR. CASEY CALLED FOR HEADACHES. TOPAMAX BID MAY HELP. PER HEADACHES ARE CHRONIC FOR YEARS SINCE THE TUMOR. (7) Postoperative memory impairment Current Visit: Yes Status: Acute Plan: MAINLY MAJOR PART OF HIS BRAIN IS MISSING SURGICALLY. START MEMENATINE DAILY AND THEN BID. PER DR. CASEY. CONTINUE MEMANTINE. Qualifiers: Encounter type: initial encounter Qualified Code(s): T81.89XA - Other complications of procedures, not elsewhere classified, initial encounter; R41.3 - Other amnesia (8) BPH (benign prostatic hyperplasia) Current Visit: Yes Status: Chronic Plan: CONT FLOMAX AND ADD AVODART OR PROSCAR. PSA DONE AT OFFICE. Qualifiers: Lower urinary tract symptom presence: symptoms present (9) Headache Current Visit: Yes Status: Acute Plan: POST OP HEADACHES. CT NEG. TOPAMAX STARTED.
[2021-05-13 06:13] LABS: Absolute Lymphocytes (CBC) 1.2 K/uL (0.7-4.9); Basophils % 1.2 % (0-1.3); Hematocrit 38.1 % (39.6-49.0); Lymphocytes % 26.3 % (15.3-44.8); MPV 9.5 fL (7.6-11.3); RBC Red Blood Cell Count 4.15 M/uL (4.33-5.43)
[2021-05-13 06:25] LABS: Albumin 3.2 g/dL (3.4-5.0); Magnesium 2.2 mg/dL (1.8-2.4); Potassium 4.1 mmol/L (3.5-5.1); Prealbumin 29.7 mg/dL (20-40)
[2021-05-13] MEDS: NYSTATIN PWDR 100000 UNIT/GM TOP SCH ×2 (07:02→19:37)
[2021-05-13] MEDS: TRAMADOL HCL 50 MG TAB PO PRN ×2 (07:15→16:04)
[2021-05-13] MEDS: carBAMazepine 200 MG TAB PO SCH ×2 (07:53→19:36)
[2021-05-13] MEDS: TAMSULOSIN 0.4 MG SR CAP PO SCH ×2 (07:53→19:34)
[2021-05-13] MEDS: CRANBERRY FRUIT EXTRACT 200 MG CAP PO SCH ×2 (07:53→19:34)
[2021-05-13] MEDS: MEMANTINE HCL 10 MG TABLET PO SCH (07:53)
[2021-05-13] MEDS: levETIRAcetam 500 MG TAB PO SCH ×2 (07:53→19:36)
[2021-05-13] MEDS: METOPROLOL TAR 50 MG TAB PO SCH ×2 (07:54→19:35)
[2021-05-13] MEDS: FINASTERIDE 5 MG TAB PO SCH (07:54)
[2021-05-13] MEDS: SERTRALINE HCL 50 MG TAB PO SCH ×2 (07:54→19:36)
[2021-05-13] MEDS: DOCUSATE NA 100 MG CAP PO SCH ×2 (07:54→19:36)
[2021-05-13] MEDS: AMIODARONE HCL 200 MG TAB PO SCH (07:54)
[2021-05-13] MEDS: APIXABAN 5 MG TABLET PO SCH ×2 (07:54→19:36)
[2021-05-13] MEDS: ACETAMINOPHEN 500 MG TAB PO PRN ×2 (11:50→19:35)
--- NOTE | 2021-05-13 18:07 | R.PN ---
PROGRESS NOTES ENCOUNTER DATE AND TIME: 05/13/2021 18:01 (CDT) NAME REMA AMAYA DATE OF : 1950 DATE OF ADMISSION: 04/26/2021 19:31 (CDT) ACUTE EXTENSIVE RLE DVT-CHIEF COMPLAINT: Right lower extremity DVT. SUBJECTIVE: Pt denied any depression. Pt denied any Shortness of Breath. WBC 4.5, Hgb 12.4, Plt 162, prealbumin 29.7, glucose 86. Ambulated 500' with standby assistance and improved balance using a rolling walker. Improving bladder function. Voiding much better. No more blood in the urine after stopping Eliquis 2. 5 mg twice daily and treating with aspirin 81 mg daily. Eliquis 5 mg twice daily. VITAL SIGNS Temperature: 97.4 F Pulse: 67 Resp: 16 SBP/DBP: 131/74 MEDICATION ALLERGIES: No Known Drug Allergies (NKDA) ENVIRONMENTAL ALLERGIES: - Substance Allergies None Known - Other Allergies None Known NURSING: - Shower allowing shower - Bladder care per protocol - Skin care per protocol ACTIVITIES OOB only with supervision THERAPIES: - Occupational Therapy Cognitive Retraining. Visual Perceptual Training. - Dietary and Nutrition Adequate Nutrition. Nutritional Education. Nutritional Supplements. - Speech Therapy Cognitive Training. Expressive Language Skills. Memory Strategies. Receptive Language Skills. Speech Intelligibility Training. PHYSICAL EXAM - Gen Alert and awake Lying in bed No apparent distress Oriented to: person, time, and place - Skin No skin breakdown. Normacephalic - Eyes No abnormalities - ENMT No abnormalities - Neck No abnormalities - CVS RRR - Chest No abnormalities - Resp Clear to auscultation - Abd + bowel sounds - GI Soft Deferred - Cobb catheter - Ext Moderate right lower extremity edema. - MSK 4+/5 weakness in right lower extremity - Neuro 4/5 strength right lower extremity - Psych No abnormalities ASSESSMENT: Pt. is a 70 yo Right-handed male.On 04/12/2021 he was admitted to [facility] with diagnosis ACU TE EXTENSIVE RLE DVT-.His impairment category is Stroke 01 - Other Stroke (01.9).Pre-morbidly, Pt. w as independent/mod-I in Locomotion, Social Cognition, Balance, Safety Awareness, Communication, and E ndurance; and he had good Self-Care.Currently, he has deficits of Locomotion, Safety Awareness, Trans fers Control, Sphincter Control, Communication, and Self-Care.Pt. is now referred to [facility] for acute in-patient rehabilitation in order to maximize patient's functional indep endence in activities of daily living, strength, ROM, and mobility.- Rehab Goal Patient has realistic goal of being discharged at assistance level 7-Ind to reside at Home with Fami ly/Relatives. MDM/PLAN: - Physical Therapy Gait dysfunction - to improve, our physical therapists will perform initial evaluation of pt's statu s upon admission and devise an individualized program for Gait Training, and Wheel Chair mobility Inability to transfer - to improve, our physical therapists will perform initial evaluation of pt's status upon admission and devise an individualized program for Bed mobility Need for home safety evaluation - to improve, our physical therapists will perform initial evaluatio n of pt's status upon admission and devise an individualized program for Home Evaluation Need in caregiver upon discharge - to improve, our physical therapists will perform initial evaluati on of pt's status upon admission and devise an individualized program for Caregiver Training Edema - to improve, our physical therapists will perform initial evaluation of pt's status upon admi ssion and devise an individualized program for Elevation Training, and Lymphedema Therapy New precaution - to improve, our physical therapists will perform initial evaluation of pt's status upon admission and devise an individualized program for Patient precaution education Weakness - to improve, our physical therapists will perform initial evaluation of pt's status upon a dmission and devise an individualized program for Aquatic Therapy, Neuromuscular Reeducation, and Str engthening Achieving independence - to improve, our physical therapists will perform initial evaluation of pt's status upon admission and devise an individualized program for Community Reintegration Activities - Occupational Therapy ADL deficits - to improve, our occupation therapists will perform initial evaluation of pt's status upon admission and devise an individualized program for Bathing, Bed mobility, Community Reintegratio n, Cooking, Dressing, Eating, Fine Motor Skills, Grooming, Homemaking, Kitchen Mobility, Laundry, Pat ient Education, Safety Awareness, Splinting - Positioning, Transfers(Toilet, Tub, Shower), and Wheel Chair Management Need for healthcare administration internship - to improve, our occupation therapists will perform initial evaluation of pt's status upon admission and devise an individualized program for Caregiver Training Weakness - to improve, our occupation therapists will perform initial evaluation of pt's status upon admission and devise an individualized program for Aquatic Therapy, Balance, Endurance, UE ROM, and UE strengthening - Other See attached MAR (Medication Administration Record) - Diet Type Continue Regular - Diet - Liquid Texture Continue Regular - Tube Feed Continue N/A - Bladder care per protocol - Skin care per protocol - Diet - Solid Texture Continue Regular - Shower allowing shower for Dementia, TBI, Stroke, or others FUNCTIONAL STATUS: UPDATED AT WEEKLY TEAM CONFERENCE - Bladder Same accident frequency: 7-Ind - No accidents in the past 7 days - Bowel Same accident frequency: 7-Ind - No accidents in the past 7 days - Walking Same score based on distance walked: 0(N/A) Same score based on distance walked: 2(50-149ft) - Wheelchair Same score based on distance traveled: 0(N/A) FUNCTIONAL STATUS: - Self-Care A. Eating Ind B. Grooming Campbell C. Bathing modA D. Dressing - Upper [place] E. Dressing - Lower sup F. Toileting sup - Sphincter Control G. Bladder control Dep H. Bowel control Pippa - Transfers Control I. Bed/Chair/Wheelchair modA J. Toilet sup K. Tub/Shower modA - Locomotion L. Walk/Wheelchair (B) [place]ippa M. Stairs ADNO - Communication N. Comprehension (B) Campbell O. Expression (B) Campbell - Social Cognition P. Social Interaction Campbell Q. Problem Solving Campbell R. Memory Campbell - Endurance Poor - Balance Fair - Safety Awareness Fair QI SCORES: - Self-Care A. Eating 04-Supervision or touching assistance B. Oral hygiene 03-Partial/moderate assistance C. Toileting hygiene 03-Partial/moderate assistance E. Shower/bathe self 03-Partial/moderate assistance F. Upper body dressing 03-Partial/moderate assistance G. Lower body dressing 03-Partial/moderate assistance H. Putting on/taking off footwear 88-Not attempted due to medical condition or safety concerns - Mobility A. Roll left and right 03-Partial/moderate assistance B. Sit to lying 03-Partial/moderate assistance C. Lying to sitting on side of bed 03-Partial/moderate assistance D. Sit to stand 03-Partial/moderate assistance E. Chair/tsa-dm-apgtc transfer 03-Partial/moderate assistance F. Toilet transfer 03-Partial/moderate assistance G. Car transfer 88-Not attempted due to medical condition or safety concerns I. Walk 10 feet 03-Partial/moderate assistance J. Walk 50 feet with two turns 03-Partial/moderate assistance K. Walk 150 feet 88-Not attempted due to medical condition or safety concerns L. Walking 10 feet on uneven surfaces 88-Not attempted due to medical condition or safety concerns M. 1 step (curb) 88-Not attempted due to medical condition or safety concerns N. 4 steps 88-Not attempted due to medical condition or safety concerns O. 12 steps 88-Not attempted due to medical condition or safety concerns P. Picking up object 88-Not attempted due to medical condition or safety concerns R. Wheel 50 feet with two turns 88-Not attempted due to medical condition or safety concerns S. Wheel 150 feet 88-Not attempted due to medical condition or safety concerns - Bladder and Bowel Bladder continence Bowel continence - Endurance Fair - Balance Fair - Safety Awareness Fair CURRENT [facility]. DEFICITS: Self-Care, Mobility, Endurance, Balance, and Safety Awareness SIGNATURE PANEL: (CDT)
[2021-05-13] MEDS: TOPIRAMATE 25 MG TAB PO SCH (19:34)
[2021-05-13] MEDS: ROSUVASTATIN 10 MG TAB PO SCH (19:34)
[2021-05-13] MEDS: MELATONIN 3 MG TABLET PO PRN (19:36)
--- NOTE | 2021-05-13 21:06 | P.PN ---
Subjective Date of Service: 05/13/21 Chief Complaint: HEADACHES TODAY Subjective: Improving HE IS STABLE, ANXIETY IS BETTER. HEADACHES CONTINUE. DR GREENE IS WORKING ON IT. Physical Examination - Vital Signs Temperature: 97.0 F Blood Pressure: 117/67 Pulse: 65 Respirations: 18 Pulse Ox (%): 96 - Physical Exam General: Mild distress HEENT: Atraumatic, PERRLA, EOMI Neck: Supple, JVD not distended Respiratory: Clear to auscultation bilaterally, Normal air movement Cardiovascular: Regular rate/rhythm, Normal S1 S2 Gastrointestinal: Normal bowel sounds, No tenderness Musculoskeletal: No tenderness Integumentary: No rashes Neurological: Abnormal speech Lymphatics: No axilla or inguinal lymphadenopathy - Studies Laboratory Data (last 24 hrs) 05/13/21 05:38: Sodium 143, Potassium 4.1, BUN 12, Creatinine 0.88, Glucose 98, Magnesium 2.2 05/13/21 05:38: WBC 4.50, Hgb 12.4 L, Hct 38.1 L, Plt Count 162 D Medications List Reviewed: Yes Assessment And Plan - Current Problems (Diagnosis) (1) Pulmonary emboli Current Visit: Yes Status: Acute Plan: HISTORY. START ELIQUIS BID. STOP LOVENOX. Qualifiers: Pulmonary embolism type: saddle (2) Hypertension Current Visit: No Status: Acute (3) Meningioma Current Visit: No Status: Chronic Plan: RECURRENCE AND SURGERY DONE AGAIN DETAILS PER [facility]CE[facility] RECORDS. REMOVE [place] START PT. CONT PT. I CALLED [facility] DOCTORS WITH NO RESPONSE DR GRISSOM IS OUT OF TOWN. SP SURGERY TWICE. STABLE DC ON MONDAY. (4) Anxiety disorder Current Visit: Yes Status: Chronic Plan: HE IS ALWAYS EDGY AND ANXIOUS MORE EVIDENT NOW IN [facility] [place] BID SHOULD HELP. (5) Urinary retention Current Visit: Yes Status: Acute Plan: MORE SINCE SURGERY . FLOMAX AND FINESTRIDE. CONSULT UROLOGIST. (6) Headache Current Visit: Yes Status: Acute Plan: CT BRAIN NEG FOR ANY NEW FINDINGS. DR. CASEY CALLED FOR HEADACHES. TOPAMAX BID MAY HELP. PER HEADACHES ARE CHRONIC FOR YEARS SINCE THE TUMOR. (7) Postoperative memory impairment Current Visit: Yes Status: Acute Plan: MAINLY MAJOR PART OF HIS BRAIN IS MISSING SURGICALLY. START MEMENATINE DAILY AND THEN BID. PER DR. CASEY. CONTINUE MEMANTINE. Qualifiers: Encounter type: initial encounter Qualified Code(s): T81.89XA - Other complications of procedures, not elsewhere classified, initial encounter; R41.3 - Other amnesia (8) BPH (benign prostatic hyperplasia) Current Visit: Yes Status: Chronic Plan: CONT FLOMAX AND ADD AVODART OR PROSCAR. PSA DONE AT OFFICE. Qualifiers: Lower urinary tract symptom presence: symptoms present (9) Headache Current Visit: Yes Status: Acute Plan: POST OP HEADACHES. CT NEG. TOPAMAX STARTED.
[2021-05-14] MEDS: TOPIRAMATE 25 MG TAB PO SCH ×2 (08:00→20:00)
[2021-05-14] MEDS: CRANBERRY FRUIT EXTRACT 200 MG CAP PO SCH ×2 (08:10→20:10)
[2021-05-14] MEDS: SERTRALINE HCL 50 MG TAB PO SCH ×2 (08:10→20:14)
[2021-05-14] MEDS: DOCUSATE NA 100 MG CAP PO SCH ×2 (08:11→20:02)
[2021-05-14] MEDS: carBAMazepine 200 MG TAB PO SCH ×2 (08:11→20:12)
[2021-05-14] MEDS: MEMANTINE HCL 10 MG TABLET PO SCH (08:12)
[2021-05-14] MEDS: APIXABAN 5 MG TABLET PO SCH ×2 (08:12→20:11)
[2021-05-14] MEDS: FINASTERIDE 5 MG TAB PO SCH (08:12)
[2021-05-14] MEDS: AMIODARONE HCL 200 MG TAB PO SCH (08:12)
[2021-05-14] MEDS: levETIRAcetam 500 MG TAB PO SCH ×2 (08:12→20:11)
[2021-05-14] MEDS: METOPROLOL TAR 50 MG TAB PO SCH ×2 (08:13→20:00)
[2021-05-14] MEDS: TAMSULOSIN 0.4 MG SR CAP PO SCH ×2 (08:13→20:11)
[2021-05-14] MEDS: ACETAMINOPHEN 500 MG TAB PO PRN (08:15)
[2021-05-14] MEDS: NYSTATIN PWDR 100000 UNIT/GM TOP SCH ×2 (09:11→20:15)
--- NOTE | 2021-05-14 10:03 | P.RH.PN ---
Estimated Length of Stay: 21 Expected Discharge Date: 05/16/21 Discharge Disposition Plan: Home Family Support: Yes Longterm Goal: Mobility, Transfers, Self Care Vital Signs: Last Vital Signs Temp 98.4 F 05/14/21 07:30 Pulse 72 05/14/21 08:13 Resp 18 05/14/21 07:30 BP 138/74 05/14/21 08:13 Pulse Ox 94 05/14/21 07:30 Laboratory: Laboratory Last Values WBC 4.50 K/uL (4.3-10.9) 05/13/21 05:38 RBC 4.15 M/uL (4.33-5.43) L 05/13/21 05:38 Hgb 12.4 g/dL (13.6-17.9) L 05/13/21 05:38 Hct 38.1 % (39.6-49.0) L 05/13/21 05:38 MCV 91.9 fL (80-100) 05/13/21 05:38 MCH 29.9 pg (27.0-35.0) 05/13/21 05:38 MCHC 32.5 g/dL (32.0-36.0) 05/13/21 05:38 RDW 14.8 % (12.1-15.2) 05/13/21 05:38 Plt Count 162 K/uL (152-406) D 05/13/21 05:38 MPV 9.5 fL (7.6-11.3) D 05/13/21 05:38 Plt Distribution Width Cancelled 04/27/21 05:00 Absolute Nucleated RBC Cancelled 04/27/21 05:00 Neutrophils % 55.9 % (41.7-73.7) 05/13/21 05:38 Lymphocytes % 26.3 % (15.3-44.8) 05/13/21 05:38 Monocytes % 9.7 % (3.3-12.3) 05/13/21 05:38 Eosinophils % 6.9 % (0-4.4) H 05/13/21 05:38 Basophils % 1.2 % (0-1.3) 05/13/21 05:38 Nucleated RBC % Cancelled 04/27/21 05:00 Absolute Neutrophils 2.5 K/uL (1.8-8.0) 05/13/21 05:38 Absolute Lymphocytes 1.2 K/uL (0.7-4.9) 05/13/21 05:38 Absolute Monocytes 0.4 K/uL (0.1-1.3) 05/13/21 05:38 Absolute Eosinophils 0.3 K/uL (0-0.5) 05/13/21 05:38 Absolute Basophils 0.1 K/uL (0-0.5) 05/13/21 05:38 Diff Path Review Cancelled 04/27/21 05:00 PT 12.6 SECONDS (9.5-12.5) H 04/27/21 08:37 INR 1.09 04/27/21 08:37 Sodium 143 mmol/L (136-145) 05/13/21 05:38 Potassium 4.1 mmol/L (3.5-5.1) 05/13/21 05:38 Chloride 111 mmol/L (98-107) H 05/13/21 05:38 Carbon Dioxide 25 mmol/L (21-32) 05/13/21 05:38 BUN 12 mg/dL (7-18) 05/13/21 05:38 Creatinine 0.88 mg/dL (0.55-1.3) 05/13/21 05:38 Estimated GFR 86 mL/min (=/>90) L 05/13/21 05:38 Glucose 98 mg/dL (74-106) 05/13/21 05:38 Calcium 8.8 mg/dL (8.5-10.1) 05/13/21 05:38 Magnesium 2.2 mg/dL (1.8-2.4) 05/13/21 05:38 Albumin 3.2 g/dL (3.4-5.0) L 05/13/21 05:38 Prealbumin 29.7 mg/dL (20-40) 05/13/21 05:38 Urine Color Yellow (Yellow) 04/26/21 22:06 Urine Appearance Clear (Clear) 04/26/21 22:06 Urine pH 5.5 (5.0-7.0) 04/26/21 22:06 Ur Specific [place] 1.020 (1.005-1.030) 04/26/21 22:06 Glucose (UA)(Auto) Negative (Negative) 04/26/21 22:06 Urine Ketones Trace (Negative) H 04/26/21 22:06 Urine Blood Negative (Negative) 04/26/21 22:06 Urine Nitrite Negative (Negative) 04/26/21 22:06 Urine Bilirubin Negative (Negative) 04/26/21 22:06 Urine Urobilinogen 1.0 mg/dL (0.2-1.0) 04/26/21 22:06 Ur Leukocyte Esterase 1+ (Negative) H 04/26/21 22:06 Urine RBC <5 /HPF (NONE SEEN) 04/26/21 22:06 Urine WBC 5-10 /HPF (<5) H 04/26/21 22:06 Ur Squamous Epith Cells SUPERVISOR RECLAMATION 04/26/21 22:06 Ur Urothelial Cells <5 /HPF (NONE SEEN) 04/26/21 22:06 Urine Bacteria <20 /HPF (NONE SEEN) 04/26/21 22:06 Urine Culture Reflexed Not needed 04/26/21 22:06 Urine Total Protein Negative (Negative) 04/26/21 22:06 Weight: 194 lb 1.6 oz Wound Present: No Closed Surgical Incision Present: Yes Negative Pressure Wound Therapy Present: No Physician Update: Labs reviewed and are stable. Walks 250', up and down 15 steps with standby to contact guard assistance. He is on topamax 25 mg twice daily for headache. 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 Please see the Rehabilitation Signature page for all necessary signatures.
--- NOTE | 2021-05-14 16:26 | FAST ---
[employer] FORM SHIFT START DATE/TIME: 05/14/2021 07:00 (CDT) SHIFT END DATE/TIME: 05/14/2021 19:00 (CDT) NAME REMA AMAYA DATE OF : 1950 DATE OF ADMISSION: 04/26/2021 19:31 (CDT) PHONE: AGE: 70 SSN# [id number] GENDER: Male ENCOUNTER PHYSICIAN: Dr. Steven Dean M.D. ADMISSION DIAGNOSIS: - Stroke 01 - Other Stroke (.9) ACUTE EXTENSIVE RLE DVT-. EATING: EATING - STEP 1: Does the patient complete the activity by him/herself with no assistance (physical, verbal/nonverbal cueing, setup/clean-up)? No. EATING - STEP 2: Does the patient need only setup/clean-up assistance from one helper? Yes. 1. [id number] ADMISSION PERFORMANCE: Setup or clean-up assistance CODE: 05 ORAL HYGIENE: ORAL HYGIENE - STEP 1: Does the patient complete the activity by him/herself with no assistance (physical, verbal/nonverbal cueing, setup/clean-up)? No. ORAL HYGIENE - STEP 2: Does the patient need only setup/clean-up assistance from one helper? No. ORAL HYGIENE - STEP 3: Does the patient need only verbal/nonverbal cueing or touching/steadying/contact guard assistance fro m one helper? Yes. 1. [id number] ADMISSION PERFORMANCE: Supervision or touching assistance CODE: 04 TOILETING HYGIENE: TOILETING HYGIENE - STEP 1: Does the patient complete the activity by him/herself with no assistance (physical, verbal/nonverbal cueing, setup/clean-up)? No. TOILETING HYGIENE - STEP 2: Does the patient need only setup/clean-up assistance from one helper? Yes. 1. [id number] ADMISSION PERFORMANCE: Setup or clean-up assistance CODE: 05 BATHING: Not assessed/no information CODE: - DRESSING - UPPER BODY: DRESSING - UPPER BODY - STEP 1: Does the patient complete the activity by him/herself with no assistance (physical, verbal/nonverbal cueing, setup/clean-up)? No. DRESSING - UPPER BODY - STEP 2: Does the patient need only setup/clean-up assistance from one helper? No. DRESSING - UPPER BODY - STEP 3: Does the patient need only verbal/nonverbal cueing or touching/steadying/contact guard assistance fro m one helper? Yes. 1. [id number] ADMISSION PERFORMANCE: Supervision or touching assistance CODE: 04 DRESSING - LOWER BODY: DRESSING - LOWER BODY - STEP 1: Does the patient complete the activity by him/herself with no assistance (physical, verbal/nonverbal cueing, setup/clean-up)? No. DRESSING - LOWER BODY - STEP 2: Does the patient need only setup/clean-up assistance from one helper? No. DRESSING - LOWER BODY - STEP 3: Does the patient need only verbal/nonverbal cueing or touching/steadying/contact guard assistance fro m one helper? Yes. 1. [id number] ADMISSION PERFORMANCE: Supervision or touching assistance CODE: 04 PUTTING ON/TAKING OFF FOOTWEAR: FOOTWEAR - STEP 1: Does the patient complete the activity by him/herself with no assistance (physical, verbal/nonverbal cueing, setup/clean-up)? No. FOOTWEAR - STEP 2: Does the patient need only setup/clean-up assistance from one helper? No. FOOTWEAR - STEP 3: Does the patient need only verbal/nonverbal cueing or touching/steadying/contact guard assistance fro m one helper? Yes. 1. [id number] ADMISSION PERFORMANCE: Supervision or touching assistance CODE: 04 ROLL LEFT AND RIGHT: ROLL LEFT AND RIGHT - STEP 1: Does the patient complete the activity by him/herself with no assistance (physical, verbal/nonverbal cueing, setup/clean-up)? No. ROLL LEFT AND RIGHT - STEP 2: Does the patient need only setup/clean-up assistance from one helper? Yes. 1. [id number] ADMISSION PERFORMANCE: Setup or clean-up assistance CODE: 05 SIT TO LYING: SIT TO LYING - STEP 1: Does the patient complete the activity by him/herself with no assistance (physical, verbal/nonverbal cueing, setup/clean-up)? No. SIT TO LYING - STEP 2: Does the patient need only setup/clean-up assistance from one helper? Yes. 1. [id number] ADMISSION PERFORMANCE: Setup or clean-up assistance CODE: 05 LYING TO SITTING: LYING TO SITTING ON SIDE OF BED - STEP 1: Does the patient complete the activity by him/herself with no assistance (physical, verbal/nonverbal cueing, setup/clean-up)? No. LYING TO SITTING ON SIDE OF BED - STEP 2: Does the patient need only setup/clean-up assistance from one helper? Yes. 1. [id number] ADMISSION PERFORMANCE: Setup or clean-up assistance CODE: 05 SIT TO STAND: SIT TO STAND - STEP 1: Does the patient complete the activity by him/herself with no assistance (physical, verbal/nonverbal cueing, setup/clean-up)? No. SIT TO STAND - STEP 2: Does the patient need only setup/clean-up assistance from one helper? Yes. 1. [id number] ADMISSION PERFORMANCE: Setup or clean-up assistance CODE: 05 TRANSFERS: BED, CHAIR: CHAIR/[id number] TRANSFER - STEP 1: Does the patient complete the activity by him/herself with no assistance (physical, verbal/nonverbal cueing, setup/clean-up)? No. CHAIR/[id number] TRANSFER - STEP 2: Does the patient need only setup/clean-up assistance from one helper? Yes. 1. [id number] ADMISSION PERFORMANCE: Setup or clean-up assistance CODE: 05 TRANSFER TOILET: TOILET TRANSFER - STEP 1: Does the patient complete the activity by him/herself with no assistance (physical, verbal/nonverbal cueing, setup/clean-up)? No. TOILET TRANSFER - STEP 2: Does the patient need only setup/clean-up assistance from one helper? Yes. 1. [id number] ADMISSION PERFORMANCE: Setup or clean-up assistance CODE: 05 TRANSFERS: CAR: Not assessed/no information CODE: - WALK 10 FEET: Not assessed/no information CODE: - 1 STEP (CURB): Not assessed/no information CODE: - PICKING UP OBJECT: Not assessed/no information CODE: - DOES THE PATIENT USE A WHEELCHAIR/SCOOTER? Q1. DOES THE PATIENT USE A WHEELCHAIR/SCOOTER?: Yes CODE: 1 WHEEL 50 FEET WITH TWO TURNS: Not assessed/no information 1. [id number] ADMISSION PERFORMANCE: Supervision or touching assistance CODE: 04 INDICATE THE TYPE OF WHEELCHAIR/SCOOTER USED: RR1. INDICATE THE TYPE OF WHEELCHAIR/SCOOTER USED.: Manual CODE: 1 WHEEL 150 FEET: WHEEL 150 FEET - STEP 1: Does the patient complete the activity by him/herself with no assistance (physical, verbal/nonverbal cueing, setup/clean-up)? No. WHEEL 150 FEET - STEP 2: Does the patient need only setup/clean-up assistance from one helper? No. WHEEL 150 FEET - STEP 3: Does the patient need only verbal/nonverbal cueing or touching/steadying/contact guard assistance fro m one helper? Yes. 1. [id number] ADMISSION PERFORMANCE: Supervision or touching assistance CODE: 04 INDICATE THE TYPE OF WHEELCHAIR/SCOOTER USED: SS1. INDICATE THE TYPE OF WHEELCHAIR/SCOOTER USED.: Manual CODE: EXPR BLADDER AND BOWEL: H350. BLADDER CONTINENCE (3-DAY ASSESSMENT PERIOD): Incontinent less than daily (e.g., once or twice during the 3-day assessment period) CODE: 2 H400. BOWEL CONTINENCE (3-DAY ASSESSMENT PERIOD): Always continent CODE: 0 SIGNATURE PANEL: The following modified sections: 1. [id number] Admission Performance, 1. [id number] Admission Performance, 1. [id number] Admission Performance, 1. [id number] Admission Performance, 1. [id number] Admission Performance, 1. [id number] Admission Performance, 1. [id number] Admission Performance, 1. [id number] Admission Performance , 1. QV5233s Admission Performance, 1. [id number] Admission Performance, 1. [id number] Admission Performanc e, 1. [id number] Admission Performance, 1. [id number] Admission Performance, 1. [id number] Admission Performan ce, 1. [id number] Admission Performance, 1. [id number] Admission Performance, Q1. Does the patient use a wh eelchair/scooter?, 1. [id number] Admission Performance, RR1. Indicate the type of wheelchair/scooter use d., 1. [id number] Admission Performance, Code, 1. [id number] Admission Performance, Code, SS1. Indicate the type of wheelchair/scooter used., H350. Bladder Continence (3-day assessment period), H400. Bowel Co ntinence (3-day assessment period), H350. Bladder Continence (3-day assessment period) were [electron [email or web address]] signed by Gaye CarrizalesNMally on MonMay 14 2021 16:25:30 GMT-0500 (Central Daylight Time)
[2021-05-14] MEDS: ROSUVASTATIN 10 MG TAB PO SCH (20:14)
[2021-05-14] MEDS: MELATONIN 3 MG TABLET PO PRN (20:14)
[2021-05-15 05:46] VITALS: BMI 25.8
[2021-05-15 07:17] VITALS: BP 140/80; TEMP 98
[2021-05-15] MEDS: NYSTATIN PWDR 100000 UNIT/GM TOP SCH (07:20)
[2021-05-15] MEDS: TOPIRAMATE 25 MG TAB PO SCH (08:00)
[2021-05-15] MEDS: CRANBERRY FRUIT EXTRACT 200 MG CAP PO SCH (08:12)
[2021-05-15] MEDS: carBAMazepine 200 MG TAB PO SCH (08:14)
[2021-05-15] MEDS: FINASTERIDE 5 MG TAB PO SCH (08:14)
[2021-05-15] MEDS: AMIODARONE HCL 200 MG TAB PO SCH (08:14)
[2021-05-15] MEDS: levETIRAcetam 500 MG TAB PO SCH (08:15)
[2021-05-15] MEDS: MEMANTINE HCL 10 MG TABLET PO SCH (08:15)
[2021-05-15] MEDS: DOCUSATE NA 100 MG CAP PO SCH (08:15)
[2021-05-15] MEDS: APIXABAN 5 MG TABLET PO SCH (08:15)
[2021-05-15] MEDS: METOPROLOL TAR 50 MG TAB PO SCH (08:16)
[2021-05-15] MEDS: TAMSULOSIN 0.4 MG SR CAP PO SCH (08:16)
[2021-05-15] MEDS: ACETAMINOPHEN 500 MG TAB PO PRN (08:17)
[2021-05-15] MEDS: SERTRALINE HCL 50 MG TAB PO SCH (08:18)
--- NOTE | 2021-05-15 09:45 | P.PN ---
Subjective Date of Service: 05/14/21 Chief Complaint: HEADACHES TODAY Subjective: Ambulating HE IS STABLE, ANXIETY IS BETTER. HEADACHES CONTINUE. DR GREENE IS WORKING ON IT. NO CHANGES. HEADACHES STILL MILD Physical Examination - Vital Signs Temperature: 98 F Blood Pressure: 140/80 Pulse: 99 Respirations: 18 Pulse Ox (%): 96 - Physical Exam General: Oriented x2, Mild distress HEENT: Atraumatic, PERRLA, EOMI Neck: Supple, JVD not distended Respiratory: Clear to auscultation bilaterally, Normal air movement Cardiovascular: Regular rate/rhythm, Normal S1 S2 Gastrointestinal: Normal bowel sounds, No tenderness Musculoskeletal: No tenderness Integumentary: No rashes Neurological: Normal tone, Normal affect, Abnormal speech Lymphatics: No axilla or inguinal lymphadenopathy - Studies Medications List Reviewed: Yes Assessment And Plan - Current Problems (Diagnosis) (1) Pulmonary emboli Current Visit: Yes Status: Acute Plan: HISTORY. START ELIQUIS BID. STOP LOVENOX. Qualifiers: Pulmonary embolism type: saddle (2) Hypertension Current Visit: No Status: Acute (3) Meningioma Current Visit: No Status: Chronic Plan: RECURRENCE AND SURGERY DONE AGAIN DETAILS PER [place] RECORDS. REMOVE LONDONO START PT. CONT PT. I CALLED [place] [facility] WITH NO RESPONSE DR GRISSOM IS OUT OF TOWN. SP SURGERY TWICE. STABLE DC ON MONDAY. (4) Anxiety disorder Current Visit: Yes Status: Chronic Plan: HE IS ALWAYS EDGY AND ANXIOUS MORE EVIDENT NOW IN [facility] BID SHOULD HELP. (5) Urinary retention Current Visit: Yes Status: Acute Plan: MORE SINCE SURGERY . FLOMAX AND FINESTRIDE. CONSULT UROLOGIST. (6) Headache Current Visit: Yes Status: Acute Plan: CT BRAIN NEG FOR ANY NEW FINDINGS. DR. CASEY CALLED FOR HEADACHES. TOPAMAX BID MAY HELP. PER HEADACHES ARE CHRONIC FOR YEARS SINCE THE TUMOR. TOPAMAX WORKS WELL (7) Postoperative memory impairment Current Visit: Yes Status: Acute Plan: MAINLY MAJOR PART OF HIS BRAIN IS MISSING SURGICALLY. START MEMENATINE DAILY AND THEN BID. PER DR. CASEY. CONTINUE MEMANTINE. Qualifiers: Encounter type: initial encounter Qualified Code(s): T81.89XA - Other complications of procedures, not elsewhere classified, initial encounter; R41.3 - Other amnesia (8) BPH (benign prostatic hyperplasia) Current Visit: Yes Status: Chronic Plan: CONT FLOMAX AND ADD AVODART OR PROSCAR. PSA DONE AT OFFICE. Qualifiers: Lower urinary tract symptom presence: symptoms present (9) Headache Current Visit: Yes Status: Acute Plan: POST OP HEADACHES. CT NEG. TOPAMAX STARTED.
--- NOTE | 2021-05-15 09:46 | P.PN ---
Subjective Date of Service: 05/15/21 Chief Complaint: HEADACHES TODAY HE IS STABLE, ANXIETY IS BETTER. HEADACHES CONTINUE. DR GREENE IS WORKING ON IT. NO CHANGES. HEADACHES STILL MILD IMPROVED HEADACHES ON TOPAMAX TEGRETOL DID NOT WORK PER NURSE Physical Examination - Vital Signs Temperature: 98 F Blood Pressure: 140/80 Pulse: 99 Respirations: 18 Pulse Ox (%): 96 - Physical Exam General: Alert, Oriented x2, Confused (NO CHANGES) Neurological: Abnormal gait, Abnormal speech - Studies Medications List Reviewed: Yes Assessment And Plan - Current Problems (Diagnosis) (1) Pulmonary emboli Current Visit: Yes Status: Acute Plan: HISTORY. START ELIQUIS BID. STOP LOVENOX. IF HE IS NOT ABLE TO AFFORD ELIQUIS WILL CHANGE BACK TO [place]. Qualifiers: Pulmonary embolism type: saddle (2) Hypertension Current Visit: No Status: Acute (3) Meningioma Current Visit: No Status: Chronic Plan: RECURRENCE AND SURGERY DONE AGAIN DETAILS PER [place] RECORDS. REMOVE [place] START PT. CONT PT. I CALLED [place] [facility] WITH NO RESPONSE DR GRISSOM IS OUT OF TOWN. SP SURGERY TWICE. STABLE DC ON MONDAY. (4) Anxiety disorder Current Visit: Yes Status: Chronic Plan: HE IS ALWAYS EDGY AND ANXIOUS MORE EVIDENT NOW IN [facility] BID SHOULD HELP. (5) Urinary retention Current Visit: Yes Status: Acute Plan: MORE SINCE SURGERY . FLOMAX AND FINESTRIDE. CONSULT UROLOGIST. (6) Headache Current Visit: Yes Status: Acute Plan: CT BRAIN NEG FOR ANY NEW FINDINGS. DR. CASEY CALLED FOR HEADACHES. TOPAMAX BID MAY HELP. PER HEADACHES ARE CHRONIC FOR YEARS SINCE THE TUMOR. TOPAMAX WORKS WELL (7) Postoperative memory impairment Current Visit: Yes Status: Acute Plan: MAINLY MAJOR PART OF HIS BRAIN IS MISSING SURGICALLY. START MEMENATINE DAILY AND THEN BID. PER DR. CASEY. CONTINUE MEMANTINE. Qualifiers: Encounter type: initial encounter Qualified Code(s): T81.89XA - Other complications of procedures, not elsewhere classified, initial encounter; R41.3 - Other amnesia (8) BPH (benign prostatic hyperplasia) Current Visit: Yes Status: Chronic Plan: CONT FLOMAX AND ADD AVODART OR PROSCAR. PSA DONE AT OFFICE. Qualifiers: Lower urinary tract symptom presence: symptoms present (9) Headache Current Visit: Yes Status: Acute Plan: POST OP HEADACHES. CT NEG. TOPAMAX STARTED.
--- NOTE | 2021-05-21 12:53 | R.DS ---
DISCHARGE SUMMARY FACILITY [facility] MR# [id number] NAME REMA MAAYA AD[address]ESS [address] [place] [address] PHONE DATE OF 1950 AGE 70 SSN# [id number] GENDER Male MARITAL STATUS ENCOUNTER PHYSICIAN Dr. Steven Dean M.D. REFERRING DOCTOR Anil Hancock REFERRING FACILITY [facility] PRIMARY CARE PHYSICIAN TUCKER BLACKBURN MD DISCHARGE DIAGNOSIS: - Stroke 01 - Other Stroke (.9) ACUTE EXTENSIVE RLE DVT-. DATE OF ADMISSION 04/26/2021 19:31 (CDT) MEDICATION ALLERGIES: No Known Drug Allergies (NKDA) ENVIRONMENTAL ALLERGIES: - Substance Allergies None Known - Other Allergies None Known DISCHARGE MEDICATIONS: Other- ContinueSee attached MAR (Medication Administration Record). NURSING: - Shower allowing shower - Bladder care per protocol - Skin care per protocol ACTIVITIES OOB only with supervision THERAPIES: - Occupational Therapy Cognitive Retraining Visual Perceptual Training - Dietary and Nutrition Adequate Nutrition Nutritional Education Nutritional Supplements - Speech Therapy Cognitive Training Expressive Language Skills Memory Strategies Receptive Language Skills Speech Intelligibility Training HISTORY OF PRESENT ILLNESS: Pt. is a 70 yo Right-handed male.On 04/12/2021 he was admitted to [facility] with diagnosis ACU TE EXTENSIVE RLE DVT-.His impairment category is Stroke 01 - Other Stroke (11.07).Pre-morbidly, Pt. w as independent/mod-I in Locomotion, Social Cognition, Balance, Safety Awareness, Communication, and E ndurance; and he had good Self-Care.Currently, he has deficits of Locomotion, Safety Awareness, Trans fers Control, Sphincter Control, Communication, and Self-Care.Pt. is now referred to [facility] for acute in-patient rehabilitation in order to maximize patient's functional indep endence in activities of daily living, strength, ROM, and mobility.- Rehab Goal Patient has realistic goal of being discharged at assistance level 7-Ind to reside at Home with Fami ly/Relatives. DIET - LIQUID TEXTURE: On 04/26/2021 Pt was upgraded to Regular Diet - Liquid Texture. DIET - SOLID TEXTURE: On 04/26/2021 Pt was upgraded to Regular Diet - Solid Texture. DIET TYPE: On 04/26/2021 Pt was upgraded to Regular Diet Type. TUBE FEED: On 04/26/2021 Pt was changed to N/A Tube Feed. DISCHARGE PHYSICAL EXAM - Gen Alert and awake Lying in bed No apparent distress Oriented to: person, time, and place - Skin No skin breakdown. Normacephalic - Eyes No abnormalities - ENMT No abnormalities - Neck No abnormalities - CVS RRR - Chest No abnormalities - Resp Clear to auscultation - Abd + bowel sounds - GI Soft Deferred - Cobb catheter - Ext Moderate right lower extremity edema. - MSK 4+/5 weakness in right lower extremity - Neuro 4/5 strength right lower extremity - Psych No abnormalities FUNCTIONAL STATUS: - Self-Care A. Eating 7-Ind B. Grooming 6-Campbell C. Bathing 6-Campbell D. Dressing - Upper 6-Campbell E. Dressing - Lower 6-Campbell F. Toileting 6-Campbell - Sphincter Control G. Bladder control 6-Campbell H. Bowel control 6-Campbell - Transfers Control I. Bed/Chair/Wheelchair 6-Campbell J. Toilet 6-Campbell K. Tub/Shower 6-Campbell - Locomotion L. Walk/Wheelchair (B) 6-Campbell M. Stairs 6-Campbell - Communication N. Comprehension (B) 6-Campbell O. Expression (B) 6-Campbell - Social Cognition P. Social Interaction 6-Campbell Q. Problem Solving 6-Campbell R. Memory 6-Campbell - Endurance Good - Balance Good - Safety Awareness Good QI SCORES: - Self-Care A. Eating 04-Supervision or touching assistance B. Oral hygiene 03-Partial/moderate assistance C. Toileting hygiene 03-Partial/moderate assistance E. Shower/bathe self 03-Partial/moderate assistance F. Upper body dressing 03-Partial/moderate assistance G. Lower body dressing 03-Partial/moderate assistance H. Putting on/taking off footwear 88-Not attempted due to medical condition or safety concerns - Mobility A. Roll left and right 03-Partial/moderate assistance B. Sit to lying 03-Partial/moderate assistance C. Lying to sitting on side of bed 03-Partial/moderate assistance D. Sit to stand 03-Partial/moderate assistance E. Chair/jbm-yo-guegt transfer 03-Partial/moderate assistance F. Toilet transfer 03-Partial/moderate assistance G. Car transfer 88-Not attempted due to medical condition or safety concerns I. Walk 10 feet 03-Partial/moderate assistance J. Walk 50 feet with two turns 03-Partial/moderate assistance K. Walk 150 feet 88-Not attempted due to medical condition or safety concerns L. Walking 10 feet on uneven surfaces 88-Not attempted due to medical condition or safety concerns M. 1 step (curb) 88-Not attempted due to medical condition or safety concerns N. 4 steps 88-Not attempted due to medical condition or safety concerns O. 12 steps 88-Not attempted due to medical condition or safety concerns P. Picking up object 88-Not attempted due to medical condition or safety concerns R. Wheel 50 feet with two turns 88-Not attempted due to medical condition or safety concerns S. Wheel 150 feet 88-Not attempted due to medical condition or safety concerns - Bladder and Bowel Bladder continence Bowel continence - Endurance Fair - Balance Fair - Safety Awareness Fair DISCHARGE INSTRUCTIONS: - N/A Eliquis 5 mg twice daily. DISCHARGE PLAN, FOLLOW UP CARE PROVISIONS: - Estimated Length of Stay (days) 17. - Consensus on plan Discharge plan has been discussed with primary caregiver. Patient/Family is in agreement with the destiny n. Primary caregiver is in agreement with the plan. - Patient/Family Goals Return home independently. - Planned Living Setting Upon Discharge Home, to live with Family/Relatives. Transitional Living. SIGNATURE PANEL: (CDT)
== END 2021-05-15 11:30 | disposition home or self-care (01) | DRG 301 ==
LOC: 5TH 19:31
PROVIDERS: ADMIT Psychiatry & Neurology Neurology with Special Qualifications in Child Neurology; ATTEND Psychiatry & Neurology Neurology with Special Qualifications in Child Neurology
DX: I82.401 Acute embolism and thrombosis of unspecified deep veins of right lower extremity (principal); R51.9 Headache, unspecified; F41.9 Anxiety disorder, unspecified; I10 Essential (primary) hypertension; N40.1 Benign prostatic hyperplasia with lower urinary tract symptoms; R33.8 Other retention of urine; D32.9 Benign neoplasm of meninges, unspecified; Z86.711 Personal history of pulmonary embolism; Z79.01 Long term (current) use of anticoagulants; Z98.890 Other specified postprocedural states
CPT/HCPCS: 36415; 70450; 80048; 81001; 82040; 83735; 84134; 85014; 85018; 85025; 85610; 87086; 87088; 93970; 94010; 97110; 97112; 97116; 97124; 97161; 97530; J1650

== ENCOUNTER 2021-12-19 05:12 | Observation (INO) | payer OTHER ==
--- OUTSIDE RECORDS SUMMARY | 2021-12-19 05:15 | XMS REPORT | Continuity of Care Document ---
:1950 Author Organization [facility] t Address [address] [place] [address] Care Team Providers Name Role Phone Hanh Abi Primary Care Physician MYRNA Attending Clinician Unavailable JESUS Attending Clinician Unavailable JANKI KIRBY Attending Clinician Unavailable JESUS Attending Clinician Unavailable Sukumar MASTERSON I Attending Clinician Meme MASTERSON, Not In Attending Clinician Unavailable Namita Attending Clinician Farzaneh Lara APRN Attending Clinician JESUS Admitting Clinician Unavailable Payers Payer Name Policy Type Policy Number Effective Date Expiration Date S ource MEDICARE PART A [id number] 2013 2024 AND B 00:00:00 00:00:00 Problems Condition Condition Condition Status Onset Resolution Last Treating Co mments Source Name Details Category Date Date Treatment Clinician Date 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 (event) Sex Ass[birth year] [facility] 00:00:00 00:00:00 Smoking Status Start Date Stop Date Source Never smoked tobacco [facility] Tobacco smoking consumption unknown [facility] Medications This patient has no known medications. Vital Signs Vital Name Observation Time Observation Value Comments Source Systolic blood pressure 2021-12-17 19:53:00 116 mm[Hg] [facility] Diastolic blood pressure 2021-12-17 19:53:00 76 mm[Hg] [facility] Heart rate 2021-12-17 19:53:00 68 /min [facility] Body height 2021-12-17 19:53:00 180.3 cm [facility] Body weight 2021-12-17 19:53:00 89.812 kg [facility] BMI 2021-12-17 19:53:00 27.62 kg/m2 [facility] Procedures Procedure Date / Time Performed Performing Clinician Sour e XR CHEST 2 V[facility]WS [facility] 2021-03-25 18:07:10 [facility] Encounters Start End Encounter Admission Attending Care Care Encounter Source Date/Time Date/Time Type Type Clinicians Facility Department ID 2021-12-14 Outpatient MYRNA [facility] [id number] [place] 16:01:55 [facility] 2021-11-26 Outpatient JESUS [facility] [id number] [place] 15:05:52 [facility] 2021-05-20 Outpatient JESUS [facility] [id number] [place] 01:03:57 [facility] 2021-05-17 Outpatient JESUS [facility] [id number] [place] 01:04:29 [facility] 2021-05-13 Outpatient JESUS [facility] [id number] [place] 01:05:09 [facility] 2021-04-20 Outpatient SUKUMAR [facility] [id number] HH 15:07:06 ARMANDO 2019-04-24 Outpatient [facility] [id number] HH 10:51:31 2019-04-22 Outpatient [facility] [id number] HH 15:06:05 2021-12-17 2021-12-17 Consult Hernandez, [facility] [id number] [place] 13:00:00 14:00:[address] [id number] Health [id number] 2021-04-12 2021-04-26 Inpatient JESUS, [facility] [id number] [facility] 08:13:00 18:00:00 ANTHONY 2021-04-20 2021-04-20 EXT [facility] OP Sukumar, EXT MSRDP [id number] [place] 00:00:00 00:00:00 Armando I LOCATION [id number] H ealth [id number] 2021-04-19 2021-04-19 EXT MHH OP System, EXT MSRDP [id number] [place] 00:00:00 00:00:00 Provider LOCATION [id number] Health Not In [id number] 2021-04-18 2021-04-18 EXT MHH OP System, EXT MSRDP [id number] [place] 00:00:00 00:00:00 Provider LOCATION [id number] Health Not In [id number] 2021-04-13 2021-04-13 EXT MHH OP Efrainikawa, EXT MSRDP [id number] [place] 00:00:00 00:00:00 Gabriel LOCATION [id number] H ealth [id number] 2021-04-13 2021-04-13 EXT MHH OP System, EXT MSRDP [id number] [place] 00:00:00 00:00:00 Provider LOCATION [id number] Health Not In [id number] 2021-04-13 2021-04-13 EXT MHH OP System, EXT MSRDP [id number] [place] 00:00:00 00:00:00 Provider LOCATION [id number] Health Not In [id number] 2021-03-26 2021-03-26 EXT MHH OP Jesus, EXT MSRDP [id number] [place] 00:00:00 00:00:00 Anthony LOCATION [id number] H ealth [id number] 2021-03-18 2021-03-18 EXT MHH OP Jesus, EXT MSRDP [id number] [place] 00:00:00 00:00:00 Anthony LOCATION [id number] H ealth [id number] 2021-03-01 2021-03-01 EXT MHH OP Nishikawa, EXT MSRDP [id number] [place] 00:00:00 00:00:00 Gabriel LOCATION [id number] H ealth [id number] 2021-02-20 2021-02-20 EXT MHH OP Lara, EXT MSRDP [id number] 1 [id number] [place] 00:00:00 00:00:00 Shayla LOCATION [id number] Health Farzaneh [id number] 2019-04-24 2019-04-24 Outpatient [facility] [id number] [facility] 05:14:00 05:14:00 Results This patient has no known results.
--- NOTE | 2021-12-19 06:57 | ER ---
Nurse's Notes [facility] Name: Jame Coburn Age: 71 yrs Sex: Male : 1950 Arrival Date: 12/19/2021 Time: 05:16 Bed 14 Private MD: Diagnosis: Acute embolism and thrombosis of other specified deep vein of right lower extremity;Fall on same level, unspecified;Low back pain Presentation: 12/19 05:23 Chief complaint: Patient states: "The leg is hurting real real bad today. It is getting tw5 bigger, you can see." Spouse and/or significant other states: " He has aphasia so sometimes he had a hard time telling you what is wrong, but his leg has been swelling since yesterday. He fell last week so his back has also been hurting him.". Coronavirus screen: Vaccine status: Patient reports receiving the 2nd dose of the covid vaccine. all three shots, does not know brand. Ebola Screen: Patient negative for fever greater than or equal to 101.5 degrees Fahrenheit, and additional compatible Ebola Virus Disease symptoms Patient denies exposure to infectious person. Patient denies travel to an Ebola-affected area in the 21 days before illness onset. Initial Sepsis Screen: Does the patient meet any 2 criteria? No. Patient's initial sepsis screen is negative. Does the patient have a suspected source of infection? No. Patient's initial sepsis screen is negative. Risk Assessment: Do you want to hurt yourself or someone else? Patient reports no desire to harm self or others. Onset of symptoms was December 17, 2021. 05:23 Acuity: LIZA 3 tw5 05:23 Method Of Arrival: Wheelchair tw5 Triage Assessment: 05:26 General: Appears uncomfortable, Behavior is calm, cooperative, appropriate for age. tw5 Pain: Complains of pain in right leg Pain currently is 8 out of 10 on a pain scale. 05:26 General: Leg appears swollen with a purple hue. tw5 Historical: - Allergies: 05:26 No Known Allergies; tw5 - PMHx: 05:26 BRAIN TUMOR; broken back; CVA; High Cholesterol; tw5 - PSHx: 05:26 None; tw5 - Immunization history:: Flu vaccine is up to date. - Social history:: Smoking status: Patient denies any tobacco usage or history of. Screenin:39 Abuse screen: Denies threats or abuse. Nutritional screening: No deficits noted. sv1 Tuberculosis screening: No symptoms or risk factors identified. Fall Risk None identified. Assessment: 05:42 Reassessment: CC worsening right knee and leg swelling. . sv1 07:10 General: Appears in no apparent distress. Behavior is calm, cooperative. jh6 07:10 Pain: Complains of pain in right leg Pain currently is 6 out of 10 on a pain scale. jh6 Quality of pain is described as squeezing, tender. 07:10 Musculoskeletal: Swelling present in right leg Tenderness present in right leg. jh6 08:20 Reassessment: Patient and/or family updated on plan of care and expected duration. Pain jh6 level reassessed. Patient is alert, oriented x 3, equal unlabored respirations, skin warm/dry/pink. 08:20 Pain: Complains of pain in right leg Pain currently is 3 out of 10 on a pain scale. jh6 Quality of pain is described as tender, gnawing. Vital Signs: 05:23 BP 120 / 81; Pulse 78; Resp 18; Temp 97.9(O); Pulse Ox 99% on R/A; Weight 90.72 kg; tw5 Height 5 ft. 11 in. (180.34 cm); Pain 8/10; 05:39 BP 126 / 82 LA Supine (auto/reg); Pulse 76 MON; Resp 18; Temp 98.2(O); Pulse Ox 97% on sv1 R/A; Pain 10/10; 07:10 BP 122 / 78; Pulse 76; Resp 18; Pulse Ox 99% ; Pain 6/10; jh6 09:00 BP 104 / 68; Pulse 59; Resp 17; Pulse Ox 100% ; Pain 2/10; jh6 05:23 Body Mass Index 27.89 (90.72 kg, 180.34 cm) tw5 ED Course: 05:16 Patient arrived in ED. ja2 05:25 Triage completed. tw5 05:26 Yefri Mendez MD is Attending Physician. [facility] 05:26 Arm band placed on right wrist. tw5 05:39 Renny Rabago RN is Primary Nurse. sv1 05:39 Patient has correct armband on for positive identification. Bed in low position. Call sv1 light in reach. Side rails up X2. Adult w/ patient. 06:53 Initial lab(s) drawn, by me, sent to lab. Inserted saline lock: 20 gauge in right tw5 antecubital area, using aseptic technique. ,using aseptic technique. ultra sound guided IV Blood collected. 06:56 Fer Schafer MD is Hospitalizing Provider. [facility] 07:02 EKG done, by ED staff, reviewed by Yefri Mendez MD. lt3 07:03 SARS-COV-2 RT PCR (Document "Date of Onset" if Symptomatic) Sent. sv1 07:04 Lipase Sent. sv1 07:04 Basic Metabolic Panel Sent. sv1 07:04 CBC with Diff Sent. sv1 07:04 LFT's Sent. sv1 07:04 Magnesium Sent. sv1 07:04 NT PRO-BNP Sent. sv1 07:04 PT-INR Sent. sv1 07:04 Troponin HS Sent. sv1 07:13 Blair Moreno NP is PHCP. pm1 07:26 Ptt, Activated Sent. jh6 07:[address] via stretcher. [facility] Administered Medications: 07:24 Drug: NS 0.9% 1000 ml Route: IV; Rate: 125 ml/hr; Site: right antecubital; 6 07:24 Drug: morphine 2 mg Route: IVP; Site: right antecubital; 6 07:24 Drug: Zofran (Ondansetron) 4 mg Route: IVP; Site: right antecubital; 6 07:24 Drug: Pepcid (famotidine) 20 mg Route: IVP; Site: right antecubital; [facility] 08:40 Drug: Heparin (DVT/PE Drip) 18 units/kg/hr - (HEParin 88646 units, D5W 500 ml) [facility] {Co-Signature: star (Migel Vyas RN).} Route: IV; Rate: 1600 units/hr; Site: right antecubital; 08:41 Drug: Heparin (DVT/PE- Bolus per protocol) - HEParin 80 units/kg {Co-Signature: star Ronnie (Migel Vyas RN).} Route: IVP; Site: right antecubital; Outcome: 06:57 Decision to Hospitalize by Provider. dequan 11:33 Admitted to Tele accompanied by tech, via stretcher, room 206. jh6 11:33 Condition: stable 11:33 Instructed on the need for admit. 11:34 Patient left the ED. 6 Signatures: Yefri Mendez MD MD cha Marinas, Patrick, NP [employer] pm1 Alessandra Sanchez Tiffany tw5 Irene Hernández RN RN jh6 Lynda Bingham 3 Renny Rabago RN RN sv1 Migel Vyas RN jd3
--- NOTE | 2021-12-19 06:57 | EDPHYS ---
Physician Documentation [facility] Name: Jame Coburn Age: 71 yrs Sex: Male : 1950 Arrival Date: 12/19/2021 Time: 05:16 Bed 14 Private MD: ED Physician Yefri Mendez HPI: 12/19 05:47 This 71 yrs old Male presents to ER via Wheelchair with complaints of Leg dequan Swelling. 05:47 right leg swollen , fall 1 week ago , hx of dvt right leg , has tania filter. no dequan cp and no sob. Onset: The symptoms/episode began/occurred 3 day(s) ago. Severity of symptoms: At their worst the symptoms were moderate in the emergency department the symptoms are unchanged. The patient has experienced similar episodes in the past, several times. Historical: - Allergies: 05:26 No Known Allergies; tw5 - PMHx: 05:26 BRAIN TUMOR; broken back; CVA; High Cholesterol; tw5 - PSHx: 05:26 None; tw5 - Immunization history:: Flu vaccine is up to date. - Social history:: Smoking status: Patient denies any tobacco usage or history of. ROS: 05:52 Constitutional: Negative for fever, chills, and weight loss, Eyes: Negative for injury, dequan pain, redness, and discharge, ENT: Negative for injury, pain, and discharge, Neck: Negative for injury, pain, and swelling, Cardiovascular: Negative for chest pain, palpitations, and edema, Respiratory: Negative for shortness of breath, cough, wheezing, and pleuritic chest pain, Abdomen/GI: Negative for abdominal pain, nausea, vomiting, diarrhea, and constipation, Back: Negative for injury and pain, : Negative for injury, bleeding, discharge, and swelling, Skin: Negative for injury, rash, and discoloration, Neuro: Negative for headache, weakness, numbness, tingling, and seizure, Psych: Negative for depression, anxiety, suicide ideation, homicidal ideation, and hallucinations, Allergy/Immunology: Negative for hives, rash, and allergies, Endocrine: Negative for neck swelling, polydipsia, polyuria, polyphagia, and marked weight changes, Hematologic/Lymphatic: Negative for swollen nodes, abnormal bleeding, and unusual bruising. 05:52 MS/extremity: Positive for decreased range of motion, erythema, pain, swelling, tenderness, of the right leg. Exam: 05:52 Constitutional: This is a well developed, well nourished patient who is awake, alert, dequan and in no acute distress. Head/Face: Normocephalic, atraumatic. Eyes: Pupils equal round and reactive to light, extra-ocular motions intact. Lids and lashes normal. Conjunctiva and sclera are non-icteric and not injected. Cornea within normal limits. Periorbital areas with no swelling, redness, or edema. ENT: Nares patent. No nasal discharge, no septal abnormalities noted. Tympanic membranes are normal and external auditory canals are clear. Oropharynx with no redness, swelling, or masses, exudates, or evidence of obstruction, uvula midline. Mucous membranes moist. Neck: Trachea midline, no thyromegaly or masses palpated, and no cervical lymphadenopathy. Supple, full range of motion without nuchal rigidity, or vertebral point tenderness. No Meningismus. Chest/axilla: Normal chest wall appearance and motion. Nontender with no deformity. No lesions are appreciated. Cardiovascular: Regular rate and rhythm with a normal S1 and S2. No gallops, murmurs, or rubs. Normal PMI, no JVD. No pulse deficits. Respiratory: Lungs have equal breath sounds bilaterally, clear to auscultation and percussion. No rales, rhonchi or wheezes noted. No increased work of breathing, no retractions or nasal flaring. Abdomen/GI: Soft, non-tender, with normal bowel sounds. No distension or tympany. No guarding or rebound. No evidence of tenderness throughout. Male : Normal genitalia with no discharge or lesions. Skin: Warm, dry with normal turgor. Normal color with no rashes, no lesions, and no evidence of cellulitis. Neuro: Awake and alert, GCS 15, oriented to person, place, time, and situation. Cranial nerves II-XII grossly intact. Motor strength 5/5 in all extremities. Sensory grossly intact. Cerebellar exam normal. Normal gait. Psych: Awake, alert, with orientation to person, place and time. Behavior, mood, and affect are within normal limits. 05:52 Back: pain, that is mild, of the lumbar area, ROM is painful, with flexion, with extension, normal spinal alignment noted, CVA tenderness, is absent, vertebral tenderness, is not appreciated, muscle spasm, is appreciated in the lumbar area. 07:07 ECG was reviewed by the Attending Physician. [facility] Vital Signs: 05:23 BP 120 / 81; Pulse 78; Resp 18; Temp 97.9(O); Pulse Ox 99% on R/A; Weight 90.72 kg; tw5 Height 5 ft. 11 in. (180.34 cm); Pain 8/10; 05:39 BP 126 / 82 LA Supine (auto/reg); Pulse 76 MON; Resp 18; Temp 98.2(O); Pulse Ox 97% on sv1 R/A; Pain 10/10; 07:10 BP 122 / 78; Pulse 76; Resp 18; Pulse Ox 99% ; Pain 6/10; jh6 09:00 BP 104 / 68; Pulse 59; Resp 17; Pulse Ox 100% ; Pain 2/10; jh6 05:23 Body Mass Index 27.89 (90.72 kg, 180.34 cm) tw5 MDM: 05:29 Patient medically screened. [facility] 05:55 Data reviewed: vital signs, nurses notes, lab test result(s), EKG, radiologic studies, [facility] CT scan, doppler, plain films. Data interpreted: flagman: rate is 76 beats/min, rhythm is regular, Pulse oximetry: on room air is 97 %. Test interpretation: by ED physician or midlevel provider: ECG, plain radiologic studies. Counseling: I had a detailed discussion with the patient and/or guardian regarding: the historical points, exam findings, and any diagnostic results supporting the discharge/admit diagnosis, lab results, radiology results, the need for further work-up and treatment in the hospital. 07:55 Refusal of service: The patient/guardian displays adequate decision making capability pm1 and despite a detailed discussion of alternatives, benefits, risks, and consequences refuses: CT head. Patient and refuse CT scan of brain because he denies headache, head injury, neck pain and has had multiple imaging, CT scan and MRIs, last week of his brain. 09:28 ED course: CT abdomen/pelvis shows cholelithiasis with borderline gallbladder wall pm1 thickening. CT abdomen was ordered for evaluation of patient's lumbar spine pain. CT shows moderate chronic compression fracture L4 vertebral body. Reported gallbladder findings to patient and , and patient denies any abdominal pain and patient's abdominal examination negative for pain or tenderness. 12/19 05:47 Order name: Basic Metabolic Panel [facility] 12/19 05:47 Order name: CBC with Diff 12/19 05:47 Order name: LFT's 12/19 05:47 Order name: Magnesium [facility] 12/19 05:47 Order name: NT PRO-BNP 12/19 05:47 Order name: PT-INR 12/19 05:47 Order name: Troponin HS [facility] 12/19 05:47 Order name: Lipase 12/19 05:47 Order name: SARS-COV-2 RT PCR (Document "Date of Onset" if Symptomatic) [facility] 12/19 07:08 Order name: CBC with Automated Diff; Complete Time: 07:09 EDMS 12/19 07:09 Order name: Ptt, Activated 12/19 07:10 Order name: Protime (+INR); Complete Time: 07:14 EDMS 12/19 07:31 Order name: Basic Metabolic Panel; Complete Time: 07:57 EDMS 12/19 07:31 Order name: Liver (Hepatic) Function; Complete Time: 07:57 EDMS 12/19 05:47 Order name: XRAY Chest (1 view) [facility] 12/19 05:47 Order name: CT Head Brain wo Cont dequan 12/19 05:47 Order name: US Extremity Venous W Compression Nathanael 12/19 05:47 Order name: CT Chest For PE Angio [facility] 12/19 05:47 Order name: CT Abd/Pelvis - IV Contrast Only 12/19 05:50 Order name: US LE Artery Uni Ltd 12/19 07:31 Order name: Troponin High Sensitivity; Complete Time: 07:57 EDMS 12/19 07:31 Order name: NT PRO-BNP; Complete Time: 07:57 EDMS 12/19 07:31 Order name: Magnesium; Complete Time: 07:57 EDMS 12/19 07:32 Order name: Lipase; Complete Time: 07:57 EDMS 12/19 08:00 Order name: PTT, Activated Partial Thromb; Complete Time: 08:06 EDMS 12/19 09:03 Order name: CT; Complete Time: 09:19 EDMS 12/19 09:04 Order name: SARS-COV-2 RT PCR; Complete Time: 09:19 EDMS 12/19 09:06 Order name: US; Complete Time: 09:19 EDMS 12/19 09:11 Order name: CT; Complete Time: 09:19 EDMS 12/19 09:12 Order name: US; Complete Time: 09:19 EDMS 12/19 05:47 Order name: EKG; Complete Time: 05:48 [facility] 12/19 05:47 Order name: Cardiac monitoring; Complete Time: 07:04 [facility] 12/19 05:47 Order name: EKG - Nurse/Tech; Complete Time: 07:02 [facility] 12/19 05:47 Order name: IV Saline Lock; Complete Time: 07:04 [facility] 12/19 05:47 Order name: Labs collected and sent; Complete Time: 07:05 [facility] 12/19 05:47 Order name: O2 Per Protocol; Complete Time: 07:05 [facility] 12/19 05:47 Order name: O2 Sat Monitoring; Complete Time: 07:05 [facility] 12/19 09:14 Order name: RAD; Complete Time: 09:19 EDMS EC:07 Rate is 67 beats/min. Rhythm is regular. QRS [place] is Normal. DE interval is normal. QRS dequan interval is normal. QT interval is normal. No Q waves. T waves are Normal. No ST changes noted. Clinical impression: NSR w/ Non-specific ST/T Changes and No evidence of ischemia. Interpreted by me. Reviewed by me. Administered Medications: 07:24 Drug: NS 0.9% 1000 ml Route: IV; Rate: 125 ml/hr; Site: right antecubital; [facility] 07:24 Drug: morphine 2 mg Route: IVP; Site: right antecubital; 6 07:24 Drug: Zofran (Ondansetron) 4 mg Route: IVP; Site: right antecubital; 6 07:24 Drug: Pepcid (famotidine) 20 mg Route: IVP; Site: right antecubital; 6 08:40 Drug: Heparin (DVT/PE Drip) 18 units/kg/hr - (HEParin 04493 units, D5W 500 ml) jh6 {Co-Signature: star (Migel Vyas RN).} Route: IV; Rate: 1600 units/hr; Site: right antecubital; 08:41 Drug: Heparin (DVT/PE- Bolus per protocol) - HEParin 80 units/kg {Co-Signature: star reveles (Migel Vyas RN).} Route: IVP; Site: right antecubital; Disposition Summary: 12/19/21 06:57 Hospitalization Ordered Hospitalization Status: Inpatient Admission dequan Provider: Fer Schafer cha Location: Telemetry/MedSurg (Inpatient) dequan Condition: Fair dequan Problem: new dequan Symptoms: have improved dequan Bed/Room Type: Standard dequan Room Assignment: 208(12/19/21 11:00) em1 Diagnosis - Acute embolism and thrombosis of other specified deep vein of right lower extremity dequan - Fall on same level, unspecified dequan - Low back pain dequan Forms: - Medication Reconciliation Form dequan - SBAR form dequan Signatures: Dispatcher [employer] EDYefri Mills MD MD cha Martinez, Eric em1 Blair Moreno NP IC DESIGNER CUSTOM pm1 Krupa Odell tw5 Irene Hernández RN RN jh6 Migel Vyas RN jd3 Corrections: (The following items were deleted from the chart) 11:00 06:57 dequan em1
[2021-12-19 07:07] LABS: Hematocrit 42.9 % (39.6-49.0); Lymphocytes % 11.5 % (15.3-44.8); MPV 8.4 fL (7.6-11.3); RBC Red Blood Cell Count 4.65 M/uL (4.33-5.43)
[2021-12-19 07:10] LABS: Protime INR 0.91
[2021-12-19] MEDS ORDERED: MORPHINE 4 MG/ML SYR ONE (07:15)
[2021-12-19] MEDS ORDERED: ONDANSETRON 4 MG/2 ML VIAL ONE (07:15)
[2021-12-19] MEDS ORDERED: FAMOTIDINE 20 MG/2 ML VIAL IV ONE (07:16)
[2021-12-19] MEDS ORDERED: NA CHLORIDE 0.9% 1,000 ML ONE (07:16)
[2021-12-19 07:31] LABS: Bilirubin Direct 0.2 mg/dL (0-0.2); Bilirubin Total 0.7 mg/dL (0.2-1.0); Magnesium 2.2 mg/dL (1.8-2.4); Protein, Total 7.7 g/dL (6.4-8.2); Troponin High Sensitivity 39.1 pg/mL (<58.9)
[2021-12-19] MEDS ORDERED: HEPARIN 5000 UNIT/ML 1 ML VIAL ONE (08:32)
[2021-12-19] MEDS ORDERED: HEPARIN/D5W 25,000 UNIT/500 ML BAG IV ONE (08:32)
--- NOTE | 2021-12-19 09:02 | RAD REPORT ---
EXAM DESCRIPTION: CT - Abdomen Pelvis W Contrast - 12/19/2021 8:06 am CLINICAL HISTORY: Abdominal pain COMPARISON: 2020 TECHNIQUE: Computed axial tomography of the abdomen pelvis was obtained. 100 cc Isovue-300 was admin istered intravenously. Oral contrast was not requested which limits evaluation of bowel. All CT scans are performed using dose optimization technique as appropriate and may include automated exposure control or mA/KV adjustment according to patient size. FINDINGS: Gallstone. Gallbladder wall appears borderline thickened. Spleen, pancreas, adrenal and left kidney are unremarkable. Cortical thinning of right kidney with parenchymal calculi. No hydronephrosis. Filter within the IVC. MANAGER STAFFING shunt with its tip right lower abdomen. There is no evidence of diverticulitis. Normal appendix Prostate gland is moderately enlarged. Trace amount of ascites. Small umbilical hernia. Moderate chronic compression fracture L4 vertebral body. Bone island left ilium IMPRESSION: Cholelithiasis. Borderline gallbladder wall thickening
--- NOTE | 2021-12-19 09:06 | RAD REPORT ---
EXAM DESCRIPTION: USExtrem Venous W Compress Bil12/19/2021 6:36 am CLINICAL HISTORY: Leg swelling and pain COMPARISON: March 2021 FINDINGS: The left common femoral, superficial femoral, popliteal and posterior tibial veins are co mpressible and demonstrate augmentation. Doppler demonstrates good flow. Acute occlusive thrombus within the right common femoral, right greater saphenous, right superficial femoral and right popliteal veins. Little flow within the veins. Veins are not compressible IMPRESSION: Extensive acute right lower extremity deep venous thrombosis
--- NOTE | 2021-12-19 09:10 | RAD REPORT ---
EXAM DESCRIPTION: CT - Chest For Pe Angio - 12/19/2021 8:06 am CLINICAL HISTORY: cough COMPARISON: None. TECHNIQUE: Dynamically enhanced axial 3 mm thick images of the chest were obtained during administra tion of <100> mL Isovue 370 IV contrast. Coronal and oblique reconstruction images were generated and reviewed. Exam utilizes a protocol for optimal evaluation of pulmonary arterial tree. Maximum intensity projections 3D imaging was utilized All CT scans are performed using dose optimization technique as appropriate and may include automated exposure control or mA/KV adjustment according to patient size. FINDINGS: A pulmonary embolus is not seen. A thoracic aortic aneurysm is not noted. A pleural effusion is not seen. A pericardial effusion is not seen. A lung consolidation is not present. IMPRESSION: Negative for a pulmonary embolism.
--- NOTE | 2021-12-19 09:12 | RAD REPORT ---
EXAM DESCRIPTION: US - Lower Extremity Artery Uni Ltd - 12/19/2021 6:36 am CLINICAL HISTORY: Leg pain COMPARISON: None FINDINGS: The right common femoral, superficial femoral and popliteal arteries demonstrate triphasic waveforms The right posterior tibial and dorsalis pedis arteries demonstrate biphasic waveforms Grayscale, color and spectral analysis performed on all vessels IMPRESSION: Mild distal lower extremity arterial disease
--- NOTE | 2021-12-19 09:13 | RAD REPORT ---
EXAM DESCRIPTION: Herb Single View12/19/2021 6:48 am CLINICAL HISTORY: cough COMPARISON: 2020 FINDINGS: The lungs appear clear of acute infiltrate. The heart is normal size. Battery pack overli es the left chest. BOX TOE BUFFER shunt courses the right chest IMPRESSION: No acute abnormalities displayed
[2021-12-19] MEDS ORDERED: ONDANSETRON 4 MG/2 ML VIAL IV PRN (11:19)
[2021-12-19] MEDS ORDERED: ASPIRIN 81 MG CHEWABLE TABLET PO SCH (11:19)
[2021-12-19] MEDS ORDERED: ACETAMINOPHEN 500 MG TAB PO PRN (11:19)
[2021-12-19] MEDS ORDERED: HEPARIN/D5W 25,000 UNIT/500 ML BAG IV SCH (11:19)
[2021-12-19] MEDS: FAMOTIDINE 20 MG/2 ML VIAL IV SCH ×2 (11:19→20:42)
[2021-12-19] MEDS ORDERED: NA CHLORIDE 0.9% 1,000 ML IV SCH ×2 (11:19→12:00)
[2021-12-19] MEDS ORDERED: MORPHINE 2 MG/ML SYR IV PRN (11:19)
--- NOTE | 2021-12-19 12:01 | P.SSS ---
Patient History Date of Service: 12/19/21 Reason for admission: LEG SWELLING History of Present Illness: MR. AMAYA HAS HAD DVT IN PAST. HE HAS HAD BRAIN TUMOR THAT HAD RECURRED. HE HAD SURGERY BY NEUROSURGEONS AND HE WAS NEVER STARTED BACK ON WARFARIN. HE HAS SWELLING OF LEG ON R SIDE FOR TWO DAY. HE HAS EXTENSIVE DVT. Allergies No Known Drug Allergies Allergy (Verified 04/27/21 06:08) Unknown Home Medications: Finasteride [Proscar*] 5 mg PO DAILY #30 tab 03/21/14 Amiodarone HCl [Cordarone*] 200 mg PO DAILY 04/26/21 Docusate [Colace Cap*] 100 mg PO Q12H 04/26/21 Levetiracetam [Keppra] 500 mg PO BID 04/26/21 Rosuvastatin Calcium 20 mg PO BEDTIME 04/26/21 Apixaban [Eliquis] 5 mg PO BID #60 tablet 05/14/21 Cranberry Fruit Extract 400 mg PO BID #120 cap 05/14/21 Finasteride [Proscar*] 5 mg PO DAILY #30 tab 05/14/21 Memantine HCl [Namenda*] 10 mg PO DAILY #30 tablet 05/14/21 Sertraline [Zoloft*] 25 mg PO BID #30 tab 05/14/21 Topiramate [Topamax*] 25 mg PO BID #60 tab 05/14/21 traMADol HCL [Ultram*] 50 mg PO Q4HP PRN #30 tab 05/14/21 Metoprolol Tartrate 25 mg PO BID #30 tablet 05/15/21 Tamsulosin [Flomax] 0.4 mg PO BID #30 cap 05/15/21 - Past Medical/Surgical History Diabetic: No -: htn -: hyperlipids -: dvt -: PE -: RCC -: meningioma -: seizure -: stroke -: afib -: falls -: aphasia -: PARTIAL NEPHRECTOMY -: CRANIOTOMY X 2 - Social History Alcohol use: No CD- Drugs: No Caffeine use: Yes Review of Systems 10-point ROS is otherwise unremarkable General: Weakness Physical Examination - Vital Signs Temperature: 98.2 F Blood Pressure: 126/82 Pulse: 76 Respirations: 18 - Physical Exam General: Oriented x3, Mild distress HEENT: Atraumatic, PERRLA, Mucous membr. moist/pink, EOMI, Sclerae nonicteric Neck: Supple, 2+ carotid pulse no bruit, No LAD, Without JVD or thyroid abnormality Respiratory: Clear to auscultation bilaterally, Normal air movement Cardiovascular: Regular rate/rhythm, Normal S1 S2 Gastrointestinal: Normal bowel sounds, No tenderness Musculoskeletal: No tenderness Integumentary: No rashes Neurological: Abnormal speech, Abnormal strength (SINCE BRAIN TUMOR SURGERY, NO CHANGES) Lymphatics: No axilla or inguinal lymphadenopathy - Studies Laboratory Data (last 24 hrs) 12/19/21 06:50: APTT 28.5 12/19/21 06:50: PT 10.5, INR 0.91 12/19/21 06:50: WBC 9.00, Hgb 14.2, Hct 42.9, Plt Count 107 L 12/19/21 06:50: Sodium 139, Potassium 4.0, BUN 24 H, Creatinine 1.17, Glucose 117 H, Magnesium 2.2, Total Bilirubin 0.7, AST 17, ALT 30, Alkaline Phosphatase 75, Lipase 146 - Diagnosis (Problem(s)) (1) Right leg DVT Current Visit: Yes Status: Acute Plan: RECURRENT DVT. HE WILL BE ON LIFE TIME WARFARIN. HE HAS BEEN ON IT FOR YEARS. SOMEHOW THE NEURO DOCTORS DID NOT RESUME WARFARIN AFTER SURGERY. HE HAD BENIGN BRAIN TUMOR THAT RECURRED. LOVENOX AND WARFARIN BRIDGE. HE CAN'T AFFORD NOAC DRUGS. I TRIED BEFORE. WANTS TO CONTINUE WARFARIN IT IS CHEAP FOR THEM. DC IN AM WITH THE PLAN OF LOVENOX FOR 5-7 DAYS UNTIL WARFARIN IS THERAPEUTIC. Qualifiers: Affected thrombotic vein of extremity: femoral Chronicity: acute Qualified Code(s): I82.411 - Acute embolism and thrombosis of right femoral vein - Disposition Disposition: ROUTINE DISCHARGE
[2021-12-19 12:12] VITALS: BMI 27.8
[2021-12-19] MEDS ORDERED: WARFARIN SODIUM 6 MG TAB PO SCH (17:00)
[2021-12-19] MEDS ORDERED: ACETAMINOPHEN 325 MG TABLET PO PRN (18:00)
[2021-12-19] MEDS: ENOXAPARIN 100 MG/ML SYR SQ SCH (20:43)
[2021-12-19] MEDS: SERTRALINE 50 MG PO SCH (20:43)
[2021-12-19] MEDS: LEVETIRACETAM 500 MG PO SCH (20:44)
[2021-12-19] MEDS ORDERED: levETIRAcetam 500 MG TAB PO SCH (21:00)
[2021-12-20 05:46] LABS: Absolute Lymphocytes (CBC) 1.1 K/uL (0.7-4.9); Hematocrit 39.3 % (39.6-49.0); Lymphocytes % 18.8 % (15.3-44.8); MPV 8.4 fL (7.6-11.3); RBC Red Blood Cell Count 4.27 M/uL (4.33-5.43)
[2021-12-20 06:01] LABS: Protime INR 1.04
[2021-12-20 06:02] LABS: Potassium 4.2 mmol/L (3.5-5.1)
[2021-12-20] MEDS: LEVETIRACETAM 500 MG PO SCH (09:00)
[2021-12-20] MEDS: SERTRALINE 50 MG PO SCH (09:00)
[2021-12-20] MEDS: ENOXAPARIN 100 MG/ML SYR SQ SCH (09:23)
[2021-12-20] MEDS: FAMOTIDINE 20 MG/2 ML VIAL IV SCH (09:28)
[2021-12-20 12:27] VITALS: O2SAT 94
[2021-12-20 16:52] VITALS: BP 147/69; TEMP 97.8
== END 2021-12-20 04:10 | disposition home health service (06) ==
LOC: ER 05:12 → ERHOLD 07:00 → INTOOBSV 07:00 → 2ND 11:21
PROVIDERS: ADMIT Internal Medicine; ATTEND Internal Medicine
DX: I82.411 Acute embolism and thrombosis of right femoral vein (principal); I10 Essential (primary) hypertension; I48.91 Unspecified atrial fibrillation; Z86.73 Personal history of transient ischemic attack (TIA), and cerebral infarction without residual deficits; Z20.822 Contact with and (suspected) exposure to COVID-19
CPT/HCPCS: 93005; 85025 ×2; 80048 ×2; 36415; 83735; 85610 ×2; 80076; 85730; 84484; 83690; 83880; 71275; 74177; 71045; 93926; 93970; 96375; 96374; 99285; U0003; Q9967; J1644 ×2; J1650 ×2; J7030; J2405; G0378 ×3